=== PATIENT | female | born 1970 | race Caucasian/White ===

== ENCOUNTER 2018-11-17 20:40 | Emergency (ER) | payer OTHER ==
[~2018-11-17] VITALS: Ht 180.3 cm; Wt 127.0 kg
[~2018-11-17 20:40] MED LIST: AIMOVIG AU70 MG/1 ML SUB-Q; ALPRAZOLAM0.25 MG PO; ASPIR-LOW81 MG PO; CYCLOBENZAPRINE5 MG PO; GLUCOPHAGE500 MG PO; IRON18 MG PO; KETOROLAC TROME10 MG PO; PANTOPRAZOLE SO40 MG PO; PROPRANOLOL HCL20 MG PO; PROTONIX40 M1 PO; REGLAN10 MG PO; RIZATRIPTAN10 MG PO; SERTRALINE HCL25 MG PO; SUMATRIPTAN SU100 MG PO; SUMATRIPTAN20 MG NAS; TOPIRAMATE100 MG PO; TOPIRAMATE25 MG PO; VITAFOL-OB+DHA1 EACH; WELLBUTRIN SR150 MG PO; ZANTAC150 MG PO; ZOFRAN ODT8 MG PO
--- NOTE | 2018-11-18 17:00 | EKG ---
[facility] [address] [facility] [place], [place] [address] Signed Normal sinus rhythm Possible Left atrial enlargement Left ventricular hypertrophy Abnormal ECG When compared with ECG of 03-SEP-2018 11:50, No significant change was found Confirmed by ROMAIN SALDIVAR DO ([id number]) on 11/18/2018 5:00:02 PM Electronically Signed By: ROMAIN SALDIVAR DO 11/18/18 1700 PATIENT NAME: JAMSHIDDEBO Electrocardiogram DATE OF : 74 PHYSICIAN: ROMAIN SALDIVAR DO REPORT #: [id number] REPORT IS CONFIDENTIAL AND NOT TO BE RELEASED WITHOUT AUTHORIZATION
== END 2018-11-17 23:07 | disposition home or self-care (01) ==
LOC: ED 20:40
DX: R07.9 Chest pain, unspecified (principal); F32.9 Major depressive disorder, single episode, unspecified; K21.9 Gastro-esophageal reflux disease without esophagitis; Z88.5 Allergy status to narcotic agent; Z79.899 Other long term (current) drug therapy
CPT/HCPCS: 71046; 80053; 84484; 85025; 93005; 93010; 99285-25

== ENCOUNTER 2019-03-01 03:20 | Emergency (ER) | payer OTHER ==
[~2019-03-01] VITALS: Ht 180.3 cm; Wt 127.0 kg
--- OUTSIDE RECORDS SUMMARY | ~2019-03-01 | XMS | Encounter Summary ---
Demographics + + + | Address | [address] | | | [place] [address] | + + + | Home Phone | | + + + | Preferred Language | Unknown | + + + | Marital Status | | + + + | Sabianism Affiliation | Unknown | + + + | Race | White | + + + | Ethnic Group | Not or | + + + Author + + + | Author | [facility] | + + + | Organization | [facility] | + + + | Address | Unknown | + + + | Phone | Unavailable | + + + Support + + + + + | Name | Relationship | Address | Phone | + + + + + | Thaddeus Martínez | ECON | [address] # | | | | | [place], [place] | | | | | [address] | | + + + + + Care Team Providers + +------+ + | Care Coo & Co Founder Name | Role | Phone | + +------+ + | Latanya Sutton | PCP | Unavailable | + +------+ + Reason for Visit + + + | Reason | Comments | + + + | Returning Phone Call | | + + + Encounter Details +--------+ + + + + | Date | Type | Department | Care Team | Description | +--------+ + + + + | 08/14/ | Telephone | Neurosurgery at | Jose Monique MD | Returning Phone Call | | 2016 | | [facility] [address] | [address] | | | | | Perla Mailcode: CH8N | [place], [place] | | | | | [facility] | [address] | | | | | and , | [phone] | | | | | Floor [place], [place] | | | | | | [address] | | | | | | [phone] | | | +--------+ + + + + Social History + +-------+ +--------+------+ | Tobacco Use | Types | Packs/Day | Years | Date | | | | | Used | | + +-------+ +--------+------+ | Never Assessed | | | | | + +-------+ +--------+------+ + + + | Sex Assigned at | Date Recorded | | | | + + + | Not on file | | + + + + + + + | Job Start Date | Occupation | Industry | + + + + | Not on file | Not on file | Not on file | + + + + + + + + | Travel History | Travel Start | Travel End | + + + + + + | No recent travel history available. | + + documented as of this encounter Plan of Treatment +--------+---------+ + + + | Date | Type | Specialty | Care Team | Description | +--------+---------+ + + + | 05/24/ | Office | Neurology | Kavitha Servin | | | 2019 | Visit | | MD Inez [address] | | | | | | [place] | | | | | | [address] | | | | | | [phone] | | | | | | | | +--------+---------+ + + + documented as of this encounter Visit Diagnoses Not on filedocumented in this encounter"
--- OUTSIDE RECORDS SUMMARY | ~2019-03-01 | XMS | Encounter Summary ---
Demographics + + + | Address | [address] | | | [place] [address] | + + + | Home Phone | | + + + | Preferred Language | Unknown | + + + | Marital Status | | + + + | Cheondoism Affiliation | Unknown | + + + | Race | White | + + + | Ethnic Group | Not or | + + + Author + + + | Author | [facility] | + + + | Organization | [facility] | + + + | Address | Unknown | + + + | Phone | Unavailable | + + + Support + + + + + | Name | Relationship | Address | Phone | + + + + + | Thaddeus Martínez | ECON | [address] # | | | | | [place], [place] | | | | | [address] | | + + + + + Care Team Providers + +------+ + | Care Physical Education Instructor Name | Role | Phone | + +------+ + | Latanya Sutton | PCP | Unavailable | + +------+ + Encounter Details +--------+ + + + + | Date | Type | Department | Care Team | Description | +--------+ + + + + | 01/18/ | MyChart | Neurology at | Kavitha Servin | RE: Question on | | 2018 | Encounter | [place] [facility] & | SMD Sachin | Medications | | | | Healing [address] [place], [place] | | | | | Ashwin Duncan [facility] | [address] | | | | | Health and Healing | [phone] | | | | | [place], [place] | | | | | | [address] | | | | | | [phone] | | | +--------+ + + + [...] 2019 | Visit | | MD Inez [address] | | | | | | [place], [place] | | | | | | [address] | | | | | | [phone] | | | | | | | | +--------+---------+ + + + documented as of this encounter Visit Diagnoses Not on filedocumented in this encounter"
--- OUTSIDE RECORDS SUMMARY | ~2019-03-01 | XMS | Encounter Summary ---
Demographics + + + | Address | [address] | | | [place] [address] | + + + | Home Phone | | + + + | Preferred Language | Unknown | + + + | Marital Status | | + + + | Worship Affiliation | Unknown | + + + [...] | Thaddeus Martínez | ECON | [address] # | | | | | [place], [place] | | | | | [address] | | + + + + + Care Team Providers + +------+ + | Care Afterschool Babysitter Name | Role | Phone | + +------+ + | Latanya Sutton | PCP | Unavailable | + +------+ + Encounter Details +--------+ + + + + | Date | Type | Department | Care Team | Description | +--------+ + + + + | 09/06/ | MyChart | Neurology at | Kavtiha Servin | RE: Info for 09/10 | | 2017 | Encounter | [place] [facility] & | SMD [address] | Appointment | | | | Healing [address] | [place] [facility] [place] | | | | | [place] for | [address] | | | | | Health and Healing | [phone] | | | | | [place], [place] | | | | | | [address] | | | | | | [phone] | | | +--------+ + + + [...] 2019 | Visit | | MD Inez [address] | | | | | | [place] | | | | | | [address] | | | | | | [phone] | | | | | | | | +--------+---------+ + + + documented as of this encounter Visit Diagnoses Not on filedocumented in this encounter"
--- OUTSIDE RECORDS SUMMARY | ~2019-03-01 | XMS | Encounter Summary ---
Demographics + + + | Address | [address] | | | [place] [address] | + + + | Home Phone | | + + + | Preferred Language | Unknown | + + + | Marital Status | | + + + | Episcopalian Affiliation | Unknown | + + + | Race | White | + + + | Ethnic Group | Not or | + + + Author + + + | Author | [facility] | + + + | Organization | [facility] | + + + | Address | Unknown | + + + | Phone | Unavailable | + + + Support + + + + + | Name | Relationship | Address | Phone | + + + + + | Thaddeus Martínez | ECON | [address] # | | | | | [place], [place] | | | | | [address] | | + + + + + Care Team Providers + +------+ + | Care Facility Attendant Name | Role | Phone | + +------+ + | Latanya Sutton | PCP | Unavailable | + +------+ + Encounter Details +--------+ + + + + | Date | Type | Department | Care Team | Description | +--------+ + + + + | 09/14/ | MyChart | Neurology at | Kavitha Servin | Filling Ketorolac RX | | 2017 | Encounter | [facility] | SMD [address] | | | | | Healing [address] | [place] [facility] [place] | | | | | Ashwin Duncan [facility] | [address] | | | | | Health and Healing | [phone] | | | | | [place], [place] | | | | | | [address] | | | | | | [phone] | | | +--------+ + + + [...] | | | | | | [place]la [facility] [place] | | | | | | [address] | | | | | | [phone] | | | | | | | | +--------+---------+ + + + documented as of this encounter Visit Diagnoses Not on filedocumented in this encounter"
--- OUTSIDE RECORDS SUMMARY | ~2019-03-01 | XMS | Encounter Summary ---
Demographics + + + | Address | [address] | | | [place] [address] | + + + | Home Phone | | + + + | Preferred Language | Unknown | + + + | Marital Status | | + + + | Cheondoism Affiliation | Unknown | + + + | Race | White | + + + | Ethnic Group | Not or | + + + Author + + + | Author | [facility] | + + + | Organization | [facility] | + + + | Address | Unknown | + + + | Phone | Unavailable | + + + Support + + + + + | Name | Relationship | Address | Phone | + + + + + | Thaddeus Martínez | ECON | [address] # | | | | | [place], [place] | | | | | [address] | | + + + + + Care Team Providers + +------+ + | Care Physics And Astronomy Professor Name | Role | Phone | + +------+ + | Latanya Sutton | PCP | Unavailable | + +------+ + Encounter Details +--------+ + + + + | Date | Type | Department | Care Team | Description | +--------+ + + + + | 03/02/ | MyChart | Neurology at | Kavitha Servin | RE: BP Readings - | | 2017 | Encounter | [place] [facility] & | SMD [address] | Lisinopril | | | | Healing [address] | [place] [facility] [place] | | | | | [facility]win [facility] | [address] | | | | | Health and Healing | [phone] | | | | | [place], [place] | | | | | | [address] | | | | | | [phone] | | | +--------+ + + + [...] 2019 | Visit | | MD Inez [address] | | | | | | [place] | | | | | | [address] | | | | | | [phone] | | | | | | | | +--------+---------+ + + + documented as of this encounter Visit Diagnoses Not on filedocumented in this encounter"
--- OUTSIDE RECORDS SUMMARY | ~2019-03-01 | XMS | Encounter Summary ---
Demographics + + + | Address | [address] | | | [place] [address] | + + + | Home Phone | | + + + | Preferred Language | Unknown | + + + | Marital Status | | + + + | Congregation Affiliation | Unknown | + + + | Race | White | + + + | Ethnic Group | Not or | + + + Author + + + | Author | [facility] | + + + | Organization | [facility] | + + + | Address | Unknown | + + + | Phone | Unavailable | + + + Support + + + + + | Name | Relationship | Address | Phone | + + + + + | Thaddeus Martínez | ECON | [address] # | | | | | [place], [place] | | | | | [address] | | + + + + + Care Team Providers + +------+ + | Care Java Web Application Developer Name | Role | Phone | + +------+ + | Latanya Sutton | PCP | Unavailable | + +------+ + Encounter Details +--------+ + + + + | Date | Type | Department | Care Team | Description | +--------+ + + + + | 11/10/ | Telephone | Neurology at | Kavitha Servin | | | 2018 | | [place] [facility] & | MD Inez [address] | | | | | Healing [address] [place], [place] | | | | | Ashwin Duncan [facility] | [address] | | | | | Health and Healing | [phone] | | | | | [place], [place] | | | | | | [address] | | | | | | [phone] | | | +--------+ + + + [...] 2019 | Visit | | MD Inez [address] | | | | | | [place] | | | | | | [address] | | | | | | [phone] | | | | | | | | +--------+---------+ + + + documented as of this encounter Visit Diagnoses Not on filedocumented in this encounter"
--- OUTSIDE RECORDS SUMMARY | ~2019-03-01 | XMS | Encounter Summary ---
Demographics + + + | Address | [address] | | | [place] [address] | + + + | Home Phone | | + + + | Preferred Language | Unknown | + + + | Marital Status | | + + + | Jain Affiliation | Unknown | + + + | Race | White | + + + | Ethnic Group | Not or | + + + Author + + + | Author | [facility] | + + + | Organization | [facility] | + + + | Address | Unknown | + + + | Phone | Unavailable | + + + Support + + + + + | Name | Relationship | Address | Phone | + + + + + | Thaddeus Martínez | ECON | [address] # | | | | | [place], [place] | | | | | [address] | | + + + + + Care Team Providers + +------+ + | Care Control Electrician Name | Role | Phone | + +------+ + | Shanti Sanchez | PCP | | + +------+ + Encounter Details +--------+ + + + + | Date | Type | Department | Care Team | Description | +--------+ + + + + | 06/01/ | MyChart | Neurology at | Kavitha Servin | RE: Need New Aimovig | | 2018 | Encounter | [place] [facility] & | SMD [address] | RX | | | | Healing [address] | [place] [facility] [place] | | | | | Ashwin Duncan [facility] | [address] | | | | | Health and Healing | [phone] | | | | | [place], [place] | | | | | | [address] | | | | | | [phone] | | | +--------+ + + + [...] 05/24/ | Office | Neurology | Kavitha eSrvin | | | 2019 | Visit | | MD Inez [address] | | | | | | [place], [place] | | | | | | [address] | | | | | | [phone] | | | | | | | | +--------+---------+ + + + documented as of this encounter Visit Diagnoses Not on filedocumented in this encounter"
--- OUTSIDE RECORDS SUMMARY | ~2019-03-01 | XMS | Encounter Summary ---
Demographics + + + | Address | [address] | | | [place] [address] | + + + | Home Phone | | + + + | Preferred Language | Unknown | + + + | Marital Status | | + + + | Jewish Affiliation | Unknown | + + + | Race | White | + + + | Ethnic Group | Not or | + + + Author + + + | Author | [facility] | + + + | Organization | [facility] | + + + | Address | Unknown | + + + | Phone | Unavailable | + + + Support + + + + + | Name | Relationship | Address | Phone | + + + + + | Thaddeus Martínez | ECON | [address] # | | | | | [place], [place] | | | | | [address] | | + + + + + Care Team Providers + +------+ + | Care Reporting Specialist Name | Role | Phone | + [...] Description | +--------+--------+ + + + | 05/04/ | Refill | Neurology at | Kavitha Servin | Refill Request | | 2018 | | [facility] & | S, [address] | | | | | Healing [address] | [place], [place] | | | | | [facility] | [address] | | | | | Health and Healing | [phone] | | | | | [place], [place] | | | | | | [address] | | | | | | [phone] | | | +--------+--------+ + + + [...] 2019 | Visit | | MD Inez [address] | | | | | | [place] [facility] [place] | | | | | | [address] | | | | | | [phone] | | | | | | | | +--------+---------+ + + + documented as of this encounter Visit Diagnoses Not on filedocumented in this encounter"
--- OUTSIDE RECORDS SUMMARY | ~2019-03-01 | XMS | Encounter Summary ---
Demographics + + + | Address | [address] | | | [place] [address] | + + + | Home Phone | | + + + | Preferred Language | Unknown | + + + | Marital Status | | + + + | Orthodox Affiliation | Unknown | + + + | Race | White | + + + | Ethnic Group | Not or | + + + Author + + + | Author | [facility] | + + + | Organization | [facility] | + + + | Address | Unknown | + + + | Phone | Unavailable | + + + Support + + + + + | Name | Relationship | Address | Phone | + + + + + | Thaddeus Martínez | ECON | [address] # | | | | | [place], [place] | | | | | [address] | | + + + + + Care Team Providers + +------+ + | Care Assembler For Puller Over Machine Name | Role | Phone | + [...] | | | | Chronic | Olivia K, | Kavitha S, | | | | | nonintractab | [address] | [address] | | | | | le headache, | [address] | [address] | | | | | unspecified | [address] | [place], [place] | | | | | headache | [place] | [address] | | | | | type | [address] | Phone: | | | | | Procedures | Phone: | [phone] | | | | | CONSULT TO | [phone] | Fax: | | | | | NEUROLOGY | Fax: | [phone] | | | | | | [phone] | | +--------+--------+ + + + + Encounter Details +--------+---------+ + + + | Date | Type | Department | Care Team | Description | +--------+---------+ + + + | 02/12/ | Office | Neurology at | Kavitha Sevrin | Migraine without | | 2017 | Visit | [facility] & | MD Sachin Wiley | aura and without | | | | [address] | [address] [facility] [place] | status migrainosus, | | | | 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 INTERVAL HISTORY Headaches dropped to 3-8 STALLINGS pe rmonth. Her headaches comes in 2-3 days in a row. She usuall y get Toradol IM at the her teacher education instructor's office. She MEDICATIONS Current Outpatient Prescriptions on [...] fund of knowledge. Migraine Disability Score (manual oracle database administrator):: 70 (12/02/16 1100) Score Arredondo: 0-5: Little [...] to Topamax, she now reports 3 -8 STALLINGS/month. Plan: - Increase Topamax to 100 mg [...] Patient is welcome to e-mail via my [facility] chart if questions or concerns arise in the future. I spent 25 minutes with the patient. Greater than 50% of the time was spent counseling the patient regarding diagnosis, risks, benefits, and alternatives to current management. All questions were answered to patient s satisfaction. documented in thi s encounter Plan of Treatment +--------+---------+ + + + | Date | Type | Specialty | Care Team | Description | +--------+---------+ + + + | 05/24/ | Office | Neurology | Kavitha Servin | | | 2018 | Visit | | MD Inez [address] | | | | | | [place], [place] | | | | | | [address] | | | | | | [phone] | | | | | | | | +--------+---------+ + + + documented as of this encounter Visit Diagnoses + [...] Ketorolac Tromethamine 30 Mg | Given | 02/12/ | 60 mg | | Right | | Intramuscular | | 7 11:50 | | | Upper | | | | PDT | | | Quad. | | | | | | | Gluteus | + +--------+ +-------+------+---------+ +---+---+ | | | +---+---+ documented in this encounter
--- OUTSIDE RECORDS SUMMARY | ~2019-03-01 | XMS | Encounter Summary ---
Demographics + + + | Address | [address] | | | [place] [address] | + + + | Home Phone | | + + + | Preferred Language | Unknown | + + + | Marital Status | | + + + | Oriental Orthodox Affiliation | Unknown | + + + | Race | White | + + + | Ethnic Group | Not or | + + + Author + + + | Author | [facility] | + + + | Organization | [facility] | + + + | Address | Unknown | + + + | Phone | Unavailable | + + + Support + + + + + | Name | Relationship | Address | Phone | + + + + + | Thaddeus Martínez | ECON | [address] # | | | | | [place], [place] | | | | | [address] | | + + + + + Care Team Providers + +------+ + | Care Information Systems Security Developer Name | Role | Phone | + +------+ + | Latanya Sutton | PCP | Unavailable | + +------+ + Encounter Details +--------+ + + + + | Date | Type | Department | Care Team | Description | +--------+ + + + + | 11/10/ | Telephone | Neurology at | Kavitha Servin | | | 2018 | | [facility] & | MD Inez [address] | | | | | Healing [address] [place], [place] | | | | | Ashwin Duncan [facility] | [address] | | | | | Health and Healing | [phone] | | | | | [place], [place] | | | | | | [address] | | | | | | [phone] | | | +--------+ + + + [...] 2019 | Visit | | MD Inez [address] | | | | | | [place] | | | | | | [address] | | | | | | [phone] | | | | | | | | +--------+---------+ + + + documented as of this encounter Visit Diagnoses Not on filedocumented in this encounter"
--- OUTSIDE RECORDS SUMMARY | ~2019-03-01 | XMS | Encounter Summary ---
Demographics + + + | Address | [address] | | | [place] [address] | + + + | Home Phone | | + + + | Preferred Language | Unknown | + + + | Marital Status | | + + + | Yarsanism Affiliation | Unknown | + + + | Race | White | + + + | Ethnic Group | Not or | + + + Author + + + | Author | [facility] | + + + | Organization | [facility] | + + + | Address | Unknown | + + + | Phone | Unavailable | + + + Support + + + + + | Name | Relationship | Address | Phone | + + + + + | Thaddeus Martínez | ECON | [address] # | | | | | [place], [place] | | | | | [address] | | + + + + + Care Team Providers + +------+ + | Care Artificial Limb Fitter Name | Role | Phone | + +------+ + | Latanya Sutton | PCP | Unavailable | + +------+ + Encounter Details +--------+ + + + + | Date | Type | Department | Care Team | Description | +--------+ + + + + | 12/11/ | MyChart | Neurology at | Kavitha Servin | RE: Medication | | 2017 | Encounter | [facility] & | MD Sachin Wiley | Clarification | | | | Healing [address] | [place], [place] | | | | | Ashwin Duncan [facility] | [address] | | | | | Health and Healing | [phone] | | | | | [place], [place] | | | | | | [address] | | | | | | [phone] | | | +--------+ + + + [...] | 2019 | Visit | | MD Barron [address] | | | | | | [place] | | | | | | [address] | | | | | | [phone] | | | | | | | | +--------+---------+ + + + documented as of this encounter Visit Diagnoses Not on filedocumented in this encounter"
--- OUTSIDE RECORDS SUMMARY | ~2019-03-01 | XMS | Encounter Summary ---
Demographics + + + | Address | [address] | | | [place] [address] | + + + | Home Phone | | + + + | Preferred Language | Unknown | + + + | Marital Status | | + + + | Caodaism Affiliation | Unknown | + + + | Race | White | + + + | Ethnic Group | Not or | + + + Author + + + | Author | [facility] | + + + | Organization | [facility] | + + + | Address | Unknown | + + + | Phone | Unavailable | + + + Support + + + + + | Name | Relationship | Address | Phone | + + + + + | Thaddeus Martínez | ECON | [address] # | | | | | [place], [place] | | | | | [address] | | + + + + + Care Team Providers + +------+ + | Care Binder And Box Builder Name | Role | Phone | + +------+ + | Shanti Sanchez | PCP | | + +------+ + Encounter Details +--------+ + + + + | Date | Type | Department | Care Team | Description | +--------+ + + + + | 11/07/ | MyChart | Neurology at | Kavitha Servin | RE: Itching Side | | 2019 | Encounter | [facility] | SMD [address] | Effect Aimovig | | | | Healing [address] | [place], [place] | | | | | [address] [place] [facility] | [address] | | | | | Health and Healing | [phone] | | | | | [place], [place] | | | | | | [address] | | | | | | [phone] | | | +--------+ + + + [...] 2019 | Visit | | MD Inez [address] | | | | | | [place], [place] | | | | | | [address] | | | | | | [phone] | | | | | | | | +--------+---------+ + + + documented as of this encounter Visit Diagnoses Not on filedocumented in this encounter"
--- OUTSIDE RECORDS SUMMARY | ~2019-03-01 | XMS | Encounter Summary ---
Demographics + + + | Address | [address] | | | [place] [address] | + + + | Home Phone | | + + + | Preferred Language | Unknown | + + + | Marital Status | | + + + | Samaritan Affiliation | Unknown | + + + | Race | White | + + + | Ethnic Group | Not or | + + + Author + + + | Author | [facility] | + + + | Organization | [facility] | + + + | Address | Unknown | + + + | Phone | Unavailable | + + + Support + + + + + | Name | Relationship | Address | Phone | + + + + + | Thaddeus Martínez | ECON | [address] # | | | | | [place], [place] | | | | | [address] | | + + + + + Care Team Providers + +------+ + | Care Construction Producer Name | Role | Phone | + +------+ + | Latanya Sutton | PCP | Unavailable | + +------+ + Encounter Details +--------+ + + + + | Date | Type | Department | Care Team | Description | +--------+ + + + + | 09/10/ | Business Performance Advisor | Neurology at | Kavitha Servin | | | 2017 | | [facility] | SMD Sach[address] | | | | | Healing [address] | [place], [place] | | | | | Ashwin Ducnan [facility] | [address] | | | | | Health and Healing | [phone] | | | | | [place], [place] | | | | | | [address] | | | | | | [phone] | | | +--------+ + + + [...] 2019 | Visit | | MD Inez [address] | | | | | | [place] | | | | | | [address] | | | | | | [phone] | | | | | | | | +--------+---------+ + + + documented as of this encounter Visit Diagnoses Not on filedocumented in this encounter"
--- OUTSIDE RECORDS SUMMARY | ~2019-03-01 | XMS | Encounter Summary ---
Demographics + + + | Address | [address] | | | [place] [address] | + + + | Home Phone | | + + + | Preferred Language | Unknown | + + + | Marital Status | | + + + | Baptism Affiliation | Unknown | + + + | Race | White | + + + | Ethnic Group | Not or | + + + Author + + + | Author | [facility] | + + + | Organization | [facility] | + + + | Address | Unknown | + + + | Phone | Unavailable | + + + Support + + + + + | Name | Relationship | Address | Phone | + + + + + | Thaddeus Martínez | ECON | [address] # | | | | | [place], [place] | | | | | [address] | | + + + + + Care Team Providers + +------+ + | Care Cant Gang Sawyer Name | Role | Phone | + [...] | Medication | | 2019 | | [facility] & | SMD [address] | (Emgality) | | | | Healing [address] | Ave [place], [place] | | | | | Ashwin [facility] | [address] | | | | | Health and Healing | [phone] | | | | | [place], [place] | | | | | | [address] | | | | | | [phone] | | | +--------+ + + + [...] 2019 | Visit | | MD Inez [address] | | | | | | [place], [place] | | | | | | [address] | | | | | | [phone] | | | | | | | | +--------+---------+ + + + documented as of this encounter Visit Diagnoses Not on filedocumented in this encounter"
--- OUTSIDE RECORDS SUMMARY | ~2019-03-01 | XMS | Encounter Summary ---
Demographics + + + | Address | [address] | | | [place] [address] | + + + | Home Phone | | + + + | Preferred Language | Unknown | + + + | Marital Status | | + + + | Spiritism Affiliation | Unknown | + + + | Race | White | + + + | Ethnic Group | Not or | + + + Author + + + | Author | [facility] | + + + | Organization | [facility] | + + + | Address | Unknown | + + + | Phone | Unavailable | + + + Support + + + + + | Name | Relationship | Address | Phone | + + + + + | Thaddeus Martínez | ECON | [address] # | | | | | [place], [place] | | | | | [address] | | + + + + + Care Team Providers + +------+ + | Care Food Operations Manager Name | Role | Phone | + +------+ + | Latanya Sutton | PCP | Unavailable | + +------+ + Encounter Details +--------+ + + + + | Date | Type | Department | Care Team | Description | +--------+ + + + + | 01/07/ | MyChart | Neurology at | K[facility]itha Servin | RE: Update since | | 2017 | Encounter | [facility] & | MD Inez [address] | Appointment - ER | | | | Healing [address] | Ave [facility] [place] | visit | | | | Ashwin Duncan [facility] for | [address] | | | | | Health and Healing | [phone] | | | | | [place], [place] | | | | | | [address] | | | | | | [phone] | | | +--------+ + + + [...] | | | | | | [place], [place] | | | | | | [address] | | | | | | [phone] | | | | | | | | +--------+---------+ + + + documented as of this encounter Visit Diagnoses Not on filedocumented in this encounter"
--- OUTSIDE RECORDS SUMMARY | ~2019-03-01 | XMS | Encounter Summary ---
Demographics + + + | Address | [address] | | | [place] [address] | + + + | Home Phone [...] + + + | Author | [facility] | + + + | Organization | [facility] | + + + | Address | Unknown | + + + | Phone | Unavailable | + + + Support + + + + + | Name | Relationship | Address | Phone | + + + + + | Thaddeus Martínez | ECON | [address] # | | | | | [place], [place] | | | | | [address] | | + + + + + Care Team Providers + +------+ + | Care Home Furnishings Sales Representative Name | Role | Phone | + +------+ + | Latanya Sutton | PCP | Unavailable | + +------+ + Encounter Details +--------+ + + + + | Date | Type | Department | Care Team | Description | +--------+ + + + + | 03/11/ | Abstract | Neurology at | Kavitha Servin | | | 2018 | | [place] [facility] & | SMD [address] | | | | | Healing [address] [place], [place] | | | | | Ashwin Duncan [facility] | [address] | | | | | Health and Healing | [phone] | | | | | [place], [place] | | | | | | [address] | | | | | | [phone] | | | +--------+ + + + [...] 2019 | Visit | | MD Inez [address] | | | | | | [place], [place] | | | | | | [address] | | | | | | [phone] | | | | | | | | +--------+---------+ + + + documented as of this encounter Visit Diagnoses Not on filedocumented in this encounter"
--- OUTSIDE RECORDS SUMMARY | ~2019-03-01 | XMS | Encounter Summary ---
Demographics + + + | Address | [address] | | | [place] [address] | + + + | Home Phone [...] + + + | Author | [facility] | + + + | Organization | [facility] | + + + | Address | Unknown | + + + | Phone | Unavailable | + + + Support + + + + + | Name | Relationship | Address | Phone | + + + + + | Thaddeus Martínez | ECON | [address] # | | | | | [place], [place] | | | | | [address] | | + + + + + Care Team Providers + +------+ + | Care Hand Grinder Name | Role | Phone | + [...] since | | 2017 | Encounter | [facility] & | MD Inez [address] | Appointment - ER | | | | Healing [address] | Ave [facility] [place] | visit | | | | Ashwin Duncan [facility] | [address] | | | | | Health and Healing | [phone] | | | | | [place], [place] | | | | | | [address] | | | | | | [phone] | | | +--------+ + + + [...] | | | | | | [place], [place] | | | | | | [address] | | | | | | [phone] | | | | | | | | +--------+---------+ + + + documented as of this encounter Visit Diagnoses Not on filedocumented in this encounter"
--- OUTSIDE RECORDS SUMMARY | ~2019-03-01 | XMS | Encounter Summary ---
Demographics + + + | Address | [address] | | | [place] [address] | + + + | Home Phone | | + + + | Preferred Language | Unknown | + + + | Marital Status | | + + + | Confucianist Affiliation | Unknown | + + + [...] Thaddeus Martínez | ECON | [address] # | | | | | [place], [place] | | | | | [address] | | + + + + + Care Team Providers + +------+ + | Care Websphere Commerce Developer Name | Role | Phone | + +------+ + | Latanya Sutton | PCP | Unavailable | + +------+ + Encounter Details +--------+ + + + + | Date | Type | Department | Care Team | Description | +--------+ + + + + | 02/19/ | MyChart | Neurology at | Kavitha Servin | RE: [facility] | | 2017 | Encounter | [facility] & | MD Inez [address] | | | | | Healing [address] | [place] [facility] [place] | | | | | Ashwin Duncan [facility] | [address] | | | | | Health and Healing | [phone] | | | | | [place], [place] | | | | | | [address] | | | | | | [phone] | | | +--------+ + + + [...] 2019 | Visit | | MD Inez [address] | | | | | | [place], [place] | | | | | | [address] | | | | | | [phone] | | | | | | | | +--------+---------+ + + + documented as of this encounter Visit Diagnoses Not on filedocumented in this encounter"
--- OUTSIDE RECORDS SUMMARY | ~2019-03-01 | XMS | Encounter Summary ---
Demographics + + + | Address | [address] | | | [place] [address] | + + + | Home Phone | | + + + | Preferred Language | Unknown | + + + | Marital Status | | + + + | Jehovah'S Witness Affiliation | Unknown | + + + [...] Thaddeus Martínez | ECON | [address] # | | | | | [place], [place] | | | | | [address] | | + + + + + Care Team Providers + +------+ + | Care Office Executive Name | Role | Phone | + +------+ + | Shanti Sanchez | PCP | | + +------+ + Encounter Details +--------+ + + + + | Date | Type | Department | Care Team | Description | +--------+ + + + + | 05/26/ | Telephone | Neurology at | Kavitha Servin | | | 2017 | | [place] [facility] & | MD Sachin Wiley | | | | | Healing [address] | [place] [facility] [place] | | | | | Ashwin Duncan [facility] | [address] | | | | | Health and Healing | [phone] | | | | | [place], [place] | | | | | | [address] | | | | | | [phone] | | | +--------+ + + + [...] | | | | | | [place], [place] | | | | | | [address] | | | | | | [phone] | | | | | | | | +--------+---------+ + + + documented as of this encounter Visit Diagnoses Not on filedocumented in this encounter"
--- OUTSIDE RECORDS SUMMARY | ~2019-03-01 | XMS | Encounter Summary ---
Demographics + + + | Address | [address] | | | [place] [address] | + + + | Home Phone | | + + + | Preferred Language | Unknown | + + + | Marital Status | | + + + | Yarsanism Affiliation | Unknown | + + + | Race | White | + + + | Ethnic Group | Not or | + + + Author + + + | Author | [facility] | + + + | Organization | [facility] | + + + | Address | Unknown | + + + | Phone | Unavailable | + + + Support + + + + + | Name | Relationship | Address | Phone | + + + + + | Thaddeus Martínez | ECON | [address] # | | | | | [place], [place] | | | | | [address] | | + + + + + Care Team Providers + +------+ + | Care Warp Hanger Name | Role | Phone | + +------+ + | Latanya Sutton | PCP | Unavailable | + +------+ + Encounter Details +--------+ + + + + | Date | Type | Department | Care Team | Description | +--------+ + + + + | 12/11/ | MyChart | Neurology at | Kavitha Servin | RE: Medication | | 2017 | Encounter | [facility] & | MD Sachin Wiley | Clarification | | | | Healing [address] | [place], [place] | | | | | Ashwin Duncan [facility] | [address] | | | | | Health and Healing | [phone] | | | | | [place], [place] | | | | | | [address] | | | | | | [phone] | | | +--------+ + + + [...] | | | | | | [place] | | | | | | [address] | | | | | | [phone] | | | | | | | | +--------+---------+ + + + documented as of this encounter Visit Diagnoses Not on filedocumented in this encounter"
--- OUTSIDE RECORDS SUMMARY | ~2019-03-01 | XMS | Encounter Summary ---
Demographics + + + | Address | [address] | | | [place] [address] | + + + | Home Phone | | + + + | Preferred Language | Unknown | + + + | Marital Status | | + + + | Hindu Affiliation | Unknown | + + + | Race | White | + + + | Ethnic Group | Not or | + + + Author + + + | Author | [facility] | + + + | Organization | [facility] | + + + | Address | Unknown | + + + | Phone | Unavailable | + + + Support + + + + + | Name | Relationship | Address | Phone | + + + + + | Thaddeus Martínez | ECON | [address] # | | | | | [place], [place] | | | | | [address] | | + + + + + Care Team Providers + +------+ + | Care In House Cra Name | Role | Phone | + [...] | | unspecified | [address] | [place], [place] | | | | | headache | [place], [place] | [address] | | | | | type | [address] | Phone: | | | | | Procedures | Phone: | [phone] | | | | | CONSULT TO | [phone] | Fax: | | | | | NEUROLOGY | Fax: | [phone] | | | | | | [phone] | | +--------+--------+ + + + + Encounter Details +--------+---------+ + + + | Date | Type | Department | Care Team | Description | +--------+---------+ + + + | 02/12/ | Office | Neurology at | Kavitha Servin | Migraine without | | 2017 | Visit | [facility] & | MD Sachin Wiley | aura and without | | | | [address] | Ave [facility] [place] | status migrainosus, | | | | Ashwin Duncan 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 INTERVAL HISTORY Headaches dropped to 3-8 STALLINGS pe rmonth. Her headaches comes in 2-3 days in a row. 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 She MEDICATIONS Current Outpatient Prescriptions on [...] of knowledge. Migraine Disability Score (manual data warehouse manager):: 70 (12/02/16 1100) Score Arredondo: 0-5: Little [...] Patient is welcome to e-mail via my [facility] chart if questions or concerns arise [...] | | | | | | [place], [place] | | | | | | [address] | | | | | | [phone] | | | | | | | [...]
--- OUTSIDE RECORDS SUMMARY | ~2019-03-01 | XMS | Encounter Summary ---
Demographics + + + | Address | [address] | | | [place] [address] | + + + | Home Phone | | + + + | Preferred Language | Unknown | + + + | Marital Status | | + + + | Shinto Affiliation | Unknown | + + + | Race | White | + + + | Ethnic Group | Not or | + + + Author + + + | Author | [facility] | + + + | Organization | [facility] | + + + | Address | Unknown | + + + | Phone | Unavailable | + + + Support + + + + + | Name | Relationship | Address | Phone | + + + + + | Thaddeus Martínez | ECON | [address] # | | | | | [place], [place] | | | | | [address] | | + + + + + Care Team Providers + +------+ + | Care Tester Operator Name | Role | Phone | + +------+ + | Shanti Sanchez | PCP | | + +------+ + Reason for Visit + + + | Reason | Comments | + + + | Follow-up visit | | + + + Consultation (Routine) + +--------+ + + + + | Status | Reason | Specialty | Diagnoses / | Referred By | Referred To | | | | | Procedures | Contact | Contact | + +--------+ + + + + | Authorized | | Neurology | Diagnoses | Remling, | Gareth, | | | | | Chronic | Olivia Bliss, | Kavitha Wiley, | | | | | nonintractab | [address] | MD Sachin ROYAL | | | | | le headache, | [address] | [address] | | | | | unspecified | [address] | [place], [place] | | | | | headache | [place], [place] | [address] | | | | | type | [address] | Phone: | | | | | Procedures | Phone: | [phone] | | | | | CONSULT TO | [phone] | Fax: | | | | | NEUROLOGY | Fax: | [phone] | | | | | [address] | [phone] | | + +--------+ + + + + Encounter Details +--------+---------+ + + + | Date | Type | Department | Care Team | Description | +--------+---------+ + + + | 11/18/ | Office | Neurology at | Kavitha Servin | Chronic migraine | | 2019 | Visit | [facility] & | S, MD [address] | without aura without | | | | Healing [address] | [address] [place], [place] | status migrainosus, | | | | [address] [place] for | [address] | not intractable | | | | Health and Healing | [phone] | (Primary Dx) | | | | [place], [place] | | | | | | [address] | | | | | | [phone] | | | +--------+---------+ + + + [...] PM PST- Make sure to see a paralegal for arms rash - Wait until Aimovig [...] Prescription for Cefaly Unit FDA approved medical case worker for use in helping to reduce migraine occurrences Dispense: #1 Cefaly Unit with 3 set of electrodes Directions: use 20 min each night as directed by roof designer 1 each 3 cyclobenzaprine 5 mg oral [...] swing, and turning. Migraine Disability Score (manual maintenance data analyst):: 25 (05/10/18 1400) Score Arredondo: 0-5: Little [...] severe constipation. Plan:. - Follow-up with local paralegal - Once GI function returns to normal, start Emgality 120 mg SC monthly - RTC in 4-6 months. Patient is welcome to e-mail via my [facility] chart if questions or concern s arise [...] 2019 | Visit | | MD Inez [address] | | | | | | [place], [place] | | | | | | [address] | | | | | | [phone] | | | | | | | [...]
--- OUTSIDE RECORDS SUMMARY | ~2019-03-01 | XMS | Encounter Summary ---
Demographics + + + | Address | [address] | | | [place] [address] | + + + | Home Phone | | + + + | Preferred Language | Unknown | + + + | Marital Status | | + + + | Worship Affiliation | Unknown | + + + | Race | White | + + + | Ethnic Group | Not or | + + + Author + + + | Author | [facility] | + + + | Organization | [facility] | + + + | Address | Unknown | + + + | Phone | Unavailable | + + + Support + + + + + | Name | Relationship | Address | Phone | + + + + + | Thaddeus Martínez | ECON | [address] # | | | | | [place], [place] | | | | | [address] | | + + + + + Care Team Providers + +------+ + | Care Dredge Pipeman Name | Role | Phone | + +------+ + | Latanya Sutton | PCP | Unavailable | + +------+ + Reason for Visit + + + | Reason | Comments | + + + | Care Coordination | CGRP Enrollment | + + + Encounter Details +--------+ + + + + | Date | Type | Department | Care Team | Description | +--------+ + + + + | 03/11/ | Telephone | Neurology at | Kavitha Servin | Care Coordination | | 2018 | | [facility] & | MD [address] | (CGRP Enrollment ) | | | | Healing [address] | [place], [place] | | | | | Ashwin Duncan [facility] | [address] | | | | | Health and Healing | [phone] | | | | | [place], [place] | | | | | | [address] | | | | | | [phone] | | | +--------+ + + + [...] 2019 | Visit | | MD Inez [address] | | | | | | [place], [place] | | | | | | [address] | | | | | | [phone] | | | | | | | | +--------+---------+ + + + documented as of this encounter Visit Diagnoses Not on filedocumented in this encounter"
--- OUTSIDE RECORDS SUMMARY | ~2019-03-01 | XMS | Encounter Summary ---
Demographics + + + | Address | [address] | | | [place] [address] | + + + | Home Phone | | + + + | Preferred Language | Unknown | + + + | Marital Status | | + + + | Samaritan Affiliation | Unknown | + + + | Race | White | + + + | Ethnic Group | Not or | + + + Author + + + | Author | [facility] | + + + | Organization | [facility] | + + + | Address | Unknown | + + + | Phone | Unavailable | + + + Support + + + + + | Name | Relationship | Address | Phone | + + + + + | Thaddeus Martínez | ECON | [address] # | | | | | [place], [place] | | | | | [address] | | + + + + + Care Team Providers + +------+ + | Care Archaeology Professor Name | Role | Phone | [...] | | Healing [address] | [place] [facility] [place] | | | | | Ashwin Duncan [facility] | [address] | | | | | Health and Healing | [phone] | | | | | [place], [place] | | | | | | [address] | | | | | | [phone] | | | +--------+ + + + [...] 2019 | Visit | | MD Inez [address] | | | | | | [place], [place] | | | | | | [address] | | | | | | [phone] | | | | | | | | +--------+---------+ + + + documented as of this encounter Visit Diagnoses Not on filedocumented in this encounter"
--- OUTSIDE RECORDS SUMMARY | ~2019-03-01 | XMS | Encounter Summary ---
Demographics + + + | Address | [address] | | | [place] [address] | + + + | Home Phone | | + + + | Preferred Language | Unknown | + + + | Marital Status | | + + + | Evangelical Affiliation | Unknown | + + + | Race | White | + + + | Ethnic Group | Not or | + + + Author + + + | Author | [facility] | + + + | Organization | [facility] | + + + | Address | Unknown | + + + | Phone | Unavailable | + + + Support + + + + + | Name | Relationship | Address | Phone | + + + + + | Thaddeus Martínez | ECON | [address] # | | | | | [place], [place] | | | | | [address] | | + + + + + Care Team Providers + +------+ + | Care Lithopone Charger Name | Role | Phone | + [...] | | unspecified | [address] | [place], [place] | | | | | headache | [place], [place] | [address] | | | | | type | [address] | Phone: | | | | | Procedures | Phone: | [phone] | | | | | CONSULT TO | [phone] | Fax: | | | | | NEUROLOGY | Fax: | [phone] | | | | | [address] | [phone] | | + +--------+ + + + + Encounter Details +--------+---------+ + + + | Date | Type | Department | Care Team | Description | +--------+---------+ + + + | 11/18/ | Office | Neurology at | Kavitha Servin | Chronic migraine | | 2019 | Visit | [facility] & | S, MD [address] | without aura without | | | | Healing [address] | [address] [place], [place] | status migrainosus, | | | | [address] [place] for | [address] | not intractable | | | | Health and Healing | [phone] | (Primary Dx) | | | | [place], [place] | | | | | | [address] | | | | | | [phone] | | | +--------+---------+ + + + [...] PM PST- Make sure to see a construction or leak gang laborer for arms rash - Wait until Aimovig [...] temporarily to prednisone. - She reports 13 STALLNIGS days in Melo, 7 in Dec, 5 [...] Prescription for Cefaly Unit FDA approved medical office technician for use in helping to reduce migraine occurrences Dispense: #1 Cefaly Unit with 3 set of electrodes Directions: use 20 min each night as directed by atmospheric drier tender 1 each 3 cyclobenzaprine 5 mg oral [...] swing, and turning. Migraine Disability Score (manual data integrity specialist):: 25 (05/10/18 1400) Score Arredondo: 0-5: [...] severe constipation. Plan:. - Follow-up with local construction or leak gang laborer - Once GI function returns to normal, start Emgality 120 mg SC monthly - RTC in 4-6 months. Patient is welcome to e-mail via my [facility] chart if questions or concern s [...] | | | | | | [place], [place] | | | | | | [address] | | | | | | [phone] | | | | | | | [...]
--- OUTSIDE RECORDS SUMMARY | ~2019-03-01 | XMS | Encounter Summary ---
Demographics + + + | Address | [address] | | | [place] [address] | + + + | Home Phone | | + + + | Preferred Language | Unknown | + + + | Marital Status | | + + + | Caodaism Affiliation | Unknown | + + + | Race | White | + + + | Ethnic Group | Not or | + + + Author + + + | Author | [facility] | + + + | Organization | [facility] | + + + | Address | Unknown | + + + | Phone | Unavailable | + + + Support + + + + + | Name | Relationship | Address | Phone | + + + + + | Thaddeus Martínez | ECON | [address] # | | | | | [place], [place] | | | | | [address] | | + + + + + Care Team Providers + +------+ + | Care Locker Room Clerk Name | Role | Phone | + [...] Authorized | | Neurology | Diagnoses | Rembennett, | Gareth, | | | | | Chronic | Olivia Bliss, | Kavitha Wiley, | | | | | nonintractab | CHANDAN [address] | MD Sachin ROYAL | | | | | le headache, | Hunter Oakes | [address] | | | | | unspecified | [address] | [place], [place] | | | | | headache | [place], [place] | [address] | | | | | type | [address] | Phone: | | | | | Procedures | Phone: | [phone] | | | | | CONSULT TO | [phone] | Fax: | | | | | NEUROLOGY | Fax: | [phone] | | | | | [address] | [phone] | | + +--------+ + + + + Encounter Details +--------+---------+ + + + | Date | Type | Department | Care Team | Description | +--------+---------+ + + + | 03/11/ | Office | Neurology at | Kavitha Servin | Migraine without | | 2018 | Visit | [facility] & | MD Sachin Wiley | aura and without | | | | Healing [address] | [address] [facility], [place] | status migrainosus, | | | | [address] [place] for | [address] | not intractable | | | | Health and Healing | [phone] | (Primary Dx) | | | | [place], [place] | | | | | | [address] | | | | | | [phone] | | | +--------+---------+ + + + [...] + + + | Blood Pressure | 157/87 | 03/11/2018 1:51 PM | | | | | PDT | | + + + + + | Pulse | 105 | 03/11/2018 1:51 PM | | | | | PDT [...] + + + + | Weight | 134.7 kg (297 lb) | 03/11/2018 1:51 PM | | | | | PDT | | + + + + + | Height | - | - | | + + + + + | Body Mass Index | 41.42 | 02/12/2017 10:39 AM | | | | | PDT | | + + + + + documented in this encounter Patient Instructions Patient Instructions Kavitha Servin MD - 03/11/2018 2:00 PM PDT Trial of Relpax/Elet riptan ( 40 mg) to break headaches: Take 1 tablet at onset of severe headache, may repeat at 2 hours, limit to 80 mg in 24 hours. - Limit all abortive agents ( Triptan, Ibuprofen, Tylenol, Excedrin) to 10 days per month. - Trial of Aimovig SC 70 mg once per month. - Continue Cefaly 20 minutes at night. - CBC and complete metabolic panel will be checked today. Your lab can be drawn on the 3rd floor. 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 INTERVAL HISTORY - She did not tolerate Amitriptyline. She stopped it. -Rizatriptan was not effective. - She was given Zomig which was effective, however she could get only 2 per month. - She started Cefaly which she found effective. Headache dropped to 5 per month. MEDICATIONS Current Outpatient Prescriptions on File Prior [...] Prescription for Cefaly Unit FDA approved medical secretary for use in helping to reduce migraine occurrences Dispense: #1 Cefaly Unit with 3 set of electrodes Directions: use 20 min each night as directed by bottom ironer 1 each 3 cyclobenzaprine 5 mg oral tablet Take 5 mg by mouth three times daily as needed. Do not use longer than 2-3 weeks. ketorolac 10 mg oral tablet ketorolac 60 [...] tolerated 4. Rizatriptan 5. Amitriptyline 6. Zomig PHYSICAL EXAM BP 157/87 | Pulse 105 | Wt 134.7 kg (297 lb) | LMP 02/05/2018 | BMI 41.42 kg/(m^2) GENERAL: The patient is well groomed, in a good spirit with a normal attention, concentrati on, and a good fund of knowledge. Migraine Disability Score (manual senior sql database developer):: 70 (12/02/16 1100) Score Arredondo: 0-5: Little [...] chronic migraine 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 She reports 5-11 STALLINGS per month in the last 3 months. Plan: - Trial of Relpax/Eletriptan ( 40 mg) to break headaches: Take 1 tablet at onset of severe headache, may repeat at 2 hours, limit to 80 mg in 24 hours. - Limit all abortive agents ( Triptan, Ibuprofen, Tylenol, Excedrin) to 10 days per month. - Trial of Aimovig SC 70 mg once per month. - Continue Cefaly 20 minutes at night. - CBC and complete metabolic panel will be checked today. - RTC in 2 months. Patient is welcome to e-mail via my [facility] chart if questions or concerns [...] | Visit | | MD Inez [address] | | | | | | [place], [place] | | | | | | [address] | | | | | | [phone] | | | | | | | | +--------+---------+ + + + documented as of this encounter Results COMPLETE METABOLIC [...] | | | LABORATORY | | | [facility] | | | SERVICES, | | | [...] | Specimen | + + | Blood | + + + + + | Narrative | Performed At | + + + | GFR is estimated using the MDRD equation recommended by the | [facility] | | National Kidney Disease Education Program. Estimated GFR | LABORATORY | | Interpretive Information: <60 mL/min/1.73 sq | SERVICES, [facility] | | m Chronic Kidney Disease <15 mL/min/1.73 | | | sq m Kidney Failure Estimated GFR greater | | | that 60 mL/min/1.73 sq m is of limited clinical value. The MDRD | | | equation is not valid in the following situations: - Patients under | | | 18 years of age - Severe malnutrition or obesity - Vegetarian diet | | | - Rapidly changing kidney function - Amputees, paraplegics, or other | | | muscle-wasting diseses | | + + + + + + + + | Performing | Address | City/State/Zipcode | Phone Number | | Organization | | | | + + + + + | [facility] | [address] | [place] [address] | | | [address] | [address] | | | + [...]
--- OUTSIDE RECORDS SUMMARY | ~2019-03-01 | XMS | Encounter Summary ---
Demographics + + + | Address | [address] | | | [place] [address] | + + + | Home Phone | | + + + | Preferred Language | Unknown | + + + | Marital Status | | + + + | Islam Affiliation | Unknown | + + + | Race | White | + + + | Ethnic Group | Not or | + + + Author + + + | Author | [facility] | + + + | Organization | [facility] | + + + | Address | Unknown | + + + | Phone | Unavailable | + + + Support + + + + + | Name | Relationship | Address | Phone | + + + + + | Thaddeus Martínez | ECON | [address] # | | | | | [place], [place] | | | | | [address] | | + + + + + Care Team Providers + +------+ + | Care Department Director Name | Role | Phone | + [...] | | unspecified | [address] | [place], [place] | | | | | headache | [place], [place] | [address] | | | | | type | [address] | Phone: | | | | | Procedures | Phone: | [phone] | | | | | CONSULT TO | [phone] | Fax: | | | | | NEUROLOGY | Fax: | [phone] | | | | | [address] | [phone] | | + +--------+ + + + + Encounter Details +--------+---------+ + + + | Date | Type | Department | Care Team | Description | +--------+---------+ + + + | 03/11/ | Office | Neurology at | Kavitha Servin | Migraine without | | 2018 | Visit | [facility] & | MD Sachin Wiley | aura and without | | | | Healing [address] | [address] [facility], [place] | status migrainosus, | | | | [address] [place] for | [address] | not intractable | | | | Health and Healing | [phone] | (Primary Dx) | | | | [place], [place] | | | | | | [address] | | | | | | [phone] | | | +--------+---------+ + + + [...] presented to the Headache Clinic with 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 [...] F) Prescription for Cefaly Unit FDA approved medical/surgery registered nurse for use in helping to reduce migraine occurrences Dispense: #1 Cefaly Unit with 3 set of electrodes Directions: use 20 min each night as directed by glass tube bender 1 each 3 cyclobenzaprine 5 mg oral [...] fund of knowledge. Migraine Disability Score (manual bi data modeler):: 70 (12/02/16 1100) Score Arredondo: 0-5: Little [...] is welcome to e-mail via my [facility] chart if questions or concerns arise [...] | | | | | | [place], [place] | | | | | | [address] | | | | | | [phone] | | | | | | | [...] | | | LABORATORY | | | [facility] | | | SERVICES, | | | [...] the MDRD equation recommended by the | [facility] | | National Kidney Disease Education Program. Estimated GFR | LABORATORY | | Interpretive Information: <60 mL/min/1.73 sq | SERVICES, [facility] | | m Chronic Kidney Disease <15 [...] | + + + + + | [facility] | [address] | [place] [address] | | | [address] | [address] [...]
--- OUTSIDE RECORDS SUMMARY | ~2019-03-01 | XMS | Encounter Summary ---
Demographics + + + | Address | [address] | | | [place] [address] | + + + | Home Phone [...] + + + | Author | [facility] | + + + | Organization | [facility] | + + + | Address | Unknown | + + + | Phone | Unavailable | + + + Support + + + + + | Name | Relationship | Address | Phone | + + + + + | Thaddeus Martínez | ECON | [address] # | | | | | [place], [place] | | | | | [address] | | + + + + + Care Team Providers + +------+ + | Care Clean Out Driller Name | Role | Phone | + [...] | 2018 | | [facility] & | S, [address] | | | | | Healing [address] | [place], [place] | | | | | [facility] | [address] | | | | | Health and Healing | [phone] | | | | | [place], [place] | | | | | | [address] | | | | | | [phone] | | | +--------+--------+ + + + [...] 2019 | Visit | | MD Inez [address] | | | | | | [place] [facility] [place] | | | | | | [address] | | | | | | [phone] | | | | | | | | +--------+---------+ + + + documented as of this encounter Visit Diagnoses Not on filedocumented in this encounter"
--- OUTSIDE RECORDS SUMMARY | ~2019-03-01 | XMS | Encounter Summary ---
Demographics + + + | Address | [address] | | | [place] [address] | + + + | Home Phone | | + + + | Preferred Language | Unknown | + + + | Marital Status | | + + + | Rastafarian Affiliation | Unknown | + + + | Race | White | + + + | Ethnic Group | Not or | + + + Author + + + | Author | [facility] | + + + | Organization | [facility] | + + + | Address | Unknown | + + + | Phone | Unavailable | + + + Support + + + + + | Name | Relationship | Address | Phone | + + + + + | Thaddeus Martínez | ECON | [address] # | | | | | [place], [place] | | | | | [address] | | + + + + + Care Team Providers + +------+ + | Care Invoice Classification Clerk Name | Role | Phone | [...] Medication Question | | 2017 | | [facility] & | MD Barron [address] | | | | | Healing [address] | [place], [place] | | | | | [facility] | [address] | | | | | Health and Healing | [phone] | | | | | [place], [place] | | | | | | [address] | | | | | | [phone] | | | +--------+ + + + [...] 2019 | Visit | | MD Inez [address] | | | | | | [place], [place] | | | | | | [address] | | | | | | [phone] | | | | | | | | +--------+---------+ + + + documented as of this encounter Visit Diagnoses Not on filedocumented in this encounter"
--- OUTSIDE RECORDS SUMMARY | ~2019-03-01 | XMS | Encounter Summary ---
Demographics + + + | Address | [address] | | | [place] [address] | + + + | Home Phone | | + + + | Preferred Language | Unknown | + + + | Marital Status | | + + + | Yazdanism Affiliation | Unknown | + + + | Race | White | + + + | Ethnic Group | Not or | + + + Author + + + | Author | [facility] | + + + | Organization | [facility] | + + + | Address | Unknown | + + + | Phone | Unavailable | + + + Support + + + + + | Name | Relationship | Address | Phone | + + + + + | Thaddeus Martínez | ECON | [address] # | | | | | [place], [place] | | | | | [address] | | + + + + + Care Team Providers + +------+ + | Care Certification Technician Name | Role | Phone | [...] filled | | 2017 | Encounter | [facility] & | MD Inez [address] | | | | | Healing [address] | [place], [place] | | | | | Ashwin Duncan [facility] | [address] | | | | | Health and Healing | [phone] | | | | | [place], [place] | | | | | | [address] | | | | | | [phone] | | | +--------+ + + + [...] 2019 | Visit | | MD Inez [address] | | | | | | [place], [place] | | | | | | [address] | | | | | | [phone] | | | | | | | | +--------+---------+ + + + documented as of this encounter Visit Diagnoses Not on filedocumented in this encounter"
--- OUTSIDE RECORDS SUMMARY | ~2019-03-01 | XMS | Clinical Summary ---
Demographics + + + | Address | [address] | | | [place] [address] | + + + | Home Phone [...] + + | Author | [facility] | + + + | Organization | [facility] | + + + | Address | Unknown | + + + | Phone | Unavailable | + + + Support + + + + + | Name | Relationship | Address | Phone | + + + + + | Thaddeus Martínez | ECON | [address] # | | | | | [place], [place] | | | | | [address] | | + + + + + Care Team Providers + +------+ + | Care Staffing Program Manager Name | Role | Phone | + +------+ + | Shanti Sanchez | PP | | + +------+ + Source Comments [facility] is fully live on both [facility] and [facility] Allergies + + + + + [...] | | | | | | | balance staff staker | | | | | | + + + +---------+------+------+-------+ | ketorolac 60 mg/2 | Inject 2mL ( 60 mg) | 12 mL | 3 | 12/1 | | Activ | | mL intramuscular | intramuscular at | | | 2/20 | | e | | solutionIndications: | onset of serve | | | 17 | | | | Severe Pain | headache for one | | | [...] | | + + + +---------+------+------+-------+ | eletriptan 40 mg | Take 1 tablet by | 12 | 5 | 06/0 | | Activ | | oral tablet | mouth as needed for | tablet | | 8/20 | | e | | | migraine. [...] | | + + + +---------+------+------+-------+ | SUMAtriptan 100 mg | Take 1 tablet by | 36 | 4 | 08/0 | | Activ | | oral tablet | mouth as needed for | tablet | | 20 | | e | | | migraine. May repeat | | | 18 | | | | | in 2 hours if | | | | | | | | needed. Max dose: | | | | | | | | 200 mg/day. | | | | | | + + + +---------+------+------+-------+ | metFORMIN SR 500 | TK 1 T PO QD | | 2 | 08/0 | | Activ | | mg oral tablet | | | | 3/20 | | e | | extended release 24 | | | | 18 | | | | hr | | | | | | | + + + +---------+------+------+-------+ | ALPRAZolam 0.25 mg | Take 1 tablet by | | 0 | 08/1 | | Activ | | oral tablet | mouth three times | | | 3/20 | | e | | | daily as needed. | | | 18 | | | + + + +---------+------+------+-------+ | buPROPion XL 150 | Take 300 mg by mouth | | 0 | 02/1 | | Activ | | mg oral tablet | once daily. | | | 520 | | e | | extended release 24 | | | | 19 | | | | hr | | | | | | | + + + +---------+------+------+-------+ | ketorolac 10 mg | Take 1 [...] | | + + + +---------+------+------+-------+ | predniSONE 20 mg | Take 1 tablet by | 8 | 0 | 02/0 | | Activ | | oral tablet | mouth once daily. | tablet | | 6/20 | | e | | | | | | 19 | | | + + + +---------+------+------+-------+ | hydrOXYzine 25 mg | Take 1 tablet by | 32 | 0 | 02/0 | | Activ | | oral tablet | mouth every four | tablet | | 6/20 | | e | | | hours as needed. | | | 19 | | | + + + +---------+------+------+-------+ | galcanezumab-gnlm | Inject 120 mg under | 3 mL | 5 | 05/0 | | Activ | | (EMGALITY PEN) 120 | the skin (SUBC) | | | 9/20 | | e | | mg/mL subcutaneous | every thirty days. | | | 19 | | | | pen injector | | | | | | | + + + +---------+------+------+-------+ Active Problems Not on file Encounters +--------+ + + + + | Date | Type | Specialty | Care Team | Description | +--------+ + + + + | 02/02/ | MyChart | | Kavitha Servin | RE: Medication | | 2019 | Encounter | | MD Inez | Update before | | | | | | starting Emgality | +--------+ + + + + from Last 3 Months [...] + + + + Plan of Treatment +--------+---------+ + + + | Date | Type | Specialty | Care Team | Description | +--------+---------+ + + + | 05/24/ | Office | | Kavitha Servin | | | 2019 | Visit | | MD [address] | | | | | | [place], [place] | | | | | | [address] | | | | | | [phone] | | | | | | | | +--------+---------+ + + + + + + + + | Health Maintenance | Due Date | Last Done | Comments | + + + + + | Influenza (Flu) | | | | | vaccination (Season | 9 | | | | Ended) | | | | + + + [...] | | | + +--------+ +--------+-------+---------+------+ | [facility] | UNITED | xxxxxxxxx | 10/04/19 | [...] Person | Self | [birth year] | [address] | | | al/Fam | | 1970 | [phone] | [place] [address] | | | charly | | | 4 (Home) | | + +--------+ +--------+ + +
--- OUTSIDE RECORDS SUMMARY | ~2019-03-01 | XMS | Encounter Summary ---
Demographics + + + | Address | [address] | | | [place] [address] | + + + | Home Phone | | + + + | Preferred Language | Unknown | + + + | Marital Status | | + + + | Yazdanism Affiliation | Unknown | + + + | Race | White | + + + | Ethnic Group | Not or | + + + Author + + + | Author | [facility] | + + + | Organization | [facility] | + + + | Address | Unknown | + + + | Phone | Unavailable | + + + Support + + + + + | Name | Relationship | Address | Phone | + + + + + | Thaddeus Martínez | ECON | [address] # | | | | | [place], [place] | | | | | [address] | | + + + + + Care Team Providers + +------+ + | Care Drafter Castings Name | Role | Phone | + +------+ + | Shanti Sanchez | PCP | | + +------+ + Encounter Details +--------+ + + + + | Date | Type | Department | Care Team | Description | +--------+ + + + + | 10/25/ | MyChart | Neurology at | Kavitha Servin | RE: Switching Meds | | 2019 | Encounter | [facility] & | SMD [address] | | | | | Healing [address] | [place], [place] | | | | | [facility] | [address] | | | | | Health and Healing | [phone] | | | | | [place], [place] | | | | | | [address] | | | | | | [phone] | | | +--------+ + + + [...] 2019 | Visit | | MD Inez [address] | | | | | | [place], [place] | | | | | | [address] | | | | | | [phone] | | | | | | | | +--------+---------+ + + + documented as of this encounter Visit Diagnoses Not on filedocumented in this encounter"
--- OUTSIDE RECORDS SUMMARY | ~2019-03-01 | XMS | Encounter Summary ---
Demographics + + + | Address | [address] | | | [place] [address] | + + + | Home Phone [...] Thaddeus Martínez | ECON | [address] # | | | | | [place], [place] | | | | | [address] | | + + + + + Care Team Providers + +------+ + | Care Digital Photographer Name | Role | Phone | + [...] Referral To | | 2019 | | [facility] & | [address]MD [address] | Dermatology | | | | [address] | [place], [place] | | | | | Ashwin Duncan [facility] | [address] | | | | | Health and Healing | [phone] | | | | | [place], [place] | | | | | | [address] | | | | | | [phone] | | | +--------+ + + + [...] 2019 | Visit | | MD Inez [address] | | | | | | [place] [facility] [place] | | | | | | [address] | | | | | | [phone] | | | | | | | | +--------+---------+ + + + documented as of this encounter Visit Diagnoses Not on filedocumented in this encounter"
--- OUTSIDE RECORDS SUMMARY | ~2019-03-01 | XMS | Encounter Summary ---
Demographics + + + | Address | [address] | | | [place] [address] | + + + | Home Phone | | + + + | Preferred Language | Unknown | + + + | Marital Status | | + + + | Latter Day Affiliation | Unknown | + + + | Race | White | + + + | Ethnic Group | Not or | + + + Author + + + | Author | [facility] | + + + | Organization | [facility] | + + + | Address | Unknown | + + + | Phone | Unavailable | + + + Support + + + + + | Name | Relationship | Address | Phone | + + + + + | Thaddeus Martínez | ECON | [address] # | | | | | [place], [place] | | | | | [address] | | + + + + + Care Team Providers + +------+ + | Care Vascular Ultrasound Technologist Name | Role | Phone | [...] Medication Question | | 2017 | | [facility] & | MD Barron [address] | | | | | Healing [address] | [place], [place] | | | | | [facility] | [address] | | | | | Health and Healing | [phone] | | | | | [place], [place] | | | | | | [address] | | | | | | [phone] | | | +--------+ + + + [...] 2019 | Visit | | MD Inez [address] | | | | | | [place], [place] | | | | | | [address] | | | | | | [phone] | | | | | | | | +--------+---------+ + + + documented as of this encounter Visit Diagnoses Not on filedocumented in this encounter"
--- OUTSIDE RECORDS SUMMARY | ~2019-03-01 | XMS | Encounter Summary ---
Demographics + + + | Address | [address] | | | [place] [address] | + + + | Home Phone | | + + + | Preferred Language | Unknown | + + + | Marital Status | | + + + | Yazidi Affiliation | Unknown | + + + | Race | White | + + + | Ethnic Group | Not or | + + + Author + + + | Author | [facility] | + + + | Organization | [facility] | + + + | Address | Unknown | + + + | Phone | Unavailable | + + + Support + + + + + | Name | Relationship | Address | Phone | + + + + + | Thaddeus Martínez | ECON | [address] # | | | | | [place], [place] | | | | | [address] | | + + + + + Care Team Providers + +------+ + | Care Rand Butting Machine Operator Name | Role | Phone | + +------+ + | Latanya Sutton | PCP | Unavailable | + +------+ + Encounter Details +--------+ + + + + | Date | Type | Department | Care Team | Description | +--------+ + + + + | 09/06/ | Documentati | Neurology at | Kavitha Servin | | | 2017 | on | [facility] & | MD Sachin Wiley | | | | | Healing [address] | [place] [facility] [place] | | | | | [facility] | [address] | | | | | Health and Healing | [phone] | | | | | [place], [place] | | | | | | [address] | | | | | | [phone] | | | +--------+ + + + [...] 2019 | Visit | | MD Inez [address] | | | | | | [place] | | | | | | [address] | | | | | | [phone] | | | | | | | | +--------+---------+ + + + documented as of this encounter Visit Diagnoses Not on filedocumented in this encounter"
--- OUTSIDE RECORDS SUMMARY | ~2019-03-01 | XMS | Encounter Summary ---
Demographics + + + | Address | [address] | | | [place] [address] | + + + | Home Phone | | + + + | Preferred Language | Unknown | + + + | Marital Status | | + + + | Religion Affiliation | Unknown | + + + | Race | White | + + + | Ethnic Group | Not or | + + + Author + + + | Author | [facility] | + + + | Organization | [facility] | + + + | Address | Unknown | + + + | Phone | Unavailable | + + + Support + + + + + | Name | Relationship | Address | Phone | + + + + + | Thaddeus Martínez | ECON | [address] # | | | | | [place], [place] | | | | | [address] | | + + + + + Care Team Providers + +------+ + | Care Roughener Name | Role | Phone | + [...] | | unspecified | [address] | [place], [place] | | | | | headache | [place], [place] | [address] | | | | | type | [phone] | Phone: | | | | | Procedures | Phone: | [phone] | | | | | CONSULT TO | [phone] | Fax: | | | | | NEUROLOGY | Fax: | [phone] | | | | | [address] | [phone] | | + +--------+ + + + + Encounter Details +--------+---------+ + + + | Date | Type | Department | Care Team | Description | +--------+---------+ + + + | 05/10/ | Office | Neurology at | Kavitha Servin | Chronic migraine | | 2018 | Visit | [facility] & | S, MD [address] | without aura without | | | | Healing [address] | [address] [place], [place] | status migrainosus, | | | | [address] [facility] | [address] | not intractable | | | | Health and Healing | [phone] | (Primary Dx) | | | | [place], [place] | | | | | | [address] | | | | | | [phone] | | | +--------+---------+ + + + [...] who [facility] with sfdc technical architect 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 INTERVAL [...] Prescription for Cefaly Unit FDA approved medical accounting clerk for use in helping to reduce migraine occurrences Dispense: #1 Cefaly Unit with 3 set of electrodes Directions: use 20 min each night as directed by it web development consultant 1 each 3 cyclobenzaprine 5 mg oral [...] fund of knowledge. Migraine Disability Score (manual pattern data operator):: 70 (12/02/16 1100) Score Arredondo: 0-5: Little to No Disability (Grade I) 6-10: Mild Disability (Grade II) 11-20: Moderate Disability (Grade III) 21+: Severe Disability (Grade IV) Migraine Disability Score (manual pattern data operator):: 25 (05/10/18 1400) Score Arredondo: 0-5: Little [...] Patient is welcome to e-mail via my [facility] chart if questions or concern s arise [...] 2019 | Visit | | MD Inez [address] | | | | | | [place], [place] | | | | | | [address] | | | | | | [phone] | | | | | | | [...] | | | LABORATORY | | | PANAMANIAN | | | SERVICES, | | | [...] | Interpretive Information: <60 mL/min/1.73 sq | [address] | | m Chronic Kidney Disease <15 [...] | + + + + + | [facility] [employer] | [address] | [place] [address] | | | [address] | REYNA [...]
--- OUTSIDE RECORDS SUMMARY | ~2019-03-01 | XMS | Encounter Summary ---
Demographics + + + | Address | [address] | | | [place] [address] | + + + | Home Phone | | + + + | Preferred Language | Unknown | + + + | Marital Status | | + + + | Sikh Affiliation | Unknown | + + + | Race | White | + + + | Ethnic Group | Not or | + + + Author + + + | Author | [facility] | + + + | Organization | [facility] | + + + | Address | Unknown | + + + | Phone | Unavailable | + + + Support + + + + + | Name | Relationship | Address | Phone | + + + + + | Thaddeus Martínez | ECON | [address] # | | | | | [place], [place] | | | | | [address] | | + + + + + Care Team Providers + +------+ + | Care Ventilator Specialist Name | Role | Phone | + +------+ + | Shanti Sanchez | PCP | | + +------+ + Encounter Details +--------+ + + + + | Date | Type | Department | Care Team | Description | +--------+ + + + + | 06/30/ | Document-Sc | Health Information | Unknown . | | | 2015 | anned | Services [address] | | | | | | [address] | | | | | | Road Mailcode: | | | | | | [address] | | | | | | [facility] | | | | | | [place], [place] | | | | | | [address] | | | | | | [phone] | | | +--------+ + + + [...] 2019 | Visit | | MD Inez [address] | | | | | | [place], [place] | | | | | | [address] | | | | | | [phone] | | | | | | | | +--------+---------+ + + + documented as of this encounter Procedures + +--------+ + + + | Procedure Name | Priori | Date/Time | Associated Diagnosis | Comments | | | ty | | | | + +--------+ + + + | RADIOLOGY | | 06/30/2016 | | Results for this | | | | 12:00 AM | | procedure are in the | | | | PDT | | results section. | + +--------+ + + + documented in this encounter Results RADIOLOGY (06/30/2016 12:00 AM PDT) + + + | Narrative | Performed At | + + + | | | + + + documented in this encounter Visit Diagnoses Not on filedocumented in this encounter"
--- OUTSIDE RECORDS SUMMARY | ~2019-03-01 | XMS | Encounter Summary ---
Demographics + + + | Address | [address] | | | [place] [address] | + + + | Home Phone | | + + + | Preferred Language | Unknown | + + + | Marital Status | | + + + | Protestant Affiliation | Unknown | + + + | Race | White | + + + | Ethnic Group | Not or | + + + Author + + + | Author | [facility] | + + + | Organization | [facility] | + + + | Address | Unknown | + + + | Phone | Unavailable | + + + Support + + + + + | Name | Relationship | Address | Phone | + + + + + | Thaddeus Martínez | ECON | [address] # | | | | | [place], [place] | | | | | [address] | | + + + + + Care Team Providers + +------+ + | Care Master Deputy Sheriff Court Security Name | Role | Phone | + +------+ + | Shanti Sanchez | PCP | | + +------+ + Encounter Details +--------+ + + + + | Date | Type | Department | Care Team | Description | +--------+ + + + + | 08/23/ | MyChart | Neurology at | Kavitha Servin | RE: [facility] | | 2018 | Encounter | [facility] | [address] | Question/Rx | | | | Healing [address] | [place], [place] | | | | | [facility] | [address] | | | | | Health and Healing | [phone] | | | | | [place], [place] | | | | | | [address] | | | | | | [phone] | | | +--------+ + + + [...] | | | | | | [place], [place] | | | | | | [address] | | | | | | [phone] | | | | | | | | +--------+---------+ + + + documented as of this encounter Visit Diagnoses Not on filedocumented in this encounter"
--- OUTSIDE RECORDS SUMMARY | ~2019-03-01 | XMS | Encounter Summary ---
Demographics + + + | Address | [address] | | | [place] [address] | + + + | Home Phone | | + + + | Preferred Language | Unknown | + + + | Marital Status | | + + + | Adventist Affiliation | Unknown | + + + | Race | White | + + + | Ethnic Group | Not or | + + + Author + + + | Author | [facility] | + + + | Organization | [facility] | + + + | Address | Unknown | + + + | Phone | Unavailable | + + + Support + + + + + | Name | Relationship | Address | Phone | + + + + + | Thaddeus Martínez | ECON | [address] # | | | | | [place], [place] | | | | | [address] | | + + + + + Care Team Providers + +------+ + | Care Woven Paper Hat Mender Name | Role | Phone | + [...] [facility] | | 2018 | Encounter | [facility] & | [address] | RX | | | | [address]aling [address] | [place] [facility] [place] | | | | | [facility] | [address] | | | | | Health and Healing | [phone] | | | | | [place], [place] | | | | | | [address] | | | | | | [phone] | | | +--------+ + + + [...] 2019 | Visit | | MD Inez [address] | | | | | | [place], [place] | | | | | | [address] | | | | | | [phone] | | | | | | | | +--------+---------+ + + + documented as of this encounter Visit Diagnoses Not on filedocumented in this encounter"
--- OUTSIDE RECORDS SUMMARY | ~2019-03-01 | XMS | Encounter Summary ---
Demographics + + + | Address | [address] | | | [place] [address] | + + + | Home Phone | | + + + | Preferred Language | Unknown | + + + | Marital Status | | + + + | Sikhism Affiliation | Unknown | + + + | Race | White | + + + | Ethnic Group | Not or | + + + Author + + + | Author | [facility] | + + + | Organization | [facility] | + + + | Address | Unknown | + + + | Phone | Unavailable | + + + Support + + + + + | Name | Relationship | Address | Phone | + + + + + | Thaddeus Martínez | ECON | [address] # | | | | | [place], [place] | | | | | [address] | | + + + + + Care Team Providers + +------+ + | Care Sofa Inspector Name | Role | Phone | + +------+ + | Latanya Sutton | PCP | Unavailable | + +------+ + Encounter Details +--------+ + + + + | Date | Type | Department | Care Team | Description | +--------+ + + + + | 03/11/ | Abstract | Neurology at | Kavitha Servin | | | 2018 | | [facility] & | SMD [address] | | | | | Healing [address] [place], [place] | | | | | [facility] | [address] | | | | | Health and Healing | [phone] | | | | | [place], [place] | | | | | | [address] | | | | | | [phone] | | | +--------+ + + + [...] 2019 | Visit | | MD Inez [address] | | | | | | [place], [place] | | | | | | [address] | | | | | | [phone] | | | | | | | | +--------+---------+ + + + documented as of this encounter Visit Diagnoses Not on filedocumented in this encounter"
--- OUTSIDE RECORDS SUMMARY | ~2019-03-01 | XMS | Encounter Summary ---
Demographics + + + | Address | [address] | | | [place] [address] | + + + | Home Phone | | + + + | Preferred Language | Unknown | + + + | Marital Status | | + + + | Voodoo Affiliation | Unknown | + + + | Race | White | + + + | Ethnic Group | Not or | + + + Author + + + | Author | [facility] | + + + | Organization | [facility] | + + + | Address | Unknown | + + + | Phone | Unavailable | + + + Support + + + + + | Name | Relationship | Address | Phone | + + + + + | Thaddeus Martínez | ECON | [address] # | | | | | [place], [place] | | | | | [address] | | + + + + + Care Team Providers + +------+ + | Care Abstract Searcher Name | Role | Phone | + [...] | | | | nonintractab | [address] | [address] | | | | | le headache, | [place] | [address] | | | | | unspecified | [address] | [place], [place] | | | | | headache | [place], [place] | [address] | | | | | type | [address] | Phone: | | | | | Procedures | Phone: | [phone] | | | | | CONSULT TO | [phone] | Fax: | | | | | NEUROLOGY | Fax: | [phone] | | | | | | [phone] | | +--------+--------+ + + + + Encounter Details +--------+---------+ + + + | Date | Type | Department | Care Team | Description | +--------+---------+ + + + | 09/10/ | Office | Neurology at | Kavitha Servin | Chronic migraine | | 2017 | Visit | [facility] & | MD Inez [address] | without aura without | | | | Healing [address] | [address] [place], [place] | status migrainosus, | | | | [facility] | [address] | not intractable | | | | Health and Healing | [phone] | | | | | [place], [place] | | | | | | [address] | | | | | | [phone] | | | +--------+---------+ + + + [...] who presented to the [facility] with chromium plater 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 INTERVAL [...] of knowledge. Migraine Disability Score (manual data compiler):: 70 (12/02/16 1100) Score Arredondo: 0-5: Little [...] Patient is welcome to e-mail via my [facility] chart if questions or concern [...] | 05/24/ | Office | Neurology | Fanny [facility]inte | | | 2018 | Visit | | MD Inez [address] [facility] | | | | | | [place], [place] | | | | | | [address] | | | | | | [phone] | | | | | | | [...]
--- OUTSIDE RECORDS SUMMARY | ~2019-03-01 | XMS | Encounter Summary ---
Demographics + + + | Address | [address] | | | [place] [address] | + + + | Home Phone | | + + + | Preferred Language | Unknown | + + + | Marital Status | | + + + | Nondenominational Affiliation | Unknown | + + + [...] Thaddeus Martínez | ECON | [address] # | | | | | [place], [place] | | | | | [address] | | + + + + + Care Team Providers + +------+ + | Care Casino Floor Runner Name | Role | Phone | + +------+ + | Latanya Sutton | PCP | Unavailable | + +------+ + Reason for Visit + + + | Reason | Comments | + + + | New patient | | | consultation | | + + + Consultation (Routine) [...] | Chronic | Olivia Bliss, | Kavitha S, | | | | | nonintractab | [address] | [address] | | | | | le headache, | Hunter Oakes | [address] | | | | | unspecified | [address] | [place], [place] | | | | | headache | [place], [place] | [address] | | | | | type | [address] | Phone: | | | | | Procedures | Phone: | [phone] | | | | | CONSULT TO | [phone] | Fax: | | | | | NEUROLOGY | Fax: | [phone] | | | | | | [phone] | | +--------+--------+ + + + + Encounter Details +--------+---------+ + + + | Date | Type | Department | Care Team | Description | +--------+---------+ + + + | 12/02/ | Office | Neurology at | Kavitha Servin | Chronic migraine | | 2017 | Visit | [facility] & | MD Sachin Wiley | without aura without | | | | [address] | [address] [place], [place] | status migrainosus, | | | | Christopher [facility] | [address] | not intractable | | | | [facility]aling | [phone] | (Primary Dx) | | | | [place], [place] | | | | | | [address] | | | | | | [phone] | | | +--------+---------+ + + + [...] + + + | Blood Pressure | 130/87 | 12/02/2016 10:07 AM | | | | | PST | | + + + + + | Pulse | 89 | 12/02/2016 10:07 AM | | | | | PST | [...] + + + + | Weight | 132.5 kg (292 lb) | 12/02/2016 10:07 AM | | | | | PST | | + + + + + | Height | 180.3 cm (5' 11") | 12/02/2016 10:07 AM | | | | | PST | | + + + + + | Body Mass Index | 40.73 | 12/02/2016 10:07 AM | | | | | PST | | + + + + + documented in this encounter Patient Instructions Patient Instructions Kavitha Servin MD - 12/02/2016 10:20 AM PST-Trial of Topamax: 25 mg at night for 2 weeks, then increase to 50 mg ( 2 tablets) for another 2 weeks. If headac hes are not improved, increase to 75 mg at night ( 3 tablets). - Trial of Rizatriptan/Maxalt (10 mg): at onset of headache, may repeat at 2 hours, limit t o 30 mg in 24 hours. - Limit rescue agent ( Triptan, Ibuprofen, Tylenol, Excedrin) to 10 days per month. - Ok to use Aleve/Naproxen/Celebrex/Mobic ( long acting anti-inflammatory agent) on the oth er days as it does not cause rebound headache. HEADACHE HANDOUT If you need to contact us ( Mayra, our nurse coordinator or myself), please activate your [employer] account and use the e-mail function to get in touch with us. Our response time may vary from time to time as other tasks such as teaching, conference an d research pull us away from the office, however we will try our best to respond to you with in 24-48 hours. Also, we encourage you to fill out the survey you'll receive after our visit today, we alwa ys appreciate your feedback! Here are some tips to help you manage your headaches: ? TO AVOID MEDICATION OVERUSE HEADACHE o Do not use more than 2 rescue medication per week, overall limit rescue agent to 10 days per month. o Do not take more than 8 opioids/month, do not take more than 10 triptans/month, do not ta ke more than 5 Butalbital/ month or 10 analgesics/month. ? MANAGEMENT OF CHRONIC MIGRAINE/HEADACHE o Keep a headache diary ( note STALLINGS days, intensity and rescue medication taken) to monitor y our progress. o Eat regular meals, eat snacks between meals, drink plenty of fluid ( at least 1.5 L/day) o Exercise regularly with at least 40 minutes of cardiovascular exercise 3 times a week. o Avoid drinking more than 200 mg caffeine per day. o Dry eyes are very common in headache patients, consider using preservative-free eye drop/ artifical tears or gel formulation every 2-4 hours during the day with nighttime long-acting lubricant ( Refresh PM, Lacri-Lube, Duratears, or Viscotears) if needed. o For prophylactic adjunct therapy try 400 mg magnesium citrate daily and 400 mg of vitamin B2 (Riboflavin) daily. o Also consider: Co-enzyme Q10 300 mg- 600 mg daily. o May consider instead Migrelief which contain Feverfew in addition to vitamin B2 and Magne sium. o For nausea, you can try Jessica lollipops, or jessica supplement 250 mg tablet up to 4 time s a day. o Practice mindfulness nightly for a few minutes, close your eyes and focus on your breathi ng. o Consider Melatonin 3-6 mg at night to help with morning headaches. o For increase effectiveness, you can combine your triptan with a NSAIDs. o If use NSAIDS, use high dose: Tylenol 1000 mg, naproxen 500 mg, or ibuprofen 400 mg. ? HOW TO IMPROVE YOUR SLEEP o Go to bed only when intending to sleep o Goal to go to bed by 10 pm, can try early sunlight exposure at least once (15 minutes in the sun first thing in the morning) to reset internal clock. o Sleep between 6-8 hours regularly. o Leave bedroom if unable to sleep after 20 minutes o Use bedroom only for sleep and sex o Set an alarm and rise daily at the same time o Eliminate TV, reading, music in bed o No food/drink within 2-4 hours of bed o Discontinue daytime naps ? BRUXISM ( jaw clenching, teeth grinding) o Practice the N-letter stretch (tongue to the palate) 6 times a day for 6 seconds at leas t and practice the N-letter rest (when you keep your tongue touching the palate with your m outh closed). documented in this encounter Progress Notes Kavitha Servin MD - 12/02/2016 10:20 AM PST NEUROLOGY CONSULT NOTE DATE OF SERVICE: 12/02/16 REFERRING PHYSICIAN: Dr. Sutton CHIEF COMPLAINT/REASON FOR REFERRAL: management of headaches HISTORY OF PRESENT ILLNESS This is a 46-yo woman with a past medical history significant for migraine headache without aura since age 18, Chiari type I, depression who presented to the Headache Clinic with buffer chrome salomón migraine headache. She reports 15-17 headaches per week. Her headaches are located behind the eyes and in the back of the head.The quality of the pa in is throbbing. The intensity of the pain is severe. Her headaches are associated with nausea, sensitivity to light, sound, smell, fatigue and d ifficulty concentrating. Her headaches are aggravated by movement (routine physical activity ). She denies any unilateral conjunctival injection, lacrimation, rhinorrhea, ptosis, aural pr essure or agitation/restlessness associated with her headaches. She also denies any visual aura, dysarthria, numbness, tingling or weakness in face, arm or leg associated with her headaches. Stress, sleep deprivation, dehydration are perceived triggers. She used to experience only 1 headache every few months until the of her daughter 2 years ago. Her headaches are p rogressively increase in frequency. She now uses either Sumatriptan NS or Ketoralac at home. She is not on any migraine nutraceuticals/vitamins. She has been on Propranolol for about o ne year with no benefit. She was seen by Neurosurgery who reassured patient about her Chiari malformation. Surgical intervention is usually reserved for patients with long tract signs. She reports family history of migraine headache in her mother. She denies any history of head trauma with loss of consciousness. PAST MEDICAL HISTORY Depression Migraine without aura FAMILY HISTORY Maternal GM: breast cancer in her 70's PGF: colon cancer in her 70's SOCIAL HISTORY Lives with and 2 yo daughter. Not currently working, use to work in retirement. Consumes 1 cup of caffeine (32 oz of Mountain Dew) per day. No smoking or use of recreation al drugs. + occasional alcohol CURRENT MEDICATION Current Outpatient Prescriptions on File Prior to Visit Medication Sig Dispense Refill ALPRAZolam 0.25 mg oral tablet Take 0.25 mg by mouth three times daily. buprenorphine HCl [address] 150 mg elemental inside the cheek. cyclobenzaprine 5 mg oral tablet Take 5 mg by mouth three times daily as needed. Do not use longer than 2-3 weeks. ketorolac 10 mg oral tablet metoclopramide HCl 10 mg oral tablet nystatin 100,000 unit/gram topical powder No current facility-administered medications on file prior to visit. - Wellbutrin 300 mg daily - Propranolol 20 mg bid - Pantoprazole 40 mg daily TRIED HEADACHE MEDICATION IN THE PAST 1. Propranolol-worsen depression 2. Sumatriptan NS, PO REVIEW OF SYTEM 14 points questionnaire reviewed personally. +nausea, feeling depressed. PHYSICAL EXAM BP 130/87 | Pulse 89 | Ht 1.803 m (5' 11") | Wt 132.5 kg (292 lb) | BMI 40.73 kg/(m^2) GENERAL: The patient is well groomed, in a good spirit with a normal attention, concentrati on, and a good fund of knowledge. NEUROLOGICAL: Cranial Nerves: Fundoscopic exam showed no papilledema, no retinal hemorrhage or exudate. T here is no ophthalmoplegia, good eye closure. Intact facial sensation.No facial asymmetry. G ood palate elevation. No tongue atrophy or fasciculations. + tongue ridging/scalloping Motor is 5/5 throughout. Negative pronator drift. Normal tone. Sensory is intact to light touch. Coordination:Bycwqz-zv-fzdk intact. No dysmetria. DTR 2 biceps and brachioradialis, 2 bilateral patella. Gait is narrow based, normal stride. MUSCULOSKELETAL: There is no reproducible tenderness on palpation of the lesser or greater occipital nerve area. There is no reproducible tenderness on palpation of masseters, tempora lis, trapezius muscles or levator insertion. Intact ROM. MIDAS ( Migraine Disability Assessement Test): 70 (0-5: little to no disability, 6-10:mild disability, 11-20:moderate disability, over 21:severe disability) Lyon 's Depression Inventory: 7 (0 13: minimal depression; 14 19: mild depression; 20 28: moderate depression;29 63: severe depression) ASSESSEMENT AND PLAN This is a 46-yo woman with a past medical history significant for migraine headache without aura since age 18, Chiari type I, depression who presented to the Headache Clinic with buffer chrome 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 Her neurological exam is normal, there is no evidence o f secondary cause of headache. Plan: - Stop Propranolol -Trial of Topamax: 25 mg at night for 2 weeks, then increase to 50 mg ( 2 tablets) for anot her 2 weeks. If headaches are not improved, increase to 75 mg at night ( 3 tablets). - Trial of Rizatriptan/Maxalt (10 mg): at onset of headache, may repeat at 2 hours, limit t o 30 mg in 24 hours. - Limit rescue agent ( Triptan, Ibuprofen, Tylenol, Excedrin) to 10 days per month. - Ok to use Aleve/Naproxen/Celebrex/Mobic ( long acting anti-inflammatory agent) on the oth er days as it does not cause rebound headache. - Headache tips handout given -RTC in 2 months. Instructions on how to sign up for my [facility] chart were given, patient can contact us through her medical chart. I spent 50 minutes with the patient. Greater than 50% of the time was spent counseling the patient regarding diagnosis, risks, benefits, and alternatives to current management. All q uestions were answered to patient s satisfaction. documented in thi s encounter Plan of Treatment +--------+---------+ + + + | Date | Type | Specialty | Care Team | Description | +--------+---------+ + + + | 05/24/ | Office | Neurology | Kavitha Servin | | | 2019 | Visit | | MD Inez [address] | | | | | | [place], [place] | | | | | | [address] | | | | | | [phone] | | | | | | | [...]
--- OUTSIDE RECORDS SUMMARY | ~2019-03-01 | XMS | Encounter Summary ---
Demographics + + + | Address | [address] | | | [place] [address] | + + + | Home Phone [...] | Thaddeus Martínez | ECON | [address] # | | | | | [place], [place] | | | | | [address] | | + + + + + Care Team Providers + +------+ + | Care Boat Joiner Name | Role | Phone | + [...] | +--------+ + + + + | 07/08/ | Telephone | Neurosurgery at | Jose Monique MD | New patient | | 2016 | | [facility] [address] | [address] | consultation | | | | Ave Mailcode: CH8N | [place], [place] | | | | | [facility] | [address] | | | | | and Jose [address], [address]th | [phone] | | | | | Floor [place], [place] | | | | | | [address] | | | | | | [phone] | | | +--------+ + + + [...] You | | | | | | [address] | | | | | | [phone] | | | | | | | | +--------+---------+ + + + documented as of this encounter Visit Diagnoses Not on filedocumented in this encounter"
--- OUTSIDE RECORDS SUMMARY | ~2019-03-01 | XMS | Encounter Summary ---
Demographics + + + | Address | [address] | | | [place] [address] | + + + | Home Phone | | + + + | Preferred Language | Unknown | + + + | Marital Status | | + + + | Catholic Affiliation | Unknown | + + + | Race | White | + + + | Ethnic Group | Not or | + + + Author + + + | Author | [facility] | + + + | Organization | [facility] | + + + | Address | Unknown | + + + | Phone | Unavailable | + + + Support + + + + + | Name | Relationship | Address | Phone | + + + + + | Thaddeus Martínez | ECON | [address] # | | | | | [place], [place] | | | | | [address] | | + + + + + Care Team Providers + +------+ + | Care Planning Coordinator Name | Role | Phone | + +------+ + | Shanti Sanchez | PCP | | + +------+ + Encounter Details +--------+------+ + + + | Date | Type | Department | Care Team | Description | +--------+------+ + + + | 05/10/ | Lab | Laboratory at [facility] | | Chronic migraine | | 2018 | | [address] | | without aura without | | | | [place], [place] | | status migrainosus, | | | | [address] | | not intractable | | | | [phone] | | | +--------+------+ + + + [...] 2019 | Visit | | MD Inez [address] | | | | | | [place], [place] | | | | | | [address] | | | | | | [phone] | | | | | | | [...] | | | LABORATORY | | | [facility] | | | SERVICES, | | | [...] Interpretive Information: <60 mL/min/1.73 sq | SERVICES, CORE | | m Chronic Kidney Disease <15 [...] | + + + + + | [facility] [employer] | [address] | [place] [address] | | | SERVICES, CORE | [address] | | | + + + [...]
--- OUTSIDE RECORDS SUMMARY | ~2019-03-01 | XMS | Encounter Summary ---
Demographics + + + | Address | [address] | | | [place] [address] | + + + | Home Phone | | + + + | Preferred Language | Unknown | + + + | Marital Status | | + + + | Buddhist Affiliation | Unknown | + + + [...] Thaddeus Martínez | ECON | [address] # | | | | | [place], [place] | | | | | [address] | | + + + + + Care Team Providers + +------+ + | Care Supervisory Historian Name | Role | Phone | + +------+ + | Shanti Sanchez | PCP | | + +------+ + Encounter Details +--------+ + + + + | Date | Type | Department | Care Team | Description | +--------+ + + + + | 10/25/ | MyChart | Neurology at | Kavitha Servin | RE: Switching Meds | | 2019 | Encounter | [facility] | SMD [address] | | | | | Healing [address] | [place], [place] | | | | | [address] [facility] | [address] | | | | | Health and Healing | [phone] | | | | | [place], [place] | | | | | | [address] | | | | | | [phone] | | | +--------+ + + + [...] 2019 | Visit | | MD Inez [address] | | | | | | [place], [place] | | | | | | [address] | | | | | | [phone] | | | | | | | | +--------+---------+ + + + documented as of this encounter Visit Diagnoses Not on filedocumented in this encounter"
--- OUTSIDE RECORDS SUMMARY | ~2019-03-01 | XMS | Clinical Summary ---
Demographics + + + | Address | [address] | | | [place] [address] | + + + | Home Phone | | + + + | Preferred Language | Unknown | + + + | Marital Status | | + + + | Roman Catholic Affiliation | Unknown | + + + | Race | White | + + + | Ethnic Group | Not or | + + + Author + + + | Author | [facility] | + + + | Organization | [facility] | + + + | Address | Unknown | + + + | Phone | Unavailable | + + + Support + + + + + | Name | Relationship | Address | Phone | + + + + + | Thaddeus Martínez | ECON | [address] # | | | | | [place], [place] | | | | | [address] | | + + + + + Care Team Providers + +------+ + | Care Heel Trimmer Name | Role | Phone | + +------+ + | Shanti Sanchez | PP | | + +------+ + Source Comments [facility] is fully live on both [facility] and [facility] InPatient.[facility] Allergies + + + + + [...] | | | | | | | 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
--- OUTSIDE RECORDS SUMMARY | ~2019-03-01 | XMS | Encounter Summary ---
Demographics + + + | Address | [address] | | | [place] [address] | + + + | Home Phone | | + + + | Preferred Language | Unknown | + + + | Marital Status | | + + + | Rastafari Affiliation | Unknown | + + + | Race | White | + + + | Ethnic Group | Not or | + + + Author + + + | Author | [facility] | + + + | Organization | [facility] | + + + | Address | Unknown | + + + | Phone | Unavailable | + + + Support + + + + + | Name | Relationship | Address | Phone | + + + + + | Thaddeus Martínez | ECON | [address] # | | | | | [place], [place] | | | | | [address] | | + + + + + Care Team Providers + +------+ + | Care Crochet Beader Name | Role | Phone | + +------+ + | Latanya Sutton | PCP | Unavailable | + +------+ + Reason for Referral [...] | | | | nonintractab | [address] | [address] | | | | | le headache, | [address] | [address] | | | | | unspecified | [address] | [place], [place] | | | | | headache | [place], [place] | [address] | | | | | type | [address] | Phone: | | | | | Procedures | Phone: | [phone] | | | | | CONSULT TO | [phone] | Fax: | | | | | NEUROLOGY | Fax: | [phone] | | | | | | [phone] | | +--------+--------+ + + + + [...] | | Neurological | Diagnoses | | Cetmellissa, | | | | Surgery | | Herman, | MD Jose | | | | | Lyn | Latanya Bliss, | [address] | | | | | i syndrome | PA [address] | [address] | | | | | without | [address] | [place], [place] | | | | | spina bifida | [place], | [address] | | | | | or | [place] [address] | Phone: | | | | | hydrocephalu | Phone: | [phone] | | | | | s | [phone] | Fax: | | | | | Procedures | Fax: | [phone] | | | | | [place] NEW | [phone] | | | | | | PATIENT | | | | | | | [place] | | | | | | | [...] Chronic | | 2016 | Visit | [facility] [address] | [address] | nonintractable | | | | Ave Mailcode: CH8N | [place], [place] | headache, | | | | [facility] | [address] | unspecified headache | | | | and Healing, 8th | [phone] | type (Primary Dx) | | | | Floor [place], [place] | | | | | | [address] | | | | | | [phone] | | | +--------+---------+ + + + [...] most consis tent with Migraine. Please see Ivania's note for details. I spent 30 minutes with the patient. Greater than 50% of the time was spent counseling the patient regarding her heada ches. Olivia Diaz PA - 08/21/2016 2:00 PM PST NEUROLOGICAL SURGERY HISTORY AND PHYSICAL: HPI: Aline Martínez IS A 46 y.o. female seen in neurosurgical clinic for [facility] patient [facility] [place]. Ms Martínez has a history of migraine [...] Chiari I Malformation, she was referred to [facility] Neurosurgery for evaluation. Ms Martínez describes prima rily right retro-orbital pain with occasional occipital headache; nausea/emesis; and light s ensitivity. She feels that her symptoms are worsening despite medical therapies to manage m igraine. 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 Will place ord er for [place] at the patient's request. Return to Neurosurgery clinic as needed. This patient was staffed by the attending physician, who agrees with the information above and also personally evaluated the patient and outlined the treatment plan to him/her. documented in this encounter Plan of Treatment +--------+---------+ + + + | Date | Type | Specialty | Care Team | Description | +--------+---------+ + + + | 05/24/ | Office | Neurology | Kavitha Servin | | | 2019 | Visit | | MD Inez [address] | | | | | | [place], [place] | | | | | | [address] | | | | | | [phone] | | | | | | | | +--------+---------+ + + + documented as of this encounter Visit Diagnoses + + | Diagnosis | + + | Chronic nonintractable headache, unspecified headache type - Primary | + + documented in this encounter"
--- OUTSIDE RECORDS SUMMARY | ~2019-03-01 | XMS | Encounter Summary ---
Demographics + + + | Address | [address] | | | [place] [address] | + + + | Home Phone | | + + + | Preferred Language | Unknown | + + + | Marital Status | | + + + | Episcopal Affiliation | Unknown | + + + | Race | White | + + + | Ethnic Group | Not or | + + + Author + + + | Author | [facility] | + + + | Organization | [facility] | + + + | Address | Unknown | + + + | Phone | Unavailable | + + + Support + + + + + | Name | Relationship | Address | Phone | + + + + + | Thaddeus Martínez | ECON | [address] # | | | | | [place], [place] | | | | | [address] | | + + + + + Care Team Providers + +------+ + | Care Chief Cloth Finishing Range Operator Name | Role | Phone | + +------+ + | Shanti Sanchez | PCP | | + +------+ + Encounter Details +--------+ + + + + | Date | Type | Department | Care Team | Description | +--------+ + + + + | 05/26/ | Telephone | Neurology at | Kavitha Servin | | | 2017 | | [facility] & | MD Sachin Wiley | | | | | Healing [address] | [place] [facility] [place] | | | | | [address] [facility] | [address] | | | | | Health and Healing | [phone] | | | | | [place], [place] | | | | | | [address] | | | | | | [phone] | | | +--------+ + + + [...] | | | | | | [place], [place] | | | | | | [address] | | | | | | [phone] | | | | | | | | +--------+---------+ + + + documented as of this encounter Visit Diagnoses Not on filedocumented in this encounter"
--- OUTSIDE RECORDS SUMMARY | ~2019-03-01 | XMS | Encounter Summary ---
Demographics + + + | Address | [address] | | | [place] [address] | + + + | Home Phone | | + + + | Preferred Language | Unknown | + + + | Marital Status | | + + + | Judaism Affiliation | Unknown | + + + | Race | White | + + + | Ethnic Group | Not or | + + + Author + + + | Author | [facility] | + + + | Organization | [facility] | + + + | Address | Unknown | + + + | Phone | Unavailable | + + + Support + + + + + | Name | Relationship | Address | Phone | + + + + + | Thaddeus Martínez | ECON | [address] # | | | | | [place], [place] | | | | | [address] | | + + + + + Care Team Providers + +------+ + | Care Ssrs Report Developer Name | Role | Phone | [...] Refill Request | | 2017 | | [facility] Health & | S, [address] | | | | | Healing [address] | [place]la [facility] [place] | | | | | [facility] | [address] | | | | | Health and Healing | [phone] | | | | | [place], [place] | | | | | | [address] | | | | | | [phone] | | | +--------+ + + + [...] 2019 | Visit | | MD Inez [address] | | | | | | [place], [place] | | | | | | [address] | | | | | | [phone] | | | | | | | | +--------+---------+ + + + documented as of this encounter Visit Diagnoses Not on filedocumented in this encounter"
--- OUTSIDE RECORDS SUMMARY | ~2019-03-01 | XMS | Encounter Summary ---
Demographics + + + | Address | [address] | | | [place] [address] | + + + | Home Phone | | + + + | Preferred Language | Unknown | + + + | Marital Status | | + + + | Zoroastrianism Affiliation | Unknown | + + + [...] Thaddeus Martínez | ECON | [address] # | | | | | [place], [place] | | | | | [address] | | + + + + + Care Team Providers + +------+ + | Care Textile Machine Mechanic Name | Role | Phone | + +------+ + | Shanti Sanchez | PCP | | + +------+ + Encounter Details +--------+ + + + + | Date | Type | Department | Care Team | Description | +--------+ + + + + | 03/15/ | MyChart | Neurology at | Kavitha Servin | RE: Mauricio - JUAN | | 2018 | Encounter | [facility] | SMD [address] | Results | | | | Healing [address] | [place], [place] | | | | | Ashwin Duncan [place] [facility] | [address] | | | | | Health and Healing | [phone] | | | | | [place], [place] | | | | | | [address] | | | | | | [phone] | | | +--------+ + + + [...] 2019 | Visit | | MD Inez [address] | | | | | | [place], [place] | | | | | | [address] | | | | | | [phone] | | | | | | | | +--------+---------+ + + + documented as of this encounter Visit Diagnoses Not on filedocumented in this encounter"
--- OUTSIDE RECORDS SUMMARY | ~2019-03-01 | XMS | Encounter Summary ---
Demographics + + + | Address | [address] | | | [place] [address] | + + + | Home Phone [...] Author + + + | Author | [facility] | + + + | Organization | [facility] | + + + | Address | Unknown | + + + | Phone | Unavailable | + + + Support + + + + + | Name | Relationship | Address | Phone | + + + + + | Thaddeus Martínez | ECON | [address] # | | | | | [place], [place] | | | | | [address] | | + + + + + Care Team Providers + +------+ + | Care Member Services Coordinator Name | Role | Phone | [...] Phone Call | | 2016 | | [facility] [address] | [address] [place] | | | | | Perla Mailcode: CH8N | [place], [place] | | | | | [facility] | [address] | | | | | and , | [phone] | | | | | Floor [place], [place] | | | | | | [address] | | | | | | [phone] | | | +--------+ + + + [...] | 05/24/ | Office | Neurology | Kvaitha Servin | | | 2019 | Visit | | MD Inez [address] | | | | | | [place] | | | | | | [address] | | | | | | [phone] | | | | | | | | +--------+---------+ + + + documented as of this encounter Visit Diagnoses Not on filedocumented in this encounter"
--- OUTSIDE RECORDS SUMMARY | ~2019-03-01 | XMS | Encounter Summary ---
Demographics + + + | Address | [address] | | | [place] [address] | + + + | Home Phone [...] + + + | Author | [facility] | + + + | Organization | [facility] | + + + | Address | Unknown | + + + | Phone | Unavailable | + + + Support + + + + + | Name | Relationship | Address | Phone | + + + + + | Thaddeus Martínez | ECON | [address] # | | | | | [place], [place] | | | | | [address] | | + + + + + Care Team Providers + +------+ + | Care Health Concierge Name | Role | Phone | + [...] Care Coordination | | 2018 | | [facility] Health & | MD Barron [address] | (CGRP Enrollment ) | | | | Healing [address] | [place], [place] | | | | | Ashwin Duncan [facility] | [address] | | | | | Health and Healing | [phone] | | | | | [place], [place] | | | | | | [address] | | | | | | [phone] | | | +--------+ + + + [...] 2019 | Visit | | MD Inez [address] | | | | | | [place], [place] | | | | | | [address] | | | | | | [phone] | | | | | | | | +--------+---------+ + + + documented as of this encounter Visit Diagnoses Not on filedocumented in this encounter"
--- OUTSIDE RECORDS SUMMARY | ~2019-03-01 | XMS | Encounter Summary ---
Demographics + + + | Address | [address] | | | [place] [address] | + + + | Home Phone [...] Thaddeus Martínez | ECON | [address] # | | | | | [place], [place] | | | | | [address] | | + + + + + Care Team Providers + +------+ + | Care Onshore Diver Name | Role | Phone | + +------+ + | Latanya Sutton | PCP | Unavailable | + +------+ + Encounter Details +--------+ + + + + | Date | Type | Department | Care Team | Description | +--------+ + + + + | 09/10/ | Garment Examiner | Neurology at | Kavitha Servin | | | 2017 | | [facility] | SMD [place] | | | | | Healing [address] | [place], [place] | | | | | Ashwin Duncan [facility] | [address] | | | | | Health and Healing | [phone] | | | | | [place], [place] | | | | | | [address] | | | | | | [phone] | | | +--------+ + + + [...] 2019 | Visit | | MD Inez [address] | | | | | | [place] | | | | | | [address] | | | | | | [phone] | | | | | | | | +--------+---------+ + + + documented as of this encounter Visit Diagnoses Not on filedocumented in this encounter"
--- OUTSIDE RECORDS SUMMARY | ~2019-03-01 | XMS | Encounter Summary ---
Demographics + + + | Address | [address] | | | [place] [address] | + + + | Home Phone | | + + + | Preferred Language | Unknown | + + + | Marital Status | | + + + | Gnosticism Affiliation | Unknown | + + + [...] Thaddeus Martínez | ECON | [address] # | | | | | [place], [place] | | | | | [address] | | + + + + + Care Team Providers + +------+ + | Care Dot Net Developer Name | Role | Phone | + +------+ + | Latanya Sutton | PCP | Unavailable | + +------+ + Encounter Details +--------+ + + + + | Date | Type | Department | Care Team | Description | +--------+ + + + + | 09/06/ | Documentati | Neurology at | Kavitha Servin | | | 2017 | on | [facility] & | MD Sachin Wiley | | | | | Healing [address] | [place] [facility] [place] | | | | | Ashwin Duncan [facility] | [address] | | | | | Health and Healing | [phone] | | | | | [place], [place] | | | | | | [address] | | | | | | [phone] | | | +--------+ + + + [...] 2019 | Visit | | MD Inez [address] | | | | | | [place] | | | | | | [address] | | | | | | [phone] | | | | | | | | +--------+---------+ + + + documented as of this encounter Visit Diagnoses Not on filedocumented in this encounter"
--- OUTSIDE RECORDS SUMMARY | ~2019-03-01 | XMS | Encounter Summary ---
Demographics + + + | Address | [address] | | | [place] [address] | + + + | Home Phone [...] + + | Author | [facility] | + + + | Organization | [facility] | + + + | Address | Unknown | + + + | Phone | Unavailable | + + + Support + + + + + | Name | Relationship | Address | Phone | + + + + + | Thaddeus Martínez | ECON | [address] # | | | | | [place], [place] | | | | | [address] | | + + + + + Care Team Providers + +------+ + | Care Domestic Helper Name | Role | Phone | + +------+ + | Shanti Sanchez | PCP | | + +------+ + Encounter Details +--------+ + + + + | Date | Type | Department | Care Team | Description | +--------+ + + + + | 08/23/ | MyChart | Neurology at | Kavitha Servin | RE: [facility] | | 2018 | Encounter | [facility] | [address] | Question/Rx | | | | Healing [address] | [place], [place] | | | | | Ashwin Duncan [facility] | [address] | | | | | Health and Healing | [phone] | | | | | [place], [place] | | | | | | [address] | | | | | | [phone] | | | +--------+ + + + [...] | | | | | | [place], [place] | | | | | | [address] | | | | | | [phone] | | | | | | | | +--------+---------+ + + + documented as of this encounter Visit Diagnoses Not on filedocumented in this encounter"
--- OUTSIDE RECORDS SUMMARY | ~2019-03-01 | XMS | Encounter Summary ---
Demographics + + + | Address | [address] | | | [place] [address] | + + + | Home Phone | | + + + | Preferred Language | Unknown | + + + | Marital Status | | + + + | Christian Affiliation | Unknown | + + + | Race | White | + + + | Ethnic Group | Not or | + + + Author + + + | Author | [facility] | + + + | Organization | [facility] | + + + | Address | Unknown | + + + | Phone | Unavailable | + + + Support + + + + + | Name | Relationship | Address | Phone | + + + + + | Thaddeus Martínez | ECON | [address] # | | | | | [place], [place] | | | | | [address] | | + + + + + Care Team Providers + +------+ + | Care Warm In Worker Name | Role | Phone | [...] | | | | | | | [address] | | | | | | | Ashwin Duncan | | | | | | | [place], [place] | | | | | | | [address] | | | | | | | Phone: | | | | | | | [phone] | | | | | | | Fax: | | | | | | | [phone] | | +--------+--------+ + + + + Encounter Details +--------+ + + + + | Date | Type | Department | Care Team | Description | +--------+ + + + + | 02/02/ | MyChart | Neurology at | Kavitha Servin | RE: Medication | | 2019 | Encounter | [facility] Health & | MD Inez [address] | Update before | | | | [address] | [place], [place] | starting Emgality | | | | Ashwin Duncan [facility] | [address] | | | | | Health and Healing | [phone] | | | | | [place], [place] | | | | | | [address] | | | | | | [phone] | | | +--------+ + + + [...] 2019 | Visit | | MD Inez [address] | | | | | | [place] | | | | | | [address] | | | | | | [phone] | | | | | | | | +--------+---------+ + + + documented as of this encounter Visit Diagnoses Not on filedocumented in this encounter"
--- OUTSIDE RECORDS SUMMARY | ~2019-03-01 | XMS | Encounter Summary ---
Demographics + + + | Address | [address] | | | [place] [address] | + + + | Home Phone | | + + + | Preferred Language | Unknown | + + + | Marital Status | | + + + | Tenriism Affiliation | Unknown | + + + [...] Thaddeus Martínez | ECON | [address] # | | | | | [place], [place] | | | | | [address] | | + + + + + Care Team Providers + +------+ + | Care Solutions Architect Name | Role | Phone | + [...] | | | | nonintractab | [address] | [address] | | | | | le headache, | [place]akes | Ashwin Duncan | | | | | unspecified | [address] | [place], [place] | | | | | headache | [place] | [address] | | | | | type | [address] | Phone: | | | | | Procedures | Phone: | [phone] | | | | | CONSULT TO | [phone] | Fax: | | | | | NEUROLOGY | Fax: | [phone] | | | | | | [phone] | | +--------+--------+ + + + + [...] Lyn | Latanya Bliss, | [address] | | | | | i syndrome | [place] [address] | Avenue | | | | | without | [address] | [place], [place] | | | | | spina bifida | [place], | [address] | | | | | or | [place] [address] | Phone: | | | | | hydrocephalu | Phone: | [phone] | | | | | s | [phone] | Fax: | | | | | Procedures | Fax: | [phone] | | | | | [place] NEW | [phone] | | | | | | PATIENT | | | | | | | LEVEL V [place] | | | | | | | [...] Chronic | | 2016 | Visit | [facility] [address] | [address] | nonintractable | | | | Ave Mailcode: CH8N | [place], [place] | headache, | | | | [facility] | [address] | unspecified headache | | | | and Healing, 8th | [phone] | type (Primary Dx) | | | | Floor [place], [place] | | | | | | [address] | | | | | | [phone] | | | +--------+---------+ + + + [...] y.o. female seen in neurosurgical clinic [facility] patient [facility]. Ms Martínez has a history of migraine [...] Chiari I Malformation, she was referred to [facility] Neurosurgery for evaluation. Ms Martínez describes prima rily right retro-orbital pain with occasional occipital headache; nausea/emesis; and light s ensitivity. She feels that her symptoms are worsening despite medical therapies to manage m igraine. 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
--- OUTSIDE RECORDS SUMMARY | ~2019-03-01 | XMS | Encounter Summary ---
Demographics + + + | Address | [address] | | | [place] [address] | + + + | Home Phone | | + + + | Preferred Language | Unknown | + + + | Marital Status | | + + + | Synagogue Affiliation | Unknown | + + + [...] Thaddeus Martínez | ECON | [address] # | | | | | [place], [place] | | | | | [address] | | + + + + + Care Team Providers + +------+ + | Care Mobile Marketing Manager Name | Role | Phone | + +------+ + | Latanya Sutton | PCP | Unavailable | + +------+ + Encounter Details +--------+------+ + + + | Date | Type | Department | Care Team | Description | +--------+------+ + + + | 03/11/ | Lab | Laboratory at [facility] | | Migraine without | | 2018 | | [address] | | aura and without | | | | [place], [place] | | status migrainosus, | | | | [address] | | not intractable | | | | [phone] | | | +--------+------+ + + + [...] 2019 | Visit | | MD Inez [address] | | | | | | [place], [place] | | | | | | [address] | | | | | | [phone] | | | | | | | [...] Blood | + + + + + + + | Performing | Address | City/State/Zipcode | Phone Number | | Organization | | | | + + + + + | [facility] | [address] | [place] [address] | | | [facility] | | | | | HEALTH [...] | | | LABORATORY | | | ROMANIAN | | | SERVICES, | | | [...] + + + + + | [facility] | [address] [facility] | [place] [address] | | | SERVICES, CORE | PARK [...]
--- OUTSIDE RECORDS SUMMARY | ~2019-03-01 | XMS | Encounter Summary ---
Demographics + + + | Address | [address] | | | [place] [address] | + + + | Home Phone | | + + + | Preferred Language | Unknown | + + + | Marital Status | | + + + | Mormonism Affiliation | Unknown | + + + | Race | White | + + + | Ethnic Group | Not or | + + + Author + + + | Author | [facility] | + + + | Organization | [facility] | + + + | Address | Unknown | + + + | Phone | Unavailable | + + + Support + + + + + | Name | Relationship | Address | Phone | + + + + + | Thaddeus Martínez | ECON | [address] # | | | | | [place], [place] | | | | | [address] | | + + + + + Care Team Providers + +------+ + | Care Water Sander Name | Role | Phone | + [...] | [facility] | SMD [address] | Effect [facility] | | | | Healing [address] | [place], [place] | | | | | [address] [place]la [facility] | [address] | | | | | Health and Healing | [phone] | | | | | [place], [place] | | | | | | [address] | | | | | | [phone] | | | +--------+ + + + [...] 2019 | Visit | | MD Inez [address] | | | | | | [place], [place] | | | | | | [address] | | | | | | [phone] | | | | | | | | +--------+---------+ + + + documented as of this encounter Visit Diagnoses Not on filedocumented in this encounter"
--- OUTSIDE RECORDS SUMMARY | ~2019-03-01 | XMS | Encounter Summary ---
Demographics + + + | Address | [address] | | | [place] [address] | + + + | Home Phone [...] Thaddeus Martínez | ECON | [address] # | | | | | [place], [place] | | | | | [address] | | + + + + + Care Team Providers + +------+ + | Care Master Motorcycle Technician Name | Role | Phone | [...] New patient | | 2016 | | [facility] [address] | [address] | consultation | | | | Ave Mailcode: CH8N | [place], [place] | | | | | [facility] | [address] | | | | | and Jose [address], 8th | [phone] | | | | | Floor [place], [place] | | | | | | [address] | | | | | | [phone] | | | +--------+ + + + [...] You | | | | | | [address] | | | | | | [phone] | | | | | | | | +--------+---------+ + + + documented as of this encounter Visit Diagnoses Not on filedocumented in this encounter"
--- OUTSIDE RECORDS SUMMARY | ~2019-03-01 | XMS | Encounter Summary ---
Demographics + + + | Address | [address] | | | [place] [address] | + + + | Home Phone | | + + + | Preferred Language | Unknown | + + + | Marital Status | | + + + | Sabianist Affiliation | Unknown | + + + [...] Thaddeus Martínez | ECON | [address] # | | | | | [place], [place] | | | | | [address] | | + + + + + Care Team Providers + +------+ + | Care Digital Content Marketing Manager Name | Role | Phone [...] Referral To | | 2019 | | [facility] & | SMD [address] | Dermatology | | | | Healing [address] | [place], [place] | | | | | Ashwin Duncan [facility] | [address] | | | | | Health and Healing | [phone] | | | | | [place], [place] | | | | | | [address] | | | | | | [phone] | | | +--------+ + + + [...] 2019 | Visit | | MD Inez [address] | | | | | | [place] [facility] [place] | | | | | | [address] | | | | | | [phone] | | | | | | | | +--------+---------+ + + + documented as of this encounter Visit Diagnoses Not on filedocumented in this encounter"
--- OUTSIDE RECORDS SUMMARY | ~2019-03-01 | XMS | Encounter Summary ---
Demographics + + + | Address | [address] | | | [place] [address] | + + + | Home Phone | | + + + | Preferred Language | Unknown | + + + | Marital Status | | + + + | Latter-Day Affiliation | Unknown | + + + | Race | White | + + + | Ethnic Group | Not or | + + + Author + + + | Author | [facility] | + + + | Organization | [facility] | + + + | Address | Unknown | + + + | Phone | Unavailable | + + + Support + + + + + | Name | Relationship | Address | Phone | + + + + + | Thaddeus Martínez | ECON | [address] # | | | | | [place], [place] | | | | | [address] | | + + + + + Care Team Providers + +------+ + | Care Product Test Specialist Name | Role | Phone | [...] on | | 2018 | Encounter | [place] [facility] & | SMD [address] | Medications | | | | Healing [address] | [address] [place], [place] | | | | | Ashwin Duncan [facility] | [address] | | | | | Health and Healing | [phone] | | | | | [place], [place] | | | | | | [address] | | | | | | [phone] | | | +--------+ + + + [...] 2019 | Visit | | MD Inez [address] | | | | | | [place], [place] | | | | | | [address] | | | | | | [phone] | | | | | | | | +--------+---------+ + + + documented as of this encounter Visit Diagnoses Not on filedocumented in this encounter"
--- OUTSIDE RECORDS SUMMARY | ~2019-03-01 | XMS | Encounter Summary ---
Demographics + + + | Address | [address] | | | [place] [address] | + + + | Home Phone | | + + + | Preferred Language | Unknown | + + + | Marital Status | | + + + | Taoist Affiliation | Unknown | + + + | Race | White | + + + | Ethnic Group | Not or | + + + Author + + + | Author | [facility] | + + + | Organization | [facility] | + + + | Address | Unknown | + + + | Phone | Unavailable | + + + Support + + + + + | Name | Relationship | Address | Phone | + + + + + | Thaddeus Martínez | ECON | [address] # | | | | | [place], [place] | | | | | [address] | | + + + + + Care Team Providers + +------+ + | Care Rattan Worker Name | Role | Phone | + +------+ + | Latanya Sutton | PCP | Unavailable | + +------+ + Encounter Details +--------+------+ + + + | Date | Type | Department | Care Team | Description | +--------+------+ + + + | 03/11/ | Lab | Laboratory at [facility] | | Migraine without | | 2018 | | [address] | | aura and without | | | | [place], [place] | | status migrainosus, | | | | [address] | | not intractable | | | | [phone] | | | +--------+------+ + + + [...] 2019 | Visit | | MD Inez [address] | | | | | | [place], [place] | | | | | | [address] | | | | | | [phone] | | | | | | | [...] LABORATORY | [address] | [place] [address] | | | [facility] | | | | | [...] | | | LABORATORY | | | CONGOLESE | | | SERVICES, | | | [...] + + + + + | [facility] | [address] [facility] | [place] [address] | | | SERVICES, CORE | PARK [...]
--- OUTSIDE RECORDS SUMMARY | ~2019-03-01 | XMS | Encounter Summary ---
Demographics + + + | Address | [address] | | | [place] [address] | + + + | Home Phone [...] | Thaddeus Martínez | ECON | [address] # | | | | | [place], [place] | | | | | [address] | | + + + + + Care Team Providers + +------+ + | Care Quarrying Manager Name | Role | Phone | [...] Refill Request | | 2017 | | [facility] Health & | S, [address] | | | | | Healing [address] | [place] [facility] [place] | | | | | [facility] | [address] | | | | | Health and Healing | [phone] | | | | | [place], [place] | | | | | | [address] | | | | | | [phone] | | | +--------+ + + + [...] 2019 | Visit | | MD Inez [address] | | | | | | [place], [place] | | | | | | [address] | | | | | | [phone] | | | | | | | | +--------+---------+ + + + documented as of this encounter Visit Diagnoses Not on filedocumented in this encounter"
--- OUTSIDE RECORDS SUMMARY | ~2019-03-01 | XMS | Encounter Summary ---
Demographics + + + | Address | [address] | | | [place] [address] | + + + | Home Phone [...] Thaddeus Martínez | ECON | [address] # | | | | | [place], [place] | | | | | [address] | | + + + + + Care Team Providers + +------+ + | Care Editor Continuity And Script Name | Role | Phone | + +------+ + | Shanti Sanchez | PCP | | + +------+ + Encounter Details +--------+ + + + + | Date | Type | Department | Care Team | Description | +--------+ + + + + | 06/30/ | Document-Sc | Health Information | Unknown . | | | 2015 | anned | Services [address] | | | | | | [address] | | | | | | Road Mailcode: | | | | | | [address] | | | | | | [facility] | | | | | | [place], [place] | | | | | | [address] | | | | | | [phone] | | | +--------+ + + + [...] 2019 | Visit | | MD Inez [address] | | | | | | [place], [place] | | | | | | [address] | | | | | | [phone] | | | | | | | [...]
--- OUTSIDE RECORDS SUMMARY | ~2019-03-01 | XMS | Encounter Summary ---
Demographics + + + | Address | [address] | | | [place] [address] | + + + | Home Phone [...] Thaddeus Martínez | ECON | [address] # | | | | | [place], [place] | | | | | [address] | | + + + + + Care Team Providers + +------+ + | Care Hide Splitter Name | Role | Phone | + [...] | | | | | | | [address] | | | | | | | Ashwin Duncan | | | | | | | [place], [place] | | | | | | | [address] | | | | | | | Phone: | | | | | | | [phone] | | | | | | | Fax: | | | | | | | [phone] | | +--------+--------+ + + + + Encounter Details +--------+ + + + + | Date | Type | Department | Care Team | Description | +--------+ + + + + | 02/02/ | MyChart | Neurology at | Kavitha Servin | RE: Medication | | 2019 | Encounter | [facility] & | MD Inez [address] | Update before | | | | [address] | [place], [place] | starting Emgality | | | | Ashwin Duncan [facility] | [address] | | | | | Health and Healing | [phone] | | | | | [place], [place] | | | | | | [address] | | | | | | [phone] | | | +--------+ + + + [...] 2019 | Visit | | MD Inez [address] | | | | | | [place] | | | | | | [address] | | | | | | [phone] | | | | | | | | +--------+---------+ + + + documented as of this encounter Visit Diagnoses Not on filedocumented in this encounter"
--- OUTSIDE RECORDS SUMMARY | ~2019-03-01 | XMS | Encounter Summary ---
Demographics + + + | Address | [address] | | | [place] [address] | + + + | Home Phone | | + + + | Preferred Language | Unknown | + + + | Marital Status | | + + + | Jewish Affiliation | Unknown | + + + | Race | White | + + + | Ethnic Group | Not or | + + + Author + + + | Author | [facility] | + + + | Organization | [facility] | + + + | Address | Unknown | + + + | Phone | Unavailable | + + + Support + + + + + | Name | Relationship | Address | Phone | + + + + + | Thaddeus Martínez | ECON | [address] # | | | | | [place], [place] | | | | | [address] | | + + + + + Care Team Providers + +------+ + | Care Timber Treatment Plant Operator Name | Role | Phone | [...] | | unspecified | [address] | [place], [place] | | | | | headache | [place], [place] | [address] | | | | | type | [address] | Phone: | | | | | Procedures | Phone: | [phone] | | | | | CONSULT TO | [phone] | Fax: | | | | | NEUROLOGY | Fax: | [phone] | | | | | [address] | [phone] | | + +--------+ + + + + Encounter Details +--------+---------+ + + + | Date | Type | Department | Care Team | Description | +--------+---------+ + + + | 05/10/ | Office | Neurology at | Kavitha Servin | Chronic migraine | | 2018 | Visit | [facility] & | S, MD [address] | without aura without | | | | Healing [address] | [address] [place], [place] | status migrainosus, | | | | [address] [place] for | [address] | not intractable | | | | Health and Healing | [phone] | (Primary Dx) | | | | [place], [place] | | | | | | [address] | | | | | | [phone] | | | +--------+---------+ + + + [...] who presented to the [facility]ache [facility] with fingerprinter 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 INTERVAL [...] Prescription for Cefaly Unit FDA approved medical laboratory technicians for use in helping to reduce migraine occurrences Dispense: #1 Cefaly Unit with 3 set of electrodes Directions: use 20 min each night as directed by residential case manager 1 each 3 cyclobenzaprine 5 mg oral [...] fund of knowledge. Migraine Disability Score (manual database reporting consultant):: 70 (12/02/16 1100) Score Arredondo: 0-5: Little to No Disability (Grade I) 6-10: Mild Disability (Grade II) 11-20: Moderate Disability (Grade III) 21+: Severe Disability (Grade IV) Migraine Disability Score (manual database reporting consultant):: 25 (05/10/18 1400) Score Arredondo: 0-5: Little [...] Patient is welcome to e-mail via my [facility] chart if questions or concern [...] 2019 | Visit | | MD Inez [address] | | | | | | [place], [place] | | | | | | [address] | | | | | | [phone] | | | | | | | [...] | | | LABORATORY | | | RUSSIAN | | | SERVICES, | | | [...] | + + + + + | [facility] [employer] | [address] | [place] [address] | | | [address] | REYNA [...]
--- OUTSIDE RECORDS SUMMARY | ~2019-03-01 | XMS | Encounter Summary ---
Demographics + + + | Address | [address] | | | [place] [address] | + + + | Home Phone [...] Author | [facility] | + + + | Organization | [facility] | + + + | Address | Unknown | + + + | Phone | Unavailable | + + + Support + + + + + | Name | Relationship | Address | Phone | + + + + + | Thaddeus Martínez | ECON | [address] # | | | | | [place], [place] | | | | | [address] | | + + + + + Care Team Providers + +------+ + | Care Photographer Still Name | Role | Phone | + [...] | | unspecified | [address] | [place], [place] | | | | | headache | [place], [place] | [address] | | | | | type | [address] | Phone: | | | | | Procedures | Phone: | [phone] | | | | | CONSULT TO | [phone] | Fax: | | | | | NEUROLOGY | Fax: | [phone] | | | | | | [phone] | | +--------+--------+ + + + + Encounter Details +--------+---------+ + + + | Date | Type | Department | Care Team | Description | +--------+---------+ + + + | 12/02/ | Office | Neurology at | Kavitha Servin | Chronic migraine | | 2017 | Visit | [facility] & | MD Sachin Wiley | without aura without | | | | Jose G [address] | [address] [place], [place] | status migrainosus, | | | | [address] [facility] | [address] | not intractable | | | | Health and Healing | [phone] | (Primary Dx) | | | | [place], [place] | | | | | | [address] | | | | | | [phone] | | | +--------+---------+ + + + [...] nurse coordinator or myself), please activate your [employer] account and use the e-mail function to [...] who presented to the Headache Clinic with outsole leveler salomón migraine headache. 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 Consumes 1 cup of caffeine (32 oz [...] tone. Sensory is intact to light touch. Coordination:Dmbhdd-as-jelm intact. No dysmetria. DTR 2 biceps and [...] who presented to the Headache Clinic with outsole leveler 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 Her [...] how to sign up for my [facility] chart were given, patient can contact us [...] 2019 | Visit | | MD Inez [address] | | | | | | [place], [place] | | | | | | [address] | | | | | | [phone] | | | | | | | [...]
--- OUTSIDE RECORDS SUMMARY | ~2019-03-01 | XMS | Encounter Summary ---
Demographics + + + | Address | [address] | | | [place] [address] | + + + | Home Phone | | + + + | Preferred Language | Unknown | + + + | Marital Status | | + + + | Restorationism Affiliation | Unknown | + + + [...] | Thaddeus Martínez | ECON | [address] # | | | | | [place], [place] | | | | | [address] | | + + + + + Care Team Providers + +------+ + | Care Credit Analysis Manager Name | Role | Phone | [...] | | | | nonintractab | [address] | [address] | | | | | le headache, | [place] | [place] | | | | | unspecified | [address] | [place], [place] | | | | | headache | [place], [place] | [address] | | | | | type | [address] | Phone: | | | | | Procedures | Phone: | [phone] | | | | | CONSULT TO | [phone] | Fax: | | | | | NEUROLOGY | Fax: | [phone] | | | | | | [phone] | | +--------+--------+ + + + + Encounter Details +--------+---------+ + + + | Date | Type | Department | Care Team | Description | +--------+---------+ + + + | 09/10/ | Office | Neurology at | Kavitha Servin | Chronic migraine | | 2017 | Visit | [facility] & | MD Inez [address] | without aura without | | | | Healing [address] | [address] [place], [place] | status migrainosus, | | | | [facility] | [address] | not intractable | | | | Health and Healing | [phone] | | | | | [place], [place] | | | | | | [address] | | | | | | [phone] | | | +--------+---------+ + + + [...] who presented to the Headache Clinic with striper machine 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 INTERVAL [...] fund of knowledge. Migraine Disability Score (manual principal data architect):: 70 (12/02/16 1100) Score Arredondo: 0-5: Little [...] Patient is welcome to e-mail via my [facility] chart if questions or concern s [...] | Visit | | MD Inez [address] [facility] | | | | | | [place], [place] | | | | | | [address] | | | | | | [phone] | | | | | | | [...]
--- OUTSIDE RECORDS SUMMARY | ~2019-03-01 | XMS | Encounter Summary ---
Demographics + + + | Address | [address] | | | [place] [address] | + + + | Home Phone | | + + + | Preferred Language | Unknown | + + + | Marital Status | | + + + | Restoration Affiliation | Unknown | + + + | Race | White | + + + | Ethnic Group | Not or | + + + Author + + + | Author | [facility] | + + + | Organization | [facility] | + + + | Address | Unknown | + + + | Phone | Unavailable | + + + Support + + + + + | Name | Relationship | Address | Phone | + + + + + | Thaddeus Martínez | ECON | [address] # | | | | | [place], [place] | | | | | [address] | | + + + + + Care Team Providers + +------+ + | Care Jewel Inspector Name | Role | Phone | [...] filled | | 2017 | Encounter | [facility] & | MD nIez [address] | | | | | Healing [address] | [place], [place] | | | | | [facility] Duncan [facility] | [address] | | | | | Health and Healing | [phone] | | | | | [place], [place] | | | | | | [address] | | | | | | [phone] | | | +--------+ + + + [...] 2019 | Visit | | MD Inez [address] | | | | | | [place], [place] | | | | | | [address] | | | | | | [phone] | | | | | | | | +--------+---------+ + + + documented as of this encounter Visit Diagnoses Not on filedocumented in this encounter"
--- OUTSIDE RECORDS SUMMARY | ~2019-03-01 | XMS | Encounter Summary ---
Demographics + + + | Address | [address] | | | [place] [address] | + + + | Home Phone | | + + + | Preferred Language | Unknown | + + + | Marital Status | | + + + | Quaker Affiliation | Unknown | + + + | Race | White | + + + | Ethnic Group | Not or | + + + Author + + + | Author | [facility] | + + + | Organization | [facility] | + + + | Address | Unknown | + + + | Phone | Unavailable | + + + Support + + + + + | Name | Relationship | Address | Phone | + + + + + | Thaddeus Martínez | ECON | [address] # | | | | | [place], [place] | | | | | [address] | | + + + + + Care Team Providers + +------+ + | Care Needle Bar Molder Name | Role | Phone | + [...] | Medication | | 2019 | | [facility] & | SMD [address] | ([place]mgality) | | | | Healing [address] | [address] [place], [place] | | | | | [facility] | [address] | | | | | Health and Healing | [phone] | | | | | [place], [place] | | | | | | [address] | | | | | | [phone] | | | +--------+ + + + [...] 2019 | Visit | | MD Inez [address] | | | | | | [place], [place] | | | | | | [address] | | | | | | [phone] | | | | | | | | +--------+---------+ + + + documented as of this encounter Visit Diagnoses Not on filedocumented in this encounter"
--- OUTSIDE RECORDS SUMMARY | ~2019-03-01 | XMS | Encounter Summary ---
Demographics + + + | Address | [address] | | | [place] [address] | + + + | Home Phone | | + + + | Preferred Language | Unknown | + + + | Marital Status | | + + + | Lutheran Affiliation | Unknown | + + + | Race | White | + + + | Ethnic Group | Not or | + + + Author + + + | Author | [facility] | + + + | Organization | [facility] | + + + | Address | Unknown | + + + | Phone | Unavailable | + + + Support + + + + + | Name | Relationship | Address | Phone | + + + + + | Thaddeus Martínez | ECON | [address] # | | | | | [place], [place] | | | | | [address] | | + + + + + Care Team Providers + +------+ + | Care Last Turner Name | Role | Phone | + [...] | [facility] | SMD [address] | Results | | | | Healing [address] | [place], [place] | | | | | Ashwin Duncan [place] for | [address] | | | | | Health and Healing | [phone] | | | | | [place], [place] | | | | | | [address] | | | | | | [phone] | | | +--------+ + + + [...] 2019 | Visit | | MD Inez [address] | | | | | | [place], [place] | | | | | | [address] | | | | | | [phone] | | | | | | | | +--------+---------+ + + + documented as of this encounter Visit Diagnoses Not on filedocumented in this encounter"
--- OUTSIDE RECORDS SUMMARY | ~2019-03-01 | XMS | Encounter Summary ---
Demographics + + + | Address | [address] | | | [place] [address] | + + + | Home Phone | | + + + | Preferred Language | Unknown | + + + | Marital Status | | + + + | Taoism Affiliation | Unknown | + + + [...] | Thaddeus Martínez | ECON | [address] # | | | | | [place], [place] | | | | | [address] | | + + + + + Care Team Providers + +------+ + | Care Patient Support Associate Name | Role | Phone | [...] | [facility] | SMD [address] | | | | | [address] | [place] [facility] [place] | | | | | Ashwin Duncan [facility] | [address] | | | | | Health and Healing | [phone] | | | | | [place], [place] | | | | | | [address] | | | | | | [phone] | | | +--------+ + + + [...] | | | | | | [place] [facility] [address] [place] | | | | | | [address] | | | | | | [phone] | | | | | | | | +--------+---------+ + + + documented as of this encounter Visit Diagnoses Not on filedocumented in this encounter"
--- OUTSIDE RECORDS SUMMARY | ~2019-03-01 | XMS | Encounter Summary ---
Demographics + + + | Address | [address] | | | [place] [address] | + + + | Home Phone | | + + + | Preferred Language | Unknown | + + + | Marital Status | | + + + | Faith Affiliation | Unknown | + + + | Race | White | + + + | Ethnic Group | Not or | + + + Author + + + | Author | [facility] | + + + | Organization | [facility] | + + + | Address | Unknown | + + + | Phone | Unavailable | + + + Support + + + + + | Name | Relationship | Address | Phone | + + + + + | Thaddeus Martínez | ECON | [address] # | | | | | [place], [place] | | | | | [address] | | + + + + + Care Team Providers + +------+ + | Care Ticket Manager Name | Role | Phone | [...] - | | 2017 | Encounter | [facility] & | SMD [address] | Lisinopril | | | | Healing [address] | [place] [facility] [place] | | | | | Ashwin Duncan | [address] | | | | | Health and Healing | [phone] | | | | | [place], [place] | | | | | | [address] | | | | | | [phone] | | | +--------+ + + + [...] 2019 | Visit | | MD Inez [address] | | | | | | [place] | | | | | | [address] | | | | | | [phone] | | | | | | | | +--------+---------+ + + + documented as of this encounter Visit Diagnoses Not on filedocumented in this encounter"
--- OUTSIDE RECORDS SUMMARY | ~2019-03-01 | XMS | Encounter Summary ---
Demographics + + + | Address | [address] | | | [place] [address] | + + + | Home Phone [...] Thaddeus Martínez | ECON | [address] # | | | | | [place], [place] | | | | | [address] | | + + + + + Care Team Providers + +------+ + | Care Payroll Clerk Name | Role | Phone | + +------+ + | Shanti Sanchez | PCP | | + +------+ + Encounter Details +--------+------+ + + + | Date | Type | Department | Care Team | Description | +--------+------+ + + + | 05/10/ | Lab | Laboratory at [facility] | | Chronic migraine | | 2018 | | [address] | | without aura without | | | | [place], [place] | | status migrainosus, | | | | [address] | | not intractable | | | | [phone] | | | +--------+------+ + + + [...] 2019 | Visit | | MD Inez [address] | | | | | | [place], [place] | | | | | | [address] | | | | | | [phone] | | | | | | | [...] | | | LABORATORY | | | [facility] | | | SERVICES, | | | [...] + + + + + | [facility] | [address] | [place] [address] | | | SERVICES, CORE | PARK [...]
--- OUTSIDE RECORDS SUMMARY | ~2019-03-01 | XMS | Encounter Summary ---
Demographics + + + | Address | [address] | | | [place] [address] | + + + | Home Phone [...] Thaddeus Martínez | ECON | [address] # | | | | | [place], [place] | | | | | [address] | | + + + + + Care Team Providers + +------+ + | Care Superintendent Track Name | Role | Phone | + [...] 09/10 | | 2017 | Encounter | [facility] & | SMD [address] | Appointment | | | | Healing [address] | [place] [facility] [place] | | | | | Ashwin Duncan [facility] for | [address] | | | | | Health and Healing | [phone] | | | | | [place], [place] | | | | | | [address] | | | | | | [phone] | | | +--------+ + + + [...] 2019 | Visit | | MD Inez [address] | | | | | | [place] | | | | | | [address] | | | | | | [phone] | | | | | | | | +--------+---------+ + + + documented as of this encounter Visit Diagnoses Not on filedocumented in this encounter"
[~2019-03-01 03:20] MED LIST changes: +BUSPIRONE HCL10 MG PO; +KETOROLAC60 MG/2 M1 IM; +METOPROLOL SUCC25 MG PO; +XANAX0.5 MG PO
--- OUTSIDE RECORDS SUMMARY | 2019-03-01 03:22 | XMS ---
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 EMegha VISIT COUNT (12 MO.) 4 [facility] TOTAL 4 NOTE: Visits indicate total known visits. 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
[2019-03-01] MEDS ORDERED: EMGALITY S120 MG/1 M (03:36)
== END 2019-03-01 05:10 | disposition home or self-care (01) ==
LOC: ED 03:20
DX: G43.909 Migraine, unspecified, not intractable, without status migrainosus (principal); F32.9 Major depressive disorder, single episode, unspecified; K21.9 Gastro-esophageal reflux disease without esophagitis; Z88.5 Allergy status to narcotic agent; Z79.899 Other long term (current) drug therapy; Z79.84 Long term (current) use of oral hypoglycemic drugs
CPT/HCPCS: 99283; J1200; J1885; J2765; J7030

== ENCOUNTER 2019-09-14 19:10 | Emergency (ER) | payer OTHER ==
[~2019-09-14] VITALS: Ht 180.3 cm; Wt 122.5 kg
--- OUTSIDE RECORDS SUMMARY | ~2019-09-14 | XMS | Encounter Summary ---
Demographics + + + | Address | [address] | | | [place] [address] | + + + | Home Phone | | + + + | Preferred Language | Unknown | + + + | Marital Status | | + + + | Hinduism Affiliation | NOD | + + + | Race | White | + + + | Ethnic Group | Not or | + + + Author + + + | Author | [facility] | + + + | Organization | [facility] | + + + | Address | Unknown | + + + | Phone | Unavailable | + + + Support + + + + + | Name | Relationship | Address | Phone | + + + + + | Thaddeus Martínez | ECON | [address] # | | | | | [place], [place] | | | | | [address] | | + + + + + Care Team Providers + +------+ + | Care Vc++ Developer Name | Role | Phone | + +------+ + | Latanya Sutton | PCP | | + +------+ + Reason for Visit + + + | Reason | Comments | + + + | Return Patient | | + + + Consultation (Routine) +--------+--------+ + + + + | Status | Reason | Specialty | Diagnoses / | Referred By | Referred To | | | | | Procedures | Contact | Contact | +--------+--------+ + + + + | Closed | | Neurology | Diagnoses | Remling, | Gareth, | | | | | Chronic | Olivia Bliss, | Kavitha Wiley, | | | | | nonintractab | [address] | [address] | | | | | le headache, | [address] | [address] | | | | | unspecified | [address] | [place], [place] | | | | | headache | [place], [place] | [address] | | | | | type | [address] | Phone: | | | | | Procedures | Phone: | [phone] | | | | | CONSULT TO | [phone] | Fax: | | | | | NEUROLOGY | Fax: | [phone] | | | | | | [phone] | | +--------+--------+ + + + + Encounter Details +--------+---------+ + + + | Date | Type | Department | Care Team | Description | +--------+---------+ + + + | 02/12/ | Office | Neurology at | Kavitha Servin | Migraine without | | 2017 | Visit | [facility] & | MD Sachin Wiley | aura and without | | | | Healing [address] [place], [place] | status migrainosus, | | | | [address] Mailcode: | [phone] | not intractable | | | | [facility] | [phone] | (Primary Dx) | | | | and Healing, | | | | | | [address] | | | | | | [place], [place] | | | | | | [address] | | | | | | [phone] | | | +--------+---------+ + + + Social History + +-------+ +--------+------+ | Tobacco Use | Types | Packs/Day | Years | Date | | | | | Used | | + +-------+ +--------+------+ | Never Smoker | | | | | + +-------+ +--------+------+ + + +---------+ + | Alcohol Use | Drinks/Week | oz/Week | Comments | + + +---------+ + | Yes | | | | + + +---------+ + + + + | Sex Assigned at [...] + + documented as of this encounter Last Filed Vital Signs + + + + + | Vital Sign | Reading | Time Taken | Comments | + + + + + | Blood Pressure | 142/93 | 02/12/2017 10:39 AM | | | | | PDT | | + + + + + | Pulse | 104 | 02/12/2017 10:39 AM | | | | | PDT | | + + + + + | Temperature | - | - | | + + + + + | Respiratory Rate | - | - | | + + + + + | Oxygen Saturation | - | - | | + + + + + | Inhaled Oxygen | - | - | | | Concentration | | | | + + + + + | Weight | 132 kg (291 lb 1.6 | 02/12/2017 10:39 AM | | | | oz) | PDT | | + + + + + | Height | 180.3 cm (5' 11") | 02/12/2017 10:39 AM | | | | | PDT | | + + + + + | Body Mass Index | 40.6 | 02/12/2017 10:39 AM | | | | | PDT | | + + + + + documented in this encounter Patient Instructions Patient Instructions Kavitha Servin MD - 02/12/2017 10:40 AM PDT- Increase Topamax to 100 mg at night - if RIzatriptan ( 10 mg) or Sumatriptan ( 100 mg ) do not work to break her headache, ok t o use Cambia ( which is a powder that works well even after headaches started too long). - Monitor your blood pressure for the next 2 weeks ( goal 120/80) . 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 INTERVAL HISTORY Headaches dropped to 3-8 STALLINGS pe rmonth. Her headaches comes in 2-3 days in a row. She usuall y get Toradol IM at the her craft superintendent's office. She MEDICATIONS Current Outpatient Prescriptions on File Prior to Visit Medication Sig Dispense Refill ALPRAZolam 0.25 mg oral tablet Take 0.25 mg by mouth three times daily. cyclobenzaprine 5 mg oral tablet Take 5 mg by mouth three times daily as needed. Do not use longer than 2-3 weeks. ketorolac 10 mg oral tablet metoclopramide HCl 10 mg oral tablet nystatin 100,000 unit/gram topical powder rizatriptan 10 mg oral tablet Take 1 tablet by mouth as needed. May repeat in 2 hours a s needed (Max: 30 mg per 24 hour period). 12 tablet 5 topiramate 25 mg oral tablet Take 1 tablet by mouth once daily in the evening. Increase by 1 tablet every 2 weeks, goal 75 mg at night 90 tablet 5 No current facility-administered medications on file prior to visit. TRIED HEADACHE MEDICATION IN THE PAST 1. Propranolol-worsen depression 2. Sumatriptan NS, PO REVIEW OF SYTEM 14 points questionnaire not filled out PHYSICAL EXAM BP 142/93 | Pulse 104 | Ht 1.803 m (5' 11") | Wt 132 kg (291 lb 1.6 oz) | BMI 40.6 kg/(m^2) GENERAL: The patient is well groomed, in a good spirit with a normal attention, concentrati on, and a good fund of knowledge. Migraine Disability Score (manual data processor):: 70 (12/02/16 1100) Score Arredondo: 0-5: Little to No Disability (Grade I) 6-10: Mild Disability (Grade II) 11-20: Moderate Disability (Grade III) 21+: Severe Disability (Grade IV) ASSESSEMENT AND PLAN This is a 47-yo woman with a past medical history significant for migraine headache without aura since age 18, Chiari type I, depression who [facility] for chronic migraine 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 Her headaches have responded to Topamax, she now reports 3 -8 STLALINGS/month. Plan: - Increase Topamax to 100 mg at night - If Rizatriptan (10 mg) or Sumatriptan (100 mg ) do not work to break her headache, ok to use Cambia ( which is a powder that works well even after headaches started too long). - Monitor your blood pressure for the next 2 weeks (goal 120/80). - RTC in 3 months. Patient is welcome to e-mail via my [facility] chart if questions or concerns arise in the future. I spent 25 minutes with the patient. Greater than 50% of the time was spent counseling the patient regarding diagnosis, risks, benefits, and alternatives to current management. All questions were answered to patient s satisfaction. documented in thi s encounter Plan of Treatment Not on filedocumented as of this encounter Visit Diagnoses + + | Diagnosis | + + | Migraine without aura and without status migrainosus, not intractable - Primary | | Migraine without aura, without mention of intractable migraine without mention of status | | migrainosus | + + documented in this encounter Administered Medications + +--------+ +-------+------+---------+ | Medication Order | MAR | Action | Dose | Rate | Site | | | Action | Date | | | | + +--------+ +-------+------+---------+ | Ketorolac Tromethamine 30 Mg | Given | | 60 mg | | Right | | Intramuscular | | 7 11:50 | | | Upper | | | | PDT | | | Quad. | | | | | | | Gluteus | + +--------+ +-------+------+---------+ +---+---+ | | | +---+---+ documented in this encounter
--- OUTSIDE RECORDS SUMMARY | ~2019-09-14 | XMS | Encounter Summary ---
Demographics + + + | Address | [address] | | | [place] [address] | + + + | Home Phone | | + + + | Preferred Language | Unknown | + + + | Marital Status | | + + + | Lutheran Affiliation | NOD | + + + | Race | White | + + + | Ethnic Group | Not or | + + + Author + + + | Author | [facility] | + + + | Organization | [facility] | + + + | Address | Unknown | + + + | Phone | Unavailable | + + + Support + + + + + | Name | Relationship | Address | Phone | + + + + + | Thaddeus Martínez | ECON | [address] # | | | | | [place], [place] | | | | | [address] | | + + + + + Care Team Providers + +------+ + | Care Sales Administrator Name | Role | Phone | + +------+ + | Shanti Sanchez | PCP | | + +------+ + Reason for Visit + + + | Reason | Comments | + + + | Referral To | | | Dermatology | | + + + Encounter Details +--------+ + + + + | Date | Type | Department | Care Team | Description | +--------+ + + + + | 11/23/ | Telephone | Neurology at | Kavitha Servin | Referral To | | 2019 | | [facility] & | [address], [address] | Dermatology | | | | Healing [address] [place], [place] | | | | | [place] Mailcode: | [phone] | | | | | [facility] | [phone] | | | | | and Healing, | | | | | | [address] | | | | | | | | | | | | [address] | | | | | | [phone] | | | +--------+ + + + + Social History + +-------+ +--------+------+ | Tobacco Use | Types | Packs/Day | Years | Date | | | | | Used | | + +-------+ +--------+------+ | Never Smoker | | | | | + +-------+ +--------+------+ + +---+---+---+ | Smokeless Tobacco: | | | | | Never Used | | | | + +---+---+---+ + + +---------+ + | Alcohol Use [...] as of this encounter Plan of Treatment Not on filedocumented as of this encounter Visit Diagnoses Not on filedocumented in this encounter"
--- OUTSIDE RECORDS SUMMARY | ~2019-09-14 | XMS | Encounter Summary ---
Demographics + + + | Address | [address] | | | [place] [address] | + + + | Home Phone | | + + + | Preferred Language | Unknown | + + + | Marital Status | | + + + | Buddhist Affiliation | NOD | + + + [...] | Thaddeus Martínez | ECON | [address] # | | | | | [place], [place] | | | | | [address] | | + + + + + Care Team Providers + +------+ + | Care Environmental Web Crawler Name | Role | Phone | + +------+ + | hSanti Sanchez | PCP | | + +------+ + Reason for Visit Consultation (Routine) +--------+--------+ + + + + | Status | Reason | Specialty | Diagnoses / | Referred By | Referred To | | | | | Procedures | Contact | Contact | +--------+--------+ + + + + | Closed | | Neurology | Diagnoses | Ivania, | Gareth, | | | | | Chronic | Olivia Bliss, | Kavitha Wiley, | | | | | nonintractab | [address] | [address] | | | | | le headache, | [address] | [address] | | | | | unspecified | [address] | [place], [place] | | | | | headache | [place], [place] | [address] | | | | | type | [address] | Phone: | | | | | Procedures | Phone: | [phone] | | | | | CONSULT TO | [phone] | Fax: | | | | | NEUROLOGY | Fax: | [phone] | | | | | [address] | [phone] | | +--------+--------+ + + + + Encounter Details +--------+ + + + + | Date | Type | Department | Care Team | Description | +--------+ + + + + | 03/13/ | Video/TeleH | Neurology at | Kavitha Servin | Chronic migraine | | 2019 | ealth-Sched | [facility] & | MD Sachin Wiley | without aura without | | | uled | [address]aling [address] | [address] [facility] [place] | status migrainosus, | | | | [address] Mailcode: | [phone] | not intractable | | | | [facility] | [phone] | (Primary Dx) | | | | and Healing, | | | | | | [address] | | | | | | [place], [place] | | | | | | [address] | | | | | | [phone] | | | +--------+ + + + [...] + + documented as of this encounter Progress Notes Kavitha Servin MD - 03/13/2019 8:20 AM PDT VIRTUAL VISIT NEUROLOGY PROGRESS NOTE The visit took place via Telemedicine. The patient's location is at home in [place]. A relative and/or peripheral vascular tech was not used during the visit. DATE OF SERVICE 03/13/2019 PATIENT IDENTIFICATION This is a 49 y.o.woman with migraine headache without aura since age 18, Chiari type I, dep ression, fatty liver disease, HTN who presented to the [facility] with chronic migraine 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 INTERVAL HISTORY - She started Emgality on February 14. March has been a better month than February. - In February, she had 3 rounds of Toradol and went to the ED twice. - She is now on BP medication (Metoprolol). - Prior to starting CGRP antibodies, she did not have any blood pressure issues. - She experienced only one headache in March, which has been responsive to Tylenol. MEDICATIONS Current Outpatient Medications on File Prior to Visit Medication Sig Dispense Refill ALPRAZolam 0.25 mg oral tablet Take 1 tablet by mouth three times daily as needed. buPROPion XL 150 mg oral tablet extended release 24 hr Take 300 mg by mouth once daily. COMPOUNDED MED RX NONCONTROLLED (SEE ADMIN INSTRUCT F) Prescription for Cefaly Unit FDA approved medical assistant cardiology for use in helping to reduce migraine occurrences Dispense: #1 Cefaly Unit with 3 set of electrodes Directions: use 20 min each night as directed by tar worker 1 each 3 cyclobenzaprine 5 mg oral tablet Take 5 mg by mouth three times daily as needed. Do not use longer than 2-3 weeks. eletriptan 40 mg oral tablet Take 1 tablet by mouth as needed for migraine. May repeat in 2 hours if necessary; Max of 2 doses per 24 hour period. (Patient not taking: Reported on 11/18/2018) 12 tablet 5 galcanezumab-gnlm (EMGALITY PEN) 120 mg/mL subcutaneous pen injector Inject 120 mg unde r the skin (SUBC) every thirty days. 3 mL 5 hydrOXYzine 25 mg oral tablet Take 1 tablet by mouth every four hours as needed. 32 tab let 0 ketorolac 10 mg oral tablet Take 1 - 2 tabs at onset, may repeat at 6 hours, limit to 4 0 mg in 24 hours. Do not take more than 3 days in a row. 12 tablet 5 ketorolac 60 mg/2 mL intramuscular solution Inject 2mL ( 60 mg) intramuscular at onset of serve headache for one dose. Max 2 injections per month. Indications: Severe Pain 12 mL 3 metFORMIN SR 500 mg oral tablet extended release 24 hr TK 1 T PO QD 2 metoclopramide HCl 10 mg oral tablet nystatin 100,000 unit/gram topical powder pantoprazole 40 mg oral tablet,delayed release (DR/EC) Take 40 mg by mouth once daily. predniSONE 20 mg oral tablet Take 1 tablet by mouth once daily. 8 tablet 0 SUMAtriptan 100 mg oral tablet Take 1 tablet by mouth as needed for migraine. May repea t in 2 hours if needed. Max dose: 200 mg/day. 36 tablet 4 ZOLMitriptan 5 mg oral tablet Take 1 tablet by mouth as needed for migraine. May repeat dose in 2 hours if needed. Do not exceed 10 mg within a 24 hour period. (Patient not christian pollard: Reported on 11/18/2018) 12 tablet 5 No current facility-administered medications on file prior to visit. - Wellbutrin XR 300 mg daily TRIED HEADACHE MEDICATION IN THE PAST 1.Propranolol-worsen depression 2.Sumatriptan NS, PO 3. Topiramate- not tolerated 4. Rizatriptan 5. Amitriptyline 6. Zomig 7. Cefaly 8. Aimovig-constipation 9. Toradol 10. Relpax 11. Emgality PHYSICAL EXAM There were no vitals taken for this visit. GENERAL: The patient is well groomed, in a good spirit with a normal attention, concentrati on, and a good fund of knowledge. CN: Smooth pursuit, conjugate gaze. No facial asymmetry. Motor: Moves all 4 extremities equally. Gait: Posture is normal. Gait is steady with normal steps, base, arm swing, and turning. Migraine Disability Score (auto calculated):: 50 (03/13/19 0800) Migraine Disability Score (manual data analytics specialist):: 25 (05/10/18 1400) Score Arredondo: 0-5: Little to No Disability (Grade I) 6-10: Mild Disability (Grade II) 11-20: Moderate Disability (Grade III) 21+: Severe Disability (Grade IV) ASSESSEMENT AND PLAN This is a 49 y.o. woman with migraine headache without aura since age 18, Chiari type I, de pression, HTN who is [facility] at [facility] for chronic migraine headache ( 15-17 STALLINGS/m) . Since starting Emgality, headaches have been milder (responsive to Tylenol). Plan:. - Continue Emgality 120 mg SC monthly - Continue to monitor blood pressure - RTC in 3 months. Patient is welcome to e-mail via my [facility] chart if questions or concerns arise in the future. I spent 21 minutes with the patient. Greater than 50% of the time was spent counseling the patient regarding diagnosis, risks, benefits, and alternatives to current management. All questions were answered to patient s satisfaction. Kavitha Servin MD Muffler Installer of Neurology [facility] Brain [place] documented in thi s encounter Plan of Treatment Not on filedocumented as of this encounter Visit Diagnoses + + | Diagnosis | + + | Chronic migraine without aura without status migrainosus, not intractable - Primary | | Chronic migraine without aura, without mention of intractable migraine without mention | | of status migrainosus | + + documented in this encounter"
--- OUTSIDE RECORDS SUMMARY | ~2019-09-14 | XMS | Encounter Summary ---
Demographics + + + | Address | [address] | | | [place] [address] | + + + | Home Phone | | + + + | Preferred Language | Unknown | + + + | Marital Status | | + + + | Advent Affiliation | NOD | + + + | Race | White | + + + | Ethnic Group | Not or | + + + Author + + + | Organization | Unknown | + + + | Address | Unknown | + + + | Phone | Unavailable | + + + Support + + + + + | Name | Relationship | Address | Phone | + + + + + | Thaddeus Martínez | ECON | [address] # | | | | | [place], [place] | | | | | [address] | | + + + + + Care Team Providers + +------+ + | Care Director Of Placement Name | Role | Phone | + +------+ + | TannerShanti singleton CHANDAN | PCP | | + +------+ + Encounter Details +--------+--------+ + + + | Date | Type | Department | Care Team | Description | +--------+--------+ + + + | 05/24/ | Travel | | | | | 2019 | | | | | +--------+--------+ + + + Social History + +-------+ [...]
--- OUTSIDE RECORDS SUMMARY | ~2019-09-14 | XMS | Encounter Summary ---
Demographics + + + | Address | [address] | | | [place] [address] | + + + | Home Phone | | + + + | Preferred Language | Unknown | + + + | Marital Status | | + + + | Jainism Affiliation | Unknown | + + + | Race | Unknown | + + + | Ethnic Group | Unknown | + + + Author + + + | Author | [facility] | | | and [place] | + + + | Organization | [facility] | | | and [place] | + + + | Address | Unknown | + + + | Phone | Unavailable | + + + Support + + +---------+ + | Name | Relationship | Address | Phone | + + +---------+ + | Thaddeus Martínez | ECON | Unknown | | + + +---------+ + Care Team Providers + +------+ + | Care Inorganic Chemical Technician Name | Role | Phone | + +------+ + | Latanya Sutton PA-C | PCP | | + +------+ + Encounter Details +--------+ + + + + | Date | Type | Department | Care Team | Description | +--------+ + + + + | [facility] | [facility], | | | 2012 | Encounter | MED CTR XRAY [address] | | | | | [place] | [address] | | | | | [place] [address] | [place] | | | | | [phone] | [address] | | | | | | | | +--------+ + + + [...] +---------+ + | Yes | | | 1-2 month | + + +---------+ + + + + | Sex Assigned at | Date Recorded | | | | + + + | Female | | + + + + + [...] + + documented as of this encounter Medications at Time of Discharge + + + +---------+--------+ + | Medication | Sig | Dispensed | Refills | Start | End Date | | | | | | Date | | + + + +---------+--------+ + | buPROPion | Take 300 mg by mouth | | 0 | | | | (WELLBUTRIN SR) 150 | 2 times daily. | | | | | | mg 12 hr tablet | | | | | | + + + +---------+--------+ + | Calcium | Take by mouth. | | 0 | | | | Carb-Cholecalciferol | | | | | | | (CALCIUM 500 +D) | | | | | | | 500-400 MG-UNIT TABS | | | | | | + + + +---------+--------+ + | Naproxen Sodium | Take by mouth. | | 0 | | | | (ALEVE) 220 MG CAPS | | | | | | + + + +---------+--------+ + | SUMAtriptan | Take 100 mg by mouth | | 0 | | | | (IMITREX) 50 mg | as needed. | | | | | | tablet | | | | | | + + + +---------+--------+ + documented as of this encounter Plan of Treatment Not on filedocumented as of this encounter Procedures + +--------+ + + + | Procedure Name | Priori | Date/Time | Associated Diagnosis | Comments | | | ty | | | | + +--------+ + + + | US GUIDED BIOPSY | Routin | 01/27/2013 | | Results for this | | | e | 1:45 PM | | procedure are in the | | | | PDT | | results section. | + +--------+ + + + documented in this encounter Results US Guided Biopsy (01/27/2013 1:45 PM PDT) + + | Specimen | + + | | + + + + + | Narrative | Performed At | + + + | [facility] | [facility] | | Department [address] [place] [address] | [facility] | | [ rep [address]] [ rep [facility] | | st zip] Signed | - IMAGING | | | | | Patient Name: ALINE CARR Physician: | | | JENNIFER : 1970 Age: 42 Sex: F Unit #: [id number] | | | Exam Date: 01/27/13 Location: [facility] | | | Report #: [id number] Page: | | | %(RAD)RES..mtdd.print.filter("pg") of %(RAD) | | | RES..mtdd.print.filter("tpg") | | | | | | Accession Number: [id number] | | | ULTRASOUND-GUIDED LIVER BIOPSY, 01/27/2013 CLINICAL | | | HISTORY: ELEVATED LIVER FUNCTION TESTS. COMPARISON: | | | None. PROTOCOL: After explaining the risks and benefits | | | of the procedure, informed consent was obtained from the patient. | | | Risks discussed included bleeding and infection. Under ultrasound | | | guidance, the appropriate location for biopsy was localized to the | | | right upper quadrant of the abdomen. This region was cleansed and | | | draped in the usual sterile fashion. Lidocaine was used for local | | | anesthesia. In addition, the patient received conscious sedation | | | from the radiology nurse with Fentanyl and Versed. Using a 17 gauge | | | introducer, the parenchyma of the liver was accessed. Biopsy was | | | performed with 2 passes using an 18 gauge BioPince biopsy gun. The | | | patient tolerated the procedure well. Immediate and 1-hour | | | delayed post-biopsy ultrasound imaging demonstrates no evidence for | | | hemorrhage. IMPRESSION: 1. SUCCESSFUL | | | LIVER BIOPSY. Dictated Date/Time: 01/27/2013 13:45 | | | Transcribed Date/Time: 01/27/2013 14:50 Manager Of Training: | | | <<Signature on File>> | | | Myron | | | MD [facility]01/27/13 1629 <Electronically signed by Myron Wall MD> | | | Myron Wall MD 01/27/13 1005 Manager Of Training: Ashley | | | Rvksrpjbmmisc94/26/13 1385 IL[address] | | | | | + + + + + + + + | Performing | Address | City/State/Zipcode | Phone Number | | Organization | | | | + + + + + | [address] | [address] | [place] | [phone] | | [facility] | | [address] | | | - IMAGING | | | | + + + + + documented in this encounter Visit Diagnoses Not on filedocumented in this encounter
--- OUTSIDE RECORDS SUMMARY | ~2019-09-14 | XMS | Encounter Summary ---
Demographics + + + | Address | [address] | | | [place] [address] | + + + | Home Phone | | + + + | Preferred Language | Unknown | + + + | Marital Status | | + + + | Alevism Affiliation | NOD | + + + | Race | White | + + + | Ethnic Group | Not or | + + + Author + + + | Author | [facility] | + + + | Organization | [facility] | + + + | Address | Unknown | + + + | Phone | Unavailable | + + + Support + + + + + | Name | Relationship | Address | Phone | + + + + + | Thaddeus Martínez | ECON | [address] # | | | | | [place], [place] | | | | | [address] | | + + + + + Care Team Providers + +------+ + | Care Drug Abuse Program Coordinator Name | Role | Phone | + +------+ + | Latanya Sutton | PCP | | + +------+ + Encounter Details +--------+ + + + + | Date | Type | Department | Care Team | Description | +--------+ + + + + | 11/10/ | Telephone | Neurology at | Kavitha Servin | | | 2018 | | [facility] & | MD Sachin Wiley | | | | | Healing [address] | [place], [place] | | | | | [address] Mailcode: | [phone] | | | | | [facility] | [phone] | | | | | and Healing, | | | | | | [address] | | | | | | [place], [place] | | | | | | [address] | | | | | | [phone] | | | +--------+ + + + [...]
--- OUTSIDE RECORDS SUMMARY | ~2019-09-14 | XMS | Encounter Summary ---
Demographics + + + | Address | [address] | | | [place] [address] | + + + | Home Phone | | + + + | Preferred Language | Unknown | + + + | Marital Status | | + + + | Synagogue Affiliation | NOD | + + + | Race | White | + + + | Ethnic Group | Not or | + + + Author + + + | Author | [facility] | + + + | Organization | [facility] | + + + | Address | Unknown | + + + | Phone | Unavailable | + + + Support + + + + + | Name | Relationship | Address | Phone | + + + + + | Thaddeus Martínez | ECON | [address] # | | | | | [place], [place] | | | | | [address] | | + + + + + Care Team Providers + +------+ + | Care Elevator Worker Name | Role | Phone | + +------+ + | Latanya Sutton | PCP | | + +------+ + Encounter Details +--------+ + + + + | Date | Type | Department | Care Team | Description | +--------+ + + + + | 09/17/ | MyChart | Neurology at | Kavitha Servin | RE: Rx filled | | 2017 | Encounter | [facility] & | MD Sachin Wiley | | | | | [address] | [place], [place] | | | | | [address] Mailcode: | [phone] | | | | | [facility] | [phone] | | | | | and Healing, | | | | | | [address] | | | | | | [place], [place] | | | | | | [address] | | | | | | [phone] | | | +--------+ + + + [...]
--- OUTSIDE RECORDS SUMMARY | ~2019-09-14 | XMS | Encounter Summary ---
Demographics + + + | Address | [address] | | | [place] [address] | + + + | Home Phone | | + + + | Preferred Language | Unknown | + + + | Marital Status | | + + + | Sikh Affiliation | NOD | + + + | Race | White | + + + | Ethnic Group | Not or | + + + Author + + + | Author | [facility] | + + + | Organization | [facility] | + + + | Address | Unknown | + + + | Phone | Unavailable | + + + Support + + + + + | Name | Relationship | Address | Phone | + + + + + | Thaddeus Martínez | ECON | [address] | | | | | [place], [place] | | | | | [address] | | + + + + + Care Team Providers + +------+ + | Care Refinery Process Engineer Name | Role | Phone | + +------+ + | Shanti Sanchez | PCP | | + +------+ + Reason for Visit + + + | Reason | Comments | + + + | Refill Request | | + + + Encounter Details +--------+--------+ + + + | Date | Type | Department | Care Team | Description | +--------+--------+ + + + | 08/15/ | Refill | Neurology at | Kavitha Servin | Refill Request | | 2019 | | [facility] & | MD Inez [address] | | | | | [address] | [place], [place] | | | | | [place] Mailcode: | [phone] | | | | | [facility] | [phone] | | | | | and Healing, | | | | | | [address] | | | | | | [place], [place] | | | | | | [address] | | | | | | [phone] | | | +--------+--------+ + + + [...]
--- OUTSIDE RECORDS SUMMARY | ~2019-09-14 | XMS | Encounter Summary ---
Demographics + + + | Address | [address] | | | [place] [address] | + + + | Home Phone | | + + + | Preferred Language | Unknown | + + + | Marital Status | | + + + | Uatsdin Affiliation | NOD | + + + | Race | White | + + + | Ethnic Group | Not or | + + + Author + + + | Author | [facility] | + + + | Organization | [facility] | + + + | Address | Unknown | + + + | Phone | Unavailable | + + + Support + + + + + | Name | Relationship | Address | Phone | + + + + + | Thaddeus Martínez | ECON | [address] | | | | | [place], [place] | | | | | [address] | | + + + + + Care Team Providers + +------+ + | Care Patent Examiner Name | Role | Phone | + +------+ + | Latanya Sutton | PCP | | + +------+ + Encounter Details +--------+ + + + + | Date | Type | Department | Care Team | Description | +--------+ + + + + | 11/10/ | Telephone | Neurology at | Kavitha Servin | | | 2018 | | [facility] & | MD Sachin Wiley | | | | | [address] | [place], [place] | | | | | [address] [place] Mailcode: | [phone] | | | | | [facility] | [phone] | | | | | and Healing, | | | | | | [address] | | | | | | [place], [place] | | | | | | [address] | | | | | | [phone] | | | +--------+ + + + [...]
--- OUTSIDE RECORDS SUMMARY | ~2019-09-14 | XMS | Encounter Summary ---
Demographics + + + | Address | [address] | | | [place] [address] | + + + | Home Phone | | + + + | Preferred Language | Unknown | + + + | Marital Status | | + + + | Hoahaoism Affiliation | Unknown | + + + | Race | Unknown | + + + | Ethnic Group | Unknown | + + + Author + + + | Author | [facility] | | | and [place] | + + + | Organization | [facility] | | | and [place] [...] Team Providers + +------+ + | Care Furniture Upholstery Mechanic Name | Role | Phone | + +------+ + | Shanti Sanchez PA-C | PCP | | + +------+ + Reason for Referral Diagnostic/Screening (Routine) +--------+--------+ + + + + | Status | Reason | Specialty | Diagnoses / | Referred By | Referred To | | | | | Procedures | Contact | Contact | +--------+--------+ + + + + | Closed | | Radiology | Diagnoses | | [facility] | | | | | Alkaline | [place], | [address] | | | | | phosphatase | [place], | [place], | | | | | elevation | [employer] [address] | [place] | | | | | RUQ | [place], [place] | [address] | | | | | abdominal | [address] | Phone: | | | | | pain | [place] | [phone] | | | | | Procedures | [address] | Fax: | | | | | MRI MRCP | Phone: | [phone] | | | | | Liver wo | [phone] | | | | | | Contrast [place] | Fax: | | | | | | MRI, | [phone] | | | | | | ABDOMEN | | | | | | | (MRI) | | | +--------+--------+ + + + + Reason for Visit +--------+ + | Reason | Comments | +--------+ + | Other | fatty liver | +--------+ + Evaluate & Treat (Routine) +--------+--------+ + + + + | Status | Reason | Specialty | Diagnoses / | Referred By | Referred To | | | | | Procedures | Contact | Contact | +--------+--------+ + + + + | Closed | | Gastroenterol | Diagnoses | Daniel, | [facility] | | | | ogy | Fatty | DIVINA Moser | Gastroenterol | | | | | (change of) | [address] | | | | | liver, not | [address] [place] | | | | | elsewhere | [address] | [address] [place] | | | | | classified | [place], | [place], [place] | | | | | | [place] [address] | [address] | | | | | | Phone: | Phone: | | | | | | [phone] | [phone] | | | | | | Fax: | Fax: | | | | | | [phone] | [phone] | +--------+--------+ + + + + Encounter Details +--------+---------+ + + + | Date | Type | Department | Care Team | Description | +--------+---------+ + + + | 06/08/ | Office | [facility] | [facility], | Alkaline phosphatase | | 2019 | Visit | GASTROENTEROLOGY | CORRINE Alvarez [address] | elevation (Primary | | | | [address] [place] | [place], [place] [address] | Dx); RUQ abdominal | | | | [address] [place], [place] | [place], [place] | pain; Hepatic | | | | [address] | [address] | steatosis | | | | [phone] | | | +--------+---------+ + + + [...] +---------+ + | Yes | | | Drink once or twice | | | | | a year - few drinks | + + +---------+ + + + + | Sex Assigned at | Date Recorded | | | | + + + | Female | 06/06/2019 1:17 AM PDT | + + + + + + [...] + + + | Blood Pressure | 132/94 | 06/08/2019 11:10 AM | | | | | PDT | | + + + + + | Pulse | 76 | 06/08/2019 11:10 AM | | | | | PDT | | + + + + + | Temperature | 36.7 C (98 F) | 06/08/2019 11:10 AM | | | | | PDT | | + + + + + | Respiratory Rate | 16 | 06/08/2019 11:10 AM | | | | | PDT | | + + + + + | Oxygen Saturation | 98% | 06/08/2019 11:10 AM | | | | | PDT | | + + + + + | Inhaled Oxygen | - | - | | | Concentration | | | | + + + + + | Weight | 124.9 kg (275 lb 5.7 | 06/08/2019 11:10 AM | | | | oz) | PDT | | + + + + + | Height | - | - | | + + + + + | Body Mass Index | 38.4 | 02/22/2013 10:10 AM | | | | | PDT | | + + + + + documented in this encounter Patient Instructions Patient Instructions Kim Benson ARNP - 06/08/2019 11:00 AM PDTTake Xanax 0.5 mg a bout 1 hour prior to MRI. You can take an additional 0.25 30 prior to MRI if needed. Electro nically signed by CORRINE Gonzalez at 06/08/2019 11:45 AM PDT documented in this encounter Progress Notes Kim Benson ARNP - 06/08/2019 11:00 AM PDTFormatting of this note might be differe nt from the original. PATIENT NAME: Aline Martínez : 1970: AGE: 49 y.o. REFERRED BY: Shanti Sanchez PA-C PRIMARY CARE: Shanti Sanchez PA-C Subjective: CHIEF COMPLAINT: Aline Martínze is a 49 y.o. female referred by Shanti Sanchez PA-C for evaluation and treatment of elevated alkaline phosphatase HISTORY OF PRESENT ILLNESS: Patient notes that she has RUQ discomfort that started about 1 month ago. She has had persi stent elevation. Heat helps with RUQ pain. Nothing seems to worsen. She has a known history of elevated liver enzymes And had been evaluated for fatty liver back in 2012. Liver biopsy at that time showed no e vidence of steatohepatitis or fibrosis. Alkaline phosphatase was elevated at 354. LI, ASM A, and AMA were all unremarkable. Patient reports that she has had labs and imaging of her liver done annually since this time. She has been seen by [facility] due to migraines. She was on Amavig. This caused itching. She is now taking Emgality. She has noted fatigue. The has had worsening issues with fatigue. There is no history of ray nods syndrome. Patient denies dry eyes or mouth. She denies jaundice or fever. There is no history of rheumatoid arthritis. Patient denies . She reports that she has not had sexual intercourse since last m enstrual cycle. MEDICAL, SURGICAL, AND PERSONAL HISTORY: BP (!) 132/94 | Pulse 76 | Temp 36.7 C (98 F) (Temporal) | Resp 16 | Wt 124.9 kg (2 75 lb 5.7 oz) | LMP 05/20/2019 | SpO2 98% | BMI 38.40 kg/m Allergies Allergen Reactions Hydrocodone W/Acetaminophen [Hydrocodone-Acetaminophen] Hives Oxycodone Hives and Itching Past Medical History: Diagnosis Date Abdominal pain Accessory skin tags Acne Acrochordon Candidal intertrigo Depression Elevated alkaline phosphatase level Essential hypertension Fatty liver GERD (gastroesophageal reflux disease) Metatarsalgia Migraine Obesity Pain, limb, left Plantar fasciitis PTSD (post-traumatic stress disorder) Past Surgical History: Procedure Laterality Date COLONOSCOPY 07/13/17 Dr Sravan Pierre [place] HEMORRHOID SURGERY X2 1993 and 2003 WISDOM TOOTH EXTRACTION 1993 Family History Problem Relation Age of Onset Depression Mother Diabetes Father Alcohol abuse Father Early Father 49, Sepsis Breast cancer Maternal Grandmother Depression Maternal Grandmother Cancer Maternal Grandmother Breast Cancer Cancer Maternal Grandfather Prostrate Colon cancer Paternal Grandfather Colon polyps Paternal Grandfather Depression Paternal Grandfather Cancer Paternal Grandmother Cervical Social History Socioeconomic History Marital status: Spouse name: Not on file Number of children: Not on file Years of education: Not on file Highest education level: Not on file Social Needs Financial resource strain: Not on file Food insecurity - worry: Not on file Food insecurity - inability: Not on file Transportation needs - medical: Not on file Transportation needs - non-medical: Not on file Occupational History Not on file Tobacco Use Smoking status: Never Smoker Smokeless tobacco: Never Used Substance and Sexual Activity Alcohol use: Yes Comment: Drink once or twice a year - few drinks Drug use: No Sexual activity: Yes Partners: Male control/protection: None Other Topics Concern Not on file Social History Narrative Not on file Review of Systems Constitutional: Negative for diaphoresis, fatigue, fever and unexpected weight change. HENT: Negative for congestion, hearing loss, mouth sores, rhinorrhea and trouble swallowing . Eyes: Negative for redness and visual disturbance. Respiratory: Negative for cough, choking, chest tightness, shortness of breath and wheezing . Cardiovascular: Negative for chest pain, palpitations and leg swelling. Gastrointestinal: Positive for abdominal pain, constipation and diarrhea. Negative for abdo patti distention, anal bleeding, blood in stool, nausea, rectal pain and vomiting. Complains of hemorrhoids Endocrine: Denies enlarged thyroid Genitourinary: Negative for dysuria, flank pain and frequency. Musculoskeletal: Positive for back pain. Negative for arthralgias and joint swelling. Skin: Negative for color change and rash. Neurological: Positive for headaches. Negative for seizures, syncope, weakness and numbness . Hematological: Does not bruise/bleed easily. Denies anemia or enlarged lymph glands. Psychiatric/Behavioral: Negative for dysphoric mood. The patient is not nervous/anxious. Objective: Physical Exam Constitutional: She is oriented to person, place, and time. She appears well-developed and well-nourished. HENT: Head: Normocephalic and atraumatic. Eyes: EOM are normal. No scleral icterus. Neck: Normal range of motion. Neck supple. Cardiovascular: Normal rate, regular rhythm and normal heart sounds. Pulmonary/Chest: Effort normal and breath sounds normal. No respiratory distress. She has n o wheezes. Abdominal: Soft. Normal appearance and bowel sounds are normal. She exhibits no ascites and no mass. There is no splenomegaly or hepatomegaly. There is no tenderness. There is no rigi dity, no rebound, no guarding and negative Shoemaker's sign. Musculoskeletal: Normal range of motion. She exhibits no edema or deformity. Neurological: She is alert and oriented to person, place, and time. Skin: Skin is warm and dry. No rash noted. Psychiatric: She has a normal mood and affect. Her behavior is normal. Nursing note and vitals reviewed. No visits with results within 1 Month(s) from this visit. Latest known visit with results is: No results found for any previous visit. Assessment: 1. Alkaline phosphatase elevation Mitochondrial Ab, M2 Antinuclear Ab, Titer + Pattern Smooth Muscle Ab CBC with Differential Comprehensive Metabolic Panel Protime INR Liver and Kidney Microsome Type 1 Ab MRI MRCP Liver wo Contrast GGT 2. RUQ abdominal pain Mitochondrial Ab, M2 Antinuclear Ab, Titer + Pattern Smooth Muscle Ab CBC with Differential Comprehensive Metabolic Panel Protime INR Liver and Kidney Microsome Type 1 Ab MRI MRCP Liver wo Contrast GGT 3. Hepatic steatosis Plan: Ordered repeat laboratory test to see if there is evidence of new autoimmune condition caus ing alkaline phosphatase elevation in the 600s. Also ordering MRCP to further evaluate this alkaline phosphatase level and right upper quad rant discomfort. Advised patient that these are emergent situations where she should be seen by a provider i mmediately.Discussed signs of cholestasis including jaundice, fever, or worsening right uppe r quadrant abdominal pain. Will follow up with results. Patient is to call with any question or concerns. Any fevers, chills, chest pain, SOB or other serious symptoms patient is to call the office or go to ER . CC: Shanti Sanchez PA-C This note was dictated using voice recognition software. Please contact me if there are an y questions regarding its content.Electronically signed by CORRINE Gonzalez at 06/08 12:27 PM PDTdocumented in this encounter Plan of Treatment + +------+--------+ + + | Name | Type | Priori | Associated Diagnoses | Order Schedule | | | | ty | | | + +------+--------+ + + | Mitochondrial Ab, M2 | Lab | Routin | Alkaline | Expected: | | | | e | phosphatase | 06/08/2019, Expires: | | | | | elevation RUQ | 09/07/2019 | | | | | abdominal pain | | + +------+--------+ + + | Antinuclear Ab, | Lab | Routin | Alkaline | Expected: | | Titer + Pattern | | e | phosphatase | 06/08/2019, Expires: | | | | | elevation RUQ | 09/07/2019 | | | | | abdominal pain | | + +------+--------+ + + | Smooth Muscle Ab | Lab | Routin | Alkaline | Expected: | | | | e | phosphatase | 06/08/2019, Expires: | | | | | elevation RUQ | 10/08/2019 | | | | | abdominal pain | | + +------+--------+ + + | CBC with | Lab | Routin | Alkaline | 1 Occurrences | | Differential | | e | phosphatase | starting 06/08/2019 | | | | | elevation RUQ | until 10/06/2019 | | | | | abdominal pain | | + +------+--------+ + + | Comprehensive | Lab | Routin | Alkaline | Expected: | | Metabolic Panel | | e | phosphatase | 06/08/2019, Expires: | | | | | elevation RUQ | 10/06/2019 | | | | | abdominal pain | | + +------+--------+ + + | Protime INR | Lab | Routin | Alkaline | Expected: | | | | e | phosphatase | 06/08/2019, Expires: | | | | | elevation RUQ | 10/06/2019 | | | | | abdominal pain | | + +------+--------+ + + | Liver and Kidney | Lab | Routin | Alkaline | 1 Occurrences | | Microsome Type 1 Ab | | e | phosphatase | starting 06/08/2019 | | | | | elevation RUQ | until 06/08/2020 | | | | | abdominal pain | | + +------+--------+ + + | GGT | Lab | Routin | Alkaline | 1 Occurrences | | | | e | phosphatase | starting 06/08/2019 | | | | | elevation RUQ | until 06/08/2020 | | | | | abdominal pain | | + +------+--------+ + + documented as of this encounter Results MRI MRCP Liver wo Contrast (07/06/2019 1:23 PM PDT) + + | Specimen | + + | | + + + + + | Narrative | Performed At | + + + | MRI MRCP LIVER WO CONTRAST 07/06/2019 12:58 PM HISTORY:?elevated | [facility] | | alk phos, RUQ abdominal pain.. COMPARISON: none PROTOCOL: | | | Coronal T2 benefits director, axial T2 benefits director, coronal 3D respiratory triggered, | | | coronal T2 thin slab, T2 thick slab set. Reconstruction views were | | | obtained. FINDINGS: The gallbladder, cystic duct, and hepatic | | | ducts are normal. The common bile duct measures 7 mm, which is | | | normal. The pancreatic duct has a normal appearance and measures 1 | | | mm, which is normal. Chest base is normal. Liver is enlarged. | | | Spleen is enlarged. 4.5 cm simple appearing cystic lesion in the | | | anterior aspect of the spleen with a few subtle thin internal | | | septations, this is predominantly benign in appearance. The | | | pancreas has a normal appearance otherwise. Adrenal glands are normal. | | | The right kidney and visualized ureter are normal. The left kidney | | | and visualized ureter are normal. Limited evaluation of the stomach, | | | small bowel, and colon show no acute findings. Venous structures are | | | unremarkable. No enlarged lymph nodes are visualized within the | | | omentum or retroperitoneum. There is no evidence for ascites or free | | | air. Body wall soft tissue structures are normal. There are no | | | acute osseous abnormalities. IMPRESSION - No evidence of | | | choledocholithiasis or cholecystitis. Spleen is enlarged. 4.5 cm | | | simple appearing cystic lesion in the anterior aspect of the spleen | | | with a few subtle thin internal septations, this is thought to be | | | benign in appearance. Dictated and Signed by: Ramón Pena MD | | | Electronically signed: 07/06/2019 2:35 PM | | + + + + + | Procedure Note | + + | Jesús, Rad Results In - 07/06/2019 2:38 PM PDT MRI MRCP LIVER WO CONTRAST 07/06/2019 | | 12:58 PM HISTORY:?elevated alk phos, RUQ abdominal pain..COMPARISON: nonePROTOCOL: | | Coronal T2 benefits director, axial T2 benefits director, coronal 3D respiratory triggered,coronal T2 thin slab, | | T2 thick slab set. Reconstruction views were obtained.FINDINGS:The gallbladder, cystic | | duct, and hepatic ducts are normal. The common bile ductmeasures 7 mm, which is normal. | | The pancreatic duct has a normal appearance andmeasures 1 mm, which is normal.Chest base | | is normal. Liver is enlarged. Spleen is enlarged. 4.5 cm simpleappearing cystic lesion | | in the anterior aspect of the spleen with a few subtlethin internal septations, this is | | predominantly benign in appearance.The pancreas has a normal appearance otherwise. | | Adrenal glands are normal. Theright kidney and visualized ureter are normal. The left | | kidney and visualizedureter are normal. Limited evaluation of the stomach, small bowel, | | and colonshow no acute findings. Venous structures are unremarkable. No enlarged | | lymphnodes are visualized within the omentum or retroperitoneum. There is no evidencefor | | ascites or free air.Body wall soft tissue structures are normal. There are no acute | | osseousabnormalities.IMPRESSION -No evidence of choledocholithiasis or cholecystitis. | | Spleen is enlarged. 4.5 cm simple appearing cystic lesion in the anterior aspectof the | | spleen with a few subtle thin internal septations, this is thought to bebenign in | | appearance.Dictated and Signed by: Ramón Pena MD Electronically signed: 07/06/2019 | | 2:35 PM | |right kidney and visualized ureter are normal. The left kidney and visualized | |ureter are normal. Limited evaluation of the stomach, small bowel, and colon | |show no acute findings. Venous structures are unremarkable. No enlarged lymph | |nodes are visualized within the omentum or retroperitoneum. There is no evidence | |for ascites or free air. | | | |Body wall soft tissue structures are normal. There are no acute osseous | |abnormalities. | | | |IMPRESSION - | |No evidence of choledocholithiasis or cholecystitis. | | | |Spleen is enlarged. 4.5 cm simple appearing cystic lesion in the anterior aspect | |of the spleen with a few subtle thin internal septations, this is thought to be | |benign in appearance. | | | |Dictated and Signed by: Ramón Pena MD | | Electronically signed: 07/06/2019 2:35 PM | + + + +---------+ + + | Performing | Address | City/State/Zipcode | Phone Number | | Organization | | | | + +---------+ + + | [facility] | | | | + +---------+ + + documented in this encounter Visit Diagnoses + + | Diagnosis | + + | Alkaline phosphatase elevation - Primary Other nonspecific abnormal serum enzyme | | levels | + + | RUQ abdominal pain Abdominal pain, right upper quadrant | + + | Hepatic steatosis Other chronic nonalcoholic liver disease | + + documented in this encounter"
--- OUTSIDE RECORDS SUMMARY | ~2019-09-14 | XMS | Encounter Summary ---
Demographics + + + | Address | [address] | | | [place] [address] | + + + | Home Phone | | + + + | Preferred Language | Unknown | + + + | Marital Status | | + + + | Confucianism Affiliation | Unknown | + + + | Race | Unknown | + + + | Ethnic Group | Unknown | + + + Author + + + | Author | [facility] | | | and [place] | + + + | Organization | [facility] | | | and [place] | [...] Team Providers + +------+ + | Care Arm Rest Builder Name | Role | Phone | + +------+ + | Latanya Suttno PA-C | PCP | | + +------+ + Encounter Details +--------+ + + + + | Date | Type | Department | Care Team | Description | +--------+ + + + + | 12/15/ | Abstract | [facility] | [place], | | | 2012 | | GASTROENTEROLOGY | CORRINE Alvarez [address] | | | | | [address] [place] | [place], [place] [address] | | | | | [address] | [place] | | | | | [address] | [address] | | | | | [phone] | | | +--------+ + + + [...] Comments | + + +---------+ + | No | | | | + + +---------+ [...]
--- OUTSIDE RECORDS SUMMARY | ~2019-09-14 | XMS | Encounter Summary ---
Demographics + + + | Address | [address] | | | [place] [address] | + + + | Home Phone | | + + + | Preferred Language | Unknown | + + + | Marital Status | | + + + | Scientology Affiliation | Unknown | + + + | Race | Unknown | + + + | Ethnic Group | Unknown | + + + Author + + + | Author | [facility] | | | and [place] | + + + | Organization | [facility] | | | and [place] | [...] Team Providers + +------+ + | Care Time Piece Repairer Name | Role | Phone | + [...] | Alkaline | [place], | [address] | | | | | phosphatase | [place], | [place], | | | | | elevation | INJECTION MOLDER [address] | [place] | | | | | RUQ | [place], [place] | [address] | | | | | abdominal | [address] [place] | Phone: | | | | | pain | [place] | [phone] | | | | | Procedures | [address] | Fax: | | | | | MRI MRCP | Phone: | [phone] | | | | | Liver wo | [phone] | | | | | | Contrast [place] | Fax: | | | | | | MRI, | [phone] | | | | | | ABDOMEN | | | | | | | (MRI) | | | +--------+--------+ + + + + Reason for Visit Diagnostic/Screening (Routine) +--------+--------+ + + + + | Status | Reason | Specialty | Diagnoses / | Referred By | Referred To | | | | | Procedures | Contact | Contact | +--------+--------+ + + + + | Closed | | Radiology | Diagnoses | | [facility] | | | | | Alkaline | [place], | [address] | | | | | phosphatase | [place], | [place], | | | | | elevation | INJECTION MOLDER [address] | [place] | | | | | RUQ | [address], [place] | [address] | | | | | abdominal | [address] | Phone: | | | | | pain | [place], [place] | [phone] | | | | | Procedures | [address] | Fax: | | | | | MRI MRCP | Phone: | [phone] | | | | | Liver wo | [phone] | | | | | | Contrast [place] | Fax: | | | | | | MRI, | [phone] | | | | | | ABDOMEN | | | | | | | (MRI) | | | +--------+--------+ + + + + Encounter Details +--------+ + + + + | Date | Type | Department | Care Team | Description | +--------+ + + + + | 07/06/ | Hospital | [facility] | [facility], | Alkaline phosphatase | | 2019 | Encounter | MED CTR MRI [address] | [place], INJECTION MOLDER [address] | elevation; RUQ | | | | [address] [place], | [address], [place] [address] | abdominal pain | | | | [place] [address] | [place], [place] | | | | | [phone] | [address] | | | | | | | [...] at Time of Discharge + + + +---------+ + + | Medication | Sig | Dispensed | Refills | Start | End Date | | | | | | Date | | + + + +---------+ + + | ALPRAZolam (XANAX) | Take 0.5 mg by mouth | | 0 | 05/16/20 | | | 0.25 mg tablet | 3 times daily as | | | 18 | | | | needed. | | | | | + + + +---------+ + + | buPROPion | Take 300 mg by mouth | | 0 | | | | (WELLBUTRIN SR) 150 | 2 times daily. | | | | | | mg 12 hr tablet | | | | | | + + + +---------+ + + | busPIRone (BUSPAR) | | | 0 | 05/26/20 | | | 10 MG tablet | | | | 19 | | + + + +---------+ + + | Calcium | Take by mouth. | | 0 | | | | Carb-Cholecalciferol | | | | | | | (CALCIUM 500 +D) | | | | | | | 500-400 MG-UNIT TABS | | | | | | + + + +---------+ + + | cyclobenzaprine | Take 5 mg by mouth 3 | | 0 | | | | (FLEXERIL) 5 MG | times daily as | | | | | | tablet | needed. | | | | | + + + +---------+ + + | galcanezumab-gnlm | Inject 120 mg under | | 0 | 02/10/20 | | | (EMGALITY) 120 mg/mL | the skin. | | | 19 | | | injection (pen) | | | | | | + + + +---------+ + + | ketorolac | Take 1-2 tablets by | | 0 | 10/26/19 | | | (TORADOL) 10 MG | mouth. | | | 19 | | | tablet | | | | | | + + + +---------+ + + | ketorolac | Inject 2mL ( 60 mg) | | 0 | 03/13/20 | | | (TORADOL) 60 mg/2 mL | intramuscular at | | | 19 | | | SOLN | onset of serve | | | | | | | headache for one | | | | | | | dose. Max 2 | | | | | | | injections per | | | | | | | month. Indications: | | | | | | | Severe Pain | | | | | + + + +---------+ + + | metFORMIN | TK 1 T PO QD | | 0 | 05/06/20 | | | (GLUCOPHAGE-XR) 500 | | | | 18 | | | mg 24 hr tablet | | | | | | + + + +---------+ + + | metoclopramide | | | 0 | 07/15/20 | | | (REGLAN) 10 mg | | | | 16 | | | tablet | | | | | | + + + +---------+ + + | metoprolol | | | 0 | 05/26/20 | | | succinate | | | | 19 | | | (TOPROL-XL) 25 mg 24 | | | | | | | hr tablet | | | | | | + + + +---------+ + + | Milk Thistle 300 | Take 350 mg by mouth | | 0 | | | | MG CAPS | Daily. | | | | | + + + +---------+ + + | Naproxen Sodium | Take by mouth. | | 0 | | | | (ALEVE) 220 MG CAPS | | | | | | + + + +---------+ + + | nystatin | | | 0 | 07/14/20 | | | (MYCOSTATIN) [id number] | | | | 16 | | | UNIT/GM powder | | | | | | + + + +---------+ + + | pantoprazole | Take 40 mg by mouth | | 0 | | | | (PROTONIX) 40 mg | Daily. | | | | | | tablet | | | | | | + + + +---------+ + + | sertraline | | | 0 | 05/29/20 | | | (ZOLOFT) 50 mg | | | | 19 | | | tablet | | | | | | + + + +---------+ + + | SUMAtriptan | Take 100 mg by mouth | | 0 | | | | (IMITREX) 50 mg | as needed. | | | | | | tablet | | | | | | + + + +---------+ + + documented as of this encounter Plan of Treatment Not on filedocumented as of this encounter Procedures + +--------+ + + + | Procedure Name | Priori | Date/Time | Associated Diagnosis | Comments | | | ty | | | | + +--------+ + + + | MRI MRCP LIVER WO | Routin | 07/06/2019 | Alkaline | Results for this | | CONTRAST | e | 1:23 PM | phosphatase | procedure are in the | | | | PDT | elevation RUQ | results section. | | | | | abdominal pain | | + +--------+ + + + documented in this encounter Results MRI MRCP Liver wo Contrast (07/06/2019 1:23 PM PDT) + + | Specimen | + + | | + + + + + | Narrative | Performed At | + + + | MRI MRCP LIVER WO CONTRAST 07/06/2019 12:58 PM HISTORY:?elevated | [facility] | | alk phos, RUQ abdominal pain.. COMPARISON: none PROTOCOL: | | | Coronal T2 supervisor waterworks, axial T2 supervisor waterworks, coronal 3D respiratory triggered, | | | [...] abdominal pain..COMPARISON: nonePROTOCOL: | | Coronal T2 supervisor waterworks, axial T2 supervisor waterworks, coronal 3D respiratory triggered,coronal T2 thin slab, [...] | + + | Alkaline phosphatase elevation Other nonspecific abnormal serum enzyme levels | + + | RUQ abdominal pain Abdominal pain, right upper quadrant | + + documented in this encounter"
--- OUTSIDE RECORDS SUMMARY | ~2019-09-14 | XMS | Encounter Summary ---
Demographics + + + | Address | [address] | | | [place] [address] | + + + | Home Phone | | + + + | Preferred Language | Unknown | + + + | Marital Status | | + + + | Episcopalian Affiliation | NOD | + + + | Race | White | + + + | Ethnic Group | Not or | + + + Author + + + | Author | [facility] | + + + | Organization | [facility] | + + + | Address | Unknown | + + + | Phone | Unavailable | + + + Support + + + + + | Name | Relationship | Address | Phone | + + + + + | Thaddeus Martínez | ECON | [address] # | | | | | [place], [place] | | | | | [address] | | + + + + + Care Team Providers + +------+ + | Care Collaborating Supervising Physician Name | Role | Phone | + [...] - | | 2017 | Encounter | [facility] & | MD Sachin Wiley | Lisinopril | | | | Healing [address] | [place], [place] | | | | | [address] Mailcode: | [address] | | | | | [facility] | [phone] | | | | | and Jose [address], | | | | | | [address] | | | | | | [place], [place] | | | | | | [address] | | | | | | [phone] | | | +--------+ + + + [...]
--- OUTSIDE RECORDS SUMMARY | ~2019-09-14 | XMS | Encounter Summary ---
Demographics + + + | Address | [address] | | | [place] [address] | + + + | Home Phone | | + + + | Preferred Language | Unknown | + + + | Marital Status | | + + + | Taoism Affiliation | NOD | + + + | Race | White | + + + | Ethnic Group | Not or | + + + Author + + + | Author | [facility] | + + + | Organization | [facility] | + + + | Address | Unknown | + + + | Phone | Unavailable | + + + Support + + + + + | Name | Relationship | Address | Phone | + + + + + | Thaddeus Martínez | ECON | [address] # | | | | | [place], [place] | | | | | [address] | | + + + + + Care Team Providers + +------+ + | Care Industrial Relations Representative Name | Role | Phone | + [...] | | | | nonintractab | [address] | [address] | | | | | le headache, | [address] | [address] | | | | | unspecified | [address] | [place], [place] | | | | | headache | [place], [place] | [address] | | | | | type | [address] | Phone: | | | | | Procedures | Phone: | [phone] | | | | | CONSULT TO | [phone] | Fax: | | | | | NEUROLOGY | Fax: | [phone] | | | | | [address] | [phone] | | +--------+--------+ + + + + Encounter Details +--------+ + + + + | Date | Type | Department | Care Team | Description | +--------+ + + + + | 03/13/ | Video/TeleH | Neurology at | Kavitha Servin | Chronic migraine | | 2019 | ealth-Sched | [facility] & | MD Sachin Wiley | without aura without | | | uled | [address] | [address] [facility] [place] | status migrainosus, | | | | [place] Mailcode: | [phone] | not intractable | | | | [facility] | [phone] | (Primary Dx) | | | | and Healing, | | | | | | [address] | | | | | | [place], [place] | | | | | | [address] | | | | | | [phone] | | | +--------+ + + + [...] The patient's location is at home in [place]. A relative and/or cardiovascular sonographer was not used during the visit. DATE [...] F) Prescription for Cefaly Unit FDA approved senior medical billing specialist for use in helping to reduce migraine occurrences Dispense: #1 Cefaly Unit with 3 set of electrodes Directions: use 20 min each night as directed by professor of floriculture 1 each 3 cyclobenzaprine 5 mg oral [...] 50 (03/13/19 0800) Migraine Disability Score (manual analytical data scientist):: 25 (05/10/18 1400) Score Arredondo: 0-5: Little [...] Patient is welcome to e-mail via my [facility] chart if questions or concerns arise in the future. I spent 21 minutes with the patient. Greater than 50% of the time was spent counseling the patient regarding diagnosis, risks, benefits, and alternatives to current management. All questions were answered to patient s satisfaction. Kavitha Servin MD Continuous Improvement [place] [facility] Brain [place] documented in thi s encounter Plan of [...]
--- OUTSIDE RECORDS SUMMARY | ~2019-09-14 | XMS | Encounter Summary ---
Demographics + + + | Address | [address] | | | [place] [address] | + + + | Home Phone | | + + + | Preferred Language | Unknown | + + + | Marital Status | | + + + | Orthodoxy Affiliation | NOD | + + + | Race | White | + + + | Ethnic Group | Not or | + + + Author + + + | Author | [facility] | + + + | Organization | [facility] | + + + | Address | Unknown | + + + | Phone | Unavailable | + + + Support + + + + + | Name | Relationship | Address | Phone | + + + + + | Thaddeus Martínez | ECON | [address] # | | | | | [place], [place] | | | | | [address] | | + + + + + Care Team Providers + +------+ + | Care Manager Oracle Name | Role | Phone | + +------+ + | Shanti Sanchez | PCP | | + +------+ + Reason for Visit + + + | Reason | Comments | + + + | Medication | Emgality | + + + Encounter Details +--------+ + + + + | Date | Type | Department | Care Team | Description | +--------+ + + + + | 10/27/ | Telephone | Neurology at | Kavitha Servin | Medication | | 2019 | | [facility] & | S, MD [address] | (Emgality) | | | | Healing [address] | [place], [place] | | | | | [address] Mailcode: | [id number] | | | | | [facility] | [phone] | | | | | and Healing, | | | | | | [address] | | | | | | [place], [place] | | | | | | [address] | | | | | | [phone] | | | +--------+ + + + [...]
--- OUTSIDE RECORDS SUMMARY | ~2019-09-14 | XMS | Encounter Summary ---
Demographics + + + | Address | [address] | | | [place] [address] | + + + | Home Phone | | + + + | Preferred Language | Unknown | + + + | Marital Status | | + + + | Latter-Day Affiliation | Unknown | + + + | Race | Unknown | + + + | Ethnic Group | Unknown | + + + Author + + + | Author | [facility] | | | and [place] | + + + | Organization | [facility] | | | and [...] Team Providers + +------+ + | Care Strike On Machine Operator Name | Role | Phone | + +------+ + PCP | Unavailable | + +------+ + Encounter Details +--------+ + + + + | Date | Type | Department | Care Team | Description | +--------+ + + + + | 03/16/ | Hospital | [facility] | [facility] | | | 2004 | Encounter | [facility] | [address] | | | | | GENERIC CONV DEPT | [place] | | | | | [address] | [address] | | | | | [place] | [phone] | | | | | [address] | | | | | | [phone] | | | +--------+ + + + [...]
--- OUTSIDE RECORDS SUMMARY | ~2019-09-14 | XMS | Clinical Summary ---
Demographics + + + | Address | [address] | | | [place] [address] | + + + | Home Phone | | + + + | Preferred Language | Unknown | + + + | Marital Status | | + + + | Muslim Affiliation | NOD | + + + | Race | White | + + + | Ethnic Group | Not or | + + + Author + + + | Author | [facility] | + + + | Organization | [facility] | + + + | Address | Unknown | + + + | Phone | Unavailable | + + + Support + + + + + | Name | Relationship | Address | Phone | + + + + + | Thaddeus Martínez | ECON | [address] # | | | | | [place], [place] | | | | | [address] | | + + + + + Care Team Providers + +------+ + | Care Party Chief Name | Role | Phone | + +------+ + | Shanti Sanchez | PCP | | + +------+ + Source Comments [facility] is fully live on both [facility] and [facility] Allergies + + + + + + | Active Allergy | Reactions | Severity | Noted | Comments | | | | | Date | | + + + + + + | Hydrocodone | Pruritus | | 08/21/20 | | | | | | 16 | | + + + + + + | Oxycodone | Pruritus | | 08/21/20 | | | | | | 16 | | + + + + + + Medications + + + +---------+------+------+-------+ | Medication | Sig | Dispensed | Refills | Star | End | Statu | | | | | | t | Date | s | | | | | | Date | | | + + + +---------+------+------+-------+ | metoclopramide HCl | | | 0 | 10/1 | | Activ | | 10 mg oral tablet | | | | 2/20 | | e | | | | | | 16 | | | + + + +---------+------+------+-------+ | nystatin 100,000 | | | 0 | 10/1 | | Activ | | unit/gram topical | | | | 1/20 | | e | | powder | | | | 16 | | | + + + +---------+------+------+-------+ | cyclobenzaprine 5 | Take 5 mg by mouth | | 0 | | | Activ | | mg oral tablet | three times daily as | | | | | e | | | needed. Do not use | | | | | | | | longer than 2-3 | | | | | | | | weeks. | | | | | | + + + +---------+------+------+-------+ | pantoprazole 40 mg | Take 40 mg by mouth | | 0 | | | Activ | | oral tablet,delayed | once daily. | | | | | e | | release (DR/EC) | | | | | | | + + + +---------+------+------+-------+ | COMPOUNDED MED RX | Prescription for | 1 each | 3 | 12/0 | | Activ | | NONCONTROLLED (SEE | Cefaly Unit FDA | | | 05/23 | | e | | ADMIN INSTRUCT F) | approved medical | | | 17 | | | | | device for use in | | | | | | | | helping to reduce | | | | | | | | migraine | | | | | | | | occurrencesDispense: | | | | | | | | #1 Cefaly Unit | | | | | | | | with 3 set of | | | | | | | | electrodesDirections | | | | | | | | : use 20 min each | | | | | | | | night as directed by | | | | | | | | high school library media specialist | | | | | | + + + +---------+------+------+-------+ | ZOLMitriptan 5 mg | Take 1 tablet by | 12 | 5 | 04/1 | | Activ | | oral tablet | mouth as needed for | tablet | | 06/23 | | e | | | migraine. May repeat | | | 18 | | | | | dose in 2 hours if | | | | | | | | needed. Do not | | | | | | | | exceed 10 mg within | | | | | | | | a 24 hour period. | | | | | | + + + +---------+------+------+-------+ +---+ + | | Additional | | | informationPatient | | | not taking. Reported | | | on 11/18/2018 1:24 | | | PM | +---+ + + + +--------+---+------+---+-------+ | eletriptan 40 mg | Take 1 tablet by | 12 | 5 | 06/0 | | Activ | | oral tablet | mouth as needed for | tablet | | 20 | | e | | | migraine. May repeat | | | 18 | | | | | in 2 hours if | | | | | | | | necessary; Max of 2 | | | | | | | | doses per 24 hour | | | | | | | | period. | | | | | | + + +--------+---+------+---+-------+ +---+ + | | Additional | | | informationPatient | | | not taking. Reported | | | on 11/18/2018 1:23 | | | PM | +---+ + + + +---------+---+------+---+-------+ | metFORMIN SR 500 | TK 1 T PO QD | | 2 | 08/0 | | Activ | | mg oral tablet | | | | 320 | | e | | extended release 24 | | | | 18 | | | | hr | | | | | | | + + +---------+---+------+---+-------+ | ALPRAZolam 0.25 mg | Take 1 tablet by | | 0 | 08/1 | | Activ | | oral tablet | mouth three times | | | 3/20 | | e | | | daily as needed. | | | 18 | | | + + +---------+---+------+---+-------+ | buPROPion XL 150 | Take 300 mg by mouth | | 0 | 02/1 | | Activ | | mg oral tablet | once daily. | | | 5/20 | | e | | extended release 24 | | | | 19 | | | | hr | | | | | | | + + +---------+---+------+---+-------+ | ketorolac 10 mg | Take 1 - 2 tabs at | 12 | 5 | 01/2 | | Activ | | oral tablet | onset, may repeat at | tablet | | 3/20 | | e | | | 6 hours, limit to | | | 19 | | | | | 40 mg in 24 hours. | | | | | | | | Do not take more | | | | | | | | than 3 days in a | | | | | | | | row. | | | | | | + + +---------+---+------+---+-------+ | predniSONE 20 mg | Take 1 tablet by | 8 | 0 | 02/0 | | Activ | | oral tablet | mouth once daily. | tablet | | 6/20 | | e | | | | | | 19 | | | + + +---------+---+------+---+-------+ | hydrOXYzine 25 mg | Take 1 tablet by | 32 | 0 | 02/0 | | Activ | | oral tablet | mouth every four | tablet | | 6/20 | | e | | | hours as needed. | | | 19 | | | + + +---------+---+------+---+-------+ | galcanezumab-gnlm | Inject 120 mg under | 3 mL | 5 | 05/0 | | Activ | | (EMGALITY PEN) 120 | the skin (SUBC) | | | 9/20 | | e | | mg/mL subcutaneous | every thirty days. | | | 19 | | | | pen injector | | | | | | | + + +---------+---+------+---+-------+ | ketorolac 60 mg/2 | Inject 2mL ( 60 mg) | 12 mL | 3 | 06/1 | | Activ | | mL intramuscular | intramuscular at | | | 0/20 | | e | | solutionIndications: | onset of serve | | | 19 | | | | severe pain | headache for one | | | | | | | | dose. Max 2 | | | | | | | | injections per | | | | | | | | month. Indications: | | | | | | | | Severe Pain | | | | | | + + +---------+---+------+---+-------+ | SUMATRIPTAN 100 mg | TAKE 1 TABLET | 36 | 4 | 08/04 | | Activ | | oral tablet | NEEDED FOR MIGRAINE, | tablet | | 12/21 | | e | | | MAY REPEAT IN 2 | | | 19 | | | | | HOURS IF NEEDED. | | | | | | | | MAXIMUM DOSE 200 MG | | | | | | | | (2 TABLETS) PER DAY | | | | | | + + +---------+---+------+---+-------+ Active Problems Not on file Encounters +--------+--------+ + + + | Date | Type | Specialty | Care Team | Description | +--------+--------+ + + + | 08/15/ | Refill | Neurology | Kavitha Servin | Refill Request | | 2019 | | | MD Inez | | +--------+--------+ + + + from Last 3 Months Immunizations + + + + | Name | Administration Dates | Next Due | + + + + | Ketorolac | 02/12/2017 | | | Tromethamine 30 Mg | | | + + + + Social History + [...] recent travel history available. | + + Last Filed Vital Signs + + + + + | Vital Sign | Reading | Time Taken | Comments | + + + + + | Blood Pressure | 135/86 | 11/18/2018 1:21 PM | | | | | PST | | + + + + + | Pulse | 98 | 11/18/2018 1:21 PM | | | | | PST | | + + + + + [...] + + + + | Weight | 133.4 kg (294 lb) | 11/18/2018 1:21 PM | | | | | PST | | + + + + + | Height | 180.3 cm (5' 11") | 02/12/2017 10:39 AM | | | | | PDT | | + + + + + | Body Mass Index | 41 | 02/12/2017 10:39 AM | | | | | PDT | | + + + + + Plan of Treatment + + + + + | Health Maintenance | Due Date | Last Done | Comments | + + + + + | Influenza (Flu) | | | | | vaccination (#1) | 9 | | | + + + + + | Pneumococcal | Aged Out | | No longer eligible | | vaccination | | | based on patient's | | | | | age to complete this | | | | | topic | + + + + + Results Not on filefrom Last 3 Months Insurance + +--------+ +--------+-------+---------+------+ | Payer | Benefi | Subscriber | Effect | Phone | Address | Type | | | t Plan | ID | heather | | | | | | / | | Dates | | | | | | Group | | | | | | + +--------+ +--------+-------+---------+------+ | [facility] | UNITED | [phone] | 10/04/19 | | | PPO | | | | | 16-Pre | | | | | | HEALTH | | sent | | | | | | CARE | | | | | | + +--------+ +--------+-------+---------+------+ + +--------+ +--------+ + + | Guarantor Name | Accoun | Relation to | Date | Phone | Billing Address | | | t Type | Patient | of | | | | | | | | | | + +--------+ +--------+ + + | Aline Martínez | Person | Self [birth year] | [address] | | | al/Fam | | 1970 | [phone] | [place] [address] | | | charly | | | 4 (Home) | | + +--------+ +--------+ + +
--- OUTSIDE RECORDS SUMMARY | ~2019-09-14 | XMS | Encounter Summary ---
Demographics + + + | Address | [address] | | | [place] [address] | + + + | Home Phone | | + + + | Preferred Language | Unknown | + + + | Marital Status | | + + + | Jainism Affiliation | NOD | + + + | Race | White | + + + | Ethnic Group | Not or | + + + Author + + + | Author | [facility] | + + + | Organization | [facility] | + + + | Address | Unknown | + + + | Phone | Unavailable | + + + Support + + + + + | Name | Relationship | Address | Phone | + + + + + | Thaddeus Martínez | ECON | [address] # | | | | | [place], [place] | | | | | [address] | | + + + + + Care Team Providers + +------+ + | Care Ophthalmic Medical Technologist Name | Role | Phone | + +------+ + | Latayna Sutton | PCP | | + +------+ + Encounter Details +--------+ + + + + | Date | Type | Department | Care Team | Description | +--------+ + + + + | 09/14/ | MyChart | Neurology at | Kavitha Servin | Filling Ketorolac RX | | 2017 | Encounter | [facility] & | MD Sachin Wiley | | | | | [address] | [place], [place] | | | | | [address] Mailcode: | [address] | | | | | [facility] | [phone] | | | | | and [address], | | | | | | [address] | | | | | | [place], [place] | | | | | | [address] | | | | | | [phone] | | | +--------+ + + + [...]
--- OUTSIDE RECORDS SUMMARY | ~2019-09-14 | XMS | Encounter Summary ---
Demographics + + + | Address | [address] | | | [place] [address] | + + + | Home Phone | | + + + | Preferred Language | Unknown | + + + | Marital Status | | + + + | Congregation Affiliation | NOD | + + + | Race | White | + + + | Ethnic Group | Not or | + + + Author + + + | Author | [facility] | + + + | Organization | [facility] | + + + | Address | Unknown | + + + | Phone | Unavailable | + + + Support + + + + + | Name | Relationship | Address | Phone | + + + + + | Thaddeus Martínez | ECON | [address] # | | | | | [place], [place] | | | | | [address] | | + + + + + Care Team Providers + +------+ + | Care Site Safety Representative Name | Role | Phone | + +------+ + | Latanya Sutton | PCP | | + +------+ + Encounter Details +--------+------+ + + + | Date | Type | Department | Care Team | Description | +--------+------+ + + + | 03/11/ | Lab | Laboratory at [facility] | | Migraine without | | 2018 | | [address] | | aura and without | | | | [place], [place] | | status migrainosus, | | | | [address] | | not intractable | | | | [phone] | | | +--------+------+ + + + Social History + +-------+ [...] | + +--------+ + + + | CBC (HEMOGRAM) ONLY | Routin | 03/11/2018 | Migraine without | Results for this | | | e | 3:22 PM | aura and without | procedure are in the | | | | PDT | status migrainosus, | results section. | | | | | not intractable | | + +--------+ + + + | COMPLETE METABOLIC | Routin | 03/11/2018 | Migraine without | Results for this | | SET | e | 3:22 PM | aura and without | procedure are in the | | (NA,K,CL,CO2,BUN,CRE | | PDT | status migrainosus, | results section. | | AT,GLUC,CA,AST,ALT,B | | | not intractable | | | BHARTI TOTAL,ALK | | | | | | PHOS,ALB,PROT TOTAL) | | | | | + +--------+ + + + | CBC ONLY | Routin | 03/11/2018 | Migraine without | Results for this | | | e | 3:22 PM | aura and without | procedure are in the | | | | PDT | status migrainosus, | results section. | | | | | not intractable | | + +--------+ + + + documented in this encounter Results CBC (HEMOGRAM) ONLY (03/11/2018 3:22 PM PDT) + +-------+ + + + | Component | Value | Ref Range | Performed | Pathologist | | | | | At | Signature | + +-------+ + + + | WHITE CELL | 7.53 | 3.50 - 10.80 | [facility] | | | COUNT | | K/cu mm | LABORATORY | | | | | | SERVICES, | | | | | | [facility] | | | | | | [facility] | | + +-------+ + + + | RED CELL | 4.53 | 4.00 - 5.20 | [facility] | | | COUNT | | M/cu mm | LABORATORY | | | | | | SERVICES, | | | | | | [facility] + | | | | | | [facility]AL[facility] | | + +-------+ + + + | HEMOGLOBIN | 13.7 | 12.0 - 16.0 | [facility] | | | | | g/dL | LABORATORY | | | | | | SERVICES, | | | | | | [facility] + | | | | | | [facility]AL[facility] | | + +-------+ + + + | HEMATOCRIT | 41.4 | 36.0 - 46.0 % | [facility] | | | | | | LABORATORY | | | | | | SERVICES, | | | | | | [facility] + | | | | | | [facility] | | + +-------+ + + + | MCV | 91.4 | 80.0 - 100.0 fL | [facility] | | | | | | LABORATORY | | | | | | SERVICES, | | | | | | [facility] + | | | | | | [facility] | | + +-------+ + + + | MCHC | 33.1 | 32.0 - 36.0 | [facility] | | | | | g/dL | LABORATORY | | | | | | SERVICES, | | | | | | [facility] + | | | | | | [facility]AL[facility] | | + +-------+ + + + | RDW SD | 44.6 | 35.1 - 46.3 fL | [facility] | | | | | | LABORATORY | | | | | | SERVICES, | | | | | | [facility] + | | | | | | [facility]AL[facility] | | + +-------+ + + + | PLATELET | 222 | 150 - 400 K/cu | [facility] | | | COUNT | | mm | LABORATORY | | | | | | SERVICES, | | | | | | [facility] + | | | | | | [facility]AL[facility] | | + +-------+ + + + | MPV | 11.1 | 9.7 - 12.3 fL | [facility] | | | | | | LABORATORY | | | | | | SERVICES, | | | | | | [facility] + | | | | | | [facility]AL[facility] | | + +-------+ + + + + + | Specimen | + + | Blood - Blood | | (substance) | + + + + + + + | Performing | Address | City/State/Zipcode | Phone Number | | Organization | | | | + + + + + | [facility] | [address] | [place] [address] | | | SERVICES, [facility] | | | | | HEALTH + HEALING | | | | + + + + + COMPLETE METABOLIC SET (NA,K,CL,CO2,BUN,CREAT,GLUC,CA,AST,ALT,BILI TOTAL,ALK PHOS,ALB,PROT TOTAL) (03/11/2018 3:22 PM PDT) + +---------+ + + + | Component | Value | Ref Range | Performed | Pathologist | | | | | At | Signature | + +---------+ + + + | GLUCOSE, | 88 | 70 - 99 mg/dL | [facility] | | | PLASMA | | | LABORATORY | | | (LAB) | | | SERVICES, | | | | | | CORE | | + +---------+ + + + | BUN, PLASMA | 18 | 6 - 20 mg/dL | [facility] | | | (LAB) | | | LABORATORY | | | | | | SERVICES, | | | | | | CORE | | + +---------+ + + + | CREATININE | 0.92 | 0.60 - 1.10 | [facility] | | | PLASMA | | mg/dL | LABORATORY | | | (LAB) | | | SERVICES, | | | | | | CORE | | + +---------+ + + + | EGFR | >60 | >60 mL/min | [facility] | | | - | | | LABORATORY | | | FIJIAN | | | SERVICES, | | | | | | CORE | | + +---------+ + + + | EGFR NON | >60 | >60 mL/min | [facility] | | | -SONIA | | | LABORATORY | | | RICAN | | | SERVICES, | | | | | | CORE | | + +---------+ + + + | SODIUM, | 141 | 136 - 145 | [facility] | | | PLASMA | | mmol/L | LABORATORY | | | (LAB) | | | SERVICES, | | | | | | CORE | | + +---------+ + + + | POTASSIUM, | 4.0 | 3.4 - 5.0 | [facility] | | | PLASMA | | mmol/L | LABORATORY | | | (LAB) | | | SERVICES, | | | | | | CORE | | + +---------+ + + + | CHLORIDE, | 110 (H) | 97 - 108 mmol/L | [facility] | | | PLASMA | | | LABORATORY | | | (LAB) | | | SERVICES, | | | | | | CORE | | + +---------+ + + + | TOTAL CO2, | 26 | 21 - 32 mmol/L | [facility] | | | PLASMA | | | LABORATORY | | | (LAB) | | | SERVICES, | | | | | | CORE | | + +---------+ + + + | CALCIUM, | 9.1 | 8.6 - 10.2 | [facility] | | | PLASMA | | mg/dL | LABORATORY | | | (LAB) | | | SERVICES, | | | | | | CORE | | + +---------+ + + + | CALCIUM(ALB | 9.6 | 8.6 - 10.2 | [facility] | | | CORRECTED) | | mg/dL | LABORATORY | | | | | | SERVICES, | | | | | | CORE | | + +---------+ + + + | BILIRUBIN | 0.8 | 0.3 - 1.2 mg/dL | [facility] | | | TOTAL | | | LABORATORY | | | | | | SERVICES, | | | | | | CORE | | + +---------+ + + + | TOTAL | 7.9 | 6.4 - 8.2 g/dL | [facility] | | | PROTEIN, | | | LABORATORY | | | PLASMA | | | SERVICES, | | | (LAB) | | | CORE | | + +---------+ + + + | ALBUMIN, | 3.4 (L) | 3.5 - 4.7 g/dL | [facility] | | | PLASMA | | | LABORATORY | | | (LAB) | | | SERVICES, | | | | | | CORE | | + +---------+ + + + | ALK PHOS | 488 (H) | 42 - 98 U/L | [facility] | | | | | | LABORATORY | | | | | | SERVICES, | | | | | | CORE | | + +---------+ + + + | AST(SGOT) | 67 (H) | <=41 U/L | [facility] | | | | | | LABORATORY | | | | | | SERVICES, | | | | | | CORE | | + +---------+ + + + | ALT (SGPT) | 122 (H) | <=60 U/L | [facility] | | | | | | LABORATORY | | | | | | SERVICES, | | | | | | CORE | | + +---------+ + + + | ANION GAP | 5 | 4 - 11 mmol/L | [facility] | | | | | | LABORATORY | | | | | | SERVICES, | | | | | | CORE | | + +---------+ + + + | ANION | 6 | 4 - 11 mmol/L | [facility] | | | GAP(ALB | | | LABORATORY | | | CORRECTED) | | | SERVICES, | | | | | | CORE | | + +---------+ + + + | POTASSIUM | No Hemo | | [facility] | | | CMNT | | | LABORATORY | | | | | | SERVICES, | | | | | | CORE | | + +---------+ + + + | BILI T CMNT | No Hemo | | [facility] | | | | | | LABORATORY | | | | | | SERVICES, | | | | | | CORE | | + +---------+ + + + | AST CMNT | No Hemo | | [facility] | | | | | | LABORATORY | | | | | | SERVICES, | | | | | | CORE | | + +---------+ + + + + + | Specimen | + + | Blood - Blood | | (substance) | + + + + + | Narrative | Performed At | + + + | GFR is estimated using the MDRD equation recommended by the | [facility] | | National Kidney Disease Education Program. Estimated GFR | LABORATORY | | Interpretive Information: <60 mL/min/1.73 sq m | SERVICES, CORE | | Chronic Kidney Disease <15 mL/min/1.73 sq m | | | Kidney Failure Estimated GFR greater that 60 mL/min/1.73 sq m is of | | | limited clinical value. The MDRD equation is not valid in the | | | following situations: - Patients under 18 years of age - Severe | | | malnutrition or obesity - Vegetarian diet - Rapidly changing kidney | | | function - Amputees, paraplegics, or other muscle-wasting diseses | | + + + + + + + + | Performing | Address | City/State/Zipcode | Phone Number | | Organization | | | | + + + + + | [facility] | [address] | [place] [address] | | | SERVICES, CORE | [address] | | | + + + + + documented in this encounter Visit Diagnoses + + | Diagnosis | + + | Migraine without aura and without status migrainosus, not intractable Migraine | | without aura, without mention of intractable migraine without mention of status | | migrainosus | + + documented in this encounter"
--- OUTSIDE RECORDS SUMMARY | ~2019-09-14 | XMS | Encounter Summary ---
Demographics + + + | Address | [address] | | | [place] [address] | + + + | Home Phone | | + + + | Preferred Language | Unknown | + + + | Marital Status | | + + + | Bahai Affiliation | NOD | + + + | Race | White | + + + | Ethnic Group | Not or | + + + Author + + + | Author | [facility] | + + + | Organization | [facility] | + + + | Address | Unknown | + + + | Phone | Unavailable | + + + Support + + + + + | Name | Relationship | Address | Phone | + + + + + | Thaddeus Martínez | ECON | [address] # | | | | | [place], [place] | | | | | [address] | | + + + + + Care Team Providers + +------+ + | Care Color Paste Mixing Supervisor Name | Role | Phone | + +------+ + | Shanti Sanchez | PCP | | + +------+ + Encounter Details +--------+------+ + + + | Date | Type | Department | Care Team | Description | +--------+------+ + + + | 05/24/ | Lab | Laboratory at [facility] | | Chronic migraine | | 2019 | | [address] | | without aura without | | | | [place], [place] | | status migrainosus, | | | | [address] | | not intractable | | | | [phone] | | | +--------+------+ + + + [...] + | COMPLETE METABOLIC | Routin | 05/24/2019 | Chronic migraine | Results for this | | SET | e | 1:46 PM | without aura without | procedure are in the | | (NA,K,CL,CO2,BUN,CRE | | PDT | status migrainosus, | results section. | | AT,GLUC,CA,AST,ALT,B | | | not intractable | | | BHARTI TOTAL,ALK | | | | | | PHOS,ALB,PROT TOTAL) | | | | | + +--------+ + + + documented in this encounter Results COMPLETE METABOLIC SET (NA,K,CL,CO2,BUN,CREAT,GLUC,CA,AST,ALT,BILI TOTAL,ALK PHOS,ALB,PROT TOTAL) (05/24/2019 1:46 PM PDT) + +---------+ + + + | Component | Value | Ref Range | Performed | Pathologist | | | | | At | Signature | + +---------+ + + + | GLUCOSE, | 98 | 70 - 99 mg/dL | [facility] | | | PLASMA | | | LABORATORY | | | (LAB) | | | SERVICES, | | | | | | [facility] | [facility] + | | | | | | HEALING | | + +---------+ + + + | BUN, PLASMA | 19 | 6 - 20 mg/dL | [facility] | | | (LAB) | | | LABORATORY | | | | | | SERVICES, | | | | | | [facility] | | | [facility] + | | | | | | HEALING | | + +---------+ + + + | CREATININE | 0.82 | 0.60 - 1.10 | [facility] | | | PLASMA | | mg/dL | LABORATORY | | | (LAB) | | | SERVICES, | | | | | | [facility] | | | [facility] + | | | | | | HEALING | | + +---------+ + + + | EGFR | >60 | >60 mL/min | [facility] | | | - | | | LABORATORY | | | UGANDAN | | | SERVICES, | | | | | | [facility] | | | [facility] + | | | | | | HEALING | | + +---------+ + + + | EGFR NON | >60 | >60 mL/min | [facility] | | | -[facility] | | | LABORATORY | | | RICAN | | | SERVICES, | | | | | | [facility] | | | | | [facility] + | | | | | | HEALING | | + +---------+ + + + | SODIUM, | 141 | 136 - 145 | [facility] | | | PLASMA | | mmol/L | LABORATORY | | | (LAB) | | | SERVICES, | | | | | | [facility] | | | | | [facility] + | | | | | | HEALING | | + +---------+ + + + | POTASSIUM, | 4.5 | 3.4 - 5.0 | [facility] | | | PLASMA | | mmol/L | LABORATORY | | | (LAB) | | | SERVICES, | | | | | | [facility] | | | [facility] + | | | | | | HEALING | | + +---------+ + + + | CHLORIDE, | 107 | 97 - 108 mmol/L | [facility] | | | PLASMA | | | LABORATORY | | | (LAB) | | | SERVICES, | | | | | | [facility] | | | [facility] + | | | | | | HEALING | | + +---------+ + + + | TOTAL CO2, | 27 | 21 - 32 mmol/L | [facility] | | | PLASMA | | | LABORATORY | | | (LAB) | | | SERVICES, | | | | | | [facility] | | | | [facility] + | | | | | | HEALING | | + +---------+ + + + | CALCIUM, | 9.4 | 8.6 - 10.2 | [facility] | | | PLASMA | | mg/dL | LABORATORY | | | (LAB) | | | SERVICES, | | | | | | [facility] | | | | [facility] + | | | | | | HEALING | | + +---------+ + + + | CALCIUM(ALB | 9.8 | 8.6 - 10.2 | [facility] | | | CORRECTED) | | mg/dL | LABORATORY | | | | | | SERVICES, | | | | | | [facility] | | | | | [facility] + | | | | | | HEALING | | + +---------+ + + + | BILIRUBIN | 1.1 | 0.3 - 1.2 mg/dL | [facility] | | | TOTAL | | | LABORATORY | | | | | | SERVICES, | | | | | | [facility] | | | | | | [facility] + | | | | | | HEALING | | + +---------+ + + + | TOTAL | 8.2 | 6.4 - 8.2 g/dL | [facility] | | | PROTEIN, | | | LABORATORY | | | PLASMA | | | SERVICES, | | | (LAB) | | | [facility] | | | | | | [facility] + | | | | | | HEALING | | + +---------+ + + + | ALBUMIN, | 3.5 | 3.5 - 4.7 g/dL | [facility] | | | PLASMA | | | LABORATORY | | | (LAB) | | | SERVICES, | | | | | | [facility] | [facility] | | | [facility] + | | | | | | HEALING | | + +---------+ + + + | ALK PHOS | 689 (H) | 42 - 98 U/L | [facility] | | | | | | LABORATORY | | | | | | SERVICES, | | | | | | [facility] | | [facility] + | | | | | | HEALING | | + +---------+ + + + | AST(SGOT) | 79 (H) | <=41 U/L | [facility] | | | | | | LABORATORY | | | | | | SERVICES, | | | | | | [facility] | [facility] | | | [facility] + | | | | | | HEALING | | + +---------+ + + + | ALT (SGPT) | 169 (H) | <=60 U/L | [facility] | | | | | | LABORATORY | | | | | | SERVICES, | | | | | | [facility] | | | | | | [facility] + | | | | | | HEALING | | + +---------+ + + + | ANION GAP | 7 | 4 - 11 mmol/L | [facility] | | | | | | LABORATORY | | | | | | SERVICES, | | | | | | [facility] | | | | | | [facility] + | | | | | | HEALING | | + +---------+ + + + | ANION | 8 | 4 - 11 mmol/L | [facility] | | | GAP(ALB | | | LABORATORY | | | CORRECTED) | | | SERVICES, | | | | | | [facility] | | | | | | [facility] + | | | | | | HEALING | | + +---------+ + + + | POTASSIUM | No Hemo | | [facility] | | | CMNT | | | LABORATORY | | | | | | SERVICES, | | | | | | [facility] | | | | | | [facility] + | | | | | | HEALING | | + +---------+ + + + | BILI T CMNT | No Hemo | | [facility] | | | | | | LABORATORY | | | | | | SERVICES, | | | | | | [facility] | | | | | | [facility] + | | | | | | HEALING | | + +---------+ + + + | AST CMNT | No Hemo | | [facility] | | | | | | LABORATORY | | | | | | SERVICES, | | | | | | [facility] | | | | | | [facility] + | | | | | | HEALING | | + +---------+ + + + + + | Specimen | + + | Blood - Blood | | (substance) | + + + + + | Narrative | Performed At | + + + | GFR is estimated using the MDRD equation recommended by the National | [facility] | | Kidney Disease Education Program. Estimated GFR Interpretive | LABORATORY | | Information: <60 mL/min/1.73 sq m Chronic Kidney | SERVICES, | | Disease <15 mL/min/1.73 sq m Kidney Failure | CENTER FOR | | Estimated GFR greater than 60 mL/min/1.73 sq m is of limited clinical | HEALTH + | | value. The MDRD equation is not valid in the following situations: - | HEALING | | Patients under 18 years of age - Severe malnutrition or obesity - | | | Vegetarian diet - Rapidly changing kidney function - Amputees, | | | paraplegics, or other muscle-wasting diseases | | + + + + + + + + | Performing | Address | City/State/Zipcode | Phone Number | | Organization | | | | + + + + + | [facility] | [address] | [place] [address] | | | [facility] | | | | | HEALTH + HEALING | | | | + + + + + documented in this encounter Visit Diagnoses + + | Diagnosis | + + | Chronic migraine without aura without status migrainosus, not intractable Chronic | | migraine without aura, without mention of intractable migraine without mention of status | | migrainosus | + + documented in this encounter"
--- OUTSIDE RECORDS SUMMARY | ~2019-09-14 | XMS | Encounter Summary ---
Demographics + + + | Address | [address] | | | [place] [address] | + + + | Home Phone | | + + + | Preferred Language | Unknown | + + + | Marital Status | | + + + | Congregational Affiliation | NOD | + + + | Race | White | + + + | Ethnic Group | Not or | + + + Author + + + | Author | [facility] | + + + | Organization | [facility] | + + + | Address | Unknown | + + + | Phone | Unavailable | + + + Support + + + + + | Name | Relationship | Address | Phone | + + + + + | Thaddeus Martínez | ECON | [address] # | | | | | [place], [place] | | | | | [address] | | + + + + + Care Team Providers + +------+ + | Care Bilingual Teacher Name | Role | Phone | + +------+ + | Shanti Sanchez | PCP | | + +------+ + Encounter Details +--------+ + + + + | Date | Type | Department | Care Team | Description | +--------+ + + + + | 03/01/ | Documentati | Neurology at | Manolo Benjamin, | | | 2019 | on | [facility] & | [address] | | | | | Healing [address] | | | | | [place] Mailcode: | [place], [place] | | | | | [facility] | [address] | | | | | Health and Healing, | [phone] | | | | | | | | | | | Floor [place], [place] | | | | | | [address] | | | | | | [phone] | | | +--------+ + + + [...]
--- OUTSIDE RECORDS SUMMARY | ~2019-09-14 | XMS | Encounter Summary ---
Demographics + + + | Address | [address] | | | [place] [address] | + + + | Home Phone | | + + + | Preferred Language | Unknown | + + + | Marital Status | | + + + | Yarsani Affiliation | NOD | + + + | Race | White | + + + | Ethnic Group | Not or | + + + Author + + + | Author | [facility] | + + + | Organization | [facility] | + + + | Address | Unknown | + + + | Phone | Unavailable | + + + Support + + + + + | Name | Relationship | Address | Phone | + + + + + | Thaddeus Martínez | ECON | [address] # | | | | | [place], [place] | | | | | [address] | | + + + + + Care Team Providers + +------+ + | Care Drywall Application Supervisor Name | Role | Phone | [...] | +--------+ + + + + | 02/24/ | Telephone | Neurology at | Kavitha Servin | Refill Request | | 2017 | | [facility] & | MD Sachin Wiley | | | | | [address] | [place], [place] | | | | | [place] Mailcode: | [id number] | | | | | [facility] | [phone] | | | | | and Healing, | | | | | | [address] | | | | | | [place], [place] | | | | | | [address] | | | | | | [phone] | | | +--------+ + + + [...]
--- OUTSIDE RECORDS SUMMARY | ~2019-09-14 | XMS | Encounter Summary ---
Demographics + + + | Address | [address] | | | [place] [address] | + + + | Home Phone | | + + + | Preferred Language | Unknown | + + + | Marital Status | | + + + | Baptism Affiliation | NOD | + + + | Race | White | + + + | Ethnic Group | Not or | + + + Author + + + | Author | [facility] | + + + | Organization | [facility] | + + + | Address | Unknown | + + + | Phone | Unavailable | + + + Support + + + + + | Name | Relationship | Address | Phone | + + + + + | Thaddeus Martínez | ECON | [address] # | | | | | [place], [place] | | | | | [address] | | + + + + + Care Team Providers + +------+ + | Care Circulation Analyst Name | Role | Phone | + +------+ + | Shanti Sanchez | PCP | | + +------+ + Encounter Details +--------+ + + + + | Date | Type | Department | Care Team | Description | +--------+ + + + + | 11/07/ | MyChart | Neurology at | Kavitha Servin | RE: Itching Side | | 2019 | Encounter | [facility] & | MD Inez [address] | Effect [facility] | | | | Healing [address] | [place], [place] | | | | | [place] Mailcode: | [address] | | | | | [facility] | [phone] | | | | | and Healing, | | | | | | [address] | | | | | | [place], [place] | | | | | | [address] | | | | | | [phone] | | | +--------+ + + + [...]
--- OUTSIDE RECORDS SUMMARY | ~2019-09-14 | XMS | Encounter Summary ---
Demographics + + + | Address | [address] | | | [place] [address] | + + + | Home Phone | | + + + | Preferred Language | Unknown | + + + | Marital Status | | + + + | Zoroastrianism Affiliation | NOD | + + + | Race | White | + + + | Ethnic Group | Not or | + + + Author + + + | Author | [facility] | + + + | Organization | [facility] | + + + | Address | Unknown | + + + | Phone | Unavailable | + + + Support + + + + + | Name | Relationship | Address | Phone | + + + + + | Thaddeus Martínez | ECON | [address] # | | | | | [place], [place] | | | | | [address] | | + + + + + Care Team Providers + +------+ + | Care Safety Investigator/Cause Analyst Name | Role | Phone | [...] Phone Call | | 2016 | | [facility] [address] | [address] | | | | | [address] Mailcode: [address] | [place], [place] | | | | | [facility] | [address] | | | | | and Healing, | [phone] | | | | | [facility] | | | | | | Floor [place], [place] | | | | | | [address] | | | | | | [phone] | | | +--------+ + + + [...]
--- OUTSIDE RECORDS SUMMARY | ~2019-09-14 | XMS | Encounter Summary ---
Demographics + + + | Address | [address] | | | [place] [address] | + + + | Home Phone | | + + + | Preferred Language | Unknown | + + + | Marital Status | | + + + | Pentecostal Affiliation | Unknown | + + + | Race | Unknown | + + + | Ethnic Group | Unknown | + + + Author + + + | Author | [facility] | | | and [place] | + + + | Organization | [facility] | | | and Romeoana | [...] Team Providers + +------+ + | Care Repairer Typewriter Name | Role | Phone | + +------+ + PCP | Unavailable | + +------+ + Encounter Details +--------+ + + + + | Date | Type | Department | Care Team | Description | +--------+ + + + + | 02/10/ | Hospital | [facility] | Nidia Sumner | | | 2005 | Encounter | [facility] | S [address] | | | | | GENERIC CONV DEPT | [place] | | | | | [address] | [address] | | | | | [place] | [phone] | | | | | [address] | | | | | | [phone] | | | +--------+ + + + [...] | + +--------+ + + + | SURGICAL PATHOLOGY | Routin | 02/10/2006 | | Results for this | | EXAM | e | 12:00 AM | | procedure are in the | | | | PDT | | results section. | + +--------+ + + + documented in this encounter Results Surgical Pathology Exam (02/10/2006 12:00 AM PDT) + + | Specimen | + + | | + + + + + | Narrative | Performed At | + + + | SURGICAL PATHOLOGY REPORT | [facility] | | Date Taken: 02/10/2006 Date Received: | | | 02/10/2006 Completed: 02/11/2006 Physician: NIDIA SUMNER Copy | | | to: CORRINE Burns DIAGNOSIS: Anal transformation | | | zone: 7 Hemorrhoids with thrombus. 7 | | | Ulceration, focal. 7 Chronic inflammation, mild, | | | focal. 7 Granulation tissue-like changes, focal. 7 | | | No evidence of atypia or malignancy. 0 Epifanio Carlos, | | | Arcelia Electronic signature PRIOR REPORTS: | | | [id number] GROSS DESCRIPTION: Labeled and | | | designated as "Garrett, thrombosed left lateral hemorrhoid" is | | | received in formalin and consists of an irregular excision of focally | | | ulcerated pink epithelium measuring 2.5 x 1.8 cm and measuring up to | | | 1.2 cm in thickness. Sectioned and submitted "A1". (MS) | | | 1: [address] [place] [address] | | | or Testing performed at: [facility] | | | [facility] Apolinar Grace M.D., | | | Director [address] [place] [address] [address] [place] [address] Phone: | | | | | + + + + + + + + | Performing | Address | City/State/Zipcode | Phone Number | | Organization | | | | + + + + + | [facility] | [address] | [place] [address] | | | [facility] | | | | | LABORATORY | | | | + + + + + | [facility] | | | | + + + + + documented in this encounter Visit Diagnoses Not on filedocumented in this encounter
--- OUTSIDE RECORDS SUMMARY | ~2019-09-14 | XMS | Encounter Summary ---
Demographics + + + | Address | [address] | | | [place] [address] | + + + | Home Phone | | + + + | Preferred Language | Unknown | + + + | Marital Status | | + + + | Taoist Affiliation | NOD | + + + | Race | White | + + + | Ethnic Group | Not or | + + + Author + + + | Author | [facility] | + + + | Organization | [facility] | + + + | Address | Unknown | + + + | Phone | Unavailable | + + + Support + + + + + | Name | Relationship | Address | Phone | + + + + + | Thaddeus Martínez | ECON | [address] # | | | | | [place], [place] | | | | | [address] | | + + + + + Care Team Providers + +------+ + | Care Marketing Operations Manager Name | Role | Phone | + +------+ + | Shanti Sanchez | PCP | | + +------+ + Reason for Visit + + + | Reason | Comments | + + + | Follow-up visit | | + + + Consultation (Routine) [...] | Chronic | Olivia K, | Kavitha Wiley, | | | | | nonintractab | [address] | MD [address] | | | | | le headache, | Hunter Oakes | [address] | | | | | unspecified | [address] | [place], [place] | | | | | headache | [place] | [address] | | | | | type | [address] | Phone: | | | | | Procedures | Phone: | [phone] | | | | | CONSULT TO | [phone] | Fax: | | | | | NEUROLOGY | Fax: | [phone] | | | | | [address] | [phone] | | +--------+--------+ + + + + Encounter Details +--------+---------+ + + + | Date | Type | Department | Care Team | Description | +--------+---------+ + + + | 11/18/ | Office | Neurology at | Kavitha Servin | Chronic migraine | | 2019 | Visit | [facility] & | MD Sachin Wiley | without aura without | | | | He[address] | [address] [place], [place] | status migrainosus, | | | | [address] Mailcode: | [phone] | not intractable | | | | [facility] | [phone] | (Primary Dx) | | | | and Healing, | | | | | | [address] | | | | | | [place], [place] | | | | | | [address] | | | | | | [phone] | | | +--------+---------+ + + + [...] Instructions Patient Instructions Kavitha Servin MD - 11/18/2018 1:40 PM PST- Make sure to see a weapons designer for arms rash - Wait until Aimovig is completely out of your system before starting Emgality. Electronica lly signed by Kavitha Servin MD at 11/18/2018 1:58 PM PST documented in this encounter Progress Notes Kavitha Servin MD - 11/18/2018 1:40 PM PST NEUROLOGY PROGRESS NOTE DATE OF SERVICE 11/18/2018 PATIENT IDENTIFICATION This is a 48-yo woman with migraine headache without aura since age 18, Chiari type I, depr ession, fatty liver disease who [facility] to [facility] with chronic migraine heada kin ( 15-17 STALLINGS/m). INTERVAL HISTORY - She had 8 rounds of Aimovig. She reports severe constipation. Last rounds caused itching of her arms, responsive temporarily to prednisone. - She reports 13 STALLINGS days in Melo, 7 in Dec, 5 STALLINGS in Nov, 11 in Jul, 8 in Jun. - She hasn't started Emgality yet. - She went to the ED yesterday for 3 days of sharp pain over her heart. EKG was normal per patient. MEDICATIONS Current Outpatient Prescriptions on File Prior to Visit Medication Sig Dispense Refill ALPRAZolam 0.25 mg oral tablet Take 1 tablet by mouth three times daily as needed. buPROPion XL 150 mg oral tablet extended release 24 hr Take 2 tablets by mouth once mary ly in the morning. COMPOUNDED MED RX NONCONTROLLED (SEE ADMIN INSTRUCT F) Prescription for Cefaly Unit FDA approved biomedical engineering technician for use in helping to reduce migraine occurrences Dispense: #1 Cefaly Unit with 3 set of electrodes Directions: use 20 min each night as directed by bronze chaser 1 each 3 cyclobenzaprine 5 mg oral tablet Take 5 mg by mouth three times daily as needed. Do not use longer than 2-3 weeks. eletriptan 40 mg oral tablet Take 1 tablet by mouth as needed for migraine. May repeat in 2 hours if necessary; Max of 2 doses per 24 hour period. 12 tablet 5 galcanezumab-gnlm (EMGALITY) 120 mg/mL subcutaneous pen injector Inject 120 mg under th e skin (SUBC) every thirty days. 3 mL [...] 10 mg within a 24 hour period. 12 tablet 5 No current facility-administered medications on file prior to visit. - Wellbutrin XR 300 mg daily TRIED HEADACHE MEDICATION IN THE PAST 1.Propranolol-worsen depression 2.Sumatriptan NS, PO 3. Topiramate- not tolerated 4. Rizatriptan 5. Amitriptyline 6. Zomig 7. Cefaly 8. Aimovig 9. Toradol 10. Relpax PHYSICAL EXAM BP 135/86 (BP Location: Left upper arm, Patient Position: Sitting) | Pulse 98 | Wt 133.4 kg (294 lb) | BMI 41.00 kg/m | OB Status Having periods | Smoking Status Never Smoker | BSA 2.59 m GENERAL: The patient is well groomed, in a good spirit with a normal attention, concentrati on, and a good fund of knowledge. CN: Smooth pursuit, conjugate gaze. No facial asymmetry. Motor: Moves all 4 extremities equally. Gait: Posture is normal. Gait is steady with normal steps, base, arm swing, and turning. Migraine Disability Score (manual supervisor data processing):: 25 (05/10/18 1400) Score Arredondo: 0-5: Little to No Disability (Grade I) 6-10: Mild Disability (Grade II) 11-20: Moderate Disability (Grade III) 21+: Severe Disability (Grade IV) ASSESSEMENT AND PLAN This is a 48-yo woman with migraine headache without aura since age 18, Chiari type I, depr ession who is [facility] at [facility] for chronic migraine 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 She r eports new onset itching with last round of Aimovig and severe constipation. Plan:. - Follow-up with local weapons designer - Once GI function returns to normal, start Emgality 120 mg SC monthly - RTC in 4-6 months. Patient is welcome to e-mail via my [facility] chart if questions or concern s arise in the future. I spent 15 minutes with the patient. Greater than 50% [...]
--- OUTSIDE RECORDS SUMMARY | ~2019-09-14 | XMS | Encounter Summary ---
Demographics + + + | Address | [address] | | | [place] [address] | + + + | Home Phone | | + + + | Preferred Language | Unknown | + + + | Marital Status | | + + + | Sikhism Affiliation | NOD | + + + | Race | White | + + + | Ethnic Group | Not or | + + + Author + + + | Author | [facility] | + + + | Organization | [facility] | + + + | Address | Unknown | + + + | Phone | Unavailable | + + + Support + + + + + | Name | Relationship | Address | Phone | + + + + + | Thaddeus Martínez | ECON | [address] # | | | | | [place], [place] | | | | | [address] | | + + + + + Care Team Providers + +------+ + | Care Booster Pump Operator Name | Role | Phone | + +------+ + | Shanti Sanchez | PCP | | + +------+ + Encounter Details +--------+ + + + + | Date | Type | Department | Care Team | Description | +--------+ + + + + | 05/26/ | Telephone | Neurology at | Kavitha Servin | | | 2018 | | [facility] & | MD Sachin Wiley | | | | | [address] [place], [place] | | | | | [address] Mailcode: | [phone] | | | | | [facility] | [phone] | | | | | and Healing, | | | | | | [address] | | | | | | [place], [place] | | | | | | [address] | | | | | | [phone] | | | +--------+ + + + [...]
--- OUTSIDE RECORDS SUMMARY | ~2019-09-14 | XMS | Encounter Summary ---
Demographics + + + | Address | [address] | | | [place] [address] | + + + | Home Phone | | + + + | Preferred Language | Unknown | + + + | Marital Status | | + + + | Restorationist Affiliation | Unknown | + + + | Race | Unknown | + + + | Ethnic Group | Unknown | + + + Author + + + | Author | [facility] | | | and [place] | + + + | Organization | [facility] | | | and Romeoana [...] Team Providers + +------+ + | Care Mat Sewer Name | Role | Phone | + +------+ + PCP | Unavailable | + +------+ + Encounter Details +--------+ + + + + | Date | Type | Department | Care Team | Description | +--------+ + + + + | 10/14/ | Hospital | [facility] | Tunde Villar | | | 2000 | Encounter | [facility] | [address] | | | | | EMERGENCY CENTER | [place], [place] | | | | | [address] | [address] | | | | | [place] | [phone] | | | | | [address] | | | | | | [phone] | | | +--------+ + + + [...]
--- OUTSIDE RECORDS SUMMARY | ~2019-09-14 | XMS | Encounter Summary ---
Demographics + + + | Address | [address] | | | [place] [address] | + + + | Home Phone [...] + + + | Author | [facility] | + + + | Organization | [facility] | + + + | Address | Unknown | + + + | Phone | Unavailable | + + + Support + + + + + | Name | Relationship | Address | Phone | + + + + + | Thaddeus Martínez | ECON | [address] # | | | | | [place], [place] | | | | | [address] | | + + + + + Care Team Providers + +------+ + | Care Credit Coordinator Name | Role | Phone | + +------+ + | Shanti Sanchez | PCP | | + +------+ + Encounter Details +--------+ + + + + | Date | Type | Department | Care Team | Description | +--------+ + + + + | 10/25/ | MyChart | Neurology at | Kavitha Servin | RE: Switching Meds | | 2019 | Encounter | [facility] & | MD Sachin Wiley | | | | | [address] | [place], [place] | | | | | [address] Mailcode: | [phone] | | | | | [facility] | [phone] | | | | | and Healing, | | | | | | [address] | | | | | | [place], [place] | | | | | | [address] | | | | | | [phone] | | | +--------+ + + + [...]
--- OUTSIDE RECORDS SUMMARY | ~2019-09-14 | XMS | Encounter Summary ---
Demographics + + + | Address | [address] | | | [place] [address] | + + + | Home Phone [...] + + + | Author | [facility] | + + + | Organization | [facility] | + + + | Address | Unknown | + + + | Phone | Unavailable | + + + Support + + + + + | Name | Relationship | Address | Phone | + + + + + | Thaddeus Martínez | ECON | [address] # | | | | | [place], [place] | | | | | [address] | | + + + + + Care Team Providers + +------+ + | Care Cigar Packing Examiner Name | Role | Phone | [...] | | unspecified | [address] | [place], [place] | | | | | headache | [place], [place] | [address] | | | | | type | [address] | Phone: | | | | | Procedures | Phone: | [phone] | | | | | CONSULT TO | [phone] | Fax: | | | | | NEUROLOGY | Fax: | [phone] | | | | | [address] | [phone] | | +--------+--------+ + + + + Encounter Details +--------+---------+ + + + | Date | Type | Department | Care Team | Description | +--------+---------+ + + + | 05/10/ | Office | Neurology at | Kavitha Servin | Chronic migraine | | 2018 | Visit | [facility] & | MD Sachin Wiley | without aura without | | | | He[address] | [address] [place], [place] | status migrainosus, | | | | [address] Mailcode: | [phone] | not intractable | | | | [facility] | [phone] | (Primary Dx) | | | | and Healing, | | | | | | [address] | | | | | | [place], [place] | | | | | | [address] | | | | | | [phone] | | | +--------+---------+ + + + [...] + + + | Blood Pressure | 140/74 | 05/10/2018 1:20 PM | | | | | PDT | | + + + + + | Pulse | 90 | 05/10/2018 1:20 PM | | | | | PDT | [...] + + + + | Weight | 132.9 kg (293 lb) | 05/10/2018 1:20 PM | | | | | PDT | | + + + + + | Height | - | - | | + + + + + | Body Mass Index | 40.87 | 02/12/2017 10:39 AM | | | | | PDT | | + + + + + documented in this encounter Progress Notes Kavitha Servin MD - 05/10/2018 1:40 PM PDT NEUROLOGY PROGRESS NOTE DATE OF SERVICE 05/10/18 PATIENT IDENTIFICATION This is a 48-yo woman with a past medical history significant for migraine headache without aura since age 18, Chiari type I, depression who presented to the [facility] with supervisor finishing room 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 INTERVAL HISTORY -She had 2 injections of Aimovig: March 23, April 26 - Headaches are no longer - She had 10 headache in March, 8 in April and none in May so far. - She reports fatigue and dizziness for the first shot, and only fatigue after the 2nd shot . She denies any constipation. MEDICATIONS Current Outpatient Prescriptions on File Prior to Visit Medication Sig Dispense Refill ALPRAZolam 0.25 mg oral tablet Take 0.25 mg by mouth three times daily. amitriptyline 10 mg oral tablet Take 1 tablet by mouth at night x 2 weeks, then increa se to 2 tablets nightly. Indications: Migraine Prevention 60 tablet 5 buPROPion XL 150 mg oral tablet extended release 24 hr Take 150 mg by mouth once daily in the morning. COMPOUNDED MED RX NONCONTROLLED (SEE ADMIN INSTRUCT F) Prescription for Cefaly Unit FDA approved hospitalist medical director for use in helping to reduce migraine occurrences Dispense: #1 Cefaly Unit with 3 set of electrodes Directions: use 20 min each night as directed by dental office assistant 1 each 3 cyclobenzaprine 5 mg oral tablet Take 5 mg by mouth three times daily as needed. Do not use longer than 2-3 weeks. eletriptan 40 mg oral tablet Take 1 tablet by mouth as needed for migraine. May repeat in 2 hours if necessary; Max of 2 doses per 24 hour period. 12 tablet 5 ketorolac 10 mg oral tablet ketorolac 60 mg/2 mL intramuscular solution Inject 2mL ( 60 mg) intramuscular at onset of serve headache for one dose. Max 2 injections per month. Indications: Severe Pain 12 mL 3 lisinopril 10 mg oral tablet 1 tablet daily x 2 weeks, then increase to 2 tablets khushbu y if tolerated. Indications: Migraine Prevention 42 tablet 0 metoclopramide HCl 10 mg oral tablet nystatin 100,000 unit/gram topical powder pantoprazole 40 mg oral tablet,delayed release (DR/EC) Take 40 mg by mouth once daily. SUMAtriptan 100 mg oral tablet Take 1 [...] Rizatriptan 5. Amitriptyline 6. Zomig 7. Cefaly PHYSICAL EXAM BP 140/74 | Pulse 90 | Wt 132.9 kg (293 lb) | BMI 40.87 kg/(m^2) GENERAL: The patient is well groomed, in a good spirit with a normal attention, concentrati on, and a good fund of knowledge. Migraine Disability Score (manual data technician):: 70 (12/02/16 1100) Score Arredondo: 0-5: Little to No Disability (Grade I) 6-10: Mild Disability (Grade II) 11-20: Moderate Disability (Grade III) 21+: Severe Disability (Grade IV) Migraine Disability Score (manual data technician):: 25 (05/10/18 1400) Score Arredondo: 0-5: Little to No Disability (Grade I) 6-10: Mild Disability (Grade II) 11-20: Moderate Disability (Grade III) 21+: Severe Disability (Grade IV) ASSESSEMENT AND PLAN This is a 48-yo woman with a past medical history significant for migraine headache without aura since age 18, Chiari type I, depression who is [facility] at [facility] for chronic migraine 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 Her headaches have responded to Aimovig. She is happy with the results. Plan:. - Continue Aimovig SC 70 mg once per month. - Complete metabolic panel will be checked today. - RTC in 3-4 months. Patient is welcome to e-mail via my [facility] chart if questions or concern s arise in the future. I spent 25 minutes with the patient. Greater than 50% of the time was spent counseling the patient regarding diagnosis, risks, benefits, and alternatives to current management. All questions were answered to patient s satisfaction. documented in thi s encounter Plan of Treatment Not on filedocumented as of this encounter Results COMPLETE METABOLIC SET (NA,K,CL,CO2,BUN,CREAT,GLUC,CA,AST,ALT,BILI TOTAL,ALK PHOS,ALB,PROT TOTAL) (05/10/2018 2:27 PM PDT) + +---------+ + + + | Component | Value | Ref Range | Performed | Pathologist | | | | | At | Signature | + +---------+ + + + | GLUCOSE, | 77 | 70 - 99 mg/dL | [facility] | | | PLASMA | | | LABORATORY | | | (LAB) | | | SERVICES, | | | | | | CORE | | + +---------+ + + + | BUN, PLASMA | 17 | 6 - 20 mg/dL | [facility] | | | (LAB) | | | LABORATORY | | | | | | SERVICES, | | | | | | CORE | | + +---------+ + + + | CREATININE | 0.90 | 0.60 - 1.10 | [facility] | | | PLASMA | | mg/dL | LABORATORY | | | (LAB) | | | SERVICES, | | | | | | CORE | | + +---------+ + + + | EGFR | >60 | >60 mL/min | [facility] | | | - | | | LABORATORY | | | [facility]ER[facility] | | | SERVICES, | | | [...] +---------+ + + + | POTASSIUM, | 4.1 | 3.4 - 5.0 | [facility] | | | PLASMA | | mmol/L | LABORATORY | | | (LAB) | | | SERVICES, | | | | | | CORE | | + +---------+ + + + | CHLORIDE, | 109 (H) | 97 - 108 mmol/L | [...] +---------+ + + + | CALCIUM(ALB | 9.5 | 8.6 - 10.2 | [facility] | [...] +---------+ + + + | TOTAL | 7.6 | 6.4 - 8.2 g/dL | [facility] [...] + + + | ALK PHOS | 425 (H) | 42 - 98 U/L | [facility] | | | | | | LABORATORY | | | | | | SERVICES, | | | | | | CORE | | + +---------+ + + + | AST(SGOT) | 52 (H) | <=41 U/L | [facility] | | | | | | LABORATORY | | | | | | SERVICES, | | | | | | CORE | | + +---------+ + + + | ALT (SGPT) | 90 (H) | <=60 U/L | [facility] | | | | | | LABORATORY | | | | | | SERVICES, | | | | | | CORE | | + +---------+ + + + | ANION GAP | 6 | 4 - 11 mmol/L | [facility] | | | | | | LABORATORY | | | | | | SERVICES, | | | | | | CORE | | + +---------+ + + + | ANION | 7 | 4 - 11 mmol/L [...] | + + + + + | [facility] | [address] | [place] [address] | | | SERVICES, CORE | REYNA [...]
--- OUTSIDE RECORDS SUMMARY | ~2019-09-14 | XMS | Encounter Summary ---
Demographics + + + | Address | [address] | | | [place] [address] | + + + | Home Phone | | + + + | Preferred Language | Unknown | + + + | Marital Status | | + + + | Catholic Affiliation | NOD | + + + [...] Thaddeus Martínez | ECON | [address] # | | | | | [place], [place] | | | | | [address] | | + + + + + Care Team Providers + +------+ + | Care Deep Submergence Vehicle Operator Name | Role | Phone | + +------+ + | Shanti Sanchez | PCP | | + +------+ + Reason for Referral Medication Prior Authorization (Routine) +--------+--------+ + + + + | Status | Reason | Specialty | Diagnoses / | Referred By | Referred To | | | | | Procedures | Contact | Contact | +--------+--------+ + + + + | Closed | | | | Gareth, | | | | | | | Kavitha Wiley, | | | | | | | [address] | | | | | | | [address] | | | | | | | [place], [place] | | | | | | | [address] | | | | | | | Phone: | | | | | | | [phone] | | | | | | | Fax: | | | | | | | [phone] | | +--------+--------+ + + + + Encounter Details +--------+ + + + + | Date | Type | Department | Care Team | Description | +--------+ + + + + | 02/02/ | MyChart | Neurology at | Kavitha Servin | RE: Medication | | 2019 | Encounter | [facility] & | MD [address] | Update before | | | | [address] | [address] [place], [place] | starting Emgality | | | | [address] Mailcode: | [address] | | | | | [facility] | [phone] | | | | | and Healing, | | | | | | [address] | | | | | | [place], [place] | | | | | | [address] | | | | | | [phone] | | | +--------+ + + + [...]
--- OUTSIDE RECORDS SUMMARY | ~2019-09-14 | XMS | Encounter Summary ---
Demographics + + + | Address | [address] | | | [place] [address] | + + + | Home Phone | | + + + | Preferred Language | Unknown | + + + | Marital Status | | + + + | Pentecostal Affiliation | NOD | + + + [...] Thaddeus Martínez | ECON | [address] # | | | | | [place], [place] | | | | | [address] | | + + + + + Care Team Providers + +------+ + | Care Managed Care Provider Name | Role | Phone | + +------+ + | Latanya Sutton | PCP | | + +------+ + Encounter Details +--------+ + + + + | Date | Type | Department | Care Team | Description | +--------+ + + + + | 12/11/ | MyChart | Neurology at | Kavitha Servin | RE: Medication | | 2017 | Encounter | [facility] & | MD Sachin Wiley | Clarification | | | | [address] | [place], [place] | | | | | [address] Mailcode: | [phone] | | | | | [facility] | [phone] | | | | | and Jose G, | | | | | | [address] | | | | | | [place], [place] | | | | | | [address] | | | | | | [phone] | | | +--------+ + + + [...]
--- OUTSIDE RECORDS SUMMARY | ~2019-09-14 | XMS | Encounter Summary ---
Demographics + + + | Address | [address] | | | [place] [address] | + + + | Home Phone | | + + + | Preferred Language | Unknown | + + + | Marital Status | | + + + | Methodist Affiliation | NOD | + + + | Race | White | + + + | Ethnic Group | Not or | + + + Author + + + | Author | [facility] | + + + | Organization | [facility] | + + + | Address | Unknown | + + + | Phone | Unavailable | + + + Support + + + + + | Name | Relationship | Address | Phone | + + + + + | Thaddeus Martínez | ECON | [address] # | | | | | [place], [place] | | | | | [address] | | + + + + + Care Team Providers + +------+ + | Care Science Writer Name | Role | Phone | + [...] Refill Request | | 2019 | | [facility] & | MD Inez [address] | | | | | He[address] | [place], [place] | | | | | [address] Mailcode: | [phone] | | | | | [facility] | [phone] | | | | | and Healing, | | | | | | [address] | | | | | | [place], [place] | | | | | | [address] | | | | | | [phone] | | | +--------+--------+ + + + [...]
--- OUTSIDE RECORDS SUMMARY | ~2019-09-14 | XMS | Encounter Summary ---
Demographics + + + | Address | [address] | | | [place] [address] | + + + | Home Phone | | + + + | Preferred Language | Unknown | + + + | Marital Status | | + + + | Congregational Affiliation | NOD | + + + | Race | White | + + + | Ethnic Group | Not or | + + + Author + + + | Author | [facility] | + + + | Organization | [facility] | + + + | Address | Unknown | + + + | Phone | Unavailable | + + + Support + + + + + | Name | Relationship | Address | Phone | + + + + + | Thaddeus Martínez | ECON | [address] # | | | | | [place], [place] | | | | | [address] | | + + + + + Care Team Providers + +------+ + | Care Fiberglass Boat Builder Name | Role | Phone | [...] | | | | nonintractab | CHANDAN [address] | MD [address] | | | | | le headache, | Hunter Oakes | [address] | | | | | unspecified | Iliana [address] | [place], [place] | | | | | headache | [place], [place] | [address] | | | | | type | [phone] | Phone: | | | | | Procedures | Phone: | [phone] | | | | | CONSULT TO | [phone] | Fax: | | | | | NEUROLOGY | Fax: | [phone] | | | | | | [phone] | | +--------+--------+ + + + + Encounter Details +--------+---------+ + + + | Date | Type | Department | Care Team | Description | +--------+---------+ + + + | 09/10/ | Office | Neurology at | Kavitha Servin | Chronic migraine | | 2017 | Visit | [facility] & | MD Sachin Wiley | without aura without | | | | [address] | [address] [place], [place] | status migrainosus, | | | | [address] Mailcode: | [id number] | not intractable | | | | [facility] | [phone] | | | | | and Healing, | | | | | | Building [address] | | | | | | [place], [place] | | | | | | [address] | | | | | | [phone] | | | +--------+---------+ + + + [...] + + documented as of this encounter Patient Instructions Patient Instructions Kavitha Servin MD - 09/10/2017 2:40 PM PST-Trial of Amitriptyli ne for headache prevention: start with 10 mg at night, increase to 20 mg after 2 weeks. If continue to have >2 headaches/week, increase to 30 mg at night. -If Amitriptyline is ineffective, consider Cefaly - Trial of Cefaly headband, 20 minutes at night to prevent headache and 60 min to break a s evere headache. 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 INTERVAL HISTORY - She did not tolerate Topamax - She is on iron supplement as she was diagnosed with iron-deficient anemia. EGD/colonoscop y were normal. - Had a miscarriage in June while moving - She is no longer family planning MEDICATIONS Current Outpatient Prescriptions on File Prior to Visit Medication Sig Dispense Refill ALPRAZolam 0.25 mg oral tablet Take 0.25 mg by mouth three times daily. amitriptyline 10 mg oral tablet Take 1 tablet by mouth at night x 2 weeks, then increa se to 2 tablets nightly. Indications: Migraine Prevention 60 tablet 5 cyclobenzaprine 5 mg oral tablet Take 5 mg by mouth three times daily as needed. Do not use longer than 2-3 weeks. ketorolac 10 mg oral tablet lisinopril 10 mg oral tablet 1 tablet [...] per 24 hour period). 12 tablet 5 SUMAtriptan 100 mg oral tablet Take 1 tablet by mouth as needed for migraine. May repea t in 2 hours if needed. Max dose: 200 mg/day. 12 tablet 5 topiramate 100 mg oral tablet Take 1 tablet by mouth once daily in the evening. Indicat ions: Migraine Prevention 30 tablet 5 topiramate 25 mg oral tablet [...] Topiramate- not tolerated 4. Rizatriptan 5. Amitriptyline PHYSICAL EXAM There were no vitals taken for this visit. GENERAL: The patient is well groomed, in a good spirit with a normal attention, concentrati on, and a good fund of knowledge. Migraine Disability Score (manual data sciences director):: 70 (12/02/16 1100) Score Arredondo: 0-5: Little [...] chronic migraine 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 She did not tolerate Topiramate. Plan: - Trial of Amitriptyline for headache prevention: start with 10 mg at night, increase to 2 0 mg after 2 weeks. If continue to have >2 headaches/week, increase to 30 mg at night. - If Amitriptyline is not effective, consider Cefaly headband, 20 minutes per day to preven t migraine headache, 60 min to break a severe headache, Rx and flyer with instruction given. - RTC in 3-4 months. Patient is welcome to e-mail via my [facility] chart if questions or concern [...]
--- OUTSIDE RECORDS SUMMARY | ~2019-09-14 | XMS | Encounter Summary ---
Demographics + + + | Address | [address] | | | [place] [address] | + + + | Home Phone | | + + + | Preferred Language | Unknown | + + + | Marital Status | | + + + | Voodoo Affiliation | NOD | + + + [...] Thaddeus Martínez | ECON | [address] # | | | | | [place], [place] | | | | | [address] | | + + + + + Care Team Providers + +------+ + | Care Professor Of Biblical Studies Name | Role | Phone | + +------+ + | Latanya Sutton | PCP | | + +------+ + Reason for Visit + + + | Reason | Comments | + + + | Medication Question | | + + + Encounter Details +--------+ + + + + | Date | Type | Department | Care Team | Description | +--------+ + + + + | 02/15/ | Telephone | Neurology at | Kavitha Servin | Medication Question | | 2017 | | [facility] & | MD Inez [address] | | | | | [address] | [place], [place] | | | | | [address] [place] Mailcode: | [id number] | | | | | [facility] | [phone] | | | | | and Healing, | | | | | | [address] | | | | | | [place], [place] | | | | | | [address] | | | | | | [phone] | | | +--------+ + + + [...]
--- OUTSIDE RECORDS SUMMARY | ~2019-09-14 | XMS | Encounter Summary ---
Demographics + + + | Address | [address] | | | [place] [address] | + + + | Home Phone | | + + + | Preferred Language | Unknown | + + + | Marital Status | | + + + | Rastafarian Affiliation | NOD | + + + | Race | White | + + + | Ethnic Group | Not or | + + + Author + + + | Author | [facility] | + + + | Organization | [facility] | + + + | Address | Unknown | + + + | Phone | Unavailable | + + + Support + + + + + | Name | Relationship | Address | Phone | + + + + + | Thaddeus Martínez | ECON | [address] # | | | | | [place], [place] | | | | | [address] | | + + + + + Care Team Providers + +------+ + | Care Cafe Worker Name | Role | Phone | [...] [facility]ovig | | 2018 | Encounter | [facility] & | MD Sachin Wiley | RX | | | | [address] | [place], [place] | | | | | [address] Mailcode: | [address] | | | | | [facility] | [phone] | | | | | and Jose [address], | | | | | | [address] | | | | | | [place], [place] | | | | | | [address] | | | | | | [phone] | | | +--------+ + + + [...]
--- OUTSIDE RECORDS SUMMARY | ~2019-09-14 | XMS | Encounter Summary ---
Demographics + + + | Address | [address] | | | [place] [address] | + + + | Home Phone | | + + + | Preferred Language | Unknown | + + + | Marital Status | | + + + | Pentecostalism Affiliation | NOD | + + + | Race | White | + + + | Ethnic Group | Not or | + + + Author + + + | Author | [facility] | + + + | Organization | [facility] | + + + | Address | Unknown | + + + | Phone | Unavailable | + + + Support + + + + + | Name | Relationship | Address | Phone | + + + + + | Thaddeus Martínez | ECON | [address] # | | | | | [place], [place] | | | | | [address] | | + + + + + Care Team Providers + +------+ + | Care Methods Analyst Name | Role | Phone | + +------+ + | Latanya Sutton | PCP | | + +------+ + Reason for Visit + + + | Reason | Comments | + + + | New patient | | | consultation | | + + + Encounter Details +--------+ + + + + | Date | Type | Department | Care Team | Description | +--------+ + + + + | 10/05/ | Telephone | Neurosurgery at | Jose Monique MD | New patient | | 2016 | | [facility] [address] | [address] | consultation | | | | [place] Mailcode: [id number] | [place], [place] | | | | | [facility] | [address] | | | | | and Healing, | [phone] | | | | | Building | | | | | | Floor [place], [place] | | | | | | [address] | | | | | | [phone] | | | +--------+ + + + [...]
--- OUTSIDE RECORDS SUMMARY | ~2019-09-14 | XMS | Encounter Summary ---
Demographics + + + | Address | [address] | | | [place] [address] | + + + | Home Phone | | + + + | Preferred Language | Unknown | + + + | Marital Status | | + + + | Latter-Day Affiliation | NOD | + + + | Race | White | + + + | Ethnic Group | Not or | + + + Author + + + | Author | [facility] | + + + | Organization | [facility] | + + + | Address | Unknown | + + + | Phone | Unavailable | + + + Support + + + + + | Name | Relationship | Address | Phone | + + + + + | Thaddeus Martínez | ECON | [address] # | | | | | [place], [place] | | | | | [address] | | + + + + + Care Team Providers + +------+ + | Care Training And Development Assistant Name | Role | Phone | + +------+ + | Latanya Sutton | PCP | | + +------+ + Encounter Details +--------+ + + + + | Date | Type | Department | Care Team | Description | +--------+ + + + + | 03/11/ | Abstract | Neurology at | Kavitha Servin | | | 2018 | | [facility] & | MD Sachin Wiley | | | | | [address] | [place] [facility] [place] | | | | | [address] Mailcode: | [phone] | | | | | [facility] | [phone] | | | | | and Healing, | | | | | | [address] | | | | | | [place], [place] | | | | | | [address] | | | | | | [phone] | | | +--------+ + + + [...]
--- OUTSIDE RECORDS SUMMARY | ~2019-09-14 | XMS | Encounter Summary ---
Demographics + + + | Address | [address] | | | [place] [address] | + + + | Home Phone | | + + + | Preferred Language | Unknown | + + + | Marital Status | | + + + | Samaritan Affiliation | NOD | + + + | Race | White | + + + | Ethnic Group | Not or | + + + Author + + + | Author | [facility] | + + + | Organization | [facility] | + + + | Address | Unknown | + + + | Phone | Unavailable | + + + Support + + + + + | Name | Relationship | Address | Phone | + + + + + | Thaddeus Martínez | ECON | [address] # | | | | | [place], [place] | | | | | [address] | | + + + + + Care Team Providers + +------+ + | Care Table Cover Folder Name | Role | Phone | + [...] Refill Request | | 2017 | | [facility] & | MD Sachin Wiley | | | | | [address] | [place], [place] | | | | | [address] Mailcode: | [address] | | | | | [facility] | [phone] | | | | | and Healing, | | | | | | Building [address] | | | | | | [place], [place] | | | | | | [address] | | | | | | [phone] | | | +--------+ + + + [...]
--- OUTSIDE RECORDS SUMMARY | ~2019-09-14 | XMS | Encounter Summary ---
Demographics + + + | Address | [address] | | | [place] [address] | + + + | Home Phone | | + + + | Preferred Language | Unknown | + + + | Marital Status | | + + + | Presybeterian Affiliation | Unknown | + + + | Race | Unknown | + + + | Ethnic Group | Unknown | + + + Author + + + | Author | [facility] | | | and [place] | + + + | Organization | [facility] | | | and [place] [...] Team Providers + +------+ + | Care Single Needle Tufting Machine Operator Name | Role | Phone | + +------+ + | Latanya Sutton PA-C | PCP | | + +------+ + Reason for Referral Evaluate & Treat (Routine) +--------+ + + + + + | Status | Reason | Specialty | Diagnoses / | Referred By | Referred To | | | | | Procedures | Contact | Contact | +--------+ + + + + + | Closed | Specialty | Gastroenterol | Diagnoses | | [facility] | | | Services | ogy | Elevated | Marcelino, | Ultrasound | | | Required | | LFTs | Kim, | [address] | | | | | Procedures | SAP SD ANALYST [address] | [place], | | | | | [place] | [place], [place] | [place] | | | | | GUIDE NEEDLE | [address] [place] | [address] | | | | | [place] | [place], [place] | Phone: | | | | | BIOPSY LIVER | [address] | [phone] | | | | | NEEDLE | Phone: | Fax: | | | | | PERCUTANEOUS | [phone] | [phone] | | | | | [place], | Fax: | | | | | | ABDOMEN | [phone] | | | | | | LIMITED | | | +--------+ + + + + + Reason for Visit +--------+ + | Reason | Comments | +--------+ + | Other | elevated liver enzymes | +--------+ + Encounter Details +--------+---------+ + + + | Date | Type | Department | Care Team | Description | +--------+---------+ + + + | 12/27/ | Office | [facility] | [facility], | Elevated LFTs | | 2012 | Visit | GASTROENTEROLOGY | CORRINE Alvarez [address] | (Primary Dx); | | | | [address] | [place], [place] [address] | Obesity (BMI | | | | [address] [place], [place] | [place], [place] | 30-39.9) | | | | [address] | [address] | | | | | [phone] | | | +--------+---------+ + + + [...] + + + | Blood Pressure | 130/94 | 12/27/2012 10:47 AM | | | | | PDT | | + + + + + | Pulse | 80 | 12/27/2012 10:47 AM | | | | | PDT | | + + + + + | Temperature | 37 C (98.6 F) | 12/27/2012 10:47 AM | | | | | PDT | | + + + + + | Respiratory Rate | 16 | 12/27/2012 10:47 AM | | | | | PDT | | + + + + + | Oxygen Saturation | - | - | | + + + + + | Inhaled Oxygen | - | - | | | Concentration | | | | + + + + + | Weight | 124.7 kg (275 lb) | 12/27/2012 10:47 AM | | | | | PDT | | + + + + + | Height | 177.8 cm (5' 10") | 12/27/2012 10:47 AM | | | | | PDT | | + + + + + | Body Mass Index | 39.46 | 12/27/2012 10:47 AM | | | | | PDT | | + + + + + documented in this encounter Progress Notes Kim Benson ARNP - 12/27/2012 10:59 AM PDTFormatting of this note might be differe nt from the original. Aline Tucker is a 42 y.o. female referred by Latanya Bueno for evaluation and treatmen t of elevated LFTs. History of present illness: About 1.5 years ago she was found to have elevated LFTs. Labs repeated about 2 weeks ago. S he had negative hepatites panel and negative ultrasound. No insurance, so stopped testing. Rechecked again once she had insurance 10/2012. She has had persistant elevation in LFTs sin ce. LMP: 11/23/2012. She notes cramping and bloating. She is not on birthcontrol. She continues to menstrate, but cycles are not regular. test in office negative. Allergies Allergen Reactions Hydrocodone-Acetaminophen Hives Oxycodone Hives Past Medical History Diagnosis Date Pain, limb, left Elevated alkaline phosphatase level Accessory skin tags Acne Candidal intertrigo Past Surgical History Procedure Date Hemorrhoid surgery X2 1993 and 2003 [place] tooth extraction 1993 Family History Problem Relation Age of Onset Diabetes Father Breast cancer Maternal Grandmother Colon cancer Paternal Grandfather Colon polyps Paternal Grandfather History Social History Marital Status: Single Spouse Name: N/A Number of Children: N/A Years of Education: N/A Occupational History Not on file. Social History Main Topics Smoking status: Never Smoker Smokeless tobacco: Never Used Alcohol Use: Yes 1-2 month Drug Use: No Sexually Active: Not on file Other Topics Concern Not on file Social History Narrative No narrative on file Review of systems: Constitutional:Denies any fevers, chills, or unintentional weight loss. Eyes:Patient denies using glaucoma eye drops. Denies dry, burning, painful eyes Respiratory:Denies shortness of breath, cough or wheezing. Gastrointestinal::Denies black stools, bright red blood per rectum, heartburn, dysphagia, n ausea, or vomiting Skin: Denies rashes Neurological:Denies memory difficulties, numbness or tingling, muscle weakness, paralysis o f arms or legs, epilepsy procedure, or frequent office and headaches ENT: Denies hearing los s, hearing aids, ring or blood in the ears, constant runny nose or nasal obstruction, hayfev er, dentures, or hoarseness for greater than one month. ENT:Denies hearing loss, hearing aids, hearing ringing or buzzing in ears, constantly runny nose, nasal obstruction, hayfever, dentures, or hoarseness for greater than one. Cardiovascular:Denies chest pain, palpitations, or swelling to legs :Patient denies painful urination, urine incontinence, we can have on average within 1-90 or any, bloody urine, or impotence Musculoskeletal:Patient denies swollen joints, painful back, or painful joints. Psychiatric:Denies depression and anxiety Endocrine:Patient denies enlarged thyroid Heme/lymph:Patient denies anemia or enlarged lymph glands. Physical exam: General: well developed, well nourished, in no acute distress, obese Head: normocephalic and atraumatic Eyes: Sclera clear Mouth: MMM Lungs: Clear to auscultate bilaterally and throughout Heart: regular rate and rhythm Abdomen: Soft, non tender, non distended, bowel tones positive times 4 quadrants, negative Angie y's sign, negative rebound tenderness, no guarding, no hepatosplenomegaly palpated. Msk: symmetrical with no deformity, with normal posture and gait, normal strength. Extremities: no clubbing, cyanosis, edema, or deformity noted Neurologic: no focal deficits, cranial nerves II-XII grossly intact Skin: intact without lesions or rashes. Psych: alert and cooperative; normal mood and affect; normal attention span and concentration. Laboratory November 08, 2012: WBC 3.91 Hemoglobin 3.2 Hematocrit 41.7 Platelets 223,000 Na 139 K 4.3 Cl 105 CO2 23 BUN 14 Creatinine 1.01 Total Bili 0.5 AST 52 ALT 106 Alk Phos 354 Total Protein 6.7 Albumin 3.9 AMA within normal limits Hepatitis panel within normal limits Abdominal ultrasound December 04, 2011: Pancreas: Normal Liver: Normal size and echo texture Bladder: No stones/sludge/wall thickening Shoemaker's sign: Negative Common bile duct: Normal caliber . She: Normal Right kidney: Normal size and morphology Ascites: None Assessment: 1. Elevated LFTs US Guided Biopsy, CBC with Differential, Iron Profile, Protime INR, LI t iter by IFA, Smooth Muscle Ab, Ambulatory referral to Gastroenterology 2. Obesity (BMI 30-39.9) Plan: Patient to have liver biopsy to determine whether or not steatohepatitis is present. Discussed likely cause of elevated liver function tests is obesity and fatty liver. Discus sed weight loss and ensuring her triglycerides in other cholesterol is within normal limits. Will her additional laboratory tests to be sure there is no other cause for elevated liver function tests. Will follow up with results of liver biopsy.Patient is to call with any question or concern s. Any fevers, chills, chest pain, SOB or other serious symptoms patient is to call the off ice or go to ER Cc: Latanya Bueno Reviewed most recent labs, imaging, and procedures. documented in t his encounter Plan of Treatment + +---------+--------+ + + | Name | Type | Priori | Associated Diagnoses | Order Schedule | | | | ty | | | + +---------+--------+ + + | US Guided Biopsy | Imaging | Routin | Elevated LFTs | Expected: | | | | e | | 12/27/2012, Expires: | | | | | | 12/27/2013 | + +---------+--------+ + + | CBC with | Lab | Routin | Elevated LFTs | 1 Occurrences | | Differential | | e | | starting 12/27/2012 | | | | | | until 12/27/2013 | + +---------+--------+ + + | Iron Profile | Lab | Routin | Elevated LFTs | 1 Occurrences | | | | e | | starting 12/27/2012 | | | | | | until 03/27/2013 | + +---------+--------+ + + | Protime INR | Lab | Routin | Elevated LFTs | 1 Occurrences | | | | e | | starting 12/27/2012 | | | | | | until 12/27/2013 | + +---------+--------+ + + | LI titer by IFA | Lab | Routin | Elevated LFTs | 1 Occurrences | | | | e | | starting 12/27/2012 | | | | | | until 12/27/2013 | + +---------+--------+ + + | Smooth Muscle Ab | Lab | Routin | Elevated LFTs | 1 Occurrences | | | | e | | starting 12/27/2012 | | | | | | until 12/27/2013 | + +---------+--------+ + + + + +--------+ + + | Name | Type | Priori | Associated Diagnoses | Order Schedule | | | | ty | | | + + +--------+ + + | Ambulatory referral | Outpatient | Routin | Elevated LFTs | Expected: | | to Gastroenterology | Referral | e | | 01/04/2013, Expires: | | | | | | 12/28/2013 | + + +--------+ + + documented as of this encounter Visit Diagnoses + + | Diagnosis | + + | Elevated LFTs - Primary Other abnormal blood chemistry | + + | Obesity (BMI 30-39.9) Obesity, unspecified | + + documented in this encounter
--- OUTSIDE RECORDS SUMMARY | ~2019-09-14 | XMS | Encounter Summary ---
Demographics + + + | Address | [address] | | | [place] [address] | + + + | Home Phone | | + + + | Preferred Language | Unknown | + + + | Marital Status | | + + + | Buddhism Affiliation | Unknown | + + + | Race | Unknown | + + + | Ethnic Group | Unknown | + + + Author + + + | Author | [facility] | | | and [place] | + + + | Organization | [facility] | | | and [place] [...] | +--------+ + + + + | 03/06/ | Hospital | [facility] | Andi Vee, | | | 2001 | Encounter | [facility] | [address] | | | | | LABORATORY [address] | [place] [address] | | | | | [address] [place] | [phone] | | | | | [address] | | | | | | [phone] | | | +--------+ + + + [...] | + +--------+ + + + | [facility]BR[facility]ER FINAL REPORT | Routin | 03/06/2002 | | Results for this | | | e | 12:00 AM | | procedure are in the | | | | PDT | | results section. | + +--------+ + + + documented in this encounter Results Duck Farmer Final Report (03/06/2002 12:00 AM PDT) + + | Specimen | + + | | + + + + + | Narrative | Performed At | + + + | CYTOLOGY REPORT Date Taken: | [facility] | | 03/06/2002 Date Received: 03/06/2002 Completed: 03/09/2002 Physician: | | | ANDI VEE Endocervical - 1 slide for Cytology DIAGNOSIS: | | | NEGATIVE FOR MALIGNANCY. SPECIMEN ADEQUACY: Satisfactory for | | | interpretation. Endocervical component is present. DESCRIPTION: | | | Estrogen Effect: Moderate - consistent with patient's | | | age/history. LMP: 03-04-02 History: Routine Pap. | | | Pathologist: Mack Gallegos MD Clinical Applications Manager: FRANKLIN Orozco(ASCP) | | | Gynecological cytology is a screening test that is subject to both | | | false positive and false negative results. The test is most | | | reliable when performed on a regular basis. [facility] [address] | | [place] [address] (v) or (f) | | | | | + + + + + + + + | Performing | Address | City/State/Zipcode | Phone Number | | Organization | | | | + + + + + | [facility] | [address] | [place] [address] | | | [facility] | | | | | LABORATORY | | | | + + + + + | [facility] | | | | + + + + + documented in this encounter Visit Diagnoses Not on filedocumented in this encounter"
--- OUTSIDE RECORDS SUMMARY | ~2019-09-14 | XMS | Encounter Summary ---
Demographics + + + | Address | [address] | | | [place] [address] | + + + | Home Phone | | + + + | Preferred Language | Unknown | + + + | Marital Status | | + + + | Sabianism Affiliation | Unknown | + + + | Race | Unknown | + + + | Ethnic Group | Unknown | + + + Author + + + | Author | [facility] | | | and [place] | + + + | Organization | [facility] | | | and [place]oana [...] Team Providers + +------+ + | Care Ui Software Developer Name | Role | Phone | + +------+ + PCP | Unavailable | + +------+ + Encounter Details +--------+ + + + + | Date | Type | Department | Care Team | Description | +--------+ + + + + | 10/01/ | Hospital | [facility] | Conversion | | | 1999 | Encounter | [facility] | Transaction, | | | | | LABORATORY [address] | Provider Unknown | | | | | [address] | | | | | | [address] | (Fax) | | | | | [phone] | | | +--------+ + + + [...] | + +--------+ + + + | EARLY HEAD START DIRECTOR FINAL REPORT | Routin | 10/01/2000 | | Results for this | | | e | 4:11 PM | | procedure are in the | | | | PST | | results section. | + +--------+ + + + documented in this encounter Results Maintenance Shop Welder Final Report (10/01/2000 4:11 PM PST) + + | Specimen | + + | | + + + + + | Narrative | Performed At | + + + | CYTOLOGY REPORT Date Taken: | [facility] | | 10/01/2000 Date Received: 10/01/2000 Completed: 10/08/2000 Physician: | | | Copy To: Marlene Vaginal/Cervical/Endocervical - 1 slide for | | | Cytology DIAGNOSIS: NEGATIVE FOR MALIGNANCY. SPECIMEN ADEQUACY: | | | Satisfactory for interpretation. Endocervical component is | | | present. HORMONAL EVALUATION: Estrogen Effect: Cannot evaluate | | | due to the presence of excessive bacteria. Other Medical | | | Record Number: [id number] LMP: 09/19/00 History: Previous Pap | | | Smear - . Pathologist: Victor M Rader M.D. Operations Processor: | | | Adriana Kearney, [facility](ASCP) Gynecological cytology is a | | | screening test that is subject to both false positive and false | | | negative results. The test is most reliable when performed on a | | | regular basis. [facility] [address] [place] [address] (v) | | | or (f) | | + + + + + + + + | Performing | Address | City/State/Zipcode | Phone Number | | Organization | | | | + + + + + | MIGUEL RODRIGUEZ | [address] | [place] [address] | | | [facility] | | | | | LABORATORY | | | | + + + + + | [facility] | | | | + + + + + documented in this encounter Visit Diagnoses Not on filedocumented in this encounter"
--- OUTSIDE RECORDS SUMMARY | ~2019-09-14 | XMS | Encounter Summary ---
Demographics + + + | Address | [address] | | | [place] [address] | + + + | Home Phone | | + + + | Preferred Language | Unknown | + + + | Marital Status | | + + + | Catholic Affiliation | NOD | + + + | Race | White | + + + | Ethnic Group | Not or | + + + Author + + + | Author | [facility] | + + + | Organization | [facility] | + + + | Address | Unknown | + + + | Phone | Unavailable | + + + Support + + + + + | Name | Relationship | Address | Phone | + + + + + | Thaddeus Martínez | ECON | [address] # | | | | | [place], [place] | | | | | [address] | | + + + + + Care Team Providers + +------+ + | Care High School Music Director Name | Role | Phone | + +------+ + | Shanti Sanchez | PCP | | + +------+ + Encounter Details +--------+------+ + + + | Date | Type | Department | Care Team | Description | +--------+------+ + + + | 05/10/ | Lab | Laboratory at [facility] | | Chronic migraine | | 2018 | | [address] | | without aura without | | | | [place], [place] | | status migrainosus, | | | | [address] | | not intractable | | | | [phone] | | | +--------+------+ + + + [...] + | COMPLETE METABOLIC | Routin | 05/10/2018 | Chronic migraine | Results for this | | SET | e | 2:27 PM | without aura without | procedure [...] | | | LABORATORY | | | [facility] | | | SERVICES, | | | [...] | + + + + + | [facility] | [address] [facility] | [place] [address] | | | SERVICES, CORE | REYNA [...]
--- OUTSIDE RECORDS SUMMARY | ~2019-09-14 | XMS | Encounter Summary ---
Demographics + + + | Address | [address] | | | [place] [address] | + + + | Home Phone | | + + + | Preferred Language | Unknown | + + + | Marital Status | | + + + | Congregation Affiliation | NOD | + + + | Race | White | + + + | Ethnic Group | Not or | + + + Author + + + | Author | [facility] | + + + | Organization | [facility] | + + + | Address | Unknown | + + + | Phone | Unavailable | + + + Support + + + + + | Name | Relationship | Address | Phone | + + + + + | Thaddeus Martínez | ECON | [address] # | | | | | [place], [place] | | | | | [address] | | + + + + + Care Team Providers + +------+ + | Care Construction Manager Name | Role | Phone | [...] 03/11/ | Telephone | Neurology at | GarethKavitha | Care Coordination | | 2018 | | [facility] & | MD Inez [address] | (CGRP Enrollment ) | | | | Healing [address] | [place], [place] | | | | | [address] Mailcode: | [address] | | | | | [facility] | [phone] | | | | | and Healing, | | | | | | [address] | | | | | | [place], [place] | | | | | | [address] | | | | | | [phone] | | | +--------+ + + + [...]
--- OUTSIDE RECORDS SUMMARY | ~2019-09-14 | XMS | Encounter Summary ---
Demographics + + + | Address | [address] | | | [place] [address] | + + + | Home Phone [...] + + + | Author | [facility] | + + + | Organization | [facility] | + + + | Address | Unknown | + + + | Phone | Unavailable | + + + Support + + + + + | Name | Relationship | Address | Phone | + + + + + | Thaddeus Martínez | ECON | [address] # | | | | | [place], [place] | | | | | [address] | | + + + + + Care Team Providers + +------+ + | Care Labor Employment Associate Name | Role | Phone | + [...] Care Coordination | | 2018 | | [facility] & | MD Inez [address] | (CGRP Enrollment ) | | | | Healing [address] | [place], [place] | | | | | [address] Mailcode: | [address] | | | | | [facility] | [phone] | | | | | and Healing, | | | | | | [address] | | | | | | [place], [place] | | | | | | [address] | | | | | | [phone] | | | +--------+ + + + [...]
--- OUTSIDE RECORDS SUMMARY | ~2019-09-14 | XMS | Encounter Summary ---
Demographics + + + | Address | [address] | | | [place] [address] | + + + | Home Phone | | + + + | Preferred Language | Unknown | + + + | Marital Status | | + + + | Mandaen Affiliation | Unknown | + + + | Race | Unknown | + + + | Ethnic Group | Unknown | + + + Author + + + | Author | [facility] | | | and [place] | + + + | Organization | [facility] | | | and [...] Team Providers + +------+ + | Care Customer Support Professional Name | Role | Phone | + +------+ + | Shanti Sanchez PA-C | PCP | | + +------+ + Encounter Details +--------+ + + + + | Date | Type | Department | Care Team | Description | +--------+ + + + + | 05/26/ | Abstract | [facility] | Provider, | | | 2018 | | GASTROENTEROLOGY | MD Joo Pérez | | | | | [address] | [address] [place] | | | | | [address] | [place] [address] | | | | | [address] | | | | | | [phone] | | | +--------+ + + + [...]
--- OUTSIDE RECORDS SUMMARY | ~2019-09-14 | XMS | Encounter Summary ---
Demographics + + + | Address | [address] | | | [place] [address] | + + + | Home Phone | | + + + | Preferred Language | Unknown | + + + | Marital Status | | + + + | Anabaptism Affiliation | NOD | + + + | Race | White | + + + | Ethnic Group | Not or | + + + Author + + + | Author | [facility] | + + + | Organization | [facility] | + + + | Address | Unknown | + + + | Phone | Unavailable | + + + Support + + + + + | Name | Relationship | Address | Phone | + + + + + | Thaddeus Martínez | ECON | [address] # | | | | | [place], [place] | | | | | [address] | | + + + + + Care Team Providers + +------+ + | Care Head Kiln Operator Name | Role | Phone | [...] on | | 2018 | Encounter | [facility] & | MD Sachin Wiley | Medications | | | | Healing [address] | [place], [place] | | | | | [address] Mailcode: | [address] | | | | | [facility] | [phone] | | | | | and [address], | | | | | | [address] | | | | | | [place], [place] | | | | | | [address] | | | | | | [phone] | | | +--------+ + + + [...]
--- OUTSIDE RECORDS SUMMARY | ~2019-09-14 | XMS | Encounter Summary ---
Demographics + + + | Address | [address] | | | [place] [address] | + + + | Home Phone | | + + + | Preferred Language | Unknown | + + + | Marital Status | | + + + | Scientologist Affiliation | NOD | + + + | Race | White | + + + | Ethnic Group | Not or | + + + Author + + + | Author | [facility] | + + + | Organization | [facility] | + + + | Address | Unknown | + + + | Phone | Unavailable | + + + Support + + + + + | Name | Relationship | Address | Phone | + + + + + | Thdadeus Martínez | ECON | [address] # | | | | | [place], [place] | | | | | [address] | | + + + + + Care Team Providers + +------+ + | Care Finishing Lab Technician Name | Role | Phone | [...] on | | 2018 | Encounter | [facility] & | MD Sachin Wiley | Medications | | | | Healing [address] | [place], [place] | | | | | [address] Mailcode: | [id number] | | | | | [facility] | [phone] | | | | | and [address], | | | | | | [address] | | | | | | [place], [place] | | | | | | [address] | | | | | | [phone] | | | +--------+ + + + [...]
--- OUTSIDE RECORDS SUMMARY | ~2019-09-14 | XMS | Encounter Summary ---
Demographics + + + | Address | [address] | | | [place] [address] | + + + | Home Phone | | + + + | Preferred Language | Unknown | + + + | Marital Status | | + + + | Evangelical Affiliation | Unknown | + + + | Race | Unknown | + + + | Ethnic Group | Unknown | + + + Author + + + | Author | [facility] | | | and [place] | + + + | Organization | [facility] | | | and [place] [...] Team Providers + +------+ + | Care Rn Unit Manager Name | Role | Phone | + +------+ + | Shanti Sanchez PA-C | PCP | | + +------+ + Reason for Visit + + + | Reason | Comments | + + + | Referral | [facility]CP approved | | (PreAuthorization) | | + + + Encounter Details +--------+ + + + + | Date | Type | Department | Care Team | Description | +--------+ + + + + | 06/13/ | Telephone | [facility] [place] | [place], | Referral | | 2019 | | GASTROENTEROLOGY | LAZARA AlvarezP [address] | (PreAuthorization) | | | | [address] [place] | [place], [place] [address] | [facility]) | | | | [address] [place], [place] | [place], [place] | | | | | [address] | [address] | | | | | [phone] | | | +--------+ + + + [...]
--- OUTSIDE RECORDS SUMMARY | ~2019-09-14 | XMS | Encounter Summary ---
Demographics + + + | Address | [address] | | | [place] [address] | + + + | Home Phone | | + + + | Preferred Language | Unknown | + + + | Marital Status | | + + + | Muslim Affiliation | NOD | + + + | Race | White | + + + | Ethnic Group | Not or | + + + Author + + + | Author | [facility] | + + + | Organization | [facility] | + + + | Address | Unknown | + + + | Phone | Unavailable | + + + Support + + + + + | Name | Relationship | Address | Phone | + + + + + | Thaddeus Martínez | ECON | [address] # | | | | | [place], [place] | | | | | [address] | | + + + + + Care Team Providers + +------+ + | Care Coil Connector Repairer Name | Role | Phone | + +------+ + | Shanti Sanchez | PCP | | + +------+ + Encounter Details +--------+ + + + + | Date | Type | Department | Care Team | Description | +--------+ + + + + | 03/01/ | MyChart | Neurology at | Kavitha Servin | RE: ER Visit 03/01/19 | | 2019 | Encounter | [facility] & | MD Sachin Wiley | | | | | [address] | [place], [place] | | | | | [address] Mailcode: | [address] | | | | | [facility] | [phone] | | | | | and [address], | | | | | | [address] | | | | | | [place], [place] | | | | | | [address] | | | | | | [phone] | | | +--------+ + + + [...]
--- OUTSIDE RECORDS SUMMARY | ~2019-09-14 | XMS | Encounter Summary ---
Demographics + + + | Address | [address] | | | [place] [address] | + + + | Home Phone [...] + + + | Author | [facility] | + + + | Organization | [facility] | + + + | Address | Unknown | + + + | Phone | Unavailable | + + + Support + + + + + | Name | Relationship | Address | Phone | + + + + + | Thaddeus Martínez | ECON | [address] # | | | | | [place], [place] | | | | | [address] | | + + + + + Care Team Providers + +------+ + | Care Vp Analytics Name | Role | Phone | + +------+ + | Latanya Sutton | PCP | | + +------+ + Encounter Details +--------+ + + + + | Date | Type | Department | Care Team | Description | +--------+ + + + + | 09/06/ | MyChart | Neurology at | Kavitha Servin | RE: Info for 09/10 | | 2017 | Encounter | [facility] & | MD Sachin Wiley | Appointment | | | | Healing [address] | [place], [place] | | | | | [address] Mailcode: | [address] | | | | | [facility] | [phone] | | | | | and [address], | | | | | | [address] | | | | | | [place], [place] | | | | | | [address] | | | | | | [phone] | | | +--------+ + + + [...]
--- OUTSIDE RECORDS SUMMARY | ~2019-09-14 | XMS | Encounter Summary ---
Demographics + + + | Address | [address] | | | [place] [address] | + + + | Home Phone [...] Thaddeus Martínez | ECON | [address] # | | | | | [place], [place] | | | | | [address] | | + + + + + Care Team Providers + +------+ + | Care Pharmacy Consultant Name | Role | Phone | + +------+ + | Shanti Sanchez | PCP | | + +------+ + Encounter Details +--------+ + + + + | Date | Type | Department | Care Team | Description | +--------+ + + + + | 08/23/ | MyChart | Neurology at | Kavitha Servin | RE: [facility]ovig | | 2018 | Encounter | [facility] & | MD Sachin Wiley | Question/Rx | | | | [address] | [place], [place] | | | | | [address] Mailcode: | [address] | | | | | [facility] | [phone] | | | | | and Healing, | | | | | | [address] | | | | | | [place], [place] | | | | | | [address] | | | | | | [phone] | | | +--------+ + + + [...]
--- OUTSIDE RECORDS SUMMARY | ~2019-09-14 | XMS | Encounter Summary ---
Demographics + + + | Address | [address] | | | [place] [address] | + + + | Home Phone [...] + + | Author | [facility] | | | and [place] | + + + | Organization | [facility] | | [...] Team Providers + +------+ + | Care Regulatory Affairs Associate Name | Role | Phone | [...] | LFTs | Kim, | [address] | | | | | Procedures | TECHNICAL TRANSLATOR [address] | [place], | | | | | [place] S[place]O | [place], [place] | [place] | | | | | GUIDE NEEDLE | [address] [place] | [address] | | | | | BIOPSY [place] | [place], [place] | Phone: | | | | | BIOPSY LIVER | [address] | [phone] | | | | | NEEDLE | Phone: | Fax: | | | | | PERCUTANEOUS | [phone] | [phone] | | | | | [place], | Fax: | | | | | | ABDOMEN | [phone] | | | | | | LIMITED [...] + + | 12/27/ | Office | [facility] | [facility], | Elevated LFTs | | 2012 | Visit | GASTROENTEROLOGY | CORRINE Alvarez [address] | (Primary Dx); | | | | [address] [place] | [place], [place] [address] | Obesity (BMI | | | | [address] [place], [place] | [place], [place] | 30-39.9) | | | | [address] | [address] | | | | | [phone] | | | +--------+---------+ + + + [...] Date Hemorrhoid surgery X2 1993 and 2003 [place] tooth extraction 1993 Family History Problem Relation [...]
--- OUTSIDE RECORDS SUMMARY | ~2019-09-14 | XMS | Encounter Summary ---
Demographics + + + | Address | [address] | | | [place] [address] | + + + | Home Phone | | + + + | Preferred Language | Unknown | + + + | Marital Status | | + + + | Confucianism Affiliation | Unknown | + + + | Race | Unknown | + + + | Ethnic Group | Unknown | + + + Author + + + | Author | [facility] | | | and [place] | + + + | Organization | [facility] [...] Team Providers + +------+ + | Care Health Unit Coordinator Name | Role | Phone | [...] | [address] [place] | [place], [place] [address] | | | | | [address] | [place] | | | | | [address] | [address] | | | | | [phone] | | | +--------+ + + + [...]
--- OUTSIDE RECORDS SUMMARY | ~2019-09-14 | XMS | Encounter Summary ---
Demographics + + + | Address | [address] | | | [place] [address] | + + + | Home Phone [...] + + + | Author | [facility] | + + + | Organization | [facility] | + + + | Address | Unknown | + + + | Phone | Unavailable | + + + Support + + + + + | Name | Relationship | Address | Phone | + + + + + | Thaddeus Martínez | ECON | [address] # | | | | | [place], [place] | | | | | [address] | | + + + + + Care Team Providers + +------+ + | Care Medical Office Coordinator Name | Role | Phone | + +------+ + | Shanti Sanchez | PCP | | + +------+ + Encounter Details +--------+ + + + + | Date | Type | Department | Care Team | Description | +--------+ + + + + | 03/01/ | Documentati | Neurology at | Manolo Benjamin, | | | 2019 | on | [facility] & | [address] | | | | | Healing [address] | [address] | | | | | [address] Mailcode: | [place], [place] | | | | | [facility] | [address] | | | | | Health and Healing, | [phone] | | | | | | | | | | | Floor [place], [place] | | | | | | [address] | | | | | | [phone] | | | +--------+ + + + [...]
--- OUTSIDE RECORDS SUMMARY | ~2019-09-14 | XMS | Encounter Summary ---
Demographics + + + | Address | [address] | | | [place] [address] | + + + | Home Phone | | + + + | Preferred Language | Unknown | + + + | Marital Status | | + + + | Oriental Orthodox Affiliation | NOD | + + + | Race | White | + + + | Ethnic Group | Not or | + + + Author + + + | Author | [facility] | + + + | Organization | [facility] | + + + | Address | Unknown | + + + | Phone | Unavailable | + + + Support + + + + + | Name | Relationship | Address | Phone | + + + + + | Thaddeus Martínez | ECON | [address] # | | | | | [place], [place] | | | | | [address] | | + + + + + Care Team Providers + +------+ + | Care Catalogue And Special Products Manager Name | Role | Phone | [...] New patient | | 2016 | | [facility] [address] | [address] | consultation | | | | [place] Mailcode: CH8N | [place], [place] | | | | | [facility] | [address] | | | | | and Healing, | [phone] | | | | | Building | | | | | | Floor [place], [place] | | | | | | [address] | | | | | | [phone] | | | +--------+ + + + [...]
--- OUTSIDE RECORDS SUMMARY | ~2019-09-14 | XMS | Encounter Summary ---
Demographics + + + | Address | [address] | | | [place] [address] | + + + | Home Phone | | + + + | Preferred Language | Unknown | + + + | Marital Status | | + + + | Mandaeism Affiliation | Unknown | + + + | Race | Unknown | + + + | Ethnic Group | Unknown | + + + Author + + + | Author | [facility] | | | and [place] | + + + | Organization | [facility] | | | and [...] Team Providers + +------+ + | Care Social Worker Name | Role | Phone | [...] | Alkaline | [place], | [address] | | | | | phosphatase | [place], | [place], | | | | | elevation | PROPRIETARY TRADER [address] | [place] | | | | | RUQ | [place], [place] | [address] | | | | | abdominal | [address] [place] | Phone: | | | | | pain | [place] | [phone] | | | | | Procedures | [address] | Fax: | | | | | MRI MRCP | Phone: | [phone] | | | | | Liver wo | [phone] | | | | | | Contrast [place] | Fax: | | | | | | MRI, | [phone] | | | | | | ABDOMEN [...] | | | | | | [place] [address] | [address] | | | | | | Phone: | Phone: | | | | | | [phone] | [phone] | | | | | | Fax: | Fax: | | | | | | [phone] | [phone] | +--------+--------+ + + + + Encounter Details +--------+---------+ + + + | Date | Type | Department | Care Team | Description | +--------+---------+ + + + | 06/08/ | Office | [facility] [place] | [facility], | Alkaline phosphatase | | 2019 | Visit | GASTROENTEROLOGY | CORRINE Alvarez [address] | elevation (Primary | | | | [address] [place] | [place], [place] [address] | Dx); RUQ abdominal | | | | [address] [place], [place] | [place], [place] | pain; Hepatic | | | | [address] | [address] | steatosis | | | | [phone] | | | +--------+---------+ + + + [...] Shanti Sanchez PA-C Subjective: CHIEF COMPLAINT: Aline Martínez is a 49 y.o. female referred by [...] time. She has been seen by [facility] due to migraines. She was on Amavig. [...] none PROTOCOL: | | | Coronal T2 product development engineer, axial T2 product development engineer, coronal 3D respiratory triggered, | | | [...] abdominal pain..COMPARISON: nonePROTOCOL: | | Coronal T2 product development engineer, axial T2 product development engineer, coronal 3D respiratory triggered,coronal T2 thin slab, [...]
--- OUTSIDE RECORDS SUMMARY | ~2019-09-14 | XMS | Encounter Summary ---
Demographics + + + | Address | [address] | | | [place] [address] | + + + | Home Phone | | + + + | Preferred Language | Unknown | + + + | Marital Status | | + + + | Baptist Affiliation | Unknown | + + + | Race | Unknown | + + + | Ethnic Group | Unknown | + + + Author + + + | Author | [facility] | | | and [place] | + + + | Organization | [facility] | | | and [...] Team Providers + +------+ + | Care Zoning Technician Name | Role | Phone | + +------+ + PCP | Unavailable | + +------+ + Encounter Details +--------+ + + + + | Date | Type | Department | Care Team | Description | +--------+ + + + + | 10/09/ | Hospital | [facility] | Conversion | | | 1999 | Encounter | [facility] | Transaction, | | | | | LABORATORY [address] | Provider Unknown | | | | | [address] | | | | | | [address] | (Fax) | | | | | [phone] | | | +--------+ + + + [...]
--- OUTSIDE RECORDS SUMMARY | ~2019-09-14 | XMS | Encounter Summary ---
Demographics + + + | Address | [address] | | | [place] [address] | + + + | Home Phone [...] + | Organization | [facility] | | | and [place] [...] Team Providers + +------+ + | Care Memorial Marker Designer Name | Role | Phone | + +------+ + | Latanya Sutotn PA-C | PCP | | + +------+ + Reason for Visit + + + | Reason | Comments | + + + | Appointment | liver biopsy | + + + Encounter Details +--------+ + + + + | Date | Type | Department | Care Team | Description | +--------+ + + + + | 12/28/ | Telephone | [facility] [place] | [facility], | Appointment (liver | | 2012 | | GASTROENTEROLOGY | CORRINE Alvarez [address] | biopsy) | | | | [address] [place] | [place], [place] [address] | | | | | [address] [place], [place] | [place], [place] | | | | | [address] | [address] | | | | | [phone] | | | +--------+ + + + [...]
--- OUTSIDE RECORDS SUMMARY | ~2019-09-14 | XMS | Encounter Summary ---
Demographics + + + | Address | [address] | | | [place] [address] | + + + | Home Phone | | + + + | Preferred Language | Unknown | + + + | Marital Status | | + + + | Confucianism Affiliation | NOD | + + + | Race | White | + + + | Ethnic Group | Not or | + + + Author + + + | Author | [facility] | + + + | Organization | [facility] | + + + | Address | Unknown | + + + | Phone | Unavailable | + + + Support + + + + + | Name | Relationship | Address | Phone | + + + + + | Thaddeus Martínez | ECON | [address] # | | | | | [place], [place] | | | | | [address] | | + + + + + Care Team Providers + +------+ + | Care Inspector Advanced Composite Name | Role | Phone | + +------+ + | Latanya Sutton | PCP | | + +------+ + Encounter Details +--------+ + + + + | Date | Type | Department | Care Team | Description | +--------+ + + + + | 09/10/ | Senior Accounting Clerk | Neurology at | Kavitha Servin | | | 2017 | | [facility] & | MD Sachin Wiley | | | | | [address] [place], [place] | | | | | [address] Mailcode: | [id number] | | | | | [facility] | [phone] | | | | | and Healing, | | | | | | [address] | | | | | | [place], [place] | | | | | | [address] | | | | | | [phone] | | | +--------+ + + + [...]
--- OUTSIDE RECORDS SUMMARY | ~2019-09-14 | XMS | Encounter Summary ---
Demographics + + + | Address | [address] | | | [place] [address] | + + + | Home Phone | | + + + | Preferred Language | Unknown | + + + | Marital Status | | + + + | Worship Affiliation | Unknown | + + + | Race | Unknown | + + + | Ethnic Group | Unknown | + + + Author + + + | Author | [facility] | | | and [place] | + + + | Organization | [facility] | | | and [...] Team Providers + +------+ + | Care Blanching Machine Operator Name | Role | Phone [...] | | | | EMERGENCY CENTER | [place], [place] | | | | | [address] | [address] | | | | | [place] | [phone] | | | | | [address] | | | | | | [phone] | | | +--------+ + + + [...]
--- OUTSIDE RECORDS SUMMARY | ~2019-09-14 | XMS | Encounter Summary ---
Demographics + + + | Address | [address] | | | [place] [address] | + + + | Home Phone | | + + + | Preferred Language | Unknown | + + + | Marital Status | | + + + | Orthodoxy Affiliation | NOD | + + + | Race | White | + + + | Ethnic Group | Not or | + + + Author + + + | Author | [facility] | + + + | Organization | [facility] | + + + | Address | Unknown | + + + | Phone | Unavailable | + + + Support + + + + + | Name | Relationship | Address | Phone | + + + + + | Thaddeus Martínez | ECON | [address] # | | | | | [place], [place] | | | | | [address] | | + + + + + Care Team Providers + +------+ + | Care Online Merchandiser Name | Role | Phone | + [...] 03/01/19 | | 2019 | Encounter | [facility] & | MD Sachin Wiley | | | | | [address] | [address] [place], [place] | | | | | [address] Mailcode: | [phone] | | | | | [facility] | [phone] | | | | | and Jose G, | | | | | | [address] | | | | | | [place], [place] | | | | | | [address] | | | | | | [phone] | | | +--------+ + + + [...]
--- OUTSIDE RECORDS SUMMARY | ~2019-09-14 | XMS | Encounter Summary ---
Demographics + + + | Address | [address] | | | [place] [address] | + + + | Home Phone | | + + + | Preferred Language | Unknown | + + + | Marital Status | | + + + | Druze Affiliation | NOD | + + + | Race | White | + + + | Ethnic Group | Not or | + + + Author + + + | Author | [facility] | + + + | Organization | [facility] | + + + | Address | Unknown | + + + | Phone | Unavailable | + + + Support + + + + + | Name | Relationship | Address | Phone | + + + + + | Thaddeus Martínez | ECON | [address] # | | | | | [place], [place] | | | | | [address] | | + + + + + Care Team Providers + +------+ + | Care Truck Loader Name | Role | Phone | + [...] | | | | | Chronic | Oliiva Bliss, | Kavitha Wiley, | | | | | nonintractab | [address] | MD [address] | | | | | le headache, | Hunter Oakes | [address] | | | | | unspecified | [address] | [place], [place] | | | | | headache | [place], [place] | [address] | | | | | type | [address] | Phone: | | | | | Procedures | Phone: | [phone] | | | | | CONSULT TO | [phone] | Fax: | | | | | NEUROLOGY | Fax: | [phone] | | | | | [address] | [phone] | | +--------+--------+ + + + + Encounter Details +--------+---------+ + + + | Date | Type | Department | Care Team | Description | +--------+---------+ + + + | 03/11/ | Office | Neurology at | Kavitha Servin | Migraine without | | 2018 | Visit | [facility] & | S, MD [address] | aura and without | | | | Healing [address] | [address] [place], [place] | status migrainosus, | | | | [address] Mailcode: | [phone] | not intractable | | | | [facility] | [phone] | (Primary Dx) | | | | and Healing, | | | | | | [address] | | | | | | [place], [place] | | | | | | [address] | | | | | | [phone] | | | +--------+---------+ + + + [...] who presented to the [facility]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 INTERVAL [...] Prescription for Cefaly Unit FDA approved medical advisor for use in helping to reduce migraine occurrences Dispense: #1 Cefaly Unit with 3 set of electrodes Directions: use 20 min each night as directed by debubblizer 1 each 3 cyclobenzaprine 5 mg oral [...] of knowledge. Migraine Disability Score (manual data analytics analyst):: 70 (12/02/16 1100) Score Arredondo: 0-5: Little [...] 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 She reports 5-11 STALLNIGS per month in the last 3 months. [...] Patient is welcome to e-mail via my [facility] chart if questions or concerns arise [...] | | | LABORATORY | | | [facility] | | | SERVICES, | | | [...] the MDRD equation recommended by the | [facility] | | National Kidney Disease Education Program. [...] + + + + + | [facility] | [address] | [place] [address] | | | SERVICES, CORE | REYNA [...]
--- OUTSIDE RECORDS SUMMARY | ~2019-09-14 | XMS | Encounter Summary ---
Demographics + + + | Address | [address] | | | [place] [address] | + + + | Home Phone | | + + + | Preferred Language | Unknown | + + + | Marital Status | | + + + | Gnosticism Affiliation | NOD | + + + [...] Thaddeus Martínez | ECON | [address] # | | | | | [place], [place] | | | | | [address] | | + + + + + Care Team Providers + +------+ + | Care Soldering Machine Tender Name | Role | Phone | + +------+ + | Shanti Sanchez | PCP | | + +------+ + Encounter Details +--------+ + + + + | Date | Type | Department | Care Team | Description | +--------+ + + + + | 03/15/ | MyChart | Neurology at | Kavitha Servin | RE: Mauricio MARTINEZ | | 2018 | Encounter | [facility] & | MD Sachin Wiley | Results | | | | [address] | [address] [place], [place] | | | | | [address] Mailcode: | [phone] | | | | | [facility] | [phone] | | | | | and Healing, | | | | | | [address] | | | | | | [place], [place] | | | | | | [address] | | | | | | [phone] | | | +--------+ + + + [...]
--- OUTSIDE RECORDS SUMMARY | ~2019-09-14 | XMS | Encounter Summary ---
Demographics + + + | Address | [address] | | | [place] [address] | + + + | Home Phone | | + + + | Preferred Language | Unknown | + + + | Marital Status | | + + + | Protestant Affiliation | NOD | + + + | Race | White | + + + | Ethnic Group | Not or | + + + Author + + + | Author | [facility] | + + + | Organization | [facility] | + + + | Address | Unknown | + + + | Phone | Unavailable | + + + Support + + + + + | Name | Relationship | Address | Phone | + + + + + | Thaddeus Martínez | ECON | [address] # | | | | | [place], [place] | | | | | [address] | | + + + + + Care Team Providers + +------+ + | Care Dough Sheeter Name | Role | Phone | + [...] | | unspecified | [address] | [place], [place] | | | | | headache | [place], [place] | [address] | | | | | type | [address] | Phone: | | | | | Procedures | Phone: | [phone] | | | | | CONSULT TO | [phone] | Fax: | | | | | NEUROLOGY | Fax: | [phone] | | | | | [address] | [phone] | | +--------+--------+ + + + + Encounter Details +--------+---------+ + + + | Date | Type | Department | Care Team | Description | +--------+---------+ + + + | 11/18/ | Office | Neurology at | Kavitha Servin | Chronic migraine | | 2019 | Visit | [facility] & | MD Sachin Wiley | without aura without | | | | Healing [address] | [address] [place], [place] | status migrainosus, | | | | [address] Mailcode: | [phone] | not intractable | | | | [facility] | [phone] | (Primary Dx) | | | | and Healing, | | | | | | [address] | | | | | | [place], [place] | | | | | | [address] | | | | | | [phone] | | | +--------+---------+ + + + [...] PM PST- Make sure to see a credit officer for arms rash - Wait until Aimovig [...] Prescription for Cefaly Unit FDA approved medical scientific officer for use in helping to reduce migraine occurrences Dispense: #1 Cefaly Unit with 3 set of electrodes Directions: use 20 min each night as directed by associate faculty 1 each 3 cyclobenzaprine 5 mg oral [...] swing, and turning. Migraine Disability Score (manual big data lead):: 25 (05/10/18 1400) Score Arredondo: 0-5: Little [...] severe constipation. Plan:. - Follow-up with local credit officer - Once GI function returns to normal, start Emgality 120 mg SC monthly - RTC in 4-6 months. Patient is welcome to e-mail via my [facility] chart if questions or concern s arise [...]
--- OUTSIDE RECORDS SUMMARY | ~2019-09-14 | XMS | Encounter Summary ---
Demographics + + + | Address | [address] | | | [place] [address] | + + + | Home Phone | | + + + | Preferred Language | Unknown | + + + | Marital Status | | + + + | Episcopal Affiliation | Unknown | + + + | Race | Unknown | + + + | Ethnic Group | Unknown | + + + Author + + + | Author | [facility] | | | and [place] | + + + | Organization | [facility] | | | and [place] | [...] Team Providers + +------+ + | Care Senior Compensation Consultant Name | Role | Phone | + +------+ + | Latanya Sutton PA-C | PCP | | + +------+ + Reason for Visit +--------+ + | Reason | Comments | +--------+ + | Other | lab orders | +--------+ + Encounter Details +--------+ + + + + | Date | Type | Department | Care Team | Description | +--------+ + + + + | 01/19/ | Telephone | [facility] [place] | [place], | Other (lab orders) | | 2012 | | GASTROENTEROLOGY | [address] | | | | | [address] | [place], [place] | | | | | [address] [place], [place] | [place], [place] | | | | | [address] | [address] | | | | | [phone] | | | +--------+ + + + [...]
--- OUTSIDE RECORDS SUMMARY | ~2019-09-14 | XMS | Encounter Summary ---
Demographics + + + | Address | [address] | | | [place] [address] | + + + | Home Phone | | + + + | Preferred Language | Unknown | + + + | Marital Status | | + + + | Restoration Affiliation | NOD | + + + | Race | White | + + + | Ethnic Group | Not or | + + + Author + + + | Author | [facility] | + + + | Organization | [facility] | + + + | Address | Unknown | + + + | Phone | Unavailable | + + + Support + + + + + | Name | Relationship | Address | Phone | + + + + + | Thaddeus Martínez | ECON | [address] # | | | | | [place], [place] | | | | | [address] | | + + + + + Care Team Providers + +------+ + | Care Candy Separator Enrobing Name | Role | Phone | + +------+ + | Shanti Sanchez | PCP | | + +------+ + Encounter Details +--------+------+ + + + | Date | Type | Department | Care Team | Description | +--------+------+ + + + | 05/24/ | Lab | Laboratory at [facility] | | Chronic migraine | | 2019 | | [address] | | without aura without | | | | [place], [place] | | status migrainosus, | | | | [address] | | not intractable | | | | [phone] | | | +--------+------+ + + + [...] | | | LABORATORY | | | [facility] | | | SERVICES, | | | [...] MDRD equation recommended by the National | [facility] | | Kidney Disease Education Program. Estimated [...] + + + + + | [facility] | [address] | [place] [address] | | | [facility] | | | | | HEALTH + [...]
--- OUTSIDE RECORDS SUMMARY | ~2019-09-14 | XMS | Encounter Summary ---
Demographics + + + | Address | [address] | | | [place] [address] | + + + | Home Phone | | + + + | Preferred Language | Unknown | + + + | Marital Status | | + + + | Anabaptism Affiliation | Unknown | + + + | Race | Unknown | + + + | Ethnic Group | Unknown | + + + Author + + + | Author | [facility] | | | and [place] | + + + | Organization | [facility] | | | and [place] [...] Team Providers + +------+ + | Care Plc Engineer Name | Role | Phone | + +------+ + | Latanya Sutton PA-C | PCP | | + +------+ + Reason for Visit + + + | Reason | Comments | + + + | Follow-up | liver biopsy | + + + Encounter Details +--------+---------+ + + + | Date | Type | Department | Care Team | Description | +--------+---------+ + + + | 02/22/ | Office | [facility] [place] | [facility], | Fatty liver (Primary | | 2012 | Visit | GASTROENTEROLOGY | [address] | Dx); Elevated LFTs; | | | | [address] | [place], [place] [address] | Obesity | | | | [address] [place], [place] | [place], [place] | | | | | [address] | [address] | | | | | [phone] | | | +--------+---------+ + + + [...] + + + | Blood Pressure | 128/86 | 02/22/2013 10:10 AM | | | | | PDT | | + + + + + | Pulse | 76 | 02/22/2013 10:10 AM | | | | | PDT | | + + + + + | Temperature | 36.7 C (98 F) | 02/22/2013 10:10 AM | | | | | PDT | | + + + + + | Respiratory Rate | 16 | 02/22/2013 10:10 AM | | | | | PDT | | + + + + + | Oxygen Saturation | - | - | | + + + + + | Inhaled Oxygen | - | - | | | Concentration | | | | + + + + + | Weight | 122.5 kg (270 lb) | 02/22/2013 10:10 AM | | | | | PDT | | + + + + + | Height | 180.3 cm (5' 11") | 02/22/2013 10:10 AM | | | | | PDT | | + + + + + | Body Mass Index | 37.66 | 02/22/2013 10:10 AM | | | | | PDT | | + + + + + documented in this encounter Patient Instructions Patient Instructions Kim Benson ARNP - 02/22/2013 10:43 AM PDTNASH Low fat diet Regular cardiovascular exercise- 30 minutes, 3-5 times per week Vitamin E 800 International Units everyday Cholesterol medications (STATINS) are safe Maintain normal cholesterol levels Avoid alcohol in excess Avoid marijuana Evaluation of liver function and appearance every 6 months if evidence of cirrhosis, or e very 12 months if not evidence of cirrhosis documented in this encounter Progress Notes Kim Benson ARNP - 02/22/2013 10:38 AM PDTFormatting of this note might be differe nt from the original. Aline Tucker is a 43 y.o. female here for followup liver biopsy. History of present illness: She notes she feels well. She did have pain following liver biopcy. Allergies Allergen Reactions Hydrocodone-Acetaminophen Hives Oxycodone Hives Past Medical History Diagnosis Date Pain, limb, left Elevated alkaline phosphatase level Accessory skin tags Acne Candidal intertrigo Past Surgical History Procedure Date Hemorrhoid surgery X2 1993 and 2003 [place] tooth extraction 1993 Family History Problem Relation [...] No narrative on file Review of systems: Constitutional:Patient given copy of the FODMAP diet to determine if malabsorption as a cau se for her symptoms. Respiratory:Denies shortness of breath, cough or wheezing. Gastrointestinal:Denies constipation, diarrhea, bloody or black stools, hematemesis, nausea or vomiting, hemorrhoids, heartburn, abdominal pain, or dysphagia Cardiovascular:Denies chest pain, palpitations, or swelling to legs Physical exam: General: Alert and oriented, NAD Eyes: Sclera clear, MMM Extremities: No clubbing or edema Skin: Warm, dry, intact. No rashes noted Neuro: Cranial nerves 2-12 grossly intact. Psych: Appropriate mood and affect. Laboratory 01/20/2013: WBC 5.1 Hemoglobin 12.7 Hematocrit 38.7 Platelets 209,000 Iron 65 TIBC 372 % saturation 17.5 Ferritin 54.95 INR 1.1 Liver biopsy 01/27/2013: -Slight fatty change. -negative for pathologic inflammation. -Minimal microvascular steatosis (1%). -negative for malignancy. -negative for sustained will iron. Assessment 1. Fatty liver 2. Elevated LFTs 3. Obesity Plan: Discussed fatty liver. Advised that the best treatment for fatty liver is low-fat diet, exe rcise, maintaining normal cholesterol levels, and weight loss. Patient given handout related to nonalcoholic steatohepatitis. Advised that she should have followup ultrasound of her liver, CBC, CMP, INR every 12 month s for routine surveillance of her liver. Patient is to call with any question or concerns. Any fevers, chills, chest pain, SOB or o ther serious symptoms patient is to call the office or go to ER Cc: Latanya Bueno Reviewed most recent labs, imaging, and procedures. documented in t his encounter Plan of Treatment Not on filedocumented as of this encounter Visit Diagnoses + + | Diagnosis | + + | Fatty liver - Primary Other chronic nonalcoholic liver disease | + + | Elevated LFTs Other abnormal blood chemistry | + + | Obesity Obesity, unspecified | + + documented in this encounter
--- OUTSIDE RECORDS SUMMARY | ~2019-09-14 | XMS | Encounter Summary ---
Demographics + + + | Address | [address] | | | [place] [address] | + + + | Home Phone | | + + + | Preferred Language | Unknown | + + + | Marital Status | | + + + | Baptist Affiliation | NOD | + + + [...] Thaddeus Martínez | ECON | [address] # | | | | | [place], [place] | | | | | [address] | | + + + + + Care Team Providers + +------+ + | Care Accounts Clerk Name | Role | Phone | + +------+ + | Shanti Sanchez | PCP | | + +------+ + Reason for Visit Office Visit - E/M Services (Routine) + +--------+ + + + + | Status | Reason | Specialty | Diagnoses / | Referred By | Referred To | | | | | Procedures | Contact | Contact | + +--------+ + + + + | Authorized | | Neurology | Diagnoses | Rosalee | G[place], | | | | | Chronic | Headache | Kavitha Wiley, | | | | | migraine | [address] | MD [address] | | | | | without | [address] | [address] | | | | | aura, not | Mailcode: | [facility] [place] | | | | | intractable, | Center for | [address] | | | | | without | Health and | Phone: | | | | | status | Healing, | [phone] | | | | | migrainosus | [address] | Fax: | | | | | Procedures | [place], [place] | [phone] | | | | | [place] EST | [address] | | | | | | PATIENT | Phone: | | | | | | LEVEL V | [phone] | | | | | | | Fax: | | | | | | | [phone] | | + +--------+ + + + + Encounter Details +--------+---------+ + + + | Date | Type | Department | Care Team | Description | +--------+---------+ + + + | 05/24/ | Office | Neurology at | Kavitha Servin | Chronic migraine | | 2019 | Visit | [facility] & | MD Sachin Wiley | without aura without | | | | [address] [facility] [place] | status migrainosus, | | | | [address] Mailcode: | [phone] | not intractable | | | | [facility] | [phone] | (Primary Dx) | | | | and Healing, | | | | | | [address] | | | | | | [place], [place] | | | | | | [address] | | | | | | [phone] | | | +--------+---------+ + + + [...] encounter Progress Notes Kavitha Servin MD - 05/24/2019 1:00 PM PDT NEUROLOGY PROGRESS NOTE DATE OF SERVICE 05/24/2019 PATIENT IDENTIFICATION This is a 49 y.o.woman with migraine headache without aura since age 18, Chiari type I, dep ression, fatty liver disease, HTN who presented to the [facility] with chronic migraine 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 INTERVAL HISTORY - Last visit: 03/13/2019 - She has lost 22 lbs over the last 10 weeks. - BP has responded to Metoprolol. She is still on Emgality. She reports 3-7 STALLINGS per month. - She reports more bruising and sun burning. - Headaches respond to Sumatriptan and Rizatriptan. - She had home study sleep apnea and will be having an sleep apnea at hospital as the home study was inconclusive. - Liver enzymes have been noted to be high. She has been referred to GI specialist. MEDICATIONS Current Outpatient Medications on File Prior to Visit Medication Sig Dispense Refill ALPRAZolam 0.25 mg oral tablet Take 1 tablet by mouth three times daily as needed. buPROPion XL 150 mg oral tablet extended release 24 hr Take 300 mg by mouth once daily. COMPOUNDED MED RX NONCONTROLLED (SEE ADMIN INSTRUCT F) Prescription for Cefaly Unit FDA approved medical reimbursement manager for use in helping to reduce migraine occurrences Dispense: #1 Cefaly Unit with 3 set of electrodes Directions: use 20 min each night as directed by school age lead teacher 1 each 3 cyclobenzaprine 5 mg oral [...] 50 (03/13/19 0800) Migraine Disability Score (manual director data management):: 25 (05/10/18 1400) Score Arredondo: 0-5: Little to No Disability (Grade I) 6-10: Mild Disability (Grade II) 11-20: Moderate Disability (Grade III) 21+: Severe Disability (Grade IV) Migraine Disability Score (auto calculated):: 50 (03/13/19 0800) Migraine Disability Score (manual director data management):: 40 (05/24/19 1300) Score Arredondo: 0-5: Little to No Disability (Grade I) 6-10: Mild Disability (Grade II) 11-20: Moderate Disability (Grade III) 21+: Severe Disability (Grade IV) ASSESSEMENT AND PLAN This is a 49 y.o. woman with migraine headache without aura since age 18, Chiari type I, de pression, HTN who is followed at [facility]ache Clinic for chronic migraine headache ( 15-17 STALLINGS/m) . Headaches continue to respond to Emgality. Plan:. - Continue Emgality 120 mg SC monthly - RTC in 6-12 months. Patient is welcome to e-mail via my [facility] chart if questions or concer ns arise in the future. I spent 15 minutes with the patient. Greater than 50% of the time was spent counseling the patient regarding diagnosis, risks, benefits, and alternatives to current management. All questions were answered to patient s satisfaction. Kavitha Servin MD End User Consultant of Neurology [facility] Brain Donnellson documented in thi s encounter Plan of [...] | | | LABORATORY | | | [place] | | | SERVICES, | | | [...] MDRD equation recommended by the National | [facility] | | Kidney Disease Education Program. Estimated [...] | + + + + + | [facility] | [address] | [place] [address] | | | [facility] | | | | | HEALTH [...]
--- OUTSIDE RECORDS SUMMARY | ~2019-09-14 | XMS | Encounter Summary ---
Demographics + + + | Address | [address] | | | [place] [address] | + + + | Home Phone | | + + + | Preferred Language | Unknown | + + + | Marital Status | | + + + | Mosque Affiliation | Unknown | + + + | Race | Unknown | + + + | Ethnic Group | Unknown | + + + Author + + + | Author | [facility] | | | and [place] | + + + | Organization | [facility] | | | and [...] Team Providers + +------+ + | Care Cow Tester Name | Role | Phone | + [...] 2018 | | GASTROENTEROLOGY | MD Joo Préez | | | | | [address] | [address] | | | | | [address] | [place] [address] | | | | | [address] | | | | | | [phone] | | | +--------+ + + + [...]
--- OUTSIDE RECORDS SUMMARY | ~2019-09-14 | XMS | Encounter Summary ---
Demographics + + + | Address | [address] | | | [place] [address] | + + + | Home Phone | | + + + | Preferred Language | Unknown | + + + | Marital Status | | + + + | Orthodoxy Affiliation | NOD | + + + | Race | White | + + + | Ethnic Group | Not or | + + + Author + + + | Author | [facility] | + + + | Organization | [facility] | + + + | Address | Unknown | + + + | Phone | Unavailable | + + + Support + + + + + | Name | Relationship | Address | Phone | + + + + + | Thaddeus Martínez | ECON | [address] # | | | | | [place], [place] | | | | | [address] | | + + + + + Care Team Providers + +------+ + | Care K9 Handler Name | Role | Phone | + +------+ + | Latanya Sutton | PCP | | + +------+ + Encounter Details +--------+ + + + + | Date | Type | Department | Care Team | Description | +--------+ + + + + | 09/14/ | MyChart | Neurology at | Kavitha Servin | Filling Ketorolac RX | | 2017 | Encounter | [facility] & | MD Sachin Wiley | | | | | Jose G ROYAL | [place], [place] | | | | | [address] Mailcode: | [id number] | | | | | [facility] | [phone] | | | | | and Jose G, | | | | | | [address] | | | | | | [place], [place] | | | | | | [address] | | | | | | [phone] | | | +--------+ + + + [...]
--- OUTSIDE RECORDS SUMMARY | ~2019-09-14 | XMS | Encounter Summary ---
Demographics + + + | Address | [address] | | | [place] [address] | + + + | Home Phone | | + + + | Preferred Language | Unknown | + + + | Marital Status | | + + + | Mandaen Affiliation | NOD | + + + [...] Thaddeus Martínez | ECON | [address] # | | | | | [place], [place] | | | | | [address] | | + + + + + Care Team Providers + +------+ + | Care It Project Manager Name | Role | Phone | [...] Referral To | | 2019 | | [facility] & | S, [address] | Dermatology | | | | Healing [address] [place], [place] | | | | | Ashwin Duncan Mailcode: | [id number] | | | | | [facility] | [phone] | | | | | and Healing, | | | | | | [address] | | | | | | [place], [place] | | | | | | [address] | | | | | | [phone] | | | +--------+ + + + [...]
--- OUTSIDE RECORDS SUMMARY | ~2019-09-14 | XMS | Encounter Summary ---
Demographics + + + | Address | [address] | | | [place] [address] | + + + | Home Phone | | + + + | Preferred Language | Unknown | + + + | Marital Status | | + + + | Hindu Affiliation | NOD | + + + [...] Thaddeus Martínez | ECON | [address] # | | | | | [place], [place] | | | | | [address] | | + + + + + Care Team Providers + +------+ + | Care Mallet And Die Cutter Name | Role | Phone | + [...]
--- OUTSIDE RECORDS SUMMARY | ~2019-09-14 | XMS | Encounter Summary ---
Demographics + + + | Address | [address] | | | [place] [address] | + + + | Home Phone | | + + + | Preferred Language | Unknown | + + + | Marital Status | | + + + | Bahai Affiliation | Unknown | + + + | Race | Unknown | + + + | Ethnic Group | Unknown | + + + Author + + + | Author | [facility] | | | and [place] | + + + | Organization | [facility] | | | and Romeoana [...] Team Providers + +------+ + | Care Pool Manager Name | Role | Phone | [...] | Alkaline | [place], | [address] | | | | | phosphatase | Kim, | [place], | | | | | elevation | [address] | [place] | | | | | RUQ | [place], [place] | [address] | | | | | abdominal | [address] [place] | Phone: | | | | | pain | [place], [place] | [phone] | | | | | Procedures | [address] | Fax: | | | | | MRI MRCP | Phone: | [phone] | | | | | Liver wo | [phone] | | | | | | Contrast [place] | Fax: | | | | | | MRI, | [phone] | | | | | | ABDOMEN [...] | Alkaline | [place], | [address] | | | | | phosphatase | [place], | [place], | | | | | elevation | [address] | [place] | | | | | RUQ | [place], [place] | [address] | | | | | abdominal | [address] [place] | Phone: | | | | | pain | [place], [place] | [phone] | | | | | Procedures | [address] | Fax: | | | | | MRI MRCP | Phone: | [phone] | | | | | Liver wo | [phone] | | | | | | Contrast [place] | Fax: | | | | | | MRI, | [phone] | | | | | | ABDOMEN | | | | | | | (MRI) | | | +--------+--------+ + + + + Encounter Details +--------+ + + + + | Date | Type | Department | Care Team | Description | +--------+ + + + + | 07/06/ | Hospital | [facility] | [facility], | Alkaline phosphatase | | 2019 | Encounter | MED CTR MRI [address] | [place], [address] | elevation; RUQ | | | | [place], | [place], [place] [address] | abdominal pain | | | | [place] [address] | [place], [place] | | | | | [phone] | [address] | | | | | | | [...] 0 | 07/14/20 | | | (MYCOSTATIN) [id number] | | | | 16 | | [...] none PROTOCOL: | | | Coronal T2 j2ee consultant, axial T2 j2ee consultant, coronal 3D respiratory triggered, | | | [...] abdominal pain..COMPARISON: nonePROTOCOL: | | Coronal T2 j2ee consultant, axial T2 j2ee consultant, coronal 3D respiratory triggered,coronal T2 thin slab, [...]
--- OUTSIDE RECORDS SUMMARY | ~2019-09-14 | XMS | Encounter Summary ---
Demographics + + + | Address | [address] | | | [place] [address] | + + + | Home Phone | | + + + | Preferred Language | Unknown | + + + | Marital Status | | + + + | Yarsanism Affiliation | NOD | + + + [...] Thaddeus Martínez | ECON | [address] # | | | | | [place], [place] | | | | | [address] | | + + + + + Care Team Providers + +------+ + | Care Engine Repairer Name | Role | Phone | + +------+ + | Latanya Sutton | PCP | | + +------+ + Reason for Referral Consultation (Routine) +--------+--------+ + + + + | Status | Reason | Specialty | Diagnoses / | Referred By | Referred To | | | | | Procedures | Contact | Contact | +--------+--------+ + + + + | Closed | | Neurology | Diagnoses | Rembennett, | Gareth, | | | | | Chronic | Olivia Bliss, | Kavitha Wiley, | | | | | nonintractab | [address] | MD [address] | | | | | le headache, | Hunter Oakes | [address] | | | | | unspecified | [address]iana V[address] | [place], [place] | | | | | headache | [place], [place] | [address] | | | | | type | [address] | Phone: | | | | | Procedures | Phone: | [phone] | | | | | CONSULT TO | [phone] | Fax: | | | | | NEUROLOGY | Fax: | [phone] | | | | | | [phone] | | +--------+--------+ + + + + Reason for Visit + + + | Reason | Comments | + + + | New Patient Visit | | + + + Intake Referral (Routine) +--------+--------+ + + + + | Status | Reason | Specialty | Diagnoses / | Referred By | Referred To | | | | | Procedures | Contact | Contact | +--------+--------+ + + + + | Closed | | Neurological | Diagnoses | | Kayden, | | | | Surgery | | Herman, | MD Jose | | | | | 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 Bliss, | [address] | | | | | i syndrome | PA [address] | [address] | | | | | without | [address] | [place], [place] | | | | | spina bifida | [place], | [address] | | | | | or | [place] [address] | Phone: | | | | | hydrocephalu | Phone: | [phone] | | | | | s | [phone] | Fax: | | | | | Procedures | Fax: | [phone] | | | | | [place] NEW | [phone] | | | | | | PATIENT | | | | | | | LEVEL V [place] | | | | | | | EST PATIENT | | | | | | | LEVEL V | | | +--------+--------+ + + + + Encounter Details +--------+---------+ + + + | Date | Type | Department | Care Team | Description | +--------+---------+ + + + | 08/21/ | Office | Neurosurgery at | Jose Monique MD | Chronic | | 2016 | Visit | [facility] [address] | [address] | nonintractable | | | | [address] Mailcode: [id number] | [place], [place] | headache, | | | | [facility] | [address] | unspecified headache | | | | and Healing, | [phone] | type (Primary Dx) | | | | Building | | | | | | Floor [place], [place] | | | | | | [address] | | | | | | [phone] | | | +--------+---------+ + + + [...] + + + | Blood Pressure | 131/88 | 08/21/2016 2:40 PM | | | | | PST | | + + + + + | Pulse | 88 | 08/21/2016 2:40 PM | | | | | PST [...] + + + + | Weight | 132.7 kg (292 lb 8 | 08/21/2016 2:40 PM | | | | oz) | PST | | + + + + + | Height | - | - | | + + + + + | Body Mass Index | - | - | | + + + + + documented in this encounter Progress Notes Jose Monique MD - 08/21/2016 2:00 PM PST46 year old woman with long standing history of Migraine and a recently diagnosed Chiari I malformation. Patient's symptomology most consis tent with Migraine. Please see Ms. Redd's note for details. I spent 30 minutes with the patient. Greater than 50% of the time was spent counseling the patient regarding her heada ches. Olivia Diaz PA - 08/21/2016 2:00 PM PST NEUROLOGICAL SURGERY HISTORY AND PHYSICAL: HPI: Aline Martínez IS A 46 y.o. female seen in neurosurgical clinic for new patient [facility]. Ms Martínez has a history of migraine headaches, however, recently she developed headach e with vomiting that was not responsive to typical medication management. She presented to a local ED where imaging was performed (CT head) and was suggestive of Chiari I Malformation . She saw her PCP in follow up and an MRI brain was ordered. She was also instructed to re sume propranolol for migraine prevention therapy. After MRI confirmed presence of Chiari I Malformation, she was referred to [facility] Neurosurgery for evaluation. Ms Martínez describes prima rily right retro-orbital pain with occasional occipital headache; nausea/emesis; and light s ensitivity. She feels that her symptoms are worsening despite medical therapies to manage m igraine. She is still of the opinion that her symptoms are major account representative of migraine heada ches rather than Chiari malformation. However, she is interested in ensuring this is the ca se. Ms Martínez denies difficulty swallowing, voice disturbance, balance disturbance, vision defici t. This patient denies any difficulties with headache, double vision, numbness or weakness of face, difficulty with swallowing, history of seizures, numbness or weakness of extremities, or difficulty with gait. PMH: CORMIER Depression Current Medications: Allergies: Oxycodone Hydrocodone Social History: ; has one child Review of Systems: General:No symptoms of fatigue, chills, weight loss, weakness, fever, difficulty sleeping, dizziness or lightheadedness, snoring, daytime sleepiness or night sweats. Eyes: Light sensitivity. No symptoms of double vision, blurred vision. Ears, Nose and Throat: No hearing loss, nosebleeds, nasal congestion, sinusitis, abnormal t aste, difficulty swallowing, hoarseness or sore throat or mouth. Respiratory: No shortness of breath, coughing up blood, cough, or wheezing. Musculoskeletal: No joint pain, swelling, stiffness, neck pain or swelling, pain in legs wh en walking, muscle weakness or back pain. Cardiovascular: No chest pain, history or murmur palpitations, or edema. Gastrointestinal:No loss of appetite, excessive appetite, vomiting, vomiting blood, heartbu rn, jaundice, nausea, constipation, gas, abdominal pain, diarrhea, bloody stools or dark tar ry stools. Genitourinary: No urinary frequency, blood in urine, painful urination, or incontinence. Neurologic: headache. No unusual numbness, tingling, seizures, paralysis or tremors. Skin: No skin/nail/hair change, no rash. Psychological: No abnormal anxiety, depression, thoughts of suicide or hallucinations. Heme/Lymphatic: No enlarged lymph nodes or easy bruising. Endocrine: No heat intolerance or cold intolerance. (Medications, allergies, past surgical history, past medical history, social history, and r eview of systems were reviewed by me and if not recorded in [facility] will be scanned into the 3D Hub[employer] stem using intake patient forms during this encounter.) Physical Exam: VS: Wt 132.7 kg (292 lb 8 oz), BP 131/88, Pulse 88. Neurological exam: Alert, oriented X 3, fluent speech, and good historian. Pupils are equal, round, and reactive to light. EOMI. No nystagmus. VFI to confrontationa l testing. Sensation to touch in face is present and symmetrical. Faces symmetrical. Hear ing grossly intact. Tongue protrudes into midline. Palate elevates normal and at midline. Good SCM and Trapezius muscle function bilaterally. Extremity exam: Motor: Delt Tri Bi WE DI HF KE APF ADF Left 5 5 5 5 5 5 5 5 5 Right 5 5 5 5 5 5 5 5 5 Plantar response: toes going downward bilaterally Sensory exam in extremities: No sensory deficits in right upper extremity to light touch. No sensory deficits in left upper extremity to light touch No sensory deficits in right lower extremity to light touch No sensory deficits in left lower extremity to light touch Gait not tested. We reviewed the following films: MRI brain wo contrast 06/30/16 (outside): Assessment: Aline Martínez is a 46 y.o. female with history of migraine headache with recen t worsening of her symptoms and findings of Chiari I Malformation; no syrinx appreciated. P atient denies symptoms of lower cranial nerve deficit. At this point, we suspect her symptom s are most consistent with Migraine rather than related to the mild Chiari Malformation. We could consider surgical intervention, but would recommend dedicated Neurologic evaluation f or conservative headache management first. Plan: We have recommended Neurologist consultation for headache management. Will place ord er for [facility] at the patient's request. Return to Neurosurgery clinic as needed. This patient was staffed by the attending physician, who agrees with the information above and also personally evaluated the patient and outlined the treatment plan to him/her. documented in this encounter Plan of Treatment Not on filedocumented as of this encounter Visit Diagnoses + + | Diagnosis | + + | Chronic nonintractable headache, unspecified headache type - Primary | + + documented in this encounter"
--- OUTSIDE RECORDS SUMMARY | ~2019-09-14 | XMS | Encounter Summary ---
Demographics + + + | Address | [address] | | | [place] [address] | + + + | Home Phone | | + + + | Preferred Language | Unknown | + + + | Marital Status | | + + + | Taoist Affiliation | Unknown | + + + | Race | Unknown | + + + | Ethnic Group | Unknown | + + + Author + + + | Author | [facility] | | | and [place] | + + + | Organization | [facility] | | | and [place] [...] Team Providers + +------+ + | Care Weight Loss Sales Consultant Name | Role | Phone | + +------+ + PCP | Unavailable | + +------+ + Encounter Details +--------+ + + + + | Date | Type | Department | Care Team | Description | +--------+ + + + + | 10/21/ | Hospital | [facility] | Tunde Villar | | | 2000 | Encounter | [facility] | [address] | | | | | EMERGENCY CENTER | [place], [place] | | | | | [address] | [address] | | | | | [place] | [phone] | | | | | [address] | | | | | | [phone] | | | +--------+ + + + [...]
--- OUTSIDE RECORDS SUMMARY | ~2019-09-14 | XMS | Encounter Summary ---
Demographics + + + | Address | [address] | | | [place] [address] | + + + | Home Phone | | + + + | Preferred Language | Unknown | + + + | Marital Status | | + + + | Adventism Affiliation | Unknown | + + + | Race | Unknown | + + + | Ethnic Group | Unknown | + + + Author + + + | Author | [facility] | | | and [place] | + + + | Organization | [facility] | | | and [place] [...] Team Providers + +------+ + | Care Dimpling Machine Operator Name | Role | Phone [...] Encounter | [facility] | S [address] | | | | | GENERIC CONV DEPT | [place] | | | | | [address] | [address] | | | | | [place] | [phone] | | | | | [address] | | | | | | [phone] | | | +--------+ + + + [...]
--- OUTSIDE RECORDS SUMMARY | ~2019-09-14 | XMS | Encounter Summary ---
Demographics + + + | Address | [address] | | | [place] [address] | + + + | Home Phone | | + + + | Preferred Language | Unknown | + + + | Marital Status | | + + + | Holiness Affiliation | NOD | + + + | Race | White | + + + | Ethnic Group | Not or | + + + Author + + + | Author | [facility] | + + + | Organization | [facility] | + + + | Address | Unknown | + + + | Phone | Unavailable | + + + Support + + + + + | Name | Relationship | Address | Phone | + + + + + | Thaddeus Martínze | ECON | [address] # | | | | | [place], [place] | | | | | [address] | | + + + + + Care Team Providers + +------+ + | Care Vegetable Harvest Worker Name | Role | Phone | + +------+ + | Shanti Sanchez | PCP | | + +------+ + Encounter Details +--------+ + + + + | Date | Type | Department | Care Team | Description | +--------+ + + + + | 08/23/ | MyChart | Neurology at | Kavitha Servin | RE: [facility] | | 2018 | Encounter | [facility] & | MD Sachin Wiley | Question/Rx | | | | [address] | [place], [place] | | | | | [address] Mailcode: | [id number] | | | | | [facility] | [phone] | | | | | and Healing, | | | | | | [address] | | | | | | [place], [place] | | | | | | [address] | | | | | | [phone] | | | +--------+ + + + [...]
--- OUTSIDE RECORDS SUMMARY | ~2019-09-14 | XMS | Encounter Summary ---
Demographics + + + | Address | [address] | | | [place] [address] | + + + | Home Phone | | + + + | Preferred Language | Unknown | + + + | Marital Status | | + + + | Religion Affiliation | Unknown | + + + | Race | Unknown | + + + | Ethnic Group | Unknown | + + + Author + + + | Author | [facility] | | | and [place] | + + + | Organization | [facility] | | | and [place] [...] Team Providers + +------+ + | Care Shop Steward Name | Role | Phone | + +------+ + | Shanti Sanchez PA-C | PCP | | + +------+ + Reason for Visit +---------+ + | Reason | Comments | +---------+ + | Results | | +---------+ + Encounter Details +--------+ + + + + | Date | Type | Department | Care Team | Description | +--------+ + + + + | 07/12/ | Telephone | [facility] | Marcelino | Results | | 2019 | | GASTROENTEROLOGY | [address] | | | | | [address] [place] | [place], [place] [address] | | | | | [address] [place], [place] | [place], [place] | | | | | [address] | [address] | | | | | [phone] | | | +--------+ + + + [...]
--- OUTSIDE RECORDS SUMMARY | ~2019-09-14 | XMS | Encounter Summary ---
Demographics + + + | Address | [address] | | | [place] [address] | + + + | Home Phone [...] | Thaddeus Martínez | ECON | [address] # | | | | | [place], [place] | | | | | [address] | | + + + + + Care Team Providers + +------+ + | Care Webmaster Name | Role | Phone | + [...] | | | | nonintractab | [address] | MD [address] | | | | | le headache, | Hunter Oakes | [address] | | | | | unspecified | [address]iana V[address] | [place], [place] | | | | | headache | [place], [place] | [address] | | | | | type | [address] | Phone: | | | | | Procedures | Phone: | [phone] | | | | | CONSULT TO | [phone] | Fax: | | | | | NEUROLOGY | Fax: | [phone] | | | | | | [phone] | | +--------+--------+ + + + + [...] | | without | [address] | [place], [place] | | | | | spina bifida | [place], | [address] | | | | | or | [place] [address] | Phone: | | | | | hydrocephalu | Phone: | [phone] | | | | | s | [phone] | Fax: | | | | | Procedures | Fax: | [phone] | | | | | [place] NEW | [phone] | | | | | | PATIENT | | | | | | | LEVEL [place] | | | | | | | [...] Chronic | | 2016 | Visit | [facility] [address] | [address] | nonintractable | | | | [address] Mailcode: [id number] | [place], [place] | headache, | | | | [facility] | [address] | unspecified headache | | | | and Healing, | [phone] | type (Primary Dx) | | | | Building | | | | | | Floor [place], [place] | | | | | | [address] | | | | | | [phone] | | | +--------+---------+ + + + [...] in neurosurgical clinic for [facility] patient [facility]. Ms Martínez has a history of migraine [...] Chiari I Malformation, she was referred to [facility] Neurosurgery for evaluation. Ms Martínez describes prima rily right retro-orbital pain with occasional occipital headache; nausea/emesis; and light s ensitivity. She feels that her symptoms are worsening despite medical therapies to manage m igraine. 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
--- OUTSIDE RECORDS SUMMARY | ~2019-09-14 | XMS | Encounter Summary ---
Demographics + + + | Address | [address] | | | [place] [address] | + + + | Home Phone | | + + + | Preferred Language | Unknown | + + + | Marital Status | | + + + | Zoroastrian Affiliation | NOD | + + + | Race | White | + + + | Ethnic Group | Not or | + + + Author + + + | Author | [facility] | + + + | Organization | [facility] | + + + | Address | Unknown | + + + | Phone | Unavailable | + + + Support + + + + + | Name | Relationship | Address | Phone | + + + + + | Thaddeus Martínez | ECON | [address] # | | | | | [place], [place] | | | | | [address] | | + + + + + Care Team Providers + +------+ + | Care Systems Integration Manager Name | Role | Phone | + +------+ + | Latanya Sutton | PCP | | + +------+ + Encounter Details +--------+ + + + + | Date | Type | Department | Care Team | Description | +--------+ + + + + | 09/06/ | Documentati | Neurology at | Kavitha Servin | | | 2017 | on | [facility] & | MD Sachin Wiley | | | | | [address] [place], [place] | | | | | [address] Mailcode: | [id number] | | | | | [facility] | [phone] | | | | | and Healing, | | | | | | [address] | | | | | | [place], [place] | | | | | | [address] | | | | | | [phone] | | | +--------+ + + + [...]
--- OUTSIDE RECORDS SUMMARY | ~2019-09-14 | XMS | Encounter Summary ---
Demographics + + + | Address | [address] | | | [place] [address] | + + + | Home Phone | | + + + | Preferred Language | Unknown | + + + | Marital Status | | + + + | Cheondoism Affiliation | NOD | + + + | Race | White | + + + | Ethnic Group | Not or | + + + Author + + + | Author | [facility] | + + + | Organization | [facility] | + + + | Address | Unknown | + + + | Phone | Unavailable | + + + Support + + + + + | Name | Relationship | Address | Phone | + + + + + | Thaddeus Martínez | ECON | [address] # | | | | | [place], [place] | | | | | [address] | | + + + + + Care Team Providers + +------+ + | Care Strategic Sourcing Consultant Name | Role | Phone | + +------+ + | Latanya Sutton | PCP | | + +------+ + Encounter Details +--------+ + + + + | Date | Type | Department | Care Team | Description | +--------+ + + + + | 03/11/ | Abstract | Neurology at | Kavitha Servin | | | 2018 | | [facility] & | MD Sachin Wiley | | | | | [address] | [place] [facility] [place] | | | | | [address] Mailcode: | [id number] | | | | | [facility] | [phone] | | | | | and Healing, | | | | | | [address] | | | | | | [place], [place] | | | | | | [address] | | | | | | [phone] | | | +--------+ + + + [...]
--- OUTSIDE RECORDS SUMMARY | ~2019-09-14 | XMS | Encounter Summary ---
Demographics + + + | Address | [address] | | | [place] [address] | + + + | Home Phone [...] | Thaddeus Martínez | ECON | [address] # | | | | | [place], [place] | | | | | [address] | | + + + + + Care Team Providers + +------+ + | Care Animal Control Supervisor Name | Role | Phone | [...] Meds | | 2019 | Encounter | [facility] & | MD Sachin Wiley | | | | | Healing [address] | [place], [place] | | | | | [place] Mailcode: | [id number] | | | | | [facility] | [phone] | | | | | and Healing, | | | | | | [address] | | | | | | [place], [place] | | | | | | [address] | | | | | | [phone] | | | +--------+ + + + [...]
--- OUTSIDE RECORDS SUMMARY | ~2019-09-14 | XMS | Encounter Summary ---
Demographics + + + | Address | [address] | | | [place] [address] | + + + | Home Phone | | + + + | Preferred Language | Unknown | + + + | Marital Status | | + + + | Religion Affiliation | NOD | + + + | Race | White | + + + | Ethnic Group | Not or | + + + Author + + + | Author | [facility] | + + + | Organization | [facility] | + + + | Address | Unknown | + + + | Phone | Unavailable | + + + Support + + + + + | Name | Relationship | Address | Phone | + + + + + | Thaddeus Martínez | ECON | [address] # | | | | | [place], [place] | | | | | [address] | | + + + + + Care Team Providers + +------+ + | Care Drafting Supervisor Name | Role | Phone | + +------+ + | Shanti Sanchez | PCP | | + +------+ + Encounter Details +--------+ + + + + | Date | Type | Department | Care Team | Description | +--------+ + + + + | 05/26/ | Telephone | Neurology at | Kavitha Servni | | | 2018 | | [facility] & | MD Sachin Wiley | | | | | [address] [place], [place] | | | | | [place] Mailcode: | [id number] | | | | | [facility] | [phone] | | | | | and Healing, | | | | | | [address] | | | | | | [place], [place] | | | | | | [address] | | | | | | [phone] | | | +--------+ + + + [...]
--- OUTSIDE RECORDS SUMMARY | ~2019-09-14 | XMS | Encounter Summary ---
Demographics + + + | Address | [address] | | | [place] [address] | + + + | Home Phone [...] + + + | Author | [facility] | + + + | Organization | [facility] | + + + | Address | Unknown | + + + | Phone | Unavailable | + + + Support + + + + + | Name | Relationship | Address | Phone | + + + + + | Thaddeus Martínez | ECON | [address] # | | | | | [place], [place] | | | | | [address] | | + + + + + Care Team Providers + +------+ + | Care Order Entry Specialist Name | Role | Phone | [...] | | unspecified | [address] | [place], [place] | | | | | headache | [place], [place] | [address] | | | | | type | [address] | Phone: | | | | | Procedures | Phone: | [phone] | | | | | CONSULT TO | [phone] | Fax: | | | | | NEUROLOGY | Fax: | [phone] | | | | | | [phone] | | +--------+--------+ + + + + Encounter Details +--------+---------+ + + + | Date | Type | Department | Care Team | Description | +--------+---------+ + + + | 12/02/ | Office | Neurology at | Kavitha Servin | Chronic migraine | | 2017 | Visit | [facility] & | MD Sachin Wiley [address] | without aura without | | | | Healing [address] | [address] [place], [place] | status migrainosus, | | | | [address] [place] Mailcode: | [phone] | not intractable | | | | [facility] | [phone] | (Primary Dx) | | | | and Healing, | | | | | | [address] | | | | | | [place], [place] | | | | | | [address] | | | | | | [phone] | | | +--------+---------+ + + + [...] nurse coordinator or myself), please activate your [employer] account and use the e-mail function to [...] who [facility]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 She reports 15-17 headaches [...] Not currently working, use to work in long term. Consumes 1 cup of caffeine (32 oz [...] tone. Sensory is intact to light touch. Coordination:[id number] intact. No dysmetria. 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 Her [...] on how to sign up for my [facility] chart were given, patient can contact us [...]
--- OUTSIDE RECORDS SUMMARY | ~2019-09-14 | XMS | Clinical Summary ---
Demographics + + + | Address | [address] | | | [place] [address] | + + + | Home Phone | | + + + | Preferred Language | Unknown | + + + | Marital Status | | + + + | Caodaism Affiliation | NOD | + + + | Race | White | + + + | Ethnic Group | Not or | + + + Author + + + | Author | [facility] | + + + | Organization | [facility] | + + + | Address | Unknown | + + + | Phone | Unavailable | + + + Support + + + + + | Name | Relationship | Address | Phone | + + + + + | Thaddeus Martínez | ECON | [address] # | | | | | [place], [place] | | | | | [address] | | + + + + + Care Team Providers + +------+ + | Care Transaction Coordinator Name | Role | Phone | + +------+ + | Shanti Sanchez | PCP | | + +------+ + Source Comments [facility] is fully live on both [facility] Ambulatory and [facility] InPatient.[facility] Allergies + + + + [...] | | | | | | | 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
--- OUTSIDE RECORDS SUMMARY | ~2019-09-14 | XMS | Encounter Summary ---
Demographics + + + | Address | [address] | | | [place] [address] | + + + | Home Phone [...] Thaddeus Martínez | ECON | [address] # | | | | | [place], [place] | | | | | [address] | | + + + + + Care Team Providers + +------+ + | Care Crewman Main Battle Tank Name | Role | Phone | + [...] [facility] | | 2018 | Encounter | [facility] & | MD Sachin Wiley | RX | | | | He[address] | [place], [place] | | | | | [place] Mailcode: | [phone] | | | | | [facility] | [phone] | | | | | and Jose G, | | | | | | [address] | | | | | | [place], [place] | | | | | | [address] | | | | | | [phone] | | | +--------+ + + + [...]
--- OUTSIDE RECORDS SUMMARY | ~2019-09-14 | XMS | Encounter Summary ---
Demographics + + + | Address | [address] | | | [place] [address] | + + + | Home Phone [...] Organization | [facility] | | | and [...] Team Providers + +------+ + | Care Outside Plant Supervisor Name | Role | Phone | + +------+ + | Shanti Sanchez PA-C | PCP | | + +------+ + Encounter Details +--------+ + + + + | Date | Type | Department | Care Team | Description | +--------+ + + + + | 06/08/ | Documentati | [facility] [place] | [facility], | | | 2019 | on | GASTROENTEROLOGY | CORRINE Alvarez [address] | | | | | [address] [place] | [place], [place] [address] | | | | | [address] | [place] | | | | | [address] | [address] | | | | | [phone] | | | +--------+ + + + [...] documented as of this encounter Progress Notes Maureen Angelo CMA - 06/08/2019 2:54 PM PDTFaxed lab orders to [facility] in [place] . documented in thi s encounter Plan of Treatment Not on filedocumented as of this encounter Visit Diagnoses Not on filedocumented in this encounter"
--- OUTSIDE RECORDS SUMMARY | ~2019-09-14 | XMS | Encounter Summary ---
Demographics + + + | Address | [address] | | | [place] [address] | + + + | Home Phone [...] Thaddeus Martínez | ECON | [address] # | | | | | [place], [place] | | | | | [address] | | + + + + + Care Team Providers + +------+ + | Care Box Spring Frame Builder Name | Role | Phone | + +------+ + | Shanti Sanchez | PCP | | + +------+ + Reason for Visit + + + | Reason | Comments | + + + | STALLINGS - Headache | | + + + Encounter Details +--------+ + + + + | Date | Type | Department | Care Team | Description | +--------+ + + + + | 03/01/ | Telephone | Neurology at | Manolo Benjamin, | STALLINGS - Headache | | 2019 | | [facility] & | MD [address] | | | | | [address] | [address] | | | | | [place] Mailcode: | [place], [place] | | | | | [facility] | [address] | | | | | Health and Healing, | [phone] | | | | | [facility] | | | | | | Floor [place], [place] | | | | | | [address] | | | | | | [phone] | | | +--------+ + + + [...]
--- OUTSIDE RECORDS SUMMARY | ~2019-09-14 | XMS | Encounter Summary ---
Demographics + + + | Address | [address] | | | [place] [address] | + + + | Home Phone [...] + | Author | [facility] | | | and [place] | + + + | Organization | [facility] [...] Team Providers + +------+ + | Care Merchandise Deliverer Name | Role | Phone | + +------+ + | Shanti Sanchez PA-C | PCP | | + +------+ + Encounter Details +--------+ + + + + | Date | Type | Department | Care Team | Description | +--------+ + + + + | 06/08/ | Documentati | [facility] [place] | [facility], | | | 2019 | on | GASTROENTEROLOGY | CORRINE Alvarez [address] | | | | | [address] [place] | [place], [place] [address] | | | | | [address] | [place] | | | | | [address] | [id number] | | | | | [phone] | | | +--------+ + + + [...] as of this encounter Progress Notes Maureen Aneglo CMA - 06/08/2019 2:54 PM PDTFaxed lab orders to [facility] in [place] . documented in thi s encounter Plan of Treatment Not on filedocumented as of this encounter Visit Diagnoses Not on filedocumented in this encounter"
--- OUTSIDE RECORDS SUMMARY | ~2019-09-14 | XMS | Encounter Summary ---
Demographics + + + | Address | [address] | | | [place] [address] | + + + | Home Phone | | + + + | Preferred Language | Unknown | + + + | Marital Status | | + + + | Restorationist Affiliation | NOD | + + + [...] | Thaddeus Martínez | ECON | [address] # | | | | | [place], [place] | | | | | [address] | | + + + + + Care Team Providers + +------+ + | Care Museum Attendant Name | Role | Phone | [...] Rx | | 2017 | Encounter | [facility] & | MD Sachin Wiley | | | | | Healing [address] | [place], [place] | | | | | [address] Mailcode: | [id number] | | | | | [facility] | [phone] | | | | | and Healing, | | | | | | [address] | | | | | | [place], [place] | | | | | | [address] | | | | | | [phone] | | | +--------+ + + + [...]
--- OUTSIDE RECORDS SUMMARY | ~2019-09-14 | XMS | Encounter Summary ---
Demographics + + + | Address | [address] | | | [place] [address] | + + + | Home Phone [...] Thaddeus Martínez | ECON | [address] # | | | | | [place], [place] | | | | | [address] | | + + + + + Care Team Providers + +------+ + | Care Tread Booker Name | Role | Phone | + [...] | | | | | nonintractab | [address] | [address] | | | | | le headache, | [address] | [address] | | | | | unspecified | [address] | [place], [place] | | | | | headache | [place], [place] | [address] | | | | | type | [address] | Phone: | | | | | Procedures | Phone: | [phone] | | | | | CONSULT TO | [phone] | Fax: | | | | | NEUROLOGY | Fax: | [phone] | | | | | [address] | [phone] | | +--------+--------+ + + + + Encounter Details +--------+---------+ + + + | Date | Type | Department | Care Team | Description | +--------+---------+ + + + | 03/11/ | Office | Neurology at | Kavitha Servin | Migraine without | | 2018 | Visit | [facility] & | S, MD [address] | aura and without | | | | Healing [address] | [address] [place], [place] | status migrainosus, | | | | [address] Mailcode: | [phone] | not intractable | | | | [facility] | [phone] | (Primary Dx) | | | | and Healing, | | | | | | [address] | | | | | | [place], [place] | | | | | | [address] | | | | | | [phone] | | | +--------+---------+ + + + [...] who presented to the [facility] Clinic with marine chronometer assembler 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 INTERVAL [...] Prescription for Cefaly Unit FDA approved medical staffing coordinator for use in helping to reduce migraine occurrences Dispense: #1 Cefaly Unit with 3 set of electrodes Directions: use 20 min each night as directed by dry cell and battery assembler 1 each 3 cyclobenzaprine 5 mg oral [...] of knowledge. Migraine Disability Score (manual data processing consultant):: 70 (12/02/16 1100) Score Arredondo: 0-5: Little [...] [facility] chart if questions or concerns arise [...] | | | LABORATORY | | | [facility] | | | SERVICES, | | | [...] the MDRD equation recommended by the | MISU | | National Kidney Disease Education Program. [...] MINNIE MALONE | [address] | [place] [address] | | | SERVICES, CORE | REYNA [...]
--- OUTSIDE RECORDS SUMMARY | ~2019-09-14 | XMS | Encounter Summary ---
Demographics + + + | Address | [address] | | | [place] [address] | + + + | Home Phone | | + + + | Preferred Language | Unknown | + + + | Marital Status | | + + + | Yarsani Affiliation | Unknown | + + + | Race | Unknown | + + + | Ethnic Group | Unknown | + + + Author + + + | Author | [facility] | | | and [place] | + + + | Organization | [facility] | | | and [place] | [...] Team Providers + +------+ + | Care Equal Opportunity Officer Name | Role | Phone | + [...] | | | | EMERGENCY CENTER | [place], [place] | | | | | [address] | [address] | | | | | [place] | [phone] | | | | | [address] | | | | | | [phone] | | | +--------+ + + + [...]
--- OUTSIDE RECORDS SUMMARY | ~2019-09-14 | XMS | Encounter Summary ---
Demographics + + + | Address | [address] | | | [place] [address] | + + + | Home Phone | | + + + | Preferred Language | Unknown | + + + | Marital Status | | + + + | Hoahaoism Affiliation | Unknown | + + + | Race | Unknown | + + + | Ethnic Group | Unknown | + + + Author + + + | Author | [facility] | | | and [place] | + + + | Organization | [facility] | | | and [place] [...] Providers + +------+ + | Care Bilingual Sales Representative Name | Role | Phone [...] | [address] [place] | [place], [place] [address] | | | | | [address] [place], [place] | [place], [place] | | | | | [address] | [address] | | | | | [phone] | | | +--------+ + + + [...]
--- OUTSIDE RECORDS SUMMARY | ~2019-09-14 | XMS | Encounter Summary ---
Demographics + + + | Address | [address] | | | [place] [address] | + + + | Home Phone | | + + + | Preferred Language | Unknown | + + + | Marital Status | | + + + | Sabianist Affiliation | NOD | + + + [...] Thaddeus Martínez | ECON | [address] # | | | | | [place], [place] | | | | | [address] | | + + + + + Care Team Providers + +------+ + | Care Traffic Attendant Name | Role | Phone | + +------+ + | Latanya Sutton | PCP | | + +------+ + Encounter Details +--------+ + + + + | Date | Type | Department | Care Team | Description | +--------+ + + + + | 09/10/ | Rn Neurosurgical | Neurology at | Kavitha Servin | | | 2017 | | [facility] & | MD Sachin Wiley | | | | | [address] [place], [place] | | | | | [address] Mailcode: | [phone] | | | | | [facility] | [phone] | | | | | and Healing, | | | | | | [address] | | | | | | [place], [place] | | | | | | [address] | | | | | | [phone] | | | +--------+ + + + [...]
--- OUTSIDE RECORDS SUMMARY | ~2019-09-14 | XMS | Encounter Summary ---
Demographics + + + | Address | [address] | | | [place] [address] | + + + | Home Phone | | + + + | Preferred Language | Unknown | + + + | Marital Status | | + + + | Pentecostal Affiliation | Unknown | + + + | Race | Unknown | + + + | Ethnic Group | Unknown | + + + Author + + + | Author | [facility] | | | and [place] | + + + | Organization | [facility] | | | and [...] Team Providers + +------+ + | Care Resaw Carriage Operator Name | Role | Phone | + +------+ + | Latanya Sutton PA-C | PCP | | + +------+ + Encounter Details +--------+ + + + + | Date | Type | Department | Care Team | Description | +--------+ + + + + | 02/16/ | Abstract | [facility] | [place], | | | 2012 | | GASTROENTEROLOGY | CORRINE Al[address] | | | | | [address] [place] | [place], [place] [address] | | | | | [address] | [place] | | | | | [address] | [address] | | | | | [phone] | | | +--------+ + + + [...]
--- OUTSIDE RECORDS SUMMARY | ~2019-09-14 | XMS | Clinical Summary ---
Demographics + + + | Address | [address] | | | [place] [address] | + + + | Home Phone | | + + + | Preferred Language | Unknown | + + + | Marital Status | | + + + | Evangelical Affiliation | Unknown | + + + | Race | Unknown | + + + | Ethnic Group | Unknown | + + + Author + + + | Author | [facility] | | | and [place] | + + + | Organization | [facility] | | | and [place] [...] Team Providers + +------+ + | Care Supply Clerk Name | Role | Phone | + +------+ + | Shanti Sanchez PA-C | PCP | | + +------+ + Allergies + + + + + + | Active Allergy | Reactions | Severity | Noted | Comments | | | | | Date | | + + + + + + | Hydrocodone-Acetamin | Hives | | 12/16/19 | | | ophen | | | 13 | | + + + + + + | Oxycodone | Hives, Itching | | 12/16/19 | | | | | | 13 | | + + + + + + Medications + + + +---------+------+------+-------+ | Medication | Sig | Dispensed | Refills | Star | End | Statu | | | | | | t | Date | s | | | | | | Date | | | + + + +---------+------+------+-------+ | Naproxen Sodium | Take by mouth. | | 0 | | | Activ | | (ALEVE) 220 MG CAPS | | | | | | e | + + + +---------+------+------+-------+ | SUMAtriptan | Take 100 mg by mouth | | 0 | | | Activ | | (IMITREX) 50 mg | as needed. | | | | | e | | tablet | | | | | | | + + + +---------+------+------+-------+ | buPROPion | Take 300 mg by mouth | | 0 | | | Activ | | (WELLBUTRIN SR) 150 | 2 times daily. | | | | | e | | mg 12 hr tablet | | | | | | | + + + +---------+------+------+-------+ | Calcium | Take by mouth. | | 0 | | | Activ | | Carb-Cholecalciferol | | | | | | e | | (CALCIUM 500 +D) | | | | | | | | 500-400 MG-UNIT TABS | | | | | | | + + + +---------+------+------+-------+ | ALPRAZolam (XANAX) | Take 0.5 mg by mouth | | 0 | 08/1 | | Activ | | 0.25 mg tablet | 3 times daily as | | | 3/20 | | e | | | needed. | | | 18 | | | + + + +---------+------+------+-------+ | cyclobenzaprine | Take 5 mg by mouth 3 | | 0 | | | Activ | | (FLEXERIL) 5 MG | times daily as | | | | | e | | tablet | needed. | | | | | | + + + +---------+------+------+-------+ | galcanezumab-gnlm | Inject 120 mg under | | 0 | 05/0 | | Activ | | (EMGALITY) 120 mg/mL | the skin. | | | 9/20 | | e | | injection (pen) | | | | 19 | | | + + + +---------+------+------+-------+ | ketorolac | Take 1-2 tablets by | | 0 | 01/2 | | Activ | | (TORADOL) 10 MG | mouth. | | | 3/20 | | e | | tablet | | | | 19 | | | + + + +---------+------+------+-------+ | ketorolac | Inject 2mL ( 60 mg) | | 0 | 06/1 | | Activ | | (TORADOL) 60 mg/2 mL | intramuscular at | | | 0/20 | | e | | SOLN | onset of serve | | | 19 | | | | | headache for one | | | | | | | | dose. Max 2 | | | | | | | | injections per | | | | | | | | month. Indications: | | | | | | | | Severe Pain | | | | | | + + + +---------+------+------+-------+ | metFORMIN | TK 1 T PO QD | | 0 | 08/0 | | Activ | | (GLUCOPHAGE-XR) 500 | | | | 3/20 | | e | | mg 24 hr tablet | | | | 18 | | | + + + +---------+------+------+-------+ | metoclopramide | | | 0 | 10/1 | | Activ | | (REGLAN) 10 mg | | | | 2/20 | | e | | tablet | | | | 16 | | | + + + +---------+------+------+-------+ | nystatin | | | 0 | 10/1 | | Activ | | (MYCOSTATIN) [id number] | | | | 1/20 | | e | | UNIT/GM powder | | | | 16 | | | + + + +---------+------+------+-------+ | pantoprazole | Take 40 mg by mouth | | 0 | | | Activ | | (PROTONIX) 40 mg | Daily. | | | | | e | | tablet | | | | | | | + + + +---------+------+------+-------+ | sertraline | | | 0 | 08/2 | | Activ | | (ZOLOFT) 50 mg | | | | 6/20 | | e | | tablet | | | | 19 | | | + + + +---------+------+------+-------+ | metoprolol | | | 0 | 08/2 | | Activ | | succinate | | | | 3/20 | | e | | (TOPROL-XL) 25 mg 24 | | | | 19 | | | | hr tablet | | | | | | | + + + +---------+------+------+-------+ | busPIRone (BUSPAR) | | | 0 | 08/2 | | Activ | | 10 MG tablet | | | | 3/20 | | e | | | | | | 19 | | | + + + +---------+------+------+-------+ | Milk Thistle 300 | Take 350 mg by mouth | | 0 | | | Activ | | MG CAPS | Daily. | | | | | e | + + + +---------+------+------+-------+ Active Problems + + + | Problem | Noted Date | + + + | Routine general medical examination at a health care facility | 11/27/2009 | + + + + + | Overview: Last A1C 5.7 07/12 LDL 94 12/10 | | Last Mammogram | | Last Pap Smear 03/25/09 NALINI 1 repeat 6 mos | | CG/CHLAM 03/12 NEG | | Last Colorectal Screening | | Last Immunization: Tdap 08/01/09, Flu 08/01/09 | | Last Retinal exam NK | + + + + + | Plantar fasciitis | 08/01/2009 | + + + | Family history of diabetes mellitus | 03/25/2009 | + + + | Family history of malignant neoplasm of breast | 03/25/2009 | + + + | Irregular menses | 03/25/2009 | + + + | Major depressive disorder, recurrent episode, severe | 01/22/2009 | + + + | Depressive disorder | 12/29/2008 | + + + | Morbidly obese | 12/29/2008 | + + + + + | Overview: Body mass index is 40.45 kg/(m^2). | + + Encounters +--------+ + + + + | Date | Type | Specialty | Care Team | Description | +--------+ + + + + | 07/12/ | Telephone | Gastroenterology | [facility], | Results | | 2018 | | | CORRINE Alvarez | | +--------+ + + + + | 07/06/ | Hospital | Radiology | [facility], | Alkaline phosphatase | | 2018 | Encounter | | CORRINE Alvarez | elevation; RUQ | | | | | | abdominal pain | +--------+ + + + + from Last 3 Months Family History + + + + + | Medical History | Relation | Name | Comments | + + + + + | Alcohol abuse | Father | Navdeep Lopez | | + + + + + | Diabetes | Father | Navdeep Lopez | | + + + + + | Early | Father | Navdeep Mauricioy | 49, Sepsis | + + + + + | Cancer | Maternal | Leander | Prostrate | | | Grandfath | Aline | | | | er | | | + + + + + | Breast cancer | Maternal | Aishwarya | | | | Grandmoth | Aline | | | | er | | | + + + + + | Cancer | Maternal | Aishwarya | Breast Cancer | | | Grandmoth | Aline | | | | er | | | + + + + + | Depression | Maternal | Aishwarya | | | | Grandmoth | Aline | | | | er | | | + + + + + | Depression | Mother | Ban | | | | | Lopez | | + + + + + | Colon cancer | Paternal | | | | | Grandfath | | | | | er | | | + + + + + | Colon polyps | Paternal | | | | | Grandfath | | | | | er | | | + + + + + | Depression | Paternal | | | | | Grandfath | | | | | er | | | + + + + + | Cancer | Paternal | Lizzie | Cervical | | | Grandmoth | Lopez | | | | er | | | + + + + + + + + + + | Relation | Name | Status | Comments | + + + + + | Father | Navdeep Lopez | | alcoholic | | | | (Age | | | | | 49) | | + + + + + | Maternal Grandfather | Leander | | | | | Aline | | | + + + + + | Maternal Grandmother | Aishwarya | | | | | Aline | | | + + + + + | Mother | Ban | Alive | | | | Lopez | | | + + + + + | Paternal Grandfather | | | | + + + + + | Paternal Grandmother | Lizzie Lopez | | | + + + + + Social History + [...] | + + + + + | Cervical Cancer | | 03/06/2002, 10/01/2000 | | | Screening (Pap) | 7 | | | + + + + + | Breast Cancer | | | | | Screening | 7 | | | + + + + + | Vaccine: Influenza | | 08/01/2009 | | | (#1) | 9 | | | + + + + + | Vaccine: | | 08/01/2009 | | | Dtap/Tdap/Td (2 - | 9 | | | | Td) | | | | + + + + + Procedures + +--------+ + + + | [...] | + +--------+ + + + | LABS - EXTERNAL SCAN | | 06/15/2019 | | Results for this | | | | 12:00 AM | | procedure are in the | | | | PDT | | results section. | + +--------+ + + + from Last 3 Months Results MRI [facility]CP Liver wo Contrast (07/06/2019 1:23 PM PDT) + + | Specimen | + + | | + + + + + | Narrative | Performed At | + + + | MRI [facility] LIVER WO CONTRAST 07/06/2019 12:58 PM HISTORY:?elevated | [facility] | | alk phos, RUQ abdominal pain.. COMPARISON: none PROTOCOL: | | | Coronal T2 electrical controls assembler, axial T2 electrical controls assembler, coronal 3D respiratory triggered, | | | [...] abdominal pain..COMPARISON: nonePROTOCOL: | | Coronal T2 electrical controls assembler, axial T2 electrical controls assembler, coronal 3D respiratory triggered,coronal T2 thin slab, [...] | | | + +---------+ + + LABS - EXTERNAL SCAN (06/15/2019 12:00 AM PDT) + + + | Narrative | Performed At | + + + | Ordered by an | | | unspecified provider. | | + + + from Last 3 Months Insurance + +--------+ +--------+ +---------+--------+ | Payer | Benefi | Subscriber | Effect | Phone | Address | Type | | | t Plan | ID | heather | | | | | | / | | Dates | | | | | | Group | | | | | | + +--------+ +--------+ +---------+--------+ | [facility] | [place] | [id number] | 10/04/19 | [phone] | | Indemn | | | | | 13-Pre | 2 | | ity | | | HEALTH | | sent | | | | | | CARE | | | | | | | | INDEMN | | | | | | | | ITY | | | | | | + +--------+ +--------+ +---------+--------+ + +--------+ +--------+ + + | Guarantor Name | Accoun | Relation to | Date | Phone | Billing Address | | | t Type | Patient | of | | | | | | | | | | + +--------+ +--------+ + + | Aline Martínez | Person | Self | [birth year] | [address] | | | al/Fam | | 1970 | [phone] | [place] [address] | | | charly | | | 4 (Home) | | + +--------+ +--------+ + + Advance Directives + + + + + | Type | Date Recorded | Patient | Explanation | | | | It Portfolio Manager | | + + + + + | Power of | | | | | Net Software Developer | | | | + + + + + | Advance | | | | | Directive | | | | + + + + +
--- OUTSIDE RECORDS SUMMARY | ~2019-09-14 | XMS | Encounter Summary ---
Demographics + + + | Address | [address] | | | [place] [address] | + + + | Home Phone | | + + + | Preferred Language | Unknown | + + + | Marital Status | | + + + | Yazidism Affiliation | NOD | + + + [...] Thaddeus Martínez | ECON | [address] # | | | | | [place], [place] | | | | | [address] | | + + + + + Care Team Providers + +------+ + | Care Delicatessen Clerk Name | Role | Phone | + +------+ + | Shanti Sanchez | PCP | | + +------+ + Encounter Details +--------+ + + + + | Date | Type | Department | Care Team | Description | +--------+ + + + + | 06/30/ | Document-Sc | Health Information | Unknown . | | | 2016 | anned | Services [id number] | | | | | | [address] | | | | | | Mailcode: [id number] | | | | | | [facility] | | | | | | [place], [place] | | | | | | [address] | | | | | | [phone] | | | +--------+ + + + [...]
--- OUTSIDE RECORDS SUMMARY | ~2019-09-14 | XMS | Encounter Summary ---
Demographics + + + | Address | [address] | | | [place] [address] | + + + | Home Phone [...] Thaddeus Martínez | ECON | [address] # | | | | | [place], [place] | | | | | [address] | | + + + + + Care Team Providers + +------+ + | Care Car Bracer Name | Role | Phone | + +------+ + | Latanya Sutton | PCP | | + +------+ + Encounter Details +--------+------+ + + + | Date | Type | Department | Care Team | Description | +--------+------+ + + + | 03/11/ | Lab | Laboratory at [facility] | | Migraine without | | 2018 | | [address] | | aura and without | | | | [place], [place] | | status migrainosus, | | | | [address] | | not intractable | | | | [phone] | | | +--------+------+ + + + [...] | + + + + + | [facility] | [address] | [place] [address] | | | SERVICES, [facility] | | | | | [...] | + + + + + | [facility] | [address] | [place] [address] | | | SERVICES, CORE | REYNA [...]
--- OUTSIDE RECORDS SUMMARY | ~2019-09-14 | XMS | Encounter Summary ---
Demographics + + + | Address | [address] | | | [place] [address] | + + + | Home Phone | | + + + | Preferred Language | Unknown | + + + | Marital Status | | + + + | Mormon Affiliation | NOD | + + + | Race | White | + + + | Ethnic Group | Not or | + + + Author + + + | Author | [facility] | + + + | Organization | [facility] | + + + | Address | Unknown | + + + | Phone | Unavailable | + + + Support + + + + + | Name | Relationship | Address | Phone | + + + + + | Thaddeus Martínez | ECON | [address] # | | | | | [place], [place] | | | | | [address] | | + + + + + Care Team Providers + +------+ + | Care Full Time Name | Role | Phone | + [...] | | | | nonintractab | CH[address]AN [address] | MD [address] | | | | | le headache, | Hunter [address] | [address] | | | | | unspecified | Iliana [address] | [place], [place] | | | | | headache | [place], [place] | [address] | | | | | type | [phone] | Phone: | | | | | Procedures | Phone: | [phone] | | | | | CONSULT TO | [phone] | Fax: | | | | | NEUROLOGY | Fax: | [phone] | | | | | | [phone] | | +--------+--------+ + + + + Encounter Details +--------+---------+ + + + | Date | Type | Department | Care Team | Description | +--------+---------+ + + + | 09/10/ | Office | Neurology at | Kavitha Servin | Chronic migraine | | 2017 | Visit | [facility] & | MD Sachin Wiley | without aura without | | | | [address] | [place], [place] | status migrainosus, | | | | [address] Mailcode: | [id number] | not intractable | | | | [facility] | [phone] | | | | | and Healing, | | | | | | [address] | | | | | | [place], [place] | | | | | | [address] | | | | | | [phone] | | | +--------+---------+ + + + [...] [facility] with supervisor tank cleaning 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 INTERVAL [...] fund of knowledge. Migraine Disability Score (manual file clerk data entry):: 70 (12/02/16 1100) Score Arredondo: 0-5: Little [...] Patient is welcome to e-mail via my [facility] chart if questions or concern s [...]
--- OUTSIDE RECORDS SUMMARY | ~2019-09-14 | XMS | Encounter Summary ---
Demographics + + + | Address | [address] | | | [place] [address] | + + + | Home Phone | | + + + | Preferred Language | Unknown | + + + | Marital Status | | + + + | Gnosticist Affiliation | Unknown | + + + | Race | Unknown | + + + | Ethnic Group | Unknown | + + + Author + + + | Author | [facility] | | | and [place] | + + + | Organization | [facility] | | | and [place] [...] Team Providers + +------+ + | Care Survey Technologist Name | Role | Phone | + +------+ + PCP | Unavailable | + +------+ + Encounter Details +--------+ + + + + | Date | Type | Department | Care Team | Description | +--------+ + + + + | 02/10/ | Hospital | [facility] | Nidia Sumner | | | 2005 | Encounter | [facility] | [address] | | | | | GENERIC CONV DEPT | [place] | | | | | [address] | [address] | | | | | [place] | [phone] | | | | | [address] | | | | | | [phone] | | | +--------+ + + + [...] + + | SURGICAL PATHOLOGY REPORT | [facility] | | Date Taken: 02/10/2006 Date Received: [...] Electronic signature PRIOR REPORTS: | | | [id number] GROSS DESCRIPTION: Labeled and | | | designated as "Garrett, thrombosed left lateral hemorrhoid" is | | | received in formalin and consists of an irregular excision of focally | | | ulcerated pink epithelium measuring 2.5 x 1.8 cm and measuring up to | | | 1.2 cm in thickness. Sectioned and submitted "A1". (MS) | | | 1: [address] [place] [address] | | | or Testing performed at: [facility] | | | [facility] Apolinar Grace M.D., | | | Director [address] [place] [address] [address] [place] [address] Phone: | | | | | + + + + + + + + | Performing | Address | City/State/Zipcode | Phone Number | | Organization | | | | + + + + + | [facility] | [address] | [place] [address] | | | [facility] | | | | | LABORATORY | | | | + + + + + | [facility] | | | | + + + + + documented in this encounter Visit Diagnoses Not on filedocumented in this encounter
--- OUTSIDE RECORDS SUMMARY | ~2019-09-14 | XMS | Encounter Summary ---
Demographics + + + | Address | [address] | | | [place] [address] | + + + | Home Phone | | + + + | Preferred Language | Unknown | + + + | Marital Status | | + + + | Evangelical Affiliation | NOD | + + + | Race | White | + + + | Ethnic Group | Not or | + + + Author + + + | Author | [facility] | + + + | Organization | [facility] | + + + | Address | Unknown | + + + | Phone | Unavailable | + + + Support + + + + + | Name | Relationship | Address | Phone | + + + + + | Thaddeus Martínez | ECON | [address] # | | | | | [place], [place] | | | | | [address] | | + + + + + Care Team Providers + +------+ + | Care Melt Helper Name | Role | Phone | [...] Refill Request | | 2018 | | [facility] & | MD Inez [address] | | | | | [address] | [place], [place] | | | | | [address] Mailcode: | [phone] | | | | | [facility] | [phone] | | | | | and Healing, | | | | | | [address] | | | | | | [place], [place] | | | | | | [address] | | | | | | [phone] | | | +--------+--------+ + + + [...]
--- OUTSIDE RECORDS SUMMARY | ~2019-09-14 | XMS | Encounter Summary ---
Demographics + + + | Address | [address] | | | [place] [address] | + + + | Home Phone [...] | Organization | [facility] | | | and [place] [...] Team Providers + +------+ + | Care Airport Operations Supervisor Name | Role | Phone | + +------+ + PCP | Unavailable | + +------+ + Encounter Details +--------+ + + + + | Date | Type | Department | Care Team | Description | +--------+ + + + + | 10/01/ | Hospital | [facility] | Conversion | | | 1999 | Encounter | [facility] | Transaction, | | | | | LABORATORY [address] | Provider Unknown | | | | | [address] [place] | | | | | | [address] | (Fax) | | | | | [phone] | | | +--------+ + + + [...] | + +--------+ + + + | MANAGER SKILLED FINAL REPORT | Routin | 10/01/2000 | | Results for this | | | e | 4:11 PM | | procedure are in the | | | | PST | | results section. | + +--------+ + + + documented in this encounter Results Water Softener Service Supervisor Final Report (10/01/2000 4:11 PM PST) + + | Specimen | + + | | + + + + + | Narrative | Performed At | + + + | CYTOLOGY REPORT Date Taken: | [facility] | | 10/01/2000 Date Received: 10/01/2000 [...] Other Medical | | | Record Number: [id number] LMP: 09/19/00 History: Previous Pap | | | Smear - . Pathologist: Victor M Rader M.D. Card Tape Converter Operator: | | | Adriana Kearney, [facility](ASCP) Gynecological cytology is a | | | screening test that is subject to both false positive and false | | | negative results. The test is most reliable when performed on a | | | regular basis. [facility] [address] [place] [address] (v) | | | or (f) | | + + + + + + + + | Performing | Address | City/State/Zipcode | Phone Number | | Organization | | | | + + + + + | [facility] | [address] | [place] [address] | | | [facility] | | | | | LABORATORY | | | | + + + + + | [facility] | | | | + + + + + documented in this encounter Visit Diagnoses Not on filedocumented in this encounter"
--- OUTSIDE RECORDS SUMMARY | ~2019-09-14 | XMS | Encounter Summary ---
Demographics + + + | Address | [address] | | | [place] [address] | + + + | Home Phone | | + + + | Preferred Language | Unknown | + + + | Marital Status | | + + + | Latter Day Affiliation | NOD | + + + [...] Thaddeus Martínez | ECON | [address] # | | | | | [place], [place] | | | | | [address] | | + + + + + Care Team Providers + +------+ + | Care Mud Jack Nozzle Worker Name | Role | Phone | + +------+ + | Latanya Sutton | PCP | | + +------+ + Encounter Details +--------+ + + + + | Date | Type | Department | Care Team | Description | +--------+ + + + + | 09/06/ | Documentati | Neurology at | Kavitha Servin | | | 2017 | on | [facility] & | MD Sachin Wiley | | | | | [address] [place], [place] | | | | | [address] Mailcode: | [phone] | | | | | [facility] | [phone] | | | | | and Healing, | | | | | | [address] | | | | | | [place], [place] | | | | | | [address] | | | | | | [phone] | | | +--------+ + + + [...]
--- OUTSIDE RECORDS SUMMARY | ~2019-09-14 | XMS | Encounter Summary ---
Demographics + + + | Address | [address] | | | [place] [address] | + + + | Home Phone [...] | Organization | [facility] | | | and [place] [...] Team Providers + +------+ + | Care Assurance Analyst Name | Role | Phone | [...] | [address] [place] | [place], [place] [address] | [facility]) | | | | [address] [place], [place] | [place], [place] | | | | | [address] | [address] | | | | | [phone] | | | +--------+ + + + [...]
--- OUTSIDE RECORDS SUMMARY | ~2019-09-14 | XMS | Encounter Summary ---
Demographics + + + | Address | [address] | | | [place] [address] | + + + | Home Phone | | + + + | Preferred Language | Unknown | + + + | Marital Status | | + + + | Methodist Affiliation | Unknown | + + + | Race | Unknown | + + + | Ethnic Group | Unknown | + + + Author + + + | Author | [facility] | | | and [place] | + + + | Organization | [facility] | | | and [place] [...] Team Providers + +------+ + | Care Route Inspector Name | Role | Phone | [...] | [address] [place] | [place], [place] [address] | | | | | [address] | [place] | | | | | [address] | [address] | | | | | [phone] | | | +--------+ + + + [...]
--- OUTSIDE RECORDS SUMMARY | ~2019-09-14 | XMS | Encounter Summary ---
Demographics + + + | Address | [address] | | | [place] [address] | + + + | Home Phone | | + + + | Preferred Language | Unknown | + + + | Marital Status | | + + + | Pentecostalism Affiliation | NOD | + + + | Race | White | + + + | Ethnic Group | Not or | + + + Author + + + | Author | [facility] | + + + | Organization | [facility] | + + + | Address | Unknown | + + + | Phone | Unavailable | + + + Support + + + + + | Name | Relationship | Address | Phone | + + + + + | Thaddeus Martínez | ECON | [address] # | | | | | [place], [place] | | | | | [address] | | + + + + + Care Team Providers + +------+ + | Care Duralumin Mechanic Name | Role | Phone | + +------+ + | Latanya uStton | PCP | | + +------+ + Encounter Details +--------+ + + + + | Date | Type | Department | Care Team | Description | +--------+ + + + + | 02/19/ | MyChart | Neurology at | Kavitha Servin | RE: [facility] | | 2017 | Encounter | [facility] & | MD [address]in [address] | | | | | [address] | [place], [place] | | | | | [address] Mailcode: | [phone] | | | | | [facility] | [phone] | | | | | and Healing, | | | | | | [address] | | | | | | [place], [place] | | | | | | [address] | | | | | | [phone] | | | +--------+ + + + [...]
--- OUTSIDE RECORDS SUMMARY | ~2019-09-14 | XMS | Encounter Summary ---
Demographics + + + | Address | [address] | | | [place] [address] | + + + | Home Phone | | + + + | Preferred Language | Unknown | + + + | Marital Status | | + + + | Baptism Affiliation | NOD | + + + | Race | White | + + + | Ethnic Group | Not or | + + + Author + + + | Author | [facility] | + + + | Organization | [facility] | + + + | Address | Unknown | + + + | Phone | Unavailable | + + + Support + + + + + | Name | Relationship | Address | Phone | + + + + + | Thaddeus Martínez | ECON | [address] # | | | | | [place], [place] | | | | | [address] | | + + + + + Care Team Providers + +------+ + | Care Manager Training And Development Name | Role | Phone | + +------+ + | Latanya Sutton | PCP | | + +------+ + Encounter Details +--------+ + + + + | Date | Type | Department | Care Team | Description | +--------+ + + + + | 09/17/ | MyChart | Neurology at | Kavitha Servin | RE: Rx filled | | 2017 | Encounter | [facility] & | MD Sachin Wiley | | | | | [address] | [place], [place] | | | | | [place] Mailcode: | [address] | | | | | [facility] | [phone] | | | | | and Healing, | | | | | | [address] | | | | | | [place], [place] | | | | | | [address] | | | | | | [phone] | | | +--------+ + + + [...]
--- OUTSIDE RECORDS SUMMARY | ~2019-09-14 | XMS | Encounter Summary ---
Demographics + + + | Address | [address] | | | [place] [address] | + + + | Home Phone | | + + + | Preferred Language | Unknown | + + + | Marital Status | | + + + | Scientologist Affiliation | Unknown | + + + | Race | Unknown | + + + | Ethnic Group | Unknown | + + + Author + + + | Author | [facility] | | | and [place] | + + + | Organization | [facility] | [...] Team Providers + +------+ + | Care Business Solutions Consultant Name | Role | Phone | [...] | Office | [place] | [facility], | Fatty liver (Primary | | 2012 | Visit | GASTROENTEROLOGY | CORRINE Al[address] | Dx); Elevated LFTs; | | | | [address] [place] | [place], [place] | Obesity | | | | [address] [place], [place] | [place], [place] | | | | | [address] | [address] | | | | | [phone] | | | +--------+---------+ + + + [...] cirrhosis documented in this encounter Progress Notes Kmi Benson ARNP - 02/22/2013 10:38 AM PDTFormatting [...] Date Hemorrhoid surgery X2 1993 and 2003 [place] tooth extraction 1993 Family History Problem Relation [...]
--- OUTSIDE RECORDS SUMMARY | ~2019-09-14 | XMS | Encounter Summary ---
Demographics + + + | Address | [address] | | | [place] [address] | + + + | Home Phone | | + + + | Preferred Language | Unknown | + + + | Marital Status | | + + + | Mormonism Affiliation | Unknown | + + + | Race | Unknown | + + + | Ethnic Group | Unknown | + + + Author + + + | Author | [facility] | | | and Romeo[place] | + + + | Organization | [facility] | | | and [place] | [...] Team Providers + +------+ + | Care Kiln Repairer Name | Role | Phone | [...] | Telephone | [facility] [place] | [facility], | Appointment (liver | | 2012 | | GASTROENTEROLOGY | CORRINE Al[address] | biopsy) | | | | [address] [place] | [place], [address] | | | | | [address] [place], [place] | [place], [place] | | | | | [address] | [address] | | | | | [phone] | | | +--------+ + + + [...]
--- OUTSIDE RECORDS SUMMARY | ~2019-09-14 | XMS | Encounter Summary ---
Demographics + + + | Address | [address] | | | [place] [address] | + + + | Home Phone | | + + + | Preferred Language | Unknown | + + + | Marital Status | | + + + | Hoahaoism Affiliation | NOD | + + + [...] Thaddeus Martínez | ECON | [address] # | | | | | [place], [place] | | | | | [address] | | + + + + + Care Team Providers + +------+ + | Care Associate Director Career Services Name | Role | Phone | + [...] - | | 2017 | Encounter | [facility] & | MD Sachin Wiley | Lisinopril | | | | [address] | [place], [place] | | | | | [address] [place] Mailcode: | [address] | | | | | [facility] | [phone] | | | | | and Jose G, | | | | | | [address] | | | | | | [place], [place] | | | | | | [address] | | | | | | [phone] | | | +--------+ + + + [...]
--- OUTSIDE RECORDS SUMMARY | ~2019-09-14 | XMS | Encounter Summary ---
Demographics + + + | Address | [address] | | | [place] [address] | + + + | Home Phone [...] Thaddeus Martínez | ECON | [address] # | | | | | [place], [place] | | | | | | | + + + + + Care Team Providers + +------+ + | Care Business Trainer Name | Role | Phone | + [...] | Medication | | 2019 | | [facility] & | S, MD [address] | (Emgality) | | | | Healing [address] | [place], [place] | | | | | [address] Mailcode: | [address] | | | | | [facility] | [phone] | | | | | and Healing, | | | | | | [address] | | | | | | [place], [place] | | | | | | [address] | | | | | | [phone] | | | +--------+ + + + [...]
--- OUTSIDE RECORDS SUMMARY | ~2019-09-14 | XMS | Encounter Summary ---
Demographics + + + | Address | [address] | | | [place] [address] | + + + | Home Phone | | + + + | Preferred Language | Unknown | + + + | Marital Status | | + + + | Judaism Affiliation | Unknown | + + + | Race | Unknown | + + + | Ethnic Group | Unknown | + + + Author + + + | Author | [facility] | | | and [place] | + + + | Organization | [facility] | | | and [place]oana [...] Team Providers + +------+ + | Care Deicer Finisher Name | Role | Phone | + +------+ + PCP | Unavailable | + +------+ + Encounter Details +--------+ + + + + | Date | Type | Department | Care Team | Description | +--------+ + + + + | 03/06/ | Hospital | [facility] | Andi Vee, | | | 2001 | Encounter | [facility] | [address] | | | | | LABORATORY [address] | [place] [address] | | | | | [address] [place] | [phone] | | | | | [address] | | | | | | [phone] | | | +--------+ + + + [...] | + +--------+ + + + | BIAS BINDING FOLDER FINAL REPORT | Routin | 03/06/2002 | | Results for this | | | e | 12:00 AM | | procedure are in the | | | | PDT | | results section. | + +--------+ + + + documented in this encounter Results Chip Separator Final Report (03/06/2002 12:00 AM PDT) + + | Specimen | + + | | + + + + + | Narrative | Performed At | + + + | CYTOLOGY REPORT Date Taken: | [facility] | | 03/06/2002 Date Received: [...] | | | Pathologist: Mack Gallegos MD Beef Grader: FRANKLIN Orozco(ASCP) | | | Gynecological cytology is a screening test that is subject to both | | | false positive and false negative results. The test is most | | | reliable when performed on a regular basis. [facility] [address] | | | [place] [address] (v) or (f) | | | | | + + + + + + + + | Performing | Address | City/State/Zipcode | Phone Number | | Organization | | | | + + + + + | [facility] | [address] | [place] [address] | | | [facility] | | | | | LABORATORY | | | | + + + + + | [facility] | | | | + + + + + documented in this encounter Visit Diagnoses Not on filedocumented in this encounter"
--- OUTSIDE RECORDS SUMMARY | ~2019-09-14 | XMS | Clinical Summary ---
Demographics + + + | Address | [address] | | | [place] [address] | + + + | Home Phone | | + + + | Preferred Language | Unknown | + + + | Marital Status | | + + + | Sikh Affiliation | Unknown | + + + | Race | Unknown | + + + | Ethnic Group | Unknown | + + + Author + + + | Author | [facility] | | | and [place] | + + + | Organization | [facility] | | | and Romeoana [...] Team Providers + +------+ + | Care Patient Access Associate Name | Role | Phone | [...] 10/1 | | Activ | | (MYCOSTATIN) [id number] | | | | 1/20 | | [...] | 07/12/ | Telephone | Gastroenterology | [facility], | Results | | 2018 | | | CORRINE Alvarez | | +--------+ + + + + | 07/06/ | Hospital | Radiology | [facility], | Alkaline phosphatase | | 2018 | [...] none PROTOCOL: | | | Coronal T2 rotor balancer, axial T2 rotor balancer, coronal 3D respiratory triggered, | | | [...] abdominal pain..COMPARISON: nonePROTOCOL: | | Coronal T2 rotor balancer, axial T2 rotor balancer, coronal 3D respiratory triggered,coronal T2 thin slab, [...] | | + +--------+ +--------+ +---------+--------+ | [facility] | UNITED | [id number] | 10/04/19 | [phone] | | Indemn [...] | 1970 | [phone] | [place] [address] | | | charly | | | 4 (Home) | | + +--------+ +--------+ + + Advance Directives + + + + + | Type | Date Recorded | Patient | Explanation | | | | Non Destructive Evaluation Manager | | + + + + + | Power of | | | | | Car Unloader | | | | + + + + + | Advance | | | | | Directive | | | | + + + + +
--- OUTSIDE RECORDS SUMMARY | ~2019-09-14 | XMS | Encounter Summary ---
Demographics + + + | Address | [address] | | | [place] [address] | + + + | Home Phone | | + + + | Preferred Language | Unknown | + + + | Marital Status | | + + + | Confucianist Affiliation | NOD | + + + [...] [place], [place] | | | | | [address] | | + + + + + Care Team Providers + +------+ + | Care Sales Operations Analyst Name | Role | Phone | + +------+ + | Latanya Sutton | PCP | | + +------+ + Encounter Details +--------+ + + + + | Date | Type | Department | Care Team | Description | +--------+ + + + + | 12/11/ | MyChart | Neurology at | Kavitha Servin | RE: Medication | | 2017 | Encounter | [facility] & | MD Sachin Wiley | Clarification | | | | [address] | [place], [place] | | | | | [address] Mailcode: | [address] | | | | | [facility] | [phone] | | | | | and Jose G, | | | | | | [address] | | | | | | [place], [place] | | | | | | [address] | | | | | | [phone] | | | +--------+ + + + [...]
--- OUTSIDE RECORDS SUMMARY | ~2019-09-14 | XMS | Encounter Summary ---
Demographics + + + | Address | [address] | | | [place] [address] | + + + | Home Phone | | + + + | Preferred Language | Unknown | + + + | Marital Status | | + + + | Shinto Affiliation | NOD | + + + | Race | White | + + + | Ethnic Group | Not or | + + + Author + + + | Author | [facility] | + + + | Organization | [facility] | + + + | Address | Unknown | + + + | Phone | Unavailable | + + + Support + + + + + | Name | Relationship | Address | Phone | + + + + + | Thaddeus Martínez | ECON | [address] # | | | | | [place], [place] | | | | | [address] | | + + + + + Care Team Providers + +------+ + | Care Stone Sandblaster Name | Role | Phone | + +------+ + | Latanya Sutton | PCP | | + +------+ + Encounter Details +--------+ + + + + | Date | Type | Department | Care Team | Description | +--------+ + + + + | 01/07/ | MyChart | Neurology at | Kavitha Servin | RE: Update since | | 2017 | Encounter | [facility] & | MD Sachin Wiley | Appointment - ER | | | | [address] [place], [place] | visit | | | | [address] Mailcode: | [address] | | | | | [facility] | [phone] | | | | | and Jose G, | | | | | | [address] | | | | | | [place], [place] | | | | | | [address] | | | | | | [phone] | | | +--------+ + + + [...]
--- OUTSIDE RECORDS SUMMARY | ~2019-09-14 | XMS | Encounter Summary ---
Demographics + + + | Address | [address] | | | [place] [address] | + + + | Home Phone | | + + + | Preferred Language | Unknown | + + + | Marital Status | | + + + | Scientology Affiliation | Unknown | + + + | Race | Unknown | + + + | Ethnic Group | Unknown | + + + Author + + + | Author | [facility] | | | and [place] | + + + | Organization | [facility] | | [...] Team Providers + +------+ + | Care Interventional Tech Name | Role | Phone | + +------+ + | Latanya Sutton PA-C | PCP | | + +------+ + Encounter Details +--------+ + + + + | Date | Type | Department | Care Team | Description | +--------+ + + + + | 01/27/ | [facility] | [facility] | [facility], | | | 2012 | Encounter | MED CTR XRAY [address] | [address] | | | | | [place] | [place], [place] | | | | | [place] [address] | [place] | | | | | [phone] | [address] | | | | | | | [...] Performed At | + + + | [facility] | [place] | | Department [address] [place] [address] | [facility] | | [ rep [address]] [ rep [facility] | | st zip] Signed | - IMAGING | | | | | Patient Name: ALINE CARR Physician: | | | JENNIFER : 1970 Age: 42 Sex: F Unit #: [id number] | | | Exam Date: 01/27/13 Location: [facility] | | | Report #: [id number] Page: | | | %(RAD)RES..mtdd.print.filter("pg") of %(RAD) | | | RES..mtdd.print.filter("tpg") | | | | | | Accession Number: [id number] | | | ULTRASOUND-GUIDED LIVER BIOPSY, 01/27/2013 [...] | | | Transcribed Date/Time: 01/27/2013 14:50 Training Intern: | | | <<Signature on File>> | | | Myron | | | MD [facility]01/27/13 1629 <Electronically signed by Myron Wall MD> | | | Myron Wall MD 01/27/13 9525 Training Intern: Ashley | | | Acesmoehjpiaj02/26/13 6451 [address] | | | | | + + + + + + + + | Performing | Address | City/State/Zipcode | Phone Number | | Organization | | | | + + + + + | [address] | [address] | [place] | [phone] | | [facility] | | [address] | | | - IMAGING | | | | + + + + + documented in this encounter Visit Diagnoses Not on filedocumented in this encounter
--- OUTSIDE RECORDS SUMMARY | ~2019-09-14 | XMS | Encounter Summary ---
Demographics + + + | Address | [address] | | | [place] [address] | + + + | Home Phone [...] Thaddeus Martínez | ECON | [address] # | | | | | [place], [place] | | | | | [address] | | + + + + + Care Team Providers + +------+ + | Care Bond Trader Name | Role | Phone | + [...] 09/10 | | 2017 | Encounter | [facility] & | MD Sachin Wiley | Appointment | | | | [address] | [place], [place] | | | | | [address] Mailcode: | [address] | | | | | [facility] | [phone] | | | | | and Jose G, | | | | | | [address] | | | | | | [place], [place] | | | | | | [address] | | | | | | [phone] | | | +--------+ + + + [...]
--- OUTSIDE RECORDS SUMMARY | ~2019-09-14 | XMS | Encounter Summary ---
Demographics + + + | Address | [address] | | | [place] [address] | + + + | Home Phone [...] + + + | Author | [facility] | + + + | Organization | [facility] | + + + | Address | Unknown | + + + | Phone | Unavailable | + + + Support + + + + + | Name | Relationship | Address | Phone | + + + + + | Thaddeus Martínez | ECON | [address] # | | | | | [place], [place] | | | | | [address] | | + + + + + Care Team Providers + +------+ + | Care Hospitality Coordinator Name | Role | Phone | [...] Refill Request | | 2018 | | [facility] & | MD Inez [address] | | | | | [address] | [place], [place] | | | | | [address] [place] Mailcode: | [address] | | | | | [facility] | [phone] | | | | | and Healing, | | | | | | [address] | | | | | | [place], [place] | | | | | | [address] | | | | | | [phone] | | | +--------+--------+ + + + [...]
--- OUTSIDE RECORDS SUMMARY | ~2019-09-14 | XMS | Encounter Summary ---
Demographics + + + | Address | [address] | | | [place] [address] | + + + | Home Phone | | + + + | Preferred Language | Unknown | + + + | Marital Status | | + + + | Gnosticist Affiliation | NOD | + + + | Race | White | + + + | Ethnic Group | Not or | + + + Author + + + | Author | [facility] | + + + | Organization | [facility] | + + + | Address | Unknown | + + + | Phone | Unavailable | + + + Support + + + + + | Name | Relationship | Address | Phone | + + + + + | Thaddeus Martínez | ECON | [address] # | | | | | [place], [place] | | | | | [address] | | + + + + + Care Team Providers + +------+ + | Care Rn Delivery Name | Role | Phone | + [...] - Headache | | 2019 | | [facility] & | MD [address] | | | | | [address] | [address] | | | | | [place] Mailcode: | [place], [place] | | | | | [facility] | [address] | | | | | Health and Healing, | [phone] | | | | | [facility] | | | | | | Floor [place], [place] | | | | | | [address] | | | | | | [phone] | | | +--------+ + + + [...]
--- OUTSIDE RECORDS SUMMARY | ~2019-09-14 | XMS | Encounter Summary ---
Demographics + + + | Address | [address] | | | [place] [address] | + + + | Home Phone [...] Author | [facility] | + + + | Organization | [facility] | + + + | Address | Unknown | + + + | Phone | Unavailable | + + + Support + + + + + | Name | Relationship | Address | Phone | + + + + + | Thaddeus Martínez | ECON | [address] # | | | | | [place], [place] | | | | | [address] | | + + + + + Care Team Providers + +------+ + | Care Spring Assembler Supervisor Name | Role | Phone | [...] MARTINEZ | | 2018 | Encounter | [facility] & | MD Sachin Wiley | Results | | | | [address] | [place], [place] | | | | | [address] Mailcode: | [address] | | | | | [facility] | [phone] | | | | | and Healing, | | | | | | [address] | | | | | | [place], [place] | | | | | | [address] | | | | | | [phone] | | | +--------+ + + + [...]
--- OUTSIDE RECORDS SUMMARY | ~2019-09-14 | XMS | Encounter Summary ---
Demographics + + + | Address | [address] | | | [place] [address] | + + + | Home Phone [...] | Organization | [facility] | | | and Romeoana [...] Team Providers + +------+ + | Care Embedded Developer Name | Role | Phone | [...] | [address] [place] | [place], [place] | | | | | [address] [place], [place] | [place], [place] | | | | | [address] | [address] | | | | | [phone] | | | +--------+ + + + [...]
--- OUTSIDE RECORDS SUMMARY | ~2019-09-14 | XMS | Encounter Summary ---
Demographics + + + | Address | [address] | | | [place] [address] | + + + | Home Phone | | + + + | Preferred Language | Unknown | + + + | Marital Status | | + + + | Mu-Ism Affiliation | NOD | + + + [...] Thaddeus Martínez | ECON | [address] # | | | | | [place], [place] | | | | | [address] | | + + + + + Care Team Providers + +------+ + | Care Electron Beam Welding Machine Operator Name | Role | Phone [...] | | | | | | | [address] | | | | | | | [address] | | | | | | | [place], [place] | | | | | | | [address] | | | | | | | Phone: | | | | | | | [phone] | | | | | | | Fax: | | | | | | | [phone] | | +--------+--------+ + + + + Encounter Details +--------+ + + + + | Date | Type | Department | Care Team | Description | +--------+ + + + + | 02/02/ | MyChart | Neurology at | Kavitha Servin | RE: Medication | | 2019 | Encounter | [facility] & | MD Inez [address] | Update before | | | | [address] | [place], [place] | starting Emgality | | | | [place] Mailcode: | [address] | | | | | [facility] | [phone] | | | | | and Healing, | | | | | | [address] | | | | | | [place], [place] | | | | | | [address] | | | | | | [phone] | | | +--------+ + + + [...]
--- OUTSIDE RECORDS SUMMARY | ~2019-09-14 | XMS | Encounter Summary ---
Demographics + + + | Address | [address] | | | [place] [address] | + + + | Home Phone | | + + + | Preferred Language | Unknown | + + + | Marital Status | | + + + | Mosque Affiliation | NOD | + + + [...] Thaddeus Martínez | ECON | [address] # | | | | | [place], [place] | | | | | [address] | | + + + + + Care Team Providers + +------+ + | Care Criminal Justice Program Director Name | Role | Phone | [...] Medication Question | | 2017 | | [facility] & | MD Inez [address] | | | | | [address] | [place], [place] | | | | | [address] Mailcode: | [address] | | | | | [facility] | [phone] | | | | | and Healing, | | | | | | [address] | | | | | | [place], [place] | | | | | | [address] | | | | | | [phone] | | | +--------+ + + + [...]
--- OUTSIDE RECORDS SUMMARY | ~2019-09-14 | XMS | Encounter Summary ---
Demographics + + + | Address | [address] | | | [place] [address] | + + + | Home Phone | | + + + | Preferred Language | Unknown | + + + | Marital Status | | + + + | Moravian Affiliation | NOD | + + + [...] Thaddeus Martínez | ECON | [address] # | | | | | [place], [place] | | | | | [address] | | + + + + + Care Team Providers + +------+ + | Care Lunchroom Mother Name | Role | Phone | + +------+ + | Shanti Sanchez | PCP | | + +------+ + Encounter Details +--------+ + + + + | Date | Type | Department | Care Team | Description | +--------+ + + + + | 11/07/ | MyChart | Neurology at | Kavitha Servin | RE: Itching Side | | 2019 | Encounter | [facility] & | MD [address]ez [address] | Effect [employer] | | | | Healing [address] | [place], [place] | | | | | [address] [place] Mailcode: | [address] | | | | | [facility] | [phone] | | | | | and Healing, | | | | | | [address] | | | | | | [place], [place] | | | | | | [address] | | | | | | [phone] | | | +--------+ + + + [...]
--- OUTSIDE RECORDS SUMMARY | ~2019-09-14 | XMS | Encounter Summary ---
Demographics + + + | Address | [address] | | | [place] [address] | + + + | Home Phone | | + + + | Preferred Language | Unknown | + + + | Marital Status | | + + + | Orthodox Affiliation | NOD | + + [...] | Thaddeus Martínez | ECON | [address] # | | | | | [place], [place] | | | | | [address] | | + + + + + Care Team Providers + +------+ + | Care Shop Assistant Name | Role | Phone | [...] | unspecified | [address] | [place], [place] | | | | | headache | [place], [place] | [address] | | | | | type | [phone] | Phone: | | | | | Procedures | Phone: | [phone] | | | | | CONSULT TO | [phone] | Fax: | | | | | NEUROLOGY | Fax: | [phone] | | | | | [address] | [phone] | | +--------+--------+ + + + + Encounter Details +--------+---------+ + + + | Date | Type | Department | Care Team | Description | +--------+---------+ + + + | 05/10/ | Office | Neurology at | Kavitha Servin | Chronic migraine | | 2018 | Visit | [facility] & | MD Sachin Wiley | without aura without | | | | Healing [address] | [address] [place], [place] | status migrainosus, | | | | [address] Mailcode: | [phone] | not intractable | | | | [facility] | [phone] | (Primary Dx) | | | | and Healing, | | | | | | Building [address] | | | | | | [place], [place] | | | | | | [address] | | | | | | [phone] | | | +--------+---------+ + + + [...] who presented to the [facility]ache Clinic with 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 INTERVAL [...] Prescription for Cefaly Unit FDA approved medical equipment sales for use in helping to reduce migraine occurrences Dispense: #1 Cefaly Unit with 3 set of electrodes Directions: use 20 min each night as directed by kier operator 1 each 3 cyclobenzaprine 5 mg oral [...] of knowledge. Migraine Disability Score (manual data entry assistant):: 70 (12/02/16 1100) Score Arredondo: 0-5: Little to No Disability (Grade I) 6-10: Mild Disability (Grade II) 11-20: Moderate Disability (Grade III) 21+: Severe Disability (Grade IV) Migraine Disability Score (manual data entry assistant):: 25 (05/10/18 1400) Score Arredondo: 0-5: Little [...] | | | LABORATORY | | | AN[facility]AN | | | SERVICES, | | | [...] | + + + + + | [facility] | [address] | [place] [address] | | | SERVICES, CORE | REYNA [...]
--- OUTSIDE RECORDS SUMMARY | ~2019-09-14 | XMS | Encounter Summary ---
Demographics + + + | Address | [address] | | | [place] [address] | + + + | Home Phone [...] | Formerly [facility] | | | [...] Team Providers + +------+ + | Care College Basketball Coach Name | Role | Phone | + +------+ + PCP | Unavailable | + +------+ + Encounter Details +--------+ + + + + | Date | Type | Department | Care Team | Description | +--------+ + + + + | 10/09/ | Hospital | [facility] | Conversion | | | 1999 | Encounter | [facility] | Transaction, | | | | | LABORATORY [address] | Provider Unknown | | | | | [address] | | | | | | [address] | (Fax) | | | | | [phone] | | | +--------+ + + + [...]
--- OUTSIDE RECORDS SUMMARY | ~2019-09-14 | XMS | Encounter Summary ---
Demographics + + + | Address | [address] | | | [place] [address] | + + + | Home Phone [...] Thaddeus Martínez | ECON | [address] # | | | | | [place], [place] | | | | | [address] | | + + + + + Care Team Providers + +------+ + | Care Sheep Killer Name | Role | Phone | + [...] | | unspecified | [address] | [place], [place] | | | | | headache | [place], [place] | [address] | | | | | type | [address] | Phone: | | | | | Procedures | Phone: | [phone] | | | | | CONSULT TO | [phone] | Fax: | | | | | NEUROLOGY | Fax: | [phone] | | | | | | [phone] | | +--------+--------+ + + + + Encounter Details +--------+---------+ + + + | Date | Type | Department | Care Team | Description | +--------+---------+ + + + | 12/02/ | Office | Neurology at | Kavitha Servin | Chronic migraine | | 2017 | Visit | [facility] & | MD Sachin Wiley [address] | without aura without | | | | [address]aling [address] | [address] [place], [place] | status migrainosus, | | | | [address] Mailcode: | [phone] | not intractable | | | | [facility] | [phone] | (Primary Dx) | | | | and Healing, | | | | | | [address] | | | | | | [place], [place] | | | | | | [address] | | | | | | [phone] | | | +--------+---------+ + + + [...] nurse coordinator or myself), please activate your [employer] account and use the e-mail function to [...] who presented to the Headache Clinic with data management specialist salomón migraine headache. 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 Consumes 1 cup of caffeine (32 oz [...] tone. Sensory is intact to light touch. Coordination:[id number] intact. No dysmetria. DTR 2 biceps and [...] who presented to the Headache Clinic with data management specialist 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 Her [...] how to sign up for my [facility] chart were given, patient can contact us [...]
--- OUTSIDE RECORDS SUMMARY | ~2019-09-14 | XMS | Encounter Summary ---
Demographics + + + | Address | [address] | | | [place] [address] | + + + | Home Phone [...] + + + | Author | [facility] | + + + | Organization | [facility] | + + + | Address | Unknown | + + + | Phone | Unavailable | + + + Support + + + + + | Name | Relationship | Address | Phone | + + + + + | Thaddeus Martínez | ECON | [address] # | | | | | [place], [place] | | | | | [address] | | + + + + + Care Team Providers + +------+ + | Care Shanker Out Name | Role | Phone | + +------+ + | Shanti Sanchez | PCP | | + +------+ + Encounter Details +--------+------+ + + + | Date | Type | Department | Care Team | Description | +--------+------+ + + + | 05/10/ | Lab | Laboratory at [facility] | | Chronic migraine | | 2018 | | [address] | | without aura without | | | | [place], [place] | | status migrainosus, | | | | [address] | | not intractable | | | | [phone] | | | +--------+------+ + + + [...] | + + + + + | [facility] | [address] | [place] [address] | | | SERVICES, CORE | REYNA [...]
--- OUTSIDE RECORDS SUMMARY | ~2019-09-14 | XMS | Encounter Summary ---
Demographics + + + | Address | [address] | | | [place] [address] | + + + | Home Phone [...] | Thaddeus Martínez | ECON | [address] # | | | | | [place], [place] | | | | | [address] | | + + + + + Care Team Providers + +------+ + | Care Base Ply Hand Name | Role | Phone | + [...] | | unspecified | [address] | [place], [place] | | | | | headache | [place], [place] | [address] | | | | | type | [address] | Phone: | | | | | Procedures | Phone: | [phone] | | | | | CONSULT TO | [phone] | Fax: | | | | | NEUROLOGY | Fax: | [phone] | | | | | | [phone] | | +--------+--------+ + + + + Encounter Details +--------+---------+ + + + | Date | Type | Department | Care Team | Description | +--------+---------+ + + + | 02/12/ | Office | Neurology at | Kavitha Servin | Migraine without | | 2017 | Visit | [facility] & | MD Sachin Wiley | aura and without | | | | Healing [address] | [address] [place], [place] | status migrainosus, | | | | [address] Mailcode: | [id number] | not intractable | | | | [facility] | [phone] | (Primary Dx) | | | | and Healing, | | | | | | [address] | | | | | | [place], [place] | | | | | | [address] | | | | | | [phone] | | | +--------+---------+ + + + [...] chrome 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 INTERVAL HISTORY Headaches dropped to 3-8 STALLINGS pe rmonth. Her headaches comes in 2-3 days in a row. She usuall y get Toradol IM at the her medical social worker's office. She MEDICATIONS Current Outpatient Prescriptions on [...] fund of knowledge. Migraine Disability Score (manual internet database specialist):: 70 (12/02/16 1100) Score Arredondo: 0-5: Little [...] welcome to e-mail via my [facility] chart if questions or concerns arise [...]
--- OUTSIDE RECORDS SUMMARY | ~2019-09-14 | XMS | Encounter Summary ---
Demographics + + + | Address | [address] | | | [place] [address] | + + + | Home Phone | | + + + | Preferred Language | Unknown | + + + | Marital Status | | + + + | Yazdanism Affiliation | NOD | + + + | Race | White | + + + | Ethnic Group | Not or | + + + Author + + + | Author | [facility] | + + + | Organization | [facility] | + + + | Address | Unknown | + + + | Phone | Unavailable | + + + Support + + + + + | Name | Relationship | Address | Phone | + + + + + | Thaddeus Martínez | ECON | [address] # | | | | | [place], [place] | | | | | [address] | | + + + + + Care Team Providers + +------+ + | Care Bean Picker Machine Operator Name | Role | Phone | + +------+ + | Shanti Sanchez | PCP | | + +------+ + Encounter Details +--------+ + + + + | Date | Type | Department | Care Team | Description | +--------+ + + + + | 06/30/ | Document-Sc | Health Information | Unknown . | | | 2016 | anned | Services [address] | | | | | | [address] | | | | | | Mailcode: [id number] | | | | | | [facility] | | | | | | [place], [place] | | | | | | [address] | | | | | | [phone] | | | +--------+ + + + [...]
--- OUTSIDE RECORDS SUMMARY | ~2019-09-14 | XMS | Encounter Summary ---
Demographics + + + | Address | [address] | | | [place] [address] | + + + | Home Phone | | + + + | Preferred Language | Unknown | + + + | Marital Status | | + + + | Presybeterian Affiliation | NOD | + + + [...] | Thaddeus Martínez | ECON | [address] # | | | | | [place], [place] | | | | | [address] | | + + + + + Care Team Providers + +------+ + | Care Screen Tacker Name | Role | Phone | + [...] Phone Call | | 2016 | | [facility] [address] | [address] | | | | | Ave Mailcode: [id number] | [place], [place] | | | | | [facility] | [address] | | | | | and Healing, | [phone] | | | | | [facility] | | | | | | Floor [place], [place] | | | | | | [address] | | | | | | [phone] | | | +--------+ + + + [...]
--- OUTSIDE RECORDS SUMMARY | ~2019-09-14 | XMS | Encounter Summary ---
Demographics + + + | Address | [address] | | | [place] [address] | + + + | Home Phone [...] Thaddeus Martínez | ECON | [address] # | | | | | [place], [place] | | | | | [address] | | + + + + + Care Team Providers + +------+ + | Care Ticket Sorter Name | Role | Phone | + [...] | | aura, not | Mailcode: | [facility], [place] | | | | | intractable, | Center for | [address] | | | | | without | Health and | Phone: | | | | | status | Healing, | [phone] | | | | | migrainosus | [address] | Fax: | | | | | Procedures | [place], [place] | [phone] | | | | | MD EST | [address] | | | | | | PATIENT | Phone: | | | | | | LEVEL V | [phone] | | | | | | | Fax: | | | | | | | [phone] | | + +--------+ + + + + Encounter Details +--------+---------+ + + + | Date | Type | Department | Care Team | Description | +--------+---------+ + + + | 05/24/ | Office | Neurology at | Kavitha Servin | Chronic migraine | | 2019 | Visit | [facility] & | MD Sachin Wiley | without aura without | | | | [address] [facility], [place] | status migrainosus, | | | | [address] Mailcode: | [phone] | not intractable | | | | [facility] | [phone] | (Primary Dx) | | | | and Healing, | | | | | | Building [address] | | | | | | [place], [place] | | | | | | [address] | | | | | | [phone] | | | +--------+---------+ + + + [...] F) Prescription for Cefaly Unit FDA approved lpn medical assistant for use in helping to reduce migraine occurrences Dispense: #1 Cefaly Unit with 3 set of electrodes Directions: use 20 min each night as directed by meat packager 1 each 3 cyclobenzaprine 5 mg oral [...] 50 (03/13/19 0800) Migraine Disability Score (manual datapower developer):: 25 (05/10/18 1400) Score Arredondo: 0-5: Little to No Disability (Grade I) 6-10: Mild Disability (Grade II) 11-20: Moderate Disability (Grade III) 21+: Severe Disability (Grade IV) Migraine Disability Score (auto calculated):: 50 (03/13/19 0800) Migraine Disability Score (manual datapower developer):: 40 (05/24/19 1300) Score Arredondo: 0-5: Little [...] Patient is welcome to e-mail via my [facility] chart if questions or concer ns arise in the future. I spent 15 minutes with the patient. Greater than 50% of the time was spent counseling the patient regarding diagnosis, risks, benefits, and alternatives to current management. All questions were answered to patient s satisfaction. Kavitha Servin MD Gang Hemstitching Machine Operator of Neurology Headache Center [facility] [place] documented in thi s encounter Plan of [...] | | | LABORATORY | | | [facility] | | | SERVICES, | | | [...] MDRD equation recommended by the National | [facility] | | Kidney Disease Education Program. [...] | + + + + + | [facility] | [address] | [place] [address] | | | [facility] | | | | | [...]
--- OUTSIDE RECORDS SUMMARY | ~2019-09-14 | XMS | Encounter Summary ---
Demographics + + + | Address | [address] | | | [place] [address] | + + + | Home Phone | | + + + | Preferred Language | Unknown | + + + | Marital Status | | + + + | Yazidi Affiliation | NOD | + + + [...] Thaddeus Martínez | ECON | [address] # | | | | | [place], [place] | | | | | [address] | | + + + + + Care Team Providers + +------+ + | Care Agriculture Department Chair Name | Role | Phone | + +------+ + | Latanya Sutton | PCP | | + +------+ + Encounter Details +--------+ + + + + | Date | Type | Department | Care Team | Description | +--------+ + + + + | 01/07/ | MyChart | Neurology at | Kavitha Servin | RE: Update since | | 2017 | Encounter | [facility] & | MD Sachin Wiley | Appointment - ER | | | | [address] [place], [place] | visit | | | | [address] Mailcode: | [phone] | | | | | [facility] | [phone] | | | | | and [address], | | | | | | [address] | | | | | | [place], [place] | | | | | | [address] | | | | | | [phone] | | | +--------+ + + + [...]
[~2019-09-14 19:10] MED LIST changes: +EMGALITY S120 MG/1 M
--- OUTSIDE RECORDS SUMMARY | 2019-09-14 19:12 | XMS ---
PreManage Notification: DEBO BREEN Security Cloth Calender Events No recent Security Events currently on file CRITERIA MET - [facility] - Has Care Guidelines - [facility] HARRIS CHU Physician Senior Living Advisor 02/06/2019-Current PHONE: Unknown Ana has no Care Guidelines for this patient. Care History Medical/Surgical 03/02/2019 [facility] - PATIENT CURRENTLY HAS A NEUROLOGIST AT [facility]; DR. CORETTA WEISS [phone] - PATIENT WAS LAST SEEN BY NEUROLOGIST IN NOVEMBER. - LAST APT WITH PCP DR HARRIS CHU ON 01/31/19. E.D. VISIT COUNT (12 MO.) 4 [facility] TOTAL 4 NOTE: Visits indicate total known visits. ED/UCC VISIT TRACKING (12 MO.) 09/14/2019 19:10 [place] [place] TYPE: Emergency COMPLAINT: - HEADACHE 03/01/2019 03:20 [facility] [place] TYPE: Emergency COMPLAINT: - HEADACHE/HIGH BP DIAGNOSES: - USP (current) use of oral hypoglycemic drugs - Allergy status to narcotic agent status - Major depressive disorder, single episode, unspecified - Migraine, unsp, not intractable, without status migrainosus - Headache - Gastro-esophageal reflux disease without esophagitis - Other jail (current) drug therapy 02/03/2019 14:42 [facility] [place] TYPE: Emergency COMPLAINT: - HEAD PAIN/NON INJURY/VOMITING DIAGNOSES: - Headache - Migraine, unsp, not intractable, without status migrainosus - Other jail (current) drug therapy - Major depressive disorder, single episode, unspecified - Gastro-esophageal reflux disease without esophagitis - Allergy status to narcotic agent status 11/17/2018 20:40 [facility] [place] TYPE: Emergency COMPLAINT: - CHEST PAIN DIAGNOSES: - Allergy status to narcotic agent status - Major depressive disorder, single episode, unspecified - Chest pain, unspecified - Gastro-esophageal reflux disease without esophagitis - Other termite helper (current) drug therapy INPATIENT VISIT TRACKING (12 MO.) No inpatient visits to display in this time frame [email or web address]
[2019-09-14] MEDS ORDERED: SERTRALINE HCL50 MG PO (19:24)
== END 2019-09-14 22:28 | disposition home or self-care (01) ==
LOC: ED 19:10
DX: G43.909 Migraine, unspecified, not intractable, without status migrainosus (principal); F41.9 Anxiety disorder, unspecified; F32.9 Major depressive disorder, single episode, unspecified; I10 Essential (primary) hypertension; Z79.899 Other long term (current) drug therapy
CPT/HCPCS: 96374; 96375; 99283-25; J1200; J1885; J2765; J7030

== ENCOUNTER 2021-05-27 05:45 | Day surgery (SDC) | payer OTHER ==
[~2021-05-27] VITALS: Ht 180.3 cm; Wt 127.3 kg
[~2021-05-27 05:45] MED LIST changes: +SERTRALINE HCL50 MG PO; +URSO FORTE500 MG PO
--- NOTE | 2021-05-27 09:40 | NUR ---
05/27/21 0940 Cyndi Johns 0932 PATIENT ARRIVES TO PACU, UNRESPONSIVE TO PAIN, ORAL AIRWAY IN PLACE. RESP EVEN AND UNLABORED, MASK AT 6 LITERS. 0933 PATIENT GAGGING ON ORAL AIRWAY. AIRWAY REMOVED. PATIENT HAS A LOT OF SECRETIONS, MOUTH SUCTION. RESP EVEN AND UNLABORED, MOUTH CONTINUED AT 6 LITERS. 0940 PATIENT RESTING WITH EYES CLOSED, OPENS EYES WITH VERBAL STIMULI. DOES NOT FOLLOW COMMANDS. RESP EVEN AND UNLABORED, MASK OFF, ROOM AIR SATS >98%.
--- NOTE | 2021-05-27 10:24 | NUR ---
1005: PT RETURNS TO UNIT VIA STRETCHER. DROWSY ON ARRIVAL BUT WAKES AND ANSWERS QUESTIONS APPROPRIATELY. VSS, RESP EVEN AND UNLABORED. DENIES PAIN AND NAUSEA A THIS TIME. SMALL AMOUNT OF RED DRAINAGE NOTED AT LAP SITES. ARCE DRAINS CLEAR, BRIGHT, YELLOW URINE AT THE BEDSIDE. CRACKERS AND ICE WATER PROVIDED. NO NEEDS VOICED AT THIS TIME. CALL LIGHT WITHIN REACH
--- NOTE | 2021-05-27 11:35 | NUR ---
1120: PT MORE AWAKE AT THIS TIME. REPORTING 6/10 ABDOMINAL PAIN. ENCGD TO EAT CRACKER AND PAIN RX ADMINISTERED ORDERED. VSS, RESP EVEN AND UNLABORED. NO DRAINAGE NOTED ON PERIPAD AND NO CHANGE TO LAP SITES FROM ARRIVAL. DENIES NAUSEA AND PATRICK PO FLUID. ARCE CONTS TO DRAIN CLEAR, BRIGHT, YELLOW URINE AT THE BEDSIDE. NO FURTHER NEEDS VOICED, CALL LIGHT WITHIN REACH
--- NOTE | 2021-05-27 12:06 | NUR ---
1200: PT REPORTS INCREASING PAIN AND NOW RATES HER ABDOMINAL PAIN 8/10. PAIN RX ADMINISTERED ORDERED. VSS, RESP EVEN AND UNLABORED. NO DRAINAGE NOTED ON PERIPAD AND NO CHANGE TO LAP SITES FROM ARRIVAL. CONTS TO DENY NAUSEA AND PATRICK PO INTAKE. ATTENTIVE AT THE BEDSIDE. NO FURTHER NEEDS VOICED AT THIS TIME
--- NOTE | 2021-05-27 13:00 | NUR ---
1240: PT REPORTS IMPROVED PAIN CONTROL AT THIS TIME. VSS, RESP EVEN AND UNLABORED. DANGLES AT THE BEDSIDE, PATRICK WELL. DENIES DIZZINESS AND SOB. STANDS AT THE BEDSIDE AND ARCE CATH REMOVED, DRAINED FOR 450ML BRIGHT, YELLOW, URINE. PT REPORTS FEELING "PRESSURE" LIKE SHE NEEDS TO VOID. TO BR AND PT VOIDS DROPLETS. BACK TO STRETCHER WITH RN ASSIST. IV CONVERTED TO SL, WNL. SCDS IN PLACE. REG LUNCH ORDERED. PT COMFORTABLE WITHOUT FURTHER NEEDS. CALL LIGHT WITHIN REACH
--- NOTE | 2021-05-27 14:20 | NUR ---
1410: PT AWAKE AND ALERT IN BED WATCHING TV. COMPLETED REG LUNCH. DENIES NAUSEA AND REPORTS PATRICK LEVEL OF PAIN AT THIS TIME. VSS, RESP EVEN AND UNLABORED. PT UP TO BR INDEPENDENTLY, STEADY GAIT. SUCCESSFUL POSTOP VOID, 200ML. PREPARES FOR D/C INDEPENDENTLY. GAUZE AND TAPE REINFORCED AT UMBILICAL INCISION.
--- NOTE | 2021-05-27 14:54 | NUR ---
1420: D/C INSTRUCTIONS PROVIDED AND DISCUSSED ORDERED. PT VOICES UNDERSTANDING AND DENIES QUESTIONS AND CONCERNS AT THIS TIME. SL D/C'D WITH CATH TIP INTACT AND PRESSURE APPLIED TO SITE, WNL. 1430: PT WHEELED OFF OF UNIT IN WC. TRANSFERS INTO VEHICLE INDEPENDENTLY. NO PHYSICAL S/S OF DISTRESS AT THIS TIME.
--- NOTE | 2021-05-28 22:31 | EKG ---
[facility] [address] [facility] [place] [address] Signed Normal sinus rhythm Minimal voltage criteria for LVH, may be normal variant Borderline ECG When compared with ECG of 17-NOV-2018 20:47, No significant change was found Confirmed by ROMAIN SALDIVAR DO ([id number]) on 05/28/2021 10:31:06 PM Electronically Signed By: ROMAIN SALDIVAR DO 05/28/212230 PATIENT NAME: JAMSHIDDEBO Electrocardiogram DATE OF : 74 PHYSICIAN: ORMAIN SALDIVAR DO REPORT #: [id number] REPORT IS CONFIDENTIAL AND NOT TO BE RELEASED WITHOUT AUTHORIZATION
--- NOTE | 2021-05-29 09:26 | OR ---
[facility] [address] [place], [place] [address] Signed DATE OF OPERATION: 05/27/2021 SURGEON: Delfin Dias MD PREOPERATIVE DIAGNOSIS: Abnormal uterine bleeding and adenomyosis. POSTOPERATIVE DIAGNOSIS: Abnormal uterine bleeding and adenomyosis. PROCEDURE: Total laparoscopic hysterectomy with bilateral salpingectomy and cystoscopy. FILM RENTAL CLERK: Dr. Jorge. ANESTHESIA: General. ESTIMATED BLOOD LOSS: 100 mL. SPECIMEN: Uterus, cervix, both fallopian tubes. DRAINS: Lawson to bladder. FINDINGS: Normal size cervix, slightly enlarged boggy uterus. The anterior cul-de-sac was free of any endometriosis or adhesions. The posterior cul-de-sac was free of any endometriosis or adhesions. The left tube was normal in length and normal-appearing fimbriated end and no adhesions. The left ovary is normal size and shape without any evidence of endometriosis or adhesions. The right tube was normal in length with a normal-appearing fimbriated end and no adhesions. The right ovary was normal in size and shape without any evidence of endometriosis or adhesions. There were some adhesions from the colon to the right lateral anterior abdominal wall, these were mostly filmy with a few very small vessels present. The rest of the pelvis was free of any masses or adhesions. COMPLICATIONS: Electronically Signed By: DELFIN DIAS MD 05/29/21 0926 PATIENT NAME: DEBO BREEN OPERATIVE REPORT DATE OF : 74 REPORT #: [id number] PHYSICIAN: DELFIN DIAS MD PCP: HARRIS CHU REPORT IS CONFIDENTIAL AND NOT TO BE RELEASED WITHOUT AUTHORIZATION [facility] [address] [place], [place] [address] Signed None. DESCRIPTION OF PROCEDURE: The patient was brought to the operating room, placed in supine position. After adequate general anesthesia was obtained, she was placed in dorsal lithotomy position, prepped and draped in usual sterile fashion. Lawson catheter was placed in the bladder. Weighted speculum was placed in the vagina and the anterior lip of the cervix was grasped with an Allis clamp. The cervix was serially dilated and then, a tastytrade uterine manipulator carefully inserted through the cervix into the fundus of the uterus. The balloon was filled with water and then, the cervical cap slid up and around the cervix, the Allis clamp and weighted speculum had been removed, vaginal cuff slid up and against the cervical cap and tightened in place to hold the cervical cap around the cervix. Attention was then drawn to the abdomen. A small infraumbilical skin incision was made with a scalpel after injecting the area with 0.25% Marcaine with epinephrine. The subcutaneous tissue was dissected with Metzenbaum scissors. The fascia identified and grasped with hemostats, elevated, nicked with Metzenbaum scissors and extended in transverse fashion. The retention stitches of 0 Vicryl suture were placed above and below the incision. Finger dissection was then used to separate the muscle and opened the peritoneum, an S retractor was inserted into the incision and lifted and the abdomen could be seen, so the Bassam cannula and sleeve entered the abdomen under direct visualization, the S retractor was removed. The balloon of the sleeve filled and the outer sleeve slid down and tightened in place against the skin. The two retention stitches were tied to the upper sleeve, the trocar was removed and carbon dioxide used to insufflate the abdomen. The above findings were noted. In left lateral side of the abdomen just below the level of the umbilicus, the abdominal wall was transilluminated to attempt to avoid any vessels. The area injected with 0.25% Marcaine with epinephrine. A small skin incision made and a 5 mm bladed trocar and sleeve entered the abdomen under direct visualization. Trocar was removed and the blunt grasper inserted, the above findings were noted. Because of the adhesions on the right side, the LigaSure [place] bipolar forceps were used to cauterize and cut the adhesions up against the abdominal wall to make more room for the right-sided lateral incision. At this point, the right side was transilluminated and the skin injected with 0.25% Marcaine with epinephrine and a small skin incision made again approximately 10 cm lateral to the midline and just below the level of the umbilicus. A Veress needle with expandable sleeve then entered the abdomen under direct visualization. The Veress needle was removed and then, the expandable trocar with sleeve was then inserted through the expandable mesh of the Veress needle. The trocar was removed and blunt grasper inserted through this side. The above findings were confirmed. The left fallopian tube was cauterized along the mesosalpinx down to the proximal portion of the tube. The tube was transected with the Maryland forceps and the tube brought out through the right lateral sleeve. The same Electronically Signed By: DELFIN DIAS MD 05/29/21 0926 PATIENT NAME: DEBO BREEN OPERATIVE REPORT DATE OF : 74 REPORT #: [id number] PHYSICIAN: DELFIN DIAS MD PCP: HARRIS CUH REPORT IS CONFIDENTIAL AND NOT TO BE RELEASED WITHOUT AUTHORIZATION [address] [place], [place] [address] Signed was done on the right side removing the right fallopian tube. The left utero-ovarian ligament was cauterized in several places and cut and then, the left round ligament cauterized in several places and upper broad ligament cauterized and cut. The anterior and posterior leaves of the broad ligament were then carefully and cauterized down the length of the broad ligament down to the level of the cup in the midline. This exposed the uterine vessels which were could then be cauterized and cut along the side of the uterus down to the cervical cap, which could be palpated. The same procedure was carried out on the right side, cauterizing the utero-ovarian ligament in several places and then cutting ligament cauterizing the round ligament in several places and cutting this and then the upper pedicle cauterized and cut so that the anterior and posterior leaves of broad ligament could be individually cauterized and cut down the length of the broad ligament connecting with previous dissection in the midline anteriorly and posteriorly. The uterine vessels on this side were cauterized and cut down to the cervical cap. Care was taken to stay inside the cervical cap to help avoid the ureters and any lateral structures. At this point, the Sonicision was brought in the operating field. The posterior cul-de-sac identified and the vaginal mucosa cut with the Sonicision in the groove of the cervical cap posteriorly and then the dissection carried out in the groove of the cervical cap from posterior to anterior midline on the left side and then posterior to anterior midline on the right side and this freed the cervix and uterus from the vagina. Attention was then drawn back to the vagina, where the VCare uterine manipulator was removed. The cervix could be seen in the vagina and the cervix grasped with an Allis clamp and the entire uterus carefully removed from the vagina through the vaginal incision. A lap filled glove was then put in the vagina, so that the abdomen could be re-insufflated. The abdomen was irrigated, suctioned and examined noted to have good hemostasis. The Endostitch with barbed suture was then used to close the cuff, this was done by starting at the right uterosacral ligament and stitching from posterior to anterior through the posterior cuff of the vagina and placing the stitch through the loop at the end of the barbed suture. The anterior vaginal wall was then stitched above this. The stitch was then continued from the right side to the left side individually incorporating the posterior vaginal wall and then, the anterior vaginal wall and tightening each time to lock stitch in place upon reaching the left uterosacral ligament, a stitch was taken back towards the midline more superficially to lock the barbed suture in place. Laparoscopic sutures were then used to cut the suture against the vaginal wall so that no stitch would be sticking out. The entire pelvis was irrigated, suctioned and examined. There were two very superficial bleeding spots anteriorly and these were carefully cauterized with the hook tip Bovie and the pelvis again re-irrigated, suctioned, noted to have good hemostasis. Because of the raw areas, the entire pelvis was sprayed with Tisseel along the dissected area. At this point, good hemostasis was Electronically Signed By: DELFIN DIAS MD 05/29/21 0926 PATIENT NAME: DEBO BREEN OPERATIVE REPORT DATE OF : 74 REPORT #: [id number] PHYSICIAN: DELFIN DIAS MD PCP: HARRIS CHU REPORT IS CONFIDENTIAL AND NOT TO BE RELEASED WITHOUT AUTHORIZATION [address] [address] Signed again confirmed, so all instruments were removed, the gas allowed to escape and the final sleeves removed. Fascial incision was closed using running stitch of 0 Vicryl suture. The two retention stitches were tied together for further support, the three skin incisions were closed using subcuticular stitches of 4-0 Vicryl. The lap filled glove was removed from the vagina and the vaginal cuff carefully inspected, noted to have good hemostasis, no defects were noted. Care was taken not to pull the incision apart. Lawson catheter was then removed and cystoscopy performed. The 70-degree cystoscope was set up, cystoscope placed in the urethra and entered the bladder under direct visualization with sterile water used as a distending medium. The dome and the rest of the bladder were carefully inspected. No defects, sutures, or bleeding was noted. Both ureteral orifices were seen and both showed good strong flow of urine coming from the ureters. At this point, the cystoscope was removed, the bladder drained and the Lawson catheter placed back in the bladder. The patient tolerated the procedure well, went to recovery room in good condition. The sponge, needle, and instrument count were correct at the end of the procedure. MD MADIE Cheek/LUHL /[id number] cc: CHANDAN Crockett Copies: HARRIS CHU ~ Electronically Signed By: DELFIN DIAS MD 05/29/21 0926 PATIENT NAME: DEBO BREEN OPERATIVE REPORT DATE OF : 74 REPORT #: [id number] PHYSICIAN: DELFIN DIAS MD PCP: HARRIS CHU REPORT IS CONFIDENTIAL AND NOT TO BE RELEASED WITHOUT AUTHORIZATION
--- NOTE | 2021-05-29 12:32 | PATH ---
[facility] [address] [place], [place] [address] Signed SPECIMEN(S): A UTERUS, CERVIX, BILAT FALLOPIAN TUBES SPECIMEN SOURCE: A. UTERUS, CERVIX, BILAT FALLOPIAN TUBES CLINICAL HISTORY: Abnormal uterine bleeding, adenomyosis. FINAL PATHOLOGIC DIAGNOSIS: Uterus, cervix, and bilateral fallopian tubes, hysterectomy and bilateral salpingectomy: - Cervix: No histopathologic abnormality. - Endometrium: Proliferative endometrium. - Myometrium: No histopathologic abnormality. - Serosa: No histopathologic abnormality. - Fallopian tubes: Paratubal cysts. - No evidence of malignancy. NAL:cml:C2NR MICROSCOPIC EXAMINATION: Histologic sections of all submitted blocks are examined by light microscopy. These findings, together with the gross examination, support the pathologic diagnosis. GROSS DESCRIPTION: The specimen, labeled "Aline Martínez," and designated on the requisition "bilateral fallopian tubes, cervix, uterus," is received in formalin and consists of a 185 gram uterus and cervix were fallopian tubes. The uterus is 6.1 x 6.5 x 12.4 cm (cornu-cornu x anterior-posterior x fundus-ectocervix). The serosal surface is pale pink and smooth. The ectocervical mucosa is pink and focally congested. Serial sectioning of the cervix fails to demonstrate any gross abnormalities. The triangular endometrial cavity is lined by a pink smooth and focally congested endometrium that has an average thickness of 0.1 cm. Sectioning through the uterus reveals a markedly trabeculated pink myometrium. The first fallopian tube is 6.2 x 1.0 cm, with delicate fimbriae. The serosa is violaceous and smooth. Cut sections reveal a pinpoint lumen. The second fallopian tube is 5.2 x 0.9 cm, with delicate fimbriae. The serosa is violaceous and smooth and inked. Cut sections reveal a pinpoint lumen. PATIENT NAME: ALINE MARTÍNEZ PATHOLOGY DATE OF : 74 REPORT #: [id number] PHYSICIAN: LADAN PATHOLOGY PCP: HARRIS CHU REPORT IS CONFIDENTIAL AND NOT TO BE RELEASED WITHOUT AUTHORIZATION [facility] [address] [place], [place] [address] Signed Manager Custom sections are submitted in five cassettes. Cassette summary: (A1) first fallopian tube (A2) second fallopian tube (A3) cervix (A4-A5) uterine wall FB (under the direct supervision of a pathologist) The Gross Description was prepared using a voice recognition system. The report was reviewed for accuracy; however, sound-alike word errors, addition and/or deletions may occur. If there is any question about this report, please contact Client Services. PERFORMING LABORATORY: The technical component was performed by [facility], [address] [place] [address] (Childcare Aide: Olimpia Godinez MD; CLIA# [id number]). Professional interpretation was performed by [facility], [address] [address] (CLIA# [id number]). Diagnostician: Liv Israel MD Pathologist Electronically Signed 05/29/2021 Copies: ~ PATIENT NAME: ALINE MARTÍNEZ PATHOLOGY DATE OF : 74 REPORT #: [id number] PHYSICIAN: LADAN PATHOLOGY PCP: HARRIS CHU REPORT IS CONFIDENTIAL AND NOT TO BE RELEASED WITHOUT AUTHORIZATION
== END 2021-05-27 14:30 | disposition home or self-care (01) ==
LOC: DS 05:45 → OPS 05:45 → DS 06:45 → OPS 06:45
PROVIDERS: ATTEND General Practice
PROC: 0UT94ZZ Resection of Uterus, Percutaneous Endoscopic Approach (ICD-10-PCS; principal; 2021-05-27 06:45)
PROC: 0UT74ZZ Resection of Bilateral Fallopian Tubes, Percutaneous Endoscopic Approach (ICD-10-PCS; 2021-05-27 06:45)
DX: N83.8 Other noninflammatory disorders of ovary, fallopian tube and broad ligament (principal); N93.9 Abnormal uterine and vaginal bleeding, unspecified; N80.0 Endometriosis of uterus; I10 Essential (primary) hypertension; K21.9 Gastro-esophageal reflux disease without esophagitis; Z88.5 Allergy status to narcotic agent
CPT/HCPCS: 00840; 93005; 93010; J0330; J0690; J1100; J1200; J1644; J1885; J2001; J2250; J2405; J2550; J2704; J3475; J7121

== ENCOUNTER 2022-03-17 07:39 | Day surgery (SDC) | payer OTHER ==
[~2022-03-17] VITALS: Ht 177.8 cm; Wt 132.0 kg
--- NOTE | 2022-03-17 08:31 | NUR ---
PT ALERT, ORIENTED AND SUPPORTED BY HER . PT IS RELAXED, ALL QUESTIONS ASKED ANSWERED. WILL REMAIN FOR DC. GAVE BLESSING WILL FOLLOW
--- NOTE | 2022-03-17 11:17 | NUR ---
03/17/22 Stephani Funez 1108-PT TO PACU IN LL POSITION. EYES CLOSED. PT RESPONDS TO VERBAL AND TACTILE STIMULI. BREATHING EASY AND UNLABORED. SPO2 >95% ON 6 L O2 VIA SIMPLE DARREL. O2 TITRATED DOWN TO 3LPM VIA NC. PT DENIES PAIN AND FALLS QUICKLY BACK TO SLEEP. 1105-PT RESPONDS TO VERBAL STIMULI DENIES PAIN AND FALLS QUICKLY BACK TO SLEEP. PT ENCOURAGED TO PASS GAS. BREATHING EASY AND UNLABORED. SPO2 >95% ON 3 L O2 VIA NC.
--- NOTE | 2022-03-18 05:38 | OR ---
[facility] [address] [place], [place] [address] Signed DATE OF OPERATION: 03/17/2022 SURGEON: Yoandy Acosta MD PREOPERATIVE DIAGNOSES: 1. Fatty liver versus primary biliary cirrhosis versus primary sclerosing cholangitis. 2. Personal history of colonic polyps in 2003. 3. Chronic constipation. 4. Father with colon cancer x2. 5. Mother with colonic polyps. 6. Mild pandiverticulosis. 7. Minimal internal and external hemorrhoids. POSTOPERATIVE DIAGNOSIS: Minimal internal hemorrhoids. PROCEDURES: Colonoscopy with random cold biopsies in the cecum, right colon, hepatic flexure, transverse colon, left colon, sigmoid colon, and rectum. ESTIMATED BLOOD LOSS: None. INDICATIONS: Aline is a 52-year-old obese female, asked to see me for a followup colonoscopy with random cold biopsies by her rd manager, his name is Dr. Dariel Bocanegra in [place], [place]. There is some concern that she has had fatty liver versus primary biliary cirrhosis versus primary sclerosing cholangitis. He wanted biopsies throughout the colon in that regard for her evaluation. We also know that she prior had colonic polyps out back in 2003. She has chronic constipation. We know her father had colon cancer twice and her mother had colon polyps. She said to have mild pandiverticulosis, minimal internal and external hemorrhoids. Her first colonoscopy she remembers was around 2003 while she was living in [place], [place]. I helped her with upper and lower endoscopy back in 2017. At that time, she did well with Xanax on top of the Versed and fentanyl. We made those arrangements again on this occasion. Nevertheless, we had to bring in our anesthesia provider for monitored anesthesia care with propofol. Currently, she has no new lower GI complaints. In the office, I had given her a pamphlet on colonoscopy and we had reviewed the nature of the colonoscopy. She understands there is risk including, but not limited to gas bloating, crampy abdominal pain, bleeding, perforation requiring surgery, and missed diagnosis. Again, we had Electronically Signed By: YOANDY ACOSTA MD 03/18/22 0538 PATIENT NAME: ALINE BREEN OPERATIVE REPORT DATE OF : 74 REPORT #: [id number] PHYSICIAN: YOANDY ACOSTA MD PCP: HARRIS CHU REPORT IS CONFIDENTIAL AND NOT TO BE RELEASED WITHOUT AUTHORIZATION [facility] [address] [place], [place] [address] Signed reviewed the need for IV conscious sedation. Her hope was to get her through with Xanax along with the Versed and fentanyl, that was not possible, we had to bring in our anesthesia provider with propofol. She had expressed understanding and wished to proceed. DESCRIPTION OF PROCEDURE: Aline was taken into our endoscopy suite and placed in the left lateral decubitus position. She was given a total of 9 mg of Versed and 150 mcg of fentanyl. Her IV infiltrated in the middle, we had placed a new IV. We simply could not get her asleep enough to be comfortable. She was awaken, crying and moaning in pain even with minimal advancement of the scope. We therefore brought in our anesthesia provider, who added IV propofol. With that, then we were able to bring the scope right into the cecum without difficulty. Her prep was good. We could easily see the appendiceal orifice and the ileocecal valve. We taken several pictures throughout for photodocumentation. On this occasion, we saw no polyps and no diverticulosis. We took random cold biopsies as reviewed above. Once in the rectum, the scope had been retroflexed and she does have just minimal internal hemorrhoid tissue. The gas was then suctioned out, the colonoscope removed. Aline tolerated the procedure quite well with the help of the propofol. RECOMMENDATIONS: I will see Aline back in my office in 7 to 14 days to review her results. She should definitely use monitored anesthesia care with propofol in the future. Yoandy Acosta MD ALB/MODL /[id number] cc: MD Dr. Dariel Rocha [facility] Patient Chart Electronically Signed By: YOANDY ACOSTA MD 03/18/22 0538 PATIENT NAME: ALINE BREEN OPERATIVE REPORT DATE OF : 74 REPORT #: [id number] PHYSICIAN: YOANDY ACOSTA MD PCP: HARRIS CHU REPORT IS CONFIDENTIAL AND NOT TO BE RELEASED WITHOUT AUTHORIZATION [address] [address] Signed CHANDAN Crockett Copies: YOANDY ACOSTA MD, LINDA PA ~ Electronically Signed By: YOANDY ACOSTA MD 03/18/22 0538 PATIENT NAME: ALINE BREEN OPERATIVE REPORT DATE OF : 74 REPORT #: [id number] PHYSICIAN: YOANDY ACOSTA MD PCP: HARRIS CHU REPORT IS CONFIDENTIAL AND NOT TO BE RELEASED WITHOUT AUTHORIZATION
--- NOTE | 2022-03-18 17:58 | PATH ---
[facility] [address] [place], [place] [address] Signed SPECIMEN(S): A CECUM BIOPSY SPECIMEN(S): B ASCENDING/RIGHT COLON BIOPSY SPECIMEN(S): C HEPATIC FLEXURE BIOPSY SPECIMEN(S): D TRANSVERSE COLON BIOPSY SPECIMEN(S): E DESCENDING/LEFT COLON BIOPSY SPECIMEN(S): F SIGMOID COLON BIOPSY SPECIMEN(S): G RECTUM BIOPSY SPECIMEN SOURCE: A. CECUM BIOPSY B. ASCENDING/RIGHT COLON BIOPSY C. HEPATIC FLEXURE BIOPSY D. TRANSVERSE COLON BIOPSY E. DESCENDING/LEFT COLON BIOPSY F. SIGMOID COLON BIOPSY G. RECTUM BIOPSY CLINICAL HISTORY: Colonoscopy. Constipation, diverticulosis, polyps, hemorrhoids. Postop: Internal hemorrhoids. FINAL PATHOLOGIC DIAGNOSIS: A. Colon, cecum, biopsy: - Mild focal active colitis. - Negative for granulomas, dysplasia, or malignancy. B. Colon, ascending/right, biopsy: - Colonic mucosa with no histopathologic abnormality. - Negative for active, chronic, or microscopic colitis. - Negative for granulomas, dysplasia, or malignancy. C. Colon, hepatic flexure, biopsy: - Colonic mucosa with no histopathologic abnormality. - Negative for active, chronic, or microscopic colitis. - Negative for dysplasia or malignancy. D. Colon, transverse, biopsy: - Colonic mucosa with no histopathologic abnormality. - Negative for active, chronic, or microscopic colitis. - Negative for dysplasia or malignancy. E. Colon, descending/left, biopsy: - Colonic mucosa with no histopathologic abnormality. - Negative for active, chronic, or microscopic colitis. - Negative for dysplasia or malignancy. PATIENT NAME: DEBO BREEN PATHOLOGY DATE OF : 74 REPORT #: [id number] PHYSICIAN: LADAN WELLS PCP: HARRIS CHU REPORT IS CONFIDENTIAL AND NOT TO BE RELEASED WITHOUT AUTHORIZATION [facility] [address] [place], [place] [address] Signed F. Colon, sigmoid, biopsy: - Colonic mucosa with no histopathologic abnormality. - Negative for active, chronic, or microscopic colitis. - Negative for dysplasia or malignancy. G. Rectum, biopsy: - Colorectal mucosa with no histopathologic abnormality. - Negative for active or chronic proctitis. - Negative for granulomas, dysplasia, or malignancy. COMMENT: Regarding specimen A: The differential diagnosis includes, but is not limited to, infection, medication (NSAID)-induced injury, and bowel preparation. NAL:cml:C2NR MICROSCOPIC EXAMINATION: Histologic sections of all submitted blocks are examined by light microscopy. These findings, together with the gross examination, support the pathologic diagnosis. GROSS DESCRIPTION: Seven specimens are received in seven containers, labeled "HB." A. The specimen, labeled "HB, cecum biopsy," is received in formalin and consists of one pink soft tissue fragment that measures 0.2 cm in greatest dimension. The specimen is entirely submitted in cassette (A1). B. The specimen, labeled "HB, ascending colon biopsy," is received in formalin and consists of one pink soft tissue fragment that measures 0.1 cm in greatest dimension. The specimen is entirely submitted in cassette (B1). C. The specimen, labeled "HB, hepatic flexure biopsy," is received in formalin and consists of one pink soft tissue fragment that measures 0.1 cm in greatest dimension. The specimen is entirely submitted in cassette (C1). D. The specimen, labeled "HB, transverse colon biopsy," is received in formalin and consists of one pink soft tissue fragment that measures 0.2 cm in greatest dimension. The specimen is entirely submitted in cassette (D1). E. The specimen, labeled "HB, descending colon biopsy," is received in formalin and consists of one pink soft tissue fragment that measures 0.2 cm in greatest dimension. The specimen is entirely PATIENT NAME: DEBO BREEN PATHOLOGY DATE OF : 74 REPORT #: [id number] PHYSICIAN: LADAN WELLS PCP: HARRIS CHU REPORT IS CONFIDENTIAL AND NOT TO BE RELEASED WITHOUT AUTHORIZATION [facility] [address] [place], [place] [address] Signed submitted in cassette (E1). F. The specimen, labeled "HB sigmoid colon biopsy," is received in formalin and consists of one pink soft tissue fragment that measures 0.1 cm in greatest dimension. The specimen is entirely submitted in cassette (F1). G. The specimen, labeled "HB, rectum biopsy," is received in formalin and consists of one pink soft tissue fragment that measures 0.1 cm in greatest dimension. The specimen is entirely submitted in cassette (G1). JS (under the direct supervision of a pathologist) The Gross Description was prepared using a voice recognition system. The report was reviewed for accuracy; however, sound-alike word errors, addition and/or deletions may occur. If there is any question about this report, please contact Client Services. PERFORMING LABORATORY: The technical component was performed by [facility], [address] [place] [id number] (CLIA# [id number]). Professional interpretation was performed by [facility], [facility], [address] [address] (CLIA# [id number]). Diagnostician: Liv Israel MD Pathologist Electronically Signed 03/18/2022 Copies: ~ PATIENT NAME: DEBO BREEN PATHOLOGY DATE OF : 74 REPORT #: [id number] PHYSICIAN: LADAN PATHOLOGY PCP: HARRIS CHU REPORT IS CONFIDENTIAL AND NOT TO BE RELEASED WITHOUT AUTHORIZATION
== END 2022-03-17 11:40 | disposition home or self-care (01) ==
LOC: OPS 07:39 → DS 07:39 → OPS 09:00
PROVIDERS: ATTEND Colon & Rectal Surgery
PROC: 0DBE8ZX Excision of Large Intestine, Via Natural or Artificial Opening Endoscopic, Diagnostic (ICD-10-PCS; principal; 2022-03-17 09:00)
DX: K52.9 Noninfective gastroenteritis and colitis, unspecified (principal); K59.09 Other constipation; Z86.010 Personal history of colon polyps; Z80.0 Family history of malignant neoplasm of digestive organs; K57.30 Diverticulosis of large intestine without perforation or abscess without bleeding; K64.4 Residual hemorrhoidal skin tags; K62.89 Other specified diseases of anus and rectum; G43.709 Chronic migraine without aura, not intractable, without status migrainosus; K21.9 Gastro-esophageal reflux disease without esophagitis; I10 Essential (primary) hypertension; Z88.5 Allergy status to narcotic agent; K64.0 First degree hemorrhoids; Z83.71 Family history of colonic polyps
CPT/HCPCS: J2250; J2405; J2704; J3010; J7121